=== PATIENT | female | born 1970 | race Caucasian/White ===

== ENCOUNTER 2016-12-02 12:41 | Observation (INO) | payer OTHER ==
--- NOTE | 2016-12-02 14:26 | PDOC ---
*Physical Exam - Physical Exam Comments: 12/02/16 14:26 MIDLEVEL NOTE Pt seen by Midlevel Provider under my direct supervision. Pt interviewed and examined. Ancillary studies reviewed. I agree with plan as outlined by Midlevel Provider. 12/02/16 16:43 46-year-old female with anasarca/edema of the lower extremities which are now weeping Chest [id number] with no definite evidence of acute pathology labwork reviewed Laboratory Results - last 24 hr 12/02/16 12/02/16 12/02/16 14:53 14:53 14:53 WBC 9.4 RBC 4.94 Hgb 12.9 Hct 40.4 MCV 81.7 MCHC 31.8 L RDW 20.2 H Plt Count 283 MPV 9.4 Neutrophils % 74.6 Lymphocytes % 14.5 D Monocytes % 8.2 Eosinophils % 1.6 Basophils % 1.1 Sodium 136 Potassium 4.1 Chloride 99 Carbon Dioxide 25 D Anion Gap 12 BUN 9 D Creatinine 0.6 D Creat Clearance w eGFR > 60 Random Glucose 100 D Lactic Acid 1.629 Calcium 8.8 Total Bilirubin 1.3 H D AST 18 D ALT 19 D Alkaline Phosphatase 99 Total Protein 7.0 Albumin 2.8 L ED Treatment Course - LABORATORY CBC & Chemistry Diagram: 12/02/16 14:53 12/02/16 14:53 *DC/Admit/Observation/Transfer Diagnosis at time of Disposition: Anasarca, Lymph edema - Discharge Dispostion Condition at time of disposition: Stable - Prescriptions
--- NOTE | 2016-12-02 14:46 | PDOC ---
History of Present Illness - General Chief Complaint: Pain Stated Complaint: ABD PAIN Time Seen by Provider: 12/02/16 14:09 History Source: Patient Exam Limitations: No Limitations - History of Present Illness Initial Comments: CHIEF COMPLAINT: 46 y/o morbidly obese afebrile female with PMH CHF, VA (2010 s /p 2 stent placements), COPD, asthma, lymphadema, depression, anxiety c/o pain and swelling of b/l feet up to her stomach. HISTORY OF PRESENT ILLNESS: The patient states she has had worsening lower extremity swelling and pain over the past 6 months. She now has weeping of fluid from her feet. She was admitted to this hospital for the same issue in October and admits once the antibiotics were finished her symptoms returned. She has SOB as well but admits that is chronic. During her previous hospital admission she had an echo which showed an EF of 13.8% and she refused surgical intervention for her CHF. She denies fever, chills, PECK, n/v/d, CP, back pain. REVIEW OF SYSTEMS: GENERAL/CONSTITUTIONAL: Subjective fever/chills. No weakness. No weight change. HEAD, EYES, EARS, NOSE AND THROAT: No change in vision. No ear pain or discharge. No sore throat. CARDIOVASCULAR: +SOB with minimal exertion. No chest pain. RESPIRATORY: No cough, wheezing, or hemoptysis. GASTROINTESTINAL: +abd pain. No nausea, vomiting, diarrhea. GENITOURINARY: No dysuria, frequency, or change in urination. MUSCULOSKELETAL: +severe pain, swelling and weeping from LEs. No neck or back pain. SKIN: No rash or easy bruising. NEUROLOGIC: No headache, vertigo, loss of consciousness, or loss of sensation. PHYSICAL EXAM: GENERAL: The patient is awake, alert, and fully oriented, in no acute distress. She is morbidly obese. HEAD: Normal with no signs of trauma. ENT: Pupils equal, round and reactive to light, extraocular movements intact, sclera anicteric, conjunctiva clear. Neck supple. Lips dry. LUNGS: Distant lung sounds bilaterally secondary to body habitus. Normal excursion. No respiratory distress or use of accessory muscles. CV: RRR, S1/S2, no MRG. Cap refill < 2 sec. ABDOMEN: Obese with hard, tender lymphadema reaching umbilicus. EXTREMITIES: Significant erythematous, edematous, warm, weeping, very TTP lymphadema/anasarca in b/l LEs that extend all the way up to b/l thighs. Unable to palpate dorsalis pedis pulses b/l. B/l feet are wrapped in dressing. NEUROLOGICAL: Normal speech, normal gait. CN II-XII grossly intact. PSYCH: Normal mood, normal affect. SKIN: Diffuse scaring noted on abdomen, chest and arms with different stages of healing, some with open scabs. Past History - Past Medical History Allergies/Adverse Reactions: Allergies Allergy/AdvReac Type Severity Reaction Status Date / Time budesonide Allergy Severe Difficulty Verified 11/02/16 02:51 Breathing erythromycin base Allergy Severe Vomiting Verified 11/02/16 02:51 formoterol Allergy Severe Difficulty Verified 11/02/16 02:51 Breathing gabapentin Allergy Severe Verified 11/02/16 02:51 carvedilol Allergy Intermediate Nausea Verified 11/02/16 02:51 lisinopril Allergy Intermediate Nausea Verified 11/02/16 02:51 omeprazole Allergy Intermediate Verified 11/02/16 02:51 bupropion Allergy Unknown Verified 11/02/16 02:51 Home Medications: Ambulatory Orders Aclidinium [place] [Tudorza Pressair] 400 mcg IH DAILY 11/02/16 Albuterol Sulfate [Proventil HFA Inhaler -] 1 - 2 inh PO QID PRN 11/02/16 Aspirin [Lo-Dose Aspirin EC] 81 mg PO DAILY 11/02/16 Cholecalciferol (Vitamin D3) [Vitamin D3] 2,000 unit PO DAILY 11/02/16 Cyanocobalamin [Vitamin B12 -] 500 mcg PO DAILY 11/02/16 Famotidine [Pepcid -] 40 mg PO BID 11/02/16 Fluticasone/Salmeterol [Advair 250-50 Diskus] 1 each IH DAILY 11/02/16 Magnesium Oxide [Magnesium] 500 mg PO DAILY 11/02/16 Metoprolol Succinate [Toprol XL -] 50 mg PO DAILY 11/02/16 Nortriptyline HCl [Pamelor -] 10 mg PO HS 11/02/16 Valsartan 320 mg PO DAILY 11/02/16 Vitamin B Complex [B Complex # 1] 1 each PO DAILY 11/02/16 Vitamin E 400 unit PO DAILY 11/02/16 Doxycycline Hyclate 100 mg PO BID #28 capsule 11/09/16 Furosemide [Lasix -] 40 mg PO DAILY #7 tablet 11/09/16 Nystatin Cream [Mycostatin Cream -] 1 applic TP BID #1 tube 11/09/16 Salmeterol/Fluticasone [Advair 100Mcg/50Mcg -] 1 puff IH BID inhaler 11/09/16 Sitagliptin Phosphate [Januvia -] 100 mg PO DAILY@0700 #14 ud 11/09/16 Zinc Oxide 1 applic TP BID #1 tube 11/09/16 Asthma: Yes Cardiac Disorders: Yes (CHF, VA) COPD: Yes HTN: Yes Psychiatric Problems: Yes (Depression, anxiety) - Psycho/Social/Smoking Cessation Hx Suicidal Ideation: No Smoking History: Former smoker Have you smoked in the past 12 months: Yes Number of Cigarettes Smoked Daily: 2 If you are a former smoker, when did you quit?: April 2016 Hx Alcohol Use: No Drug/Substance Use Hx: No Substance Use Type: None ED Treatment Course - LABORATORY CBC & Chemistry Diagram: 12/02/16 14:53 12/02/16 14:53 Medical Decision Making - Medical Decision Making A/P: 46 y/o afebrile female with significant lymphadema/anasarca extending from b/l LEs up to abdomen. Plan is as follows: 1. Labs CXR IMPRESSION: Cardiomegaly. Labs unremarkable. Will admit to obs for anasarca. Spoke with Dr. Meza and he accepts admission to observation. *DC/Admit/Observation/Transfer Diagnosis at time of Disposition: Anasarca, Lymph edema - Discharge Dispostion Admit: Yes - Referrals Referrals: Jess Long MD [Primary Care Provider] -
[2016-12-02 16:10] LABS: BASOPHIL 1.1 % (0-2.0); EOSINOPHIL 1.6 % (0-4.5); MCHC 31.8 g/dl (32.0-36.0); MEAN CELL VOLUME 81.7 fl (80-96); MEAN PLT VOLUME 9.4 fl (7.5-11.1); NEUTROPHILS 74.6 % (42.8-82.8); PLATELET COUNT 283 K/MM3 (134-434); RDW 20.2 % (11.6-15.6); WHITE BLOOD COUNT 9.4 K/mm3 (4.0-10.0)
[2016-12-02 16:33] LABS: ALBUMIN 2.8 g/dl (3.4-5.0); ALK PHOS 99 U/L (45-117); ANION GAP 12 (8-16); BILIRUBIN,TOTAL 1.3 mg/dL (0.2-1.0); CALCIUM 8.8 mg/dL (8.5-10.1); CO2 25 mmol/L (21-32); CREATININE 0.6 mg/dL (0.55-1.02); GLUCOSE,RANDOM 100 mg/dL (74-106); SGOT/AST 18 U/L (15-37); SGPT/ALT 19 U/L (12-78)
[2016-12-02] MEDS ORDERED: HYDROmorphone HCL CARPU-JECT 1 MG/1 ML DISP.SYRIN ONE (16:36)
[2016-12-02] MEDS ORDERED: HYDROmorphone HCL CARPU-JECT 1 MG/1 ML DISP.SYRIN IVPUSH ONE (16:36)
--- NOTE | 2016-12-02 20:18 | HP ---
CHIEF COMPLAINT: chronic swelling in b/l legs HISTORY OF PRESENT ILLNESS: Patient is a 46 year old female with a significant PMHx of CHF, CAD s/p MT with two stent placements ( 2010), COPD, asthma, Lymphedema, depression, anxiety, DM and morbid obesity who presents to the ED with a complain of chronic lymphadema in b/l lower limb and anterior abdominal wall. Patient states that she noticed a increse in swelling in her leg and anterior abdominal wall around 10 days ago. Patient reports drainage from the left leg with surrounding erythema also states it was also present during her last admission and for which she had completed a course of antibiotics and was advised to follow up with wound clinic. Patient denies shortness of breath, chest pain lightheadedness, dizziness. Patient denies fever, chills, burning micturation. Patient denies recent travel, history of blood clots, chest pain, palpitations, fever, chills, nausea, vomiting, dizziness, headaches, loss of consciousness. She denies taking control. ER course was notable for: (1) cbc, bmp (2) blood culture (3)cxr Recent Travel: no PAST MEDICAL HISTORY: CHF, CAD s/p MT with two stent placements, COPD, asthma, Lymphedema, depression, anxiety, morbid obesity PAST SURGICAL HISTORY: stent placement in 2010, tonsillectomy Social History: Smoking: Quit march 2016( use to smoke 2 packs a day ) but now smoke few 2-3 cig Alcohol: Denies Drugs: marijuana occasional Family History: Allergies budesonide Allergy (Severe, Verified 11/02/16 02:51) Difficulty Breathing erythromycin base Allergy (Severe, Verified 11/02/16 02:51) Vomiting formoterol Allergy (Severe, Verified 11/02/16 02:51) Difficulty Breathing gabapentin Allergy (Severe, Verified 11/02/16 02:51) carvedilol Allergy (Intermediate, Verified 11/02/16 02:51) Nausea lisinopril Allergy (Intermediate, Verified 11/02/16 02:51) Nausea omeprazole Allergy (Intermediate, Verified 11/02/16 02:51) bupropion Allergy (Unknown, Verified 11/02/16 02:51) HOME MEDICATIONS: Home Medications Medication Instructions Recorded Aclidinium [place] [Tudorza 400 mcg IH DAILY 11/02/16 Pressair] Albuterol Sulfate [Proventil HFA 1 - 2 inh PO QID PRN 11/02/16 Inhaler -] Aspirin [Lo-Dose Aspirin EC] 81 mg PO DAILY 11/02/16 Cholecalciferol (Vitamin D3) 2,000 unit PO DAILY 11/02/16 [Vitamin D3] Cyanocobalamin [Vitamin B12 -] 500 mcg PO DAILY 11/02/16 Famotidine [Pepcid -] 40 mg PO BID 11/02/16 Fluticasone/Salmeterol [Advair 1 each IH DAILY 11/02/16 250-50 Diskus] Magnesium Oxide [Magnesium] 500 mg PO DAILY 11/02/16 Metoprolol Succinate [Toprol XL -] 50 mg PO DAILY 11/02/16 Nortriptyline HCl [Pamelor -] 10 mg PO HS 11/02/16 Valsartan 320 mg PO DAILY 11/02/16 Vitamin B Complex [B Complex # 1] 1 each PO DAILY 11/02/16 Vitamin E 400 unit PO DAILY 11/02/16 Doxycycline Hyclate 100 mg PO BID #28 capsule 11/09/16 Furosemide [Lasix -] 40 mg PO DAILY #7 tablet 11/09/16 Nystatin Cream [Mycostatin Cream -] 1 applic TP BID #1 tube 11/09/16 Salmeterol/Fluticasone [Advair 1 puff IH BID inhaler 11/09/16 100Mcg/50Mcg -] Sitagliptin Phosphate [Januvia -] 100 mg PO DAILY@0700 #14 ud 11/09/16 Zinc Oxide 1 applic TP BID #1 tube 11/09/16 REVIEW OF SYSTEMS CONSTITUTIONAL: Absent: fever, chills, diaphoresis, generalized weakness, malaise, loss of appetite, weight change HEENT: Absent: rhinorrhea, nasal congestion, throat pain, throat swelling, difficulty swallowing, mouth swelling, ear pain, eye pain, visual changes CARDIOVASCULAR: Absent: chest pain, syncope, palpitations, irregular heart rate, lightheadedness , peripheral edema RESPIRATORY: Absent: cough, shortness of breath, dyspnea with exertion, orthopnea, wheezing, stridor, hemoptysis GASTROINTESTINAL: Absent: abdominal pain, abdominal distension, nausea, vomiting, diarrhea, constipation, melena, hematochezia GENITOURINARY: Absent: dysuria, frequency, urgency, hesitancy, hematuria, flank pain, genital pain MUSCULOSKELETAL: Absent: myalgia, arthralgia, joint swelling, back pain, neck pain SKIN: Absent: rash, itching, pallor HEMATOLOGIC/IMMUNOLOGIC: Absent: easy bleeding, easy bruising, lymphadenopathy, frequent infections ENDOCRINE: Absent: unexplained weight gain, unexplained weight loss, heat intolerance, cold intolerance NEUROLOGIC: Absent: headache, focal weakness or paresthesias, dizziness, unsteady gait, seizure, mental status changes, bladder or bowel incontinence PSYCHIATRIC: Absent: anxiety, depression, suicidal or homicidal ideation, hallucinations. PHYSICAL EXAMINATION GENERAL: Awake, alert, and fully oriented, in no acute distress. HEAD: Normal with no signs of trauma. EYES: Pupils equal, round and reactive to light, extraocular movements intact, EARS, NOSE, THROAT: Ears normal, nares patent, oropharynx clear without exudates. NECK: Normal range of motion, LUNGS: Breath sounds equal, clear to auscultation bilaterally. No wheezes, and no crackles. No accessory muscle use. HEART: s1s2 normal ABDOMEN: Obese with hard, tender lymphadema reaching umbilicus. MUSCULOSKELETAL: Normal range of motion at all joints. No bony deformities or tenderness. No CVA tenderness. UPPER EXTREMITIES: 2+ pulses, warm, well-perfused. No cyanosis. No clubbing. Cap refill <2 seconds. No peripheral edema. LOWER EXTREMITIES: Obese with hard, tender lymphadema reaching umbilicus. EXTREMITIES:+LLE ulcer. +Chronic erythema of bilateral lower extremities, no warmth, normothermic. No clubbing or cyanosis. . NEUROLOGICAL: Cranial nerves II-XII intact. Normal speech. PSYCHIATRIC: non Cooperative. Good eye contact. SKIN: Warm, dry, ASSESSMENT/PLAN: Patient is a 46 year old female with a significant PMHx of CHF , CAD s/p MT with two stent placements, HTN, COPD, asthma, Lymphedema, depression, anxiety, and morbid obesity who presents to the ED for chronic lymphedema in b/l lower limb and in anterior abdominal wall. chronic Cellulitis with b/l LE lymphedema - patient recently discharged from hospital and has completed a course of antibiotic - advised to follow up with wound clinic - advised to follow up with vascular surgeon for lymphedema - keep limbs elevated - low salt diet ( patient refused to take low salt diet) - lasix 40 mg bid ( patient refuses to take more than 40mg, during last discharge patient was started on 80 mg daily but patient is just taking 40mg daily ) -Patient uncooperative with any recommended medical care. Chronic lymphedema noncompliant with any medical recommendations. Patient does not require hospital admission as her issues are chronic and discharged to continue care with PMD. Patient advised to follow up with wound care and referred to vascular for further evaluation. - clindamycin 600mg tid for 7 days CAD s/p MT with 2 stents -Continue home medications with Toprol xl -Conitinue Aspirin 81mg daily -Continue Valsartan DM not compliant with medication, in last visit patient advised to follow up with endocrnologist, patient refused medication and insulin patient refuse blood glucose monitoring diabetic diet ( patient refused diabetic diet and asked her mom to bring food from outside, butter and sugar ) CHF -ECHO done in last visit ef 16 -on lasix 40mg -Strict I's & O's -Daily weight -Sodium restricted diet HTN -Continue home medications Toprolol xl daily and Valsartan 320mg daily -Monitor BP Anxiety/Depression - psychiatry consult F/E/N -no fluids -Electrolytes wnl -Sodium controlled diet Prophylaxis -Heparin SQ BID for DVT ( patient refusing heparin ) -No GI needed asthma continue with home meds Disposition -Full code Visit type - Emergency Visit Emergency Visit: Yes ED Registration Date: 12/02/16 Care time: The patient presented to the Emergency Department on the above date and was hospitalized for further evaluation of their emergent condition. - New Patient This patient is new to me today: Yes Date on this admission: 12/03/16 - Critical Care Critical Care patient: No
[2016-12-02 20:38] VITALS: BP 117/61; PULSE 102; TEMP 97.4
--- NOTE | 2016-12-02 21:02 | DS ---
Physical Exam: SUBJECTIVE: Patient seen and examined OBJECTIVE: PHYSICAL EXAM Patient is a 46 year old female with a significant PMHx of CHF, CAD s/p [place] with two stent placements ( 2010), COPD, asthma, Lymphedema, depression, anxiety, DM and morbid obesity who presents to the ED with a complain of chronic lymphadema in b/l lower limb and anterior abdominal wall. Patient states that she noticed a increse in swelling in her leg and anterior abdominal wall around 10 days ago. Patient reports drainage from the left leg with surrounding erythema also states it was also present during her last admission and for which she had completed a course of antibiotics and was advised to follow up with wound clinic. Patient denies shortness of breath, chest pain lightheadedness, dizziness. Patient denies fever, chills, burning micturation. Patient denies recent travel, history of blood clots, chest pain, palpitations, fever, chills, nausea, vomiting, dizziness, headaches, loss of consciousness. She denies taking control. GENERAL: Awake, alert, and fully oriented, in no acute distress. HEAD: Normal with no signs of trauma. EYES: Pupils equal, round and reactive to light, extraocular movements intact, EARS, NOSE, THROAT: Ears normal, nares patent, oropharynx clear without exudates. NECK: Normal range of motion, LUNGS: Breath sounds equal, clear to auscultation bilaterally. No wheezes, and no crackles. No accessory muscle use. HEART: s1s2 normal ABDOMEN: Obese with hard, tender lymphadema reaching umbilicus. MUSCULOSKELETAL: Normal range of motion at all joints. No bony deformities or tenderness. No CVA tenderness. UPPER EXTREMITIES: 2+ pulses, warm, well-perfused. No cyanosis. No clubbing. Cap refill <2 seconds. No peripheral edema. lower EXTREMITIES: +LLE ulcer. +Chronic erythema of bilateral lower extremities , no warmth, normothermic. No clubbing or cyanosis. NEUROLOGICAL: Cranial nerves II-XII intact. Normal speech. PSYCHIATRIC: non Cooperative. Good eye contact. SKIN: Warm, dry, LABS CBCD WBC 9.4 K/mm3 (4.0-10.0) 12/02/16 14:53 RBC 4.94 M/mm3 (3.60-5.2) 12/02/16 14:53 Hgb 12.9 GM/dL (10.7-15.3) 12/02/16 14:53 Hct 40.4 % (32.4-45.2) 12/02/16 14:53 MCV 81.7 fl (80-96) 12/02/16 14:53 MCHC 31.8 g/dl (32.0-36.0) L 12/02/16 14:53 RDW 20.2 % (11.6-15.6) H 12/02/16 14:53 Plt Count 283 K/MM3 (134-434) 12/02/16 14:53 MPV 9.4 fl (7.5-11.1) 12/02/16 14:53 CMP Sodium 136 mmol/L (136-145) 12/02/16 14:53 Potassium 4.1 mmol/L (3.5-5.1) 12/02/16 14:53 Chloride 99 mmol/L (98-107) 12/02/16 14:53 Carbon Dioxide 25 mmol/L (21-32) D 12/02/16 14:53 Anion Gap 12 (8-16) 12/02/16 14:53 BUN 9 mg/dL (7-18) D 12/02/16 14:53 Creatinine 0.6 mg/dL (0.55-1.02) D 12/02/16 14:53 Creat Clearance w eGFR > 60 (>60) 12/02/16 14:53 Random Glucose 100 mg/dL (74-106) D 12/02/16 14:53 Calcium 8.8 mg/dL (8.5-10.1) 12/02/16 14:53 Total Bilirubin 1.3 mg/dL (0.2-1.0) H D 12/02/16 14:53 AST 18 U/L (15-37) D 12/02/16 14:53 ALT 19 U/L (12-78) D 12/02/16 14:53 Alkaline Phosphatase 99 U/L (45-117) 12/02/16 14:53 Total Protein 7.0 g/dl (6.4-8.2) 12/02/16 14:53 Albumin 2.8 g/dl (3.4-5.0) L 12/02/16 14:53 HOSPITAL COURSE: Patient is a 46 year old female with a significant PMHx of CHF , CAD s/p [place] with two stent placements ( 2010), COPD, asthma, Lymphedema, depression, anxiety, DM and morbid obesity who presents to the ED with a complain of chronic lymphadema in b/l lower limb and anterior abdominal wall. Patient states that she noticed a increase in swelling in her leg and anterior abdominal wall around 10 days ago. Patient reports drainage from the left leg with surrounding erythema also states it was also present during her last admission and for which she had completed a course of antibiotics and was also advised to follow up with wound clinic. Patient states she never followed in wound clinic. Patient denies shortness of breath, chest pain lightheadedness, dizziness. Patient denies fever, chills, burning micturation. Patient denies recent travel, history of blood clots, chest pain, palpitations, fever, chills, nausea, vomiting, dizziness, headaches, loss of consciousness. She denies taking control. Patient has chronic cellulites for which she is started on clindamycin 600mg tid. Patient uncooperative with any recommended medical care. Chronic lymphedema noncompliant with any medical recommendations. Patient does not require hospital admission as her issues are chronic and discharged to continue care with PMD. Patient advised to follow up with wound care and referred to vascular for further evaluation. For chronic lymphedema patient is advised to follow up with vascular surgeon and keep limbs elevated also advised to follow up in wound clinic. Patient is also advised to take medications as advised. For DM patient is advised to take her meds and follow up with server service assistant. Patient denies taking medication for DM and refuses to eat diabetic diet. Patient has been expalined in detail that if she is not going to maintain her blood sugar she can develop complication of DM like retinopathy, DE, renal ds, DE, stroke, peripharal neuropathy, infection can increase in her legs. Patient understand every thing and still asked her mom to bring food from outside. For copd and asthma continue with your home meds. Advice Follow-up with Dr. Long, your pcp Follow-up with Dr. Jordan for diabetes Avoid salty foods, carbohydrates and sugar. Follow-up with the wound care clinic, with Dr. Evangelist Caraballo regarding a lymphedema pump and wound care. follow up in wound clinic keep your legs elevated while sitting Eat low salt diet Eat Diabetic diet quit smoking Follow up with your psychiatrist take medications as prescribed Date of Admission:12/02/16 Minutes to complete discharge: 30 Discharge Summary Reason For Visit: ANASARCA; LYMPH EDEMA Current Active Problems Lymph edema (Chronic) Condition: Stable - Instructions Diet, Activity, Other Instructions: Follow-up with Dr. Long, your pcp Follow-up with Dr. Jordan for diabetes Avoid salty foods, carbohydrates and sugar. Follow-up with the wound care clinic, with Dr. Evangelist Caraballo regarding a lymphedema pump and wound care. follow up in wound clinic keep your legs elevated while sitting Eat low salt diet Eat Diabetic diet quit smoking Follow up with your psychiatrist take medications as prescribed Referrals: Jess Long MD [Primary Care Provider] - Disposition: HOME - Home Medications Comprehensive Discharge Medication List: Ambulatory Orders Aclidinium [place] [Tudorza Pressair] 400 mcg IH DAILY 11/02/16 Albuterol Sulfate [Proventil HFA Inhaler -] 1 - 2 inh PO QID PRN 11/02/16 Aspirin [Lo-Dose Aspirin EC] 81 mg PO DAILY 11/02/16 Cholecalciferol (Vitamin D3) [Vitamin D3] 2,000 unit PO DAILY 11/02/16 Cyanocobalamin [Vitamin B12 -] 500 mcg PO DAILY 11/02/16 Famotidine [Pepcid -] 40 mg PO BID 11/02/16 Fluticasone/Salmeterol [Advair 250-50 Diskus] 1 each IH DAILY 11/02/16 Magnesium Oxide [Magnesium] 500 mg PO DAILY 11/02/16 Metoprolol Succinate [Toprol XL -] 50 mg PO DAILY 11/02/16 Nortriptyline HCl [Pamelor -] 10 mg PO HS 11/02/16 Valsartan 320 mg PO DAILY 11/02/16 Vitamin B Complex [B Complex # 1] 1 each PO DAILY 11/02/16 Vitamin E 400 unit PO DAILY 11/02/16 Furosemide [Lasix -] 40 mg PO DAILY #7 tablet 11/09/16 Salmeterol/Fluticasone [Advair 100Mcg/50Mcg -] 1 puff IH BID inhaler 11/09/16 Zinc Oxide 1 applic TP BID #1 tube 11/09/16 Clindamycin [Cleocin -] 600 mg PO Q8H #21 capsule 12/02/16 This patient is new to me today: Yes Date on this admission: 12/03/16 Emergency Visit: Yes ED Registration Date: 12/02/16 Care time: The patient presented to the Emergency Department on the above date and was hospitalized for further evaluation of their emergent condition. Critical Care patient: No - Discharge Referral Referred to [facility] Med [facility] Yes Physician Referral: Evangelist Caraballo DO ([facility])
--- NOTE | 2016-12-02 21:05 | PN ---
<Swetha Walker - Last Filed: 12/02/16 21:05> Teaching Attending Note Name of Resident: Neptali Barajas <Beatrice Ty - Last Filed: 12/02/16 21:21> Teaching Attending Note ATTENDING PHYSICIAN STATEMENT I saw and evaluated the patient. I reviewed the resident's note and discussed the case with the resident. I agree with the resident's findings and plan as documented. SUBJECTIVE: The patient is a 46 yo F with a PMHx of CHF, [place] (2011 s/p 2 stent placements), COPD, asthma, lymphadema, depression, anxiety who presents with worsening bilateral LE pain and swelling. The patient states her feet are now weeping and is uncontrolled. The patient denies chest pain, headache or dizziness. She denies fever, chills, nausea, vomit, diarrhea or constipation. She denies dysuria, frequency, urgency or hematuria. OBJECTIVE: Physical Last Vital Signs Temp Pulse Resp BP Pulse Ox 97.4 F L 102 H 21 117/61 94 L 12/02/16 12:45 12/02/16 12:45 12/02/16 12:45 12/02/16 12:45 12/02/16 12:45 GENERAL: +Morbidly obese Awake, alert, and fully oriented, in no acute distress HEENT: Atraumatic. PERRLA, EOMI. Moist mucosa. No JVD LUNGS: No distress, speaks full sentences, clear to auscultation bilaterally HEART: Regular rate and rhythm, normal S1 and S2, no murmurs, rubs or gallops, peripheral pulses normal and equal bilaterally. ABDOMEN: Soft, nontender, normoactive bowel sounds. No guarding, no rebound. No masses EXTREMITIES: +LLE ulcer. +Chronic erythema of bilateral lower extremities, no warmth, normothermic. No clubbing or cyanosis. NEUROLOGICAL: Cranial nerves II through XII grossly intact. Normal speech, normal gait, no focal sensorimotor deficits SKIN: Warm, Dry, normal turgor, no rashes or lesions noted. CBCD WBC 9.4 K/mm3 (4.0-10.0) 12/02/16 14:53 RBC 4.94 M/mm3 (3.60-5.2) 12/02/16 14:53 Hgb 12.9 GM/dL (10.7-15.3) 12/02/16 14:53 Hct 40.4 % (32.4-45.2) 12/02/16 14:53 MCV 81.7 fl (80-96) 12/02/16 14:53 MCHC 31.8 g/dl (32.0-36.0) L 12/02/16 14:53 RDW 20.2 % (11.6-15.6) H 12/02/16 14:53 Plt Count 283 K/MM3 (134-434) 12/02/16 14:53 MPV 9.4 fl (7.5-11.1) 12/02/16 14:53 CMP Sodium 136 mmol/L (136-145) 12/02/16 14:53 Potassium 4.1 mmol/L (3.5-5.1) 12/02/16 14:53 Chloride 99 mmol/L (98-107) 12/02/16 14:53 Carbon Dioxide 25 mmol/L (21-32) D 12/02/16 14:53 Anion Gap 12 (8-16) 12/02/16 14:53 BUN 9 mg/dL (7-18) D 12/02/16 14:53 Creatinine 0.6 mg/dL (0.55-1.02) D 12/02/16 14:53 Creat Clearance w eGFR > 60 (>60) 12/02/16 14:53 Calcium 8.8 mg/dL (8.5-10.1) 12/02/16 14:53 Total Bilirubin 1.3 mg/dL (0.2-1.0) H D 12/02/16 14:53 AST 18 U/L (15-37) D 12/02/16 14:53 ALT 19 U/L (12-78) D 12/02/16 14:53 Alkaline Phosphatase 99 U/L (45-117) 12/02/16 14:53 Total Protein 7.0 g/dl (6.4-8.2) 12/02/16 14:53 Albumin 2.8 g/dl (3.4-5.0) L 12/02/16 14:53 ASSESSMENT AND PLAN: The patient is a 46 yo F with a PMHx of CHF, [place] (2010 s/p 2 stent placements), COPD, asthma, lymphadema, depression, anxiety who presents with worsening LE pain and swelling. 1.) Chronic lymphedema - Patient uncooperative with any recommended medical care. - Chronic lymphedema noncompliant with any medical recommendations. - Patient does not require hospital admission as her issues are chronic and discharged to continue care with PMD. - Patient advised to follow up with wound care and referred to vascular for further evaluation. 2.) Chronic Cellulitis - Patients cellulitis is chronic. - Advised for wound care-- BID. - Clindamycin - Patient will benefit from hyperbaric oxygen therapy 3.) Diabetes - Patient counseled extensively on diabetes and complications due to uncontrolled blood glucose including peripheral neuropathy, diabetic ulcers, amputation, vision loss and nephropathy with dialysis. 4.) Depression - Patient also advised to get psychiatric counseling to assist with her depression as poorly controlled depression has been shown to decrease a patient' s ability to properly manage their chronic diseases. - Patient again non complaint and unwilling to talk to a stranger. 5.)Diet - Patient counseled about adhering to diabetic diet. Documentation prepared by Beatrice Ty, acting as phlebotomist medical lab assistant for Denise Posada MD
[2016-12-02 23:02] VITALS: BMI 72.0
--- NOTE | 2016-12-06 16:24 | EKG ---
Test Reason : Blood Pressure : / mmHG Vent. Rate : 104 BPM Atrial Rate : 104 BPM P-R Int : 172 ms QRS Dur : 104 ms QT Int : 372 ms P-R-T Axes : 051 -24 050 degrees QTc Int : 489 ms SINUS TACHYCARDIA POSSIBLE LEFT ATRIAL ENLARGEMENT INFERIOR INFARCT (CITED ON OR BEFORE 02-NOV-2016) ANTERIOR INFARCT (CITED ON OR BEFORE 23-DEC-2010) ABNORMAL ECG WHEN COMPARED WITH ECG OF 02-NOV-2016 13:23, PREMATURE VENTRICULAR COMPLEXES ARE NO LONGER PRESENT Confirmed by PACO ESTEVEZ MD ([id number]) on 12/06/2016 4:24:14 PM Referred By: Confirmed By:PACO ESTEVEZ MD
== END 2016-12-02 23:00 | disposition home or self-care (01) ==
LOC: JER 12:41 → JERBED 18:12
PROVIDERS: ADMIT Internal Medicine; ATTEND Internal Medicine
DX: R60.1 Generalized edema (principal); I25.10 Atherosclerotic heart disease of native coronary artery without angina pectoris; I25.2 Old myocardial infarction; J44.9 Chronic obstructive pulmonary disease, unspecified; J45.909 Unspecified asthma, uncomplicated; F41.8 Other specified anxiety disorders; E66.01 Morbid (severe) obesity due to excess calories; Z68.45 Body mass index [BMI] 70 or greater, adult; Z71.3 Dietary counseling and surveillance; I50.9 Heart failure, unspecified; E11.9 Type 2 diabetes mellitus without complications; L03.116 Cellulitis of left lower limb; L03.115 Cellulitis of right lower limb; Z95.5 Presence of coronary angioplasty implant and graft; Z87.891 Personal history of nicotine dependence; Z91.19 Patient's noncompliance with other medical treatment and regimen
CPT/HCPCS: 36415; 71010-TC; 80053; 83605; 83880; 85025; 87040; 93005; 93010; 99284-25; G0378

== ENCOUNTER 2017-06-03 00:22 | Inpatient (IN) | payer OTHER ==
--- NOTE | 2017-06-03 01:46 | PDOC ---
History of Present Illness - General Chief Complaint: Shortness of Breath Stated Complaint: SOB Time Seen by Provider: 06/03/17 00:47 - History of Present Illness Initial Comments: 06/03/17 01:46 CHIEF COMPLAINT: SOB HISTORY OF PRESENT ILLNESS: 46 yo F with significant PMH of CHF, [place] (2010, s/p two stent placements), COPD, asthma, chronic lymphadema, morbid obesity, depression, anxiety, presents to ED with chronic shortness of breath and swelling. Patient also complains of severe R sided back pain. She denies any fever, chills, nausea, vomiting, or chest pain. Patient is known to be non compliant with medical recommendations and refuses to make dietary changes despite repeated instructions from cardiology and hospitalists upon prior discharges from the hospital. PAST MEDICAL HISTORY: as per HPI FAMILY HISTORY: Denies SOCIAL HISTORY: Marijuana use "sometimes", "a few" cigarettes "sometimes" SURGICAL HISTORY: stent placement 2010 ALLERGIES: budesonide, erythromycin, formoterol, gabapentin, lisinopril, REVIEW OF SYSTEMS General/Constitutional: Denies fever or chills. Denies weakness, weight change. HEENT: Denies change in vision. Denies ear pain or discharge. Denies sore throat. Cardiovascular: Shortness of breath. Respiratory: Cough, wheezing. Gastrointestinal: Denies nausea, vomiting, diarrhea or constipation. Denies rectal bleeding. Genitourinary: Denies dysuria, frequency, or change in urination. Musculoskeletal: R sided back pain. Denies joint or muscle swelling or pain. Skin and breasts: Denies rash or easy bruising. Neurologic: Denies headache, vertigo, loss of consciousness, or loss of sensation. PHYSICAL EXAM General Appearance: Well-appearing, appropriately dressed. No apparent distress. HEENT: EOMI, PERRLA, normal ENT inspection, normal voice, TMs normal, pharynx normal. No conjunctival pallor. No photophobia, scleral icterus. Respiratory/Chest: Shortness of breath. Bibasilar crackles. No accessory muscle use. No rales, rhonchi, dullness. Cardiovascular: RRR. S1, S2. No JVD, murmur, bradycardia, tachycardia. Vascular Pulses: DP's nonpalpable b/l due to severe lymphadema Gastrointestinal/Abdominal: Normal bowel sounds. Abdomen soft, non-distended. No tenderness or rebound tenderness. No organomegaly, pulsatile mass, guarding , hernia, hepatomegaly, splenomegaly. Musculoskeletal/Extremities: R CVA tenderness. Normal inspection. FROM of all extremities, normal capillary refill. Pelvis Stable. No CVA tenderness. No tenderness to extremities, pedal edema, swelling, erythema or deformity. Integumentary: Appropriate color, dry, warm. No cyanosis, erythema, jaundice or rash Neurologic: radiologic technology teacher II-XII intact. Fully oriented, alert. Appropriate mood/affect. Motor strength 5/5. No appreciable EOM palsy, facial droop or sensory deficit. Past History - Past Medical History Allergies/Adverse Reactions: Allergies Allergy/AdvReac Type Severity Reaction Status Date / Time budesonide Allergy Severe Difficulty Verified 06/03/17 01:52 Breathing erythromycin base Allergy Severe Vomiting Verified 06/03/17 01:52 formoterol Allergy Severe Difficulty Verified 06/03/17 01:52 Breathing gabapentin Allergy Severe Verified 06/03/17 01:52 carvedilol Allergy Intermediate Nausea Verified 06/03/17 01:52 lisinopril Allergy Intermediate Nausea Verified 06/03/17 01:52 omeprazole Allergy Intermediate Verified 06/03/17 01:52 bupropion Allergy Unknown Verified 06/03/17 01:52 Home Medications: Ambulatory Orders Aclidinium [place] [Tudorza Pressair] 400 mcg IH DAILY 11/02/16 Albuterol Sulfate [Proventil HFA Inhaler -] 1 - 2 inh PO QID PRN 11/02/16 Aspirin [Lo-Dose Aspirin EC] 81 mg PO DAILY 11/02/16 Cholecalciferol (Vitamin D3) [Vitamin D3] 2,000 unit PO DAILY 11/02/16 Cyanocobalamin [Vitamin B12 -] 500 mcg PO DAILY 11/02/16 Famotidine [Pepcid -] 40 mg PO BID 11/02/16 Fluticasone/Salmeterol [Advair 250-50 Diskus] 1 each IH DAILY 11/02/16 Magnesium Oxide [Magnesium] 500 mg PO DAILY 11/02/16 Metoprolol Succinate [Toprol XL -] 50 mg PO DAILY 11/02/16 Nortriptyline HCl [Pamelor -] 10 mg PO HS 11/02/16 Valsartan 320 mg PO DAILY 11/02/16 Vitamin B Complex [B Complex # 1] 1 each PO DAILY 11/02/16 Vitamin E 400 unit PO DAILY 11/02/16 Furosemide [Lasix -] 40 mg PO DAILY #7 tablet 11/09/16 Salmeterol/Fluticasone [Advair 100Mcg/50Mcg -] 1 puff IH BID inhaler 11/09/16 Zinc Oxide 1 applic TP BID #1 tube 11/09/16 Clindamycin [Cleocin -] 600 mg PO Q8H #21 capsule 12/02/16 Asthma: Yes Cardiac Disorders: Yes (CHF, [place]) COPD: Yes HTN: Yes Psychiatric Problems: Yes (Depression, anxiety) - Psycho/Social/Smoking Cessation Hx Anxiety: No Suicidal Ideation: No Smoking History: Former smoker Have you smoked in the past 12 months: Yes Number of Cigarettes Smoked Daily: 2 If you are a former smoker, when did you quit?: April 2016 Hx Alcohol Use: No Drug/Substance Use Hx: No Substance Use Type: None ED Treatment Course - LABORATORY CBC & Chemistry Diagram: 06/11/17 06:00 06/11/17 06:00 - RADIOLOGY Radiology Studies Ordered: Category Date Time Status CHEST X-RAY PORTABLE* [RAD] Stat Radiology 06/03/17 00:59 Ordered Medical Decision Making - Medical Decision Making 06/03/17 03:42 46 yo F with significant PMH of CHF, [place] (2010, s/p two stent placements), COPD , asthma, chronic lymphadema, morbid obesity, depression, anxiety, presents to ED with chronic shortness of breath and swelling and R sided back pain. -CBC, CMP, Mg, PT/INR, card profile, BNP -EKG, CXR -UA, Ucx -30 mg Toradol IV EKG unchanged from prior. CXR with haziness to b/l bases, no significant change from prior. 06/03/17 04:43 Laboratory Tests 06/03/17 06/03/17 01:50 01:50 WBC 11.8 H Magnesium 1.7 L Total Bilirubin 1.2 H B-Natriuretic Peptide 6151.49 H Will admit for CHF exacerbation. *DC/Admit/Observation/Transfer Diagnosis at time of Disposition: Acute on chronic systolic (congestive) heart failure - Discharge Dispostion Admit: Yes - Referrals
[2017-06-03 01:52] VITALS: BMI 53.3
[2017-06-03 02:01] LABS: EOSINOPHIL 0.8 % (0-4.5); MCH 28.6 pg (25.7-33.7); MCHC 32.1 g/dl (32.0-36.0); MEAN CELL VOLUME 89.2 fl (80-96); NEUTROPHILS 79.1 % (42.8-82.8); PLATELET COUNT 157 K/MM3 (134-434); RDW 16.7 % (11.6-15.6); WHITE BLOOD COUNT 11.8 K/mm3 (4.0-10.0)
[2017-06-03 02:13] LABS: INR 1.53 (0.82-1.09)
[2017-06-03 02:25] LABS: ALBUMIN 2.9 g/dl (3.4-5.0); ANION GAP 10 (8-16); BILIRUBIN,TOTAL 1.2 mg/dL (0.2-1.0); CALCIUM 8.9 mg/dL (8.5-10.1); CO2 27 mmol/L (21-32); CREATININE 0.7 mg/dL (0.55-1.02); GLUCOSE,RANDOM 122 mg/dL (74-106); MAGNESIUM 1.7 mg/dL (1.8-2.4); SGOT/AST 12 U/L (15-37); SGPT/ALT 12 U/L (12-78); TOT PROT 7.8 g/dl (6.4-8.2)
[2017-06-03 02:28] LABS: ALK PHOS 90 U/L (45-117); CPK 21 IU/L (26-192); TROPONIN I 0.03 ng/ml (0.00-0.05)
[2017-06-03] MEDS ORDERED: KETOROLAC TROMETHAMINE 30 MG/1 ML VIAL IVPUSH ONE (02:30)
[2017-06-03] MEDS ORDERED: KETOROLAC TROMETHAMINE 30 MG/1 ML VIAL ONE (02:33)
--- NOTE | 2017-06-03 02:34 | PDOC ---
*Physical Exam - Vital Signs Last Vital Signs Temp Pulse Resp BP Pulse Ox 98.1 F 110 H 36 H 96/58 99 06/03/17 01:45 06/03/17 01:45 06/03/17 01:45 06/03/17 01:45 06/03/17 01:45 ED Treatment Course - LABORATORY CBC & Chemistry Diagram: 06/06/17 06:00 06/06/17 06:00 - ADDITIONAL ORDERS Additional order review: Laboratory Results 06/03/17 06/03/17 01:50 01:50 INR 1.53 H Serum , Qual Negative 06/03/17 01:50 RBC 4.25 MCV 89.2 MCHC 32.1 RDW 16.7 H D MPV 9.0 Neutrophils % 79.1 Lymphocytes % 8.7 D Monocytes % 10.4 H Eosinophils % 0.8 Basophils % 1.0 Medical Decision Making - Medical Decision Making 06/03/17 02:33 agree with care from SANDY Ballard *DC/Admit/Observation/Transfer Diagnosis at time of Disposition: Acute on chronic systolic (congestive) heart failure
[2017-06-03] MEDS ORDERED: FUROSEMIDE 40 MG/4 ML INJECTABLE VIAL IVPUSH ONE ×2 (03:32→10:00)
[2017-06-03] MEDS ORDERED: FUROSEMIDE 40 MG/4 ML INJECTABLE VIAL ONE (04:06)
[2017-06-03 04:37] LABS: URINE APPEARANCE SLCLOUDY; URINE BILIRUBIN NEGATIVE (NEGATIVE); URINE BLOOD NEGATIVE (NEGATIVE); URINE COLOR AMBER; URINE GLUCOSE (UA) NEGATIVE (NEGATIVE); URINE KETONE NEGATIVE (NEGATIVE); URINE LEUK ESTERASE NEGATIVE (NEGATIVE); URINE NITRITE NEGATIVE (NEGATIVE); URINE UROBILINOGEN NEGATIVE mg/dL (0.2-1.0)
[2017-06-03 04:46] LABS: URINE PROTEIN 1+ (NEGATIVE)
[2017-06-03 04:48] LABS: URINE BACTERIA RARE /hpf (NONE SEEN); URINE HYALINE CAST 1 /lpf; URINE MUCUS RARE; URINE RBC 1 /hpf (0-3); URINE WBC 2 /hpf (3-5)
--- NOTE | 2017-06-03 05:33 | HP ---
CHIEF COMPLAINT: Sob/cough PCP: Ethan HISTORY OF PRESENT ILLNESS: This is a 46 year old morbidly obese woman with a past medical history significant for CHF, [place], cOPD, asthma, chronic lymphedema, depression, anxiety, pulmonary HTN who presented to the ED with report of increased SOB and cough x 3 -4 days. SHe reports cough is more productive and frequent than usual with clear /white phlegm at times streaked with blood. She also presents with right flank pain. Denies N/V/D abdominal pain. ER course was notable for: (1) WBC 11.8 (2) BNP 6151 Recent Travel: pt denies PAST MEDICAL HISTORY: CHF [place] 2010 s/p stent x 2 COPD/asthma chronic lymphedema, morbid obesity depression anxiety pulmonary hypertension PAST SURGICAL HISTORY: stent x 2 Social History: Smoking: few cig/day Alcohol: pt denies Drugs: marijuana occasionally Family History: mother alive with HTN father age 63, [place], first [place] in his 50s brother alive and well no children Allergies budesonide Allergy (Severe, Verified 06/03/17 01:52) Difficulty Breathing erythromycin base Allergy (Severe, Verified 06/03/17 01:52) Vomiting formoterol Allergy (Severe, Verified 06/03/17 01:52) Difficulty Breathing gabapentin Allergy (Severe, Verified 06/03/17 01:52) carvedilol Allergy (Intermediate, Verified 06/03/17 01:52) Nausea lisinopril Allergy (Intermediate, Verified 06/03/17 01:52) Nausea omeprazole Allergy (Intermediate, Verified 06/03/17 01:52) bupropion Allergy (Unknown, Verified 06/03/17 01:52) HOME MEDICATIONS: 3 Medication Instructions Recorded Aclidinium [place] [Tudorza 400 mcg IH DAILY 11/02/16 Pressair] Albuterol Sulfate [Proventil HFA 1 - 2 inh PO QID PRN 11/02/16 Inhaler -] Aspirin [Lo-Dose Aspirin EC] 81 mg PO DAILY 11/02/16 Cholecalciferol (Vitamin D3) 2,000 unit PO DAILY 11/02/16 [Vitamin D3] Cyanocobalamin [Vitamin B12 -] 500 mcg PO DAILY 11/02/16 Famotidine [Pepcid -] 40 mg PO BID 11/02/16 Fluticasone/Salmeterol [Advair 1 each IH DAILY 11/02/16 250-50 Diskus] Magnesium Oxide [Magnesium] 500 mg PO DAILY 11/02/16 Metoprolol Succinate [Toprol XL -] 50 mg PO DAILY 11/02/16 Nortriptyline HCl [Pamelor -] 10 mg PO HS 11/02/16 Valsartan 320 mg PO DAILY 11/02/16 Vitamin B Complex [B Complex # 1] 1 each PO DAILY 11/02/16 Vitamin E 400 unit PO DAILY 11/02/16 Furosemide [Lasix -] 40 mg PO DAILY #7 tablet 11/09/16 Salmeterol/Fluticasone [Advair 1 puff IH BID inhaler 11/09/16 100Mcg/50Mcg -] Zinc Oxide 1 applic TP BID #1 tube 11/09/16 Clindamycin [Cleocin -] 600 mg PO Q8H #21 capsule 12/02/16 REVIEW OF SYSTEMS CONSTITUTIONAL: Absent: fever, chills, diaphoresis, generalized weakness, malaise, loss of appetite, weight change HEENT: Absent: rhinorrhea, nasal congestion, throat pain, throat swelling, difficulty swallowing, mouth swelling, ear pain, eye pain, visual changes CARDIOVASCULAR: Present: peripheral edema Absent: chest pain, syncope, palpitations, irregular heart rate, lightheadedness RESPIRATORY: Present: cough, shortness of breath Absent: dyspnea with exertion, orthopnea, wheezing, stridor, hemoptysis GASTROINTESTINAL: Absent: abdominal pain, abdominal distension, nausea, vomiting, diarrhea, constipation, melena, hematochezia GENITOURINARY: Absent: dysuria, frequency, urgency, hesitancy, hematuria, flank pain, genital pain MUSCULOSKELETAL: Absent: myalgia, arthralgia, joint swelling, back pain, neck pain SKIN: Absent: rash, itching, pallor HEMATOLOGIC/IMMUNOLOGIC: Absent: easy bleeding, easy bruising, lymphadenopathy, frequent infections ENDOCRINE: Absent: unexplained weight gain, unexplained weight loss, heat intolerance, cold intolerance NEUROLOGIC: Absent: headache, focal weakness or paresthesias, dizziness, unsteady gait, seizure, mental status changes, bladder or bowel incontinence PSYCHIATRIC: Absent: anxiety, depression, suicidal or homicidal ideation, hallucinations. PHYSICAL EXAMINATION Vital Signs - 24 hr 3 06/03/17 06/03/17 06/03/17 01:45 05:12 05:16 05:19 Temperature 98.1 F Pulse Rate 110 H Pulse Rate [ 110 H 115 H Radial] Respiratory 36 H 30 H 32 H 29 H Rate Blood Pressure 96/58 Blood Pressure 101/98 104/72 105/70 [Right Thigh] O2 Sat by Pulse 99 99 99 92 L Oximetry (%) GENERAL: Awake, alert, and fully oriented, in no acute distress. HEAD: Normal with no signs of trauma. EYES: Pupils equal, round and reactive to light, extraocular movements intact, sclera anicteric, conjunctiva clear. No lid lag. EARS, NOSE, THROAT: Ears normal, nares patent, oropharynx clear without exudates. Moist mucous membranes. NECK: Normal range of motion, supple without lymphadenopathy, JVD, or masses. LUNGS: Breath sounds crackles bilat bases, scatter faint expiratory wheezing. No accessory muscle use HEART: Regular rate and rhythm, normal S1 and S2 without murmur, rub or gallop. ABDOMEN: Soft, nontender, not distended, normoactive bowel sounds, no guarding, no rebound, no masses. No hepatomegaly or splenomegaly. MUSCULOSKELETAL: Normal range of motion at all joints. No bony deformities or tenderness. No CVA tenderness. UPPER EXTREMITIES: 2+ pulses, warm, well-perfused. No cyanosis. No clubbing. No peripheral edema. LOWER EXTREMITIES: 2+ pulses, warm, well-perfused. No calf tenderness. B/L tight edema, 2+ left leg, 3+ right. + hypertrophic skin. Open wound LLL anterior carrillo 4cm x 10cm x 0.2cm with smaller distal wound that has joined together with upper 2.1cm x 0.8cm x 0.1cm 10% slough to central areas of both wounds, remainder of wound bed pink, granulating well. left posterior ankle with small dry wound 1.8cm x 1.4cm x 0.1cm. R foot, ball of foot 0.9 x 1.0 x 0.3cm, 100% slough NEUROLOGICAL: Cranial nerves II-XII intact. Normal speech. Normal gait. PSYCHIATRIC: Cooperative. Good eye contact. Appropriate mood and affect. SKIN: Warm, dry, normal turgor, no rashes or lesions noted, normal capillary refill. Laboratory Results - last 24 hr 3 06/03/17 06/03/17 06/03/17 01:50 01:50 01:50 WBC 11.8 H RBC 4.25 Hgb 12.1 Hct 37.9 MCV 89.2 MCH 28.6 MCHC 32.1 RDW 16.7 H D Plt Count 157 D MPV 9.0 Neutrophils % 79.1 Lymphocytes % 8.7 D Monocytes % 10.4 H Eosinophils % 0.8 Basophils % 1.0 INR 1.53 H Sodium 137 Potassium 3.9 Chloride 100 Carbon Dioxide 27 Anion Gap 10 BUN 14 D Creatinine 0.7 Creat Clearance w eGFR > 60 Random Glucose 122 H D Calcium 8.9 Magnesium 1.7 L Total Bilirubin 1.2 H AST 12 L D ALT 12 D Alkaline Phosphatase 90 Creatine Kinase 21 L Troponin I 0.03 B-Natriuretic Peptide 6151.49 H Total Protein 7.8 Albumin 2.9 L Serum , Qual Negative Urine Color Urine Appearance Urine pH Urine Protein Urine Glucose (UA) Urine Ketones Urine Blood Urine Nitrite Urine Bilirubin Urine Urobilinogen Ur Leukocyte Esterase Urine RBC Urine WBC Ur Epithelial Cells Urine Bacteria Hyaline Casts Urine Mucus 3 Urine Color Myrtle 06/03/17 04:28 Urine Appearance Slcloudy 06/03/17 04:28 Urine pH 5.0 (5.0-8.0) 06/03/17 04:28 Urine Protein 1+ (NEGATIVE) H 06/03/17 04:28 Urine Glucose (UA) Negative (NEGATIVE) 06/03/17 04:28 Urine Ketones Negative (NEGATIVE) 06/03/17 04:28 Urine Blood Negative (NEGATIVE) 06/03/17 04:28 Urine Nitrite Negative (NEGATIVE) 06/03/17 04:28 Urine Bilirubin Negative (NEGATIVE) 06/03/17 04:28 Ur Leukocyte Esterase Negative (NEGATIVE) 06/03/17 04:28 Urine RBC 1 /hpf (0-3) 06/03/17 04:28 Urine WBC 2 /hpf (3-5) 06/03/17 04:28 Ur Epithelial Cells Rare /hpf (FEW) 06/03/17 04:28 Urine Bacteria Rare /hpf (NONE SEEN) 06/03/17 04:28 Urine Mucus Rare 06/03/17 04:28 ECG CXR: cardiomegaly, blunted costophrenic angles, no obvious infiltrate, final read pending. ASSESSMENT/PLAN: 46yF with PMH systolic CHF, [place], stent, COPD, asthma, chronic lymphedema, morbid obesity, depression, anxiety, pulm HTN presented to the ED with SOB and cough x 3-4 days. Pt is being admitted for further evaluation. 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 r/t lung Vascular ulcers/lymphedema - cont lasix IV - would recommend santyl for right foot but pt adamantly refuses same, will do bacitracin and DPD - moist-dry dressing to left lower leg - vascular consult - KIERA wraps to B/L LE DVT PPX - heparin 5000u TID FEN - hold IVF, tolerating po - BMP tomorrow, replete mag - low sodium diet Dispo: Pt currently requires inpatient management of her emergent condition. Visit type - Emergency Visit Emergency Visit: Yes ED Registration Date: 06/03/17 Care time: The patient presented to the Emergency Department on the above date and was hospitalized for further evaluation of their emergent condition. - New Patient This patient is new to me today: Yes Date on this admission: 06/03/17 - Critical Care Critical Care patient: No
[2017-06-03] MEDS ORDERED: ACETAMINOPHEN 325 MG TABLET (FP) PO PRN (05:52)
[2017-06-03] MEDS ORDERED: MAGNESIUM SULF 50% (8.12 MEQ/2 ML-1 GM VIAL) IVPB ONE (05:58)
[2017-06-03] MEDS ORDERED: DOXYCYCLINE INJECTION 100 MG in DEXTROSE 5%-WATER - 100 ML IVPB ONE (06:00)
[2017-06-03] MEDS ORDERED: VANCOMYCIN 1 GRAM (PRE-DOCKED) 250 ML IVPB ONE (06:08)
[2017-06-03] MEDS ORDERED: HEPARIN NA (PORCINE) 5,000 UNITS/ML 1ML VIAL SQ SCH (06:15)
[2017-06-03] MEDS ORDERED: MAGNESIUM SULF 50% (8.12 MEQ/2 ML-1 GM VIAL) ONE (06:23)
[2017-06-03] MEDS ORDERED: HEPARIN NA (PORCINE) 5,000 UNITS/ML 1ML VIAL ONE (06:24)
--- NOTE | 2017-06-03 08:20 | PN ---
Teaching Attending Note Name of Resident: Austin Velásquez ATTENDING PHYSICIAN STATEMENT I saw and evaluated the patient. I reviewed the resident's note and discussed the case with the resident. I agree with the resident's findings and plan as documented. SUBJECTIVE: No specific complaints OBJECTIVE: Vitals noted ASSESSMENT AND PLAN: Appreciate business transformation consultant input and pt counseling She continues to refuse ABG, nebs CT chest with IV contrast to rule out PE and better define any pulmonary pathology She may refuse this Continue Lasix Continue antibiotics Follow closely See resident note for full details
--- NOTE | 2017-06-03 08:25 | CON.CARD ---
Consult Consult Specialty:: Cardiology Referred by:: Hospitalist Medicine Reason for Consultation:: Anasarca - History of Present Illness Chief Complaint: Anasarca History of Present Illness: 46 morbidly obese female with pmhx of CAD post SD (2011 s/p stents X2), systolic dysfunction with h/o failure, pulm HTN, COPD, asthma, chronic lymphedema, anxiety, current smoker, depression and anxiety, who presented with increased SOB, orthopnea and cough x 3-4 days in context of diuretic noncompliance reporting that she can't reach bathroom fast enough. She also presents with right flank pain. Denies N/V/D abdominal pain, chest pain, near or true syncope, palpitations or PND. Lethargic. ER course was notable for: (1) WBC 11.8 (2) BNP 6151 Recent Travel: pt denies PAST MEDICAL HISTORY: CHF SD 2011 s/p stent x 2 COPD/asthma chronic lymphedema, morbid obesity depression anxiety pulmonary hypertension PAST SURGICAL HISTORY: stent x 2 Social History: Smoking: few cig/day Alcohol: pt denies Drugs: marijuana occasionally Family History: mother alive with HTN father age 63, SD, first SD in his 50s brother alive and well no children - History Source History Provided By: Patient Limitations to Obtaining History: No Limitations - Past Medical History Cardio/Vascular: Yes: CAD, [place] Dermatology: Yes: Other (Leg Cellulitis) - Alcohol/Substance Use Hx Alcohol Use: No - Smoking History Smoking history: Former smoker Have you smoked in the past 12 months: Yes Aproximately how many cigarettes per day: 2 If you are a former smoker, when did you quit?: April 2016 Home Medications - Allergies Allergies/Adverse Reactions: Allergies Allergy/AdvReac Type Severity Reaction Status Date / Time budesonide Allergy Severe Difficulty Verified 06/03/17 01:52 Breathing erythromycin base Allergy Severe Vomiting Verified 06/03/17 01:52 formoterol Allergy Severe Difficulty Verified 06/03/17 01:52 Breathing gabapentin Allergy Severe Verified 06/03/17 01:52 carvedilol Allergy Intermediate Nausea Verified 06/03/17 01:52 lisinopril Allergy Intermediate Nausea Verified 06/03/17 01:52 omeprazole Allergy Intermediate Verified 06/03/17 01:52 bupropion Allergy Unknown Verified 06/03/17 01:52 - Home Medications Home Medications: Ambulatory Orders Aclidinium [place] [Tudorza Pressair] 400 mcg IH DAILY 11/02/16 Albuterol Sulfate [Proventil HFA Inhaler -] 1 - 2 inh PO QID PRN 11/02/16 Aspirin [Lo-Dose Aspirin EC] 81 mg PO DAILY 11/02/16 Cholecalciferol (Vitamin D3) [Vitamin D3] 2,000 unit PO DAILY 11/02/16 Cyanocobalamin [Vitamin B12 -] 500 mcg PO DAILY 11/02/16 Famotidine [Pepcid -] 40 mg PO BID 11/02/16 Fluticasone/Salmeterol [Advair 250-50 Diskus] 1 each IH DAILY 11/02/16 Magnesium Oxide [Magnesium] 500 mg PO DAILY 11/02/16 Metoprolol Succinate [Toprol XL -] 50 mg PO DAILY 11/02/16 Nortriptyline HCl [Pamelor -] 10 mg PO HS 11/02/16 Valsartan 320 mg PO DAILY 11/02/16 Vitamin B Complex [B Complex # 1] 1 each PO DAILY 11/02/16 Vitamin E 400 unit PO DAILY 11/02/16 Furosemide [Lasix -] 40 mg PO DAILY #7 tablet 11/09/16 Salmeterol/Fluticasone [Advair 100Mcg/50Mcg -] 1 puff IH BID inhaler 11/09/16 Zinc Oxide 1 applic TP BID #1 tube 11/09/16 Clindamycin [Cleocin -] 600 mg PO Q8H #21 capsule 12/02/16 Review of Systems - Review of Systems Cardiovascular: reports: Shortness of Breath Respiratory: reports: Orthopnea, SOB Vital Signs: Vital Signs Temperature 98.1 F 06/03/17 01:45 Pulse Rate 109 H 06/03/17 06:15 Respiratory Rate 26 H 06/03/17 06:15 Blood Pressure 118/64 06/03/17 06:15 O2 Sat by Pulse Oximetry (%) 99 06/03/17 06:15 Constitutional: Yes: No Distress, Calm Neck: Yes: Supple Respiratory: Yes: Regular, Diminished, On Nasal O2 Gastrointestinal: Yes: Normal Bowel Sounds, Soft, Abdomen, Obese Cardiovascular: Yes: Tachycardia JVD: No Carotid Bruit: No Heart Sounds: Yes: S1, S2 Edema: Yes Edema: LLE: 2+, RLE: 2+ - Other Data Labs, Other Data: INR, PTT INR 1.53 (0.82-1.09) H 06/03/17 01:50 ST @ 109 Echo: Report Reviewed Prior Cardiac Procedures: PTCA with Stent Ejection Fraction %: LVEF < 40 % Imaging - Results Chest X-ray: Report Reviewed (Congestion, left plate-like ATX) Problem List - Problems (1) Acute on chronic systolic (congestive) heart failure Code(s): I50.23 - ACUTE ON CHRONIC SYSTOLIC (CONGESTIVE) HEART FAILURE (2) Anasarca Code(s): R60.1 - GENERALIZED EDEMA (3) COPD (chronic obstructive pulmonary disease) Code(s): J44.9 - CHRONIC OBSTRUCTIVE PULMONARY DISEASE, UNSPECIFIED Qualifiers : COPD type: unspecified COPD Qualified Code(s): J44.9 - Chronic obstructive pulmonary disease, unspecified (4) Cellulitis and abscess of leg Code(s): L02.419 - CUTANEOUS ABSCESS OF LIMB, UNSPECIFIED L03.119 - CELLULITIS OF UNSPECIFIED PART OF LIMB (5) Coronary artery disease Code(s): I25.10 - ATHSCL HEART DISEASE OF [place] CORONARY ARTERY W/O ANG PCTRS Qualifiers: Coronary Disease-Associated Artery/Lesion type: [place] artery [place] vs. transplanted heart: [place] heart Associated angina: without angina Qualified Code(s): I25.10 - Atherosclerotic heart disease of [place] coronary artery without angina pectoris (6) Hypertensive cardiomegaly with heart failure Code(s): I11.0 - HYPERTENSIVE HEART DISEASE WITH HEART FAILURE (7) Lymph edema Code(s): I89.0 - LYMPHEDEMA, NOT ELSEWHERE CLASSIFIED (8) Morbid (severe) obesity with alveolar hypoventilation Code(s): E66.2 - MORBID (SEVERE) OBESITY WITH ALVEOLAR HYPOVENTILATION (9) Status post coronary artery stent placement Code(s): Z95.5 - PRESENCE OF CORONARY ANGIOPLASTY IMPLANT AND GRAFT Assessment/Plan 11/02/2016 Echocardiography revealed severe reduction in LV EF, bi-atrial dilatation, mild MR and TR with mild to moderate degree of pulmonary HTN, RVSP of 40-50 mmHg 1. Acute on chronic LV systolic failure class III NYHA classification LV failure in context of diuretic noncompliance 2. CAD post SD PCI (stent), angina pectoris 3. HTN 4. DM 5. COPD 6. Morbid obesity with OSAS/OHS 7. Cellulitis 8. Poor compliance with medical F/U 9. Lethargy r/o CO2 narcosis PLAN: 1. IV diuresis with monitor diuretic response, renal function and electrolytes 2/ Continue ASA 81 qd 2. Continue Toprol XL 50 qd 3. Continue Diovan 320 qd, ideally should be on aldosterone antagonist Aldactone , but poor f/u of electrolytes and renal function preclude use 4. Continue antibiotics as per the primary team, BD, O2 to maintain saO2, recommend ABG, but patient refuses 5. Additional cardiovascular evaluation is recommended but limiting factor is her morbid obesity (performing an MPI study) and in addition patient still declines prophylactic ICD implantation considering the above noted systolic LV dysfunction, understanding risk, benefits and alternatives 6. Long conversation with the patient in reference to importance of compliance to therapy administration and regular F/U, she has not seen event set up specialist, previously (Sydney Jordan) in 2 years, declines sleep study and cpap therapy 7. Thank you for consultative opportunity
[2017-06-03] MEDS: VITAMIN B COMPLEX W/C COMBO TABLET (FP) PO SCH (10:00)
[2017-06-03] MEDS ORDERED: RANITIDINE HCL 150 MG TABLET (FP) PO SCH (10:00)
[2017-06-03] MEDS: VALSARTAN 160 MG TABLET (UD) PO SCH (10:00)
[2017-06-03] MEDS: CYANOCOBALAMIN 1,000 MCG TABLET (FP) PO SCH (10:00)
[2017-06-03] MEDS: MAGNESIUM OXIDE 400 MG TABLET (FP) PO SCH (10:00)
[2017-06-03] MEDS: VITAMIN E 400 INTERNATIONAL-UNITS CAPSULE (FP) PO SCH (10:00)
[2017-06-03] MEDS ORDERED: FUROSEMIDE 40 MG/4 ML INJECTABLE VIAL IVPB SCH ×2 (10:00→14:00)
[2017-06-03] MEDS: METOPROLOL SUCCINATE 50 MG TAB.SR.24H (FP) PO SCH (10:00)
[2017-06-03] MEDS: CHOLECALCIFEROL (VITAMIN D3) 1,000 UNIT TABLET (FP) PO SCH (10:00)
[2017-06-03] MEDS ORDERED: FUROSEMIDE 40 MG TABLET (FP) PO SCH (10:00)
[2017-06-03] MEDS: ASPIRIN COATED 81 MG TABLET.EC PO SCH (10:00)
--- NOTE | 2017-06-03 10:19 | EKG ---
Test Reason : Blood Pressure : / mmHG Vent. Rate : 109 BPM Atrial Rate : 109 BPM P-R Int : 162 ms QRS Dur : 096 ms QT Int : 344 ms P-R-T Axes : 057 -36 052 degrees QTc Int : 463 ms POOR DATA QUALITY, INTERPRETATION MAY BE ADVERSELY AFFECTED SINUS TACHYCARDIA WITH PREMATURE ATRIAL COMPLEXES POSSIBLE LEFT ATRIAL ENLARGEMENT LEFT AXIS DEVIATION LOW VOLTAGE QRS INFERIOR INFARCT (CITED ON OR BEFORE 02-NOV-2016) ANTEROLATERAL INFARCT (CITED ON OR BEFORE 23-DEC-2010) ABNORMAL ECG Confirmed by AUREA CHAPIN MD ([id number]) on 06/03/2017 10:19:43 AM Referred By: Confirmed By:AUREA CHAPIN MD
[2017-06-03] MEDS: FLUTICASONE/SALMETEROL 100 MCG/50 MCG DISKUS IH SCH ×2 (11:00→22:28)
[2017-06-03] MEDS ORDERED: ENOXAPARIN NA (PORCINE) 40 MG/0.4 ML DISP.SYRIN SQ SCH (11:30)
[2017-06-03] MEDS: ACLIDINIUM BROMIDE 400 MCG/INH AERO.POWD IH SCH ×2 (11:36→22:29)
[2017-06-03] MEDS: FAMOTIDINE 20 MG/50 ML IVPB 50 ML IVPB SCH ×2 (11:37→22:29)
[2017-06-03 11:42] LABS: TROPONIN I 0.02 ng/ml (0.00-0.05)
--- NOTE | 2017-06-03 14:17 | PN ---
Physical Exam: SUBJECTIVE: Patient seen and examined No acute events overnight. Patient still having shortness of breath and cough this morning productive of white sputum. patient continues to have right rib pain. OBJECTIVE: Vital Signs Period Temp Pulse Resp BP Sys/[place] Pulse Ox Last 24 Hr 98 F 93-115 16-32 101-118/64-98 92-99 GENERAL: Awake, alert, and fully oriented, in no acute distress. HEAD: Normal with no signs of trauma. EYES: Pupils equal, round and reactive to light, extraocular movements intact, sclera anicteric, conjunctiva clear. No lid lag. EARS, NOSE, THROAT: Ears normal, nares patent, oropharynx clear without exudates. Moist mucous membranes. NECK: Normal range of motion, supple without lymphadenopathy, JVD, or masses. LUNGS: Breath sounds crackles bilat bases, No accessory muscle use HEART: Regular rate and rhythm, normal S1 and S2 without murmur, rub or gallop. ABDOMEN: Soft, nontender, not distended, normoactive bowel sounds, no guarding, no rebound, no masses. No hepatomegaly or splenomegaly. MUSCULOSKELETAL: Normal range of motion at all joints. No bony deformities or tenderness. No CVA tenderness. RIGHT COSTAL MARGIN TENDERNESS UPPER EXTREMITIES: 2+ pulses, warm, well-perfused. No cyanosis. No clubbing. No peripheral edema. LOWER EXTREMITIES: 2+ pulses, warm, well-perfused. No calf tenderness. B/L tight edema, 2+ left leg, 3+ right. + hypertrophic skin. Open wound LLL anterior carrillo 4cm x 10cm x 0.2cm with smaller distal wound that has joined together with upper 2.1cm x 0.8cm x 0.1cm 10% slough to central areas of both wounds, remainder of wound bed pink, granulating well. left posterior ankle with small dry wound 1.8cm x 1.4cm x 0.1cm. R foot, ball of foot 0.9 x 1.0 x 0.3cm, 100% slough NEUROLOGICAL: Cranial nerves II-XII intact. Normal speech. Normal gait. PSYCHIATRIC: Cooperative. Good eye contact. Appropriate mood and affect. SKIN: Warm, dry, normal turgor, no rashes or lesions noted, normal capillary refill. Laboratory Results - last 24 hr 06/03/17 06/03/17 04:28 10:04 Creatine Kinase 22 L Troponin I 0.02 Urine Color [place] Urine Appearance Slcloudy Urine pH 5.0 Urine Protein 1+ H Urine Glucose (UA) Negative Urine Ketones Negative Urine Blood Negative Urine Nitrite Negative Urine Bilirubin Negative Urine Urobilinogen Negative Ur Leukocyte Esterase Negative Urine RBC 1 Urine WBC 2 Ur Epithelial Cells Rare Urine Bacteria Rare Hyaline Casts 1 Urine Mucus Rare Active Medications Generic Name Dose Route Start Last Admin Trade Name Freq PRN Reason Stop Dose Admin Acetaminophen 650 mg 06/03/17 05:52 Tylenol - PO Q4H PRN FEVER OR PAIN Aclidinium [place] 1 puff 06/03/17 10:00 06/03/17 11:36 Tudorza - IH Not Given BID MARCO Aspirin 81 mg 06/03/17 10:00 06/03/17 10:00 Ecotrin - PO 81 mg DAILY MARCO Administration Cholecalciferol 2,000 unit 06/03/17 10:00 06/03/17 10:00 Vitamin D3 - PO 2,000 unit DAILY MARCO Administration Cyanocobalamin 500 mcg 06/03/17 10:00 06/03/17 10:00 Vitamin B12 - PO 500 mcg DAILY MARCO Administration Enoxaparin Sodium 40 mg 06/03/17 11:30 06/03/17 11:37 Lovenox - SQ 40 mg DAILY MARCO Administration Furosemide 40 mg 06/03/17 14:00 Lasix Injection - IVPB BID@0600,1400 MARCO Doxycycline Hyclate 100 mg/ 100 mls @ 100 mls/hr 06/03/17 18:00 Dextrose IVPB BID MARCO Famotidine/Sodium Chloride 50 mls @ 100 mls/hr 06/03/17 11:30 06/03/17 11:37 Pepcid 20 Mg Premixed Ivpb - IVPB 100 mls/hr BID MARCO Administration Magnesium Oxide 400 mg 06/03/17 10:00 06/03/17 10:00 Mag-Ox - PO 400 mg DAILY MARCO Administration Metoprolol Succinate 50 mg 06/03/17 10:00 06/03/17 10:00 Toprol Xl - PO 50 mg DAILY MARCO Administration Multivitamins 1 each 06/03/17 10:00 06/03/17 10:00 Total B With C - PO 1 each DAILY MARCO Administration Nortriptyline HCl 10 mg 06/03/17 22:00 Pamelor - PO HS MARCO Fluticasone/Salmeterol 1 puff 06/03/17 10:00 06/03/17 11:00 Advair 100mcg/50mcg - IH 1 puff BID MARCO Administration Valsartan 320 mg 06/03/17 10:00 06/03/17 10:00 Diovan - PO 320 mg DAILY MARCO Administration Vitamin E 400 unit 06/03/17 10:00 06/03/17 10:00 Vitamin E - PO 400 unit DAILY MARCO Administration ASSESSMENT/PLAN: 46yF with PMH systolic CHF, [place], stent, COPD, asthma, chronic lymphedema, morbid obesity, depression, anxiety, pulm HTN presented to the ED with SOB and cough x 3-4 days. Pt is being admitted for further evaluation. #Bilateral PE's -Patient started on heparin drip -daily stool occult blood test -daily PTT -Monitor for any bleeding CHF exacerbation - BNP elevated from baseline - lasix 40mg IVP given in ED -Continue lasix 40 mg iv daily - echo with severely reduced EF on 11/02/16 - cardiology consult, pt states she does not have a manager strategic, seen by [facility] group last admission bronchitis/COPD exacerbation - albuterol nebs PRN - cont home LABA and tudorza - Continue doxycycline given - chest cta- right upper and bilateral lower lobe consolidation with small right pleural effusion Vascular ulcers/lymphedema - cont lasix IV 40 mg - Patient refusing santyl - moist-dry dressing to left lower leg - vascular consult, Dr. Lloyd - KIERA wraps to B/L LE #HTN -Continue home medications valsartan 320 mg po daily -Continue lasix 40 mg iv daily DVT PPX -Heparin drip started FEN - hold IVF, tolerating po - BMP tomorrow, replete mag - low sodium diet Visit type - Emergency Visit Emergency Visit: Yes ED Registration Date: 06/03/17 Care time: The patient presented to the Emergency Department on the above date and was hospitalized for further evaluation of their emergent condition. - New Patient This patient is new to me today: Yes Date on this admission: 06/03/17 - Critical Care Critical Care patient: No
[2017-06-03] MEDS ORDERED: HEPARIN INFUSION - 500 ML IVPB ONE (15:07)
[2017-06-03] MEDS: HEPARIN - 25,000 UNIT in SODIUM CHLORIDE 495 ML IV SCH ×2 (15:21→18:22)
[2017-06-03 16:33] LABS: CPK 20 IU/L (26-192); TROPONIN I < 0.02 ng/ml (0.00-0.05)
[2017-06-03] MEDS: cefTRIAXone 1 GM/50 ML BAG (PRE-DOCKED) IVPB SCH (18:22)
--- NOTE | 2017-06-03 18:38 | HOSP ---
Subjective - Review of Symptoms Subjective: 06/03/2017 6:33pm This is a late entry in [employer] due to computer downtime. Please see my notes on downtime progress sheet paper for further detail. In brief: CT report from earlier today was noted and the pt was transferred to telemetry and started on heparin drip. She had improved clinically from my earlier assessment and had remained hemodynamically stable. She did not meet criteria for thrombolysis. TTE was read by cardiology this afternoon by Dr. Clarke and we discussed the findings at approximately 5pm. There is severe right and left sided systolic dysfunction and possible evidence of RV intramural thrombus. I reassesed the patient on telemetry behzad pproximately 5:20pm She was well appearing She was normotensive and normocardic She was not tachypneic She had minimal oxygen requirement I discussed the CT with Dr. Guajardo at approximately 5:45pm CT chest showed right and left sided lobar pulmonary emboli, without main pulmonary artery involvement. CT chest did not show evidence of RA/RV/LA/LV clot I discussed the case with IR, who agreed with our plan of care and did not feel that the patient would benefit from thrombolysis. They are available if her clinical status changed and are happy to discuss the case further as needed. I discussed the case with the ICU team and they have accepted the patient for transfer to the ICU. Will continue heparin drip. We will need to be very careful to avoid over-diuresis as she is pre-load dependent Case discussed with cardiology and we will reduce Lasix dose to 40mg IV daily Will doppler both legs (at bedside) I will sign the patient out to the night team who will reassess her. Physical Examination Vital Signs: Vital Signs Temperature 98 F 06/03/17 12:45 Pulse Rate 93 H 06/03/17 12:45 Respiratory Rate 16 06/03/17 12:45 Blood Pressure 102/66 06/03/17 12:45 O2 Sat by Pulse Oximetry (%) 97 06/03/17 12:45 Critical Care Total Critical Care Time (in minutes): 35 Critical Care Statement: The care of this patient involved high complexity decision making to prevent further life threatening deterioration of the patient 's condition and/or to evaluate & treat vital organ system(s) failure or risk of failure.
--- NOTE | 2017-06-03 20:36 | CONSULT ---
Consult Consult Specialty:: PULMONARY/CRITICAL CARE Referred by:: Dr Jeffries Reason for Consultation:: sub-massive PE - History of Present Illness Chief Complaint: cough, shortness of breath History of Present Illness: Briefly, a 46 y/o morbidly obese woman with JOSE/OHS, [place] in 2010 with stents, has severe pHTN (likely WHO group III), LV dysfunction and CHF, EF in October was 13%, she refused AICD placement at that time. She also has a history of COPD , Asthma, depression and chronic lymphedema. She presents to the ED with cough and worsening SOB over the last 3-4 days. She has been non-compliant with her diuretics. In the ED she was given abx and lasix. A CTA was done that showed b/l PEs. A subsequent TTE was done showing severe RV dysfunction, pulm HTN and the possibility of a RV thombus. She was started on Heparin drip and admitted to the ICU. The primary team offered her transfer to a tertiary center for further management, but she refused. She also is refusing invasive procedures and aggressive care which seems to be consistent with her prior wishes. She wishes to make herself DNR/DNI as well. - History Source History Provided By: Patient, Medical Record Limitations to Obtaining History: No Limitations - Past Medical History Cardio/Vascular: Yes: CAD, CHF, [place], Pulmonary Hypertension Pulmonary: Yes: Asthma, COPD Dermatology: Yes: Other (Leg Cellulitis) - Alcohol/Substance Use Hx Alcohol Use: No - Smoking History Smoking history: Former smoker Have you smoked in the past 12 months: Yes Aproximately how many cigarettes per day: 2 If you are a former smoker, when did you quit?: April 2016 Home Medications - Allergies Allergies/Adverse Reactions: Allergies Allergy/AdvReac Type Severity Reaction Status Date / Time budesonide Allergy Severe Difficulty Verified 06/03/17 01:52 Breathing erythromycin base Allergy Severe Vomiting Verified 06/03/17 01:52 formoterol Allergy Severe Difficulty Verified 06/03/17 01:52 Breathing gabapentin Allergy Severe Verified 06/03/17 01:52 carvedilol Allergy Intermediate Nausea Verified 06/03/17 01:52 lisinopril Allergy Intermediate Nausea Verified 06/03/17 01:52 omeprazole Allergy Intermediate Verified 06/03/17 01:52 bupropion Allergy Unknown Verified 06/03/17 01:52 - Home Medications Home Medications: Ambulatory Orders Aclidinium [place] [Tudorza Pressair] 400 mcg IH DAILY 11/02/16 Albuterol Sulfate [Proventil HFA Inhaler -] 1 - 2 inh PO QID PRN 11/02/16 Aspirin [Lo-Dose Aspirin EC] 81 mg PO DAILY 11/02/16 Cholecalciferol (Vitamin D3) [Vitamin D3] 2,000 unit PO DAILY 11/02/16 Cyanocobalamin [Vitamin B12 -] 500 mcg PO DAILY 11/02/16 Famotidine [Pepcid -] 40 mg PO BID 11/02/16 Fluticasone/Salmeterol [Advair 250-50 Diskus] 1 each IH DAILY 11/02/16 Magnesium Oxide [Magnesium] 500 mg PO DAILY 11/02/16 Metoprolol Succinate [Toprol XL -] 50 mg PO DAILY 11/02/16 Nortriptyline HCl [Pamelor -] 10 mg PO HS 11/02/16 Valsartan 320 mg PO DAILY 11/02/16 Vitamin B Complex [B Complex # 1] 1 each PO DAILY 11/02/16 Vitamin E 400 unit PO DAILY 11/02/16 Furosemide [Lasix -] 40 mg PO DAILY #7 tablet 11/09/16 Salmeterol/Fluticasone [Advair 100Mcg/50Mcg -] 1 puff IH BID inhaler 11/09/16 Zinc Oxide 1 applic TP BID #1 tube 11/09/16 Clindamycin [Cleocin -] 600 mg PO Q8H #21 capsule 12/02/16 Review of Systems - Review of Systems Constitutional: reports: No Symptoms Eyes: reports: No Symptoms HENT: reports: No Symptoms Neck: reports: No Symptoms Cardiovascular: reports: Shortness of Breath Respiratory: reports: Cough, Exercise Intolerance, Hemoptysis, SOB, SOB on Exertion Genitourinary: reports: No Symptoms Breasts: reports: No Symptoms Reported Integumentary: reports: No Symptoms Neurological: reports: No Symptoms Endocrine: reports: No Symptoms Hematology/Lymphatic: reports: No Symptoms Physical Exam Vital Signs: Vital Signs Temperature 97.6 F 06/03/17 18:00 Pulse Rate 78 06/03/17 18:00 Respiratory Rate 19 06/03/17 18:00 Blood Pressure 117/70 06/03/17 18:00 O2 Sat by Pulse Oximetry (%) 97 06/03/17 12:45 Constitutional: Yes: Calm, Mild Distress Eyes: Yes: WNL HENT: Yes: WNL Neck: Yes: WNL Cardiovascular: Yes: Tachycardia, JVD Respiratory: Yes: Cough, Diminished, On Nasal O2, Rales Gastrointestinal: Yes: Soft, Abdomen, Obese Extremities: Yes: Cool Edema: Yes Edema: LLE: 4+, RLE: 4+ Peripheral Pulses WNL: Yes Integumentary: Yes: WNL Neurological: Yes: Alert, Oriented Psychiatric: Yes: WNL Labs: CBC, BMP 06/03/17 01:50 06/03/17 01:50 Imaging - Results Chest X-ray: Report Reviewed, Image Reviewed Cat Scan: Report Reviewed Other: Report Reviewed Problem List - Problems (1) COPD (chronic obstructive pulmonary disease) Code(s): J44.9 - CHRONIC OBSTRUCTIVE PULMONARY DISEASE, UNSPECIFIED Qualifiers : COPD type: unspecified COPD Qualified Code(s): J44.9 - Chronic obstructive pulmonary disease, unspecified (2) Coronary artery disease Code(s): I25.10 - ATHSCL HEART DISEASE OF [place] CORONARY ARTERY W/O ANG PCTRS Qualifiers: Coronary Disease-Associated Artery/Lesion type: [place] artery [place] vs. transplanted heart: [place] heart Associated angina: without angina Qualified Code(s): I25.10 - Atherosclerotic heart disease of [place] coronary artery without angina pectoris (3) Morbid (severe) obesity with alveolar hypoventilation Code(s): E66.2 - MORBID (SEVERE) OBESITY WITH ALVEOLAR HYPOVENTILATION (4) Pulmonary embolism Code(s): I26.99 - OTHER PULMONARY EMBOLISM WITHOUT ACUTE COR PULMONALE (5) Biventricular failure Code(s): I50.9 - HEART FAILURE, UNSPECIFIED (6) Pulmonary hypertension Code(s): I27.2 - OTHER SECONDARY PULMONARY HYPERTENSION Assessment/Plan Sub-massive PE with RV dysfunction, PHTN and ?RV thrombus - unclear what degree of RV dysfunction and pHTN is chronic vs acute and related to PE, however, the possibility of RV thrombus is ominous Biventricular failure - has refused AICD in past CHF CAD COPD -This patient would benefit from immediate transfer to a tertiary facility - she is considering this, but does not want aggressive measures in the event of an emergency. She clearly has capacity to make this decision and understands the consequences include . She wishes to be DNR/DNI. -Heparin drip for full therapeutic AC -Check LE dopplers - place IVC filter if positive and she is amenable -Lasix -BP control -Would benefit form nocturnal CPAP/BiPAP -Cardiology follow up -Continue nebs -Monitor in ICU DNR/DNI Critically Ill - CCT 45min Thank you for this interesting consult Jerzy Silva Pulm/CC [employer]
[2017-06-03] MEDS ORDERED: hydrALAZINE HCL 20 MG/ML VIAL ONE (20:39)
[2017-06-03] MEDS: DOXYCYCLINE INJECTION 100 MG in DEXTROSE 5%-WATER - 100 ML IVPB SCH ×2 (22:28→22:40)
[2017-06-04] MEDS ORDERED: traMADol HCL 50 MG TABLET PO ONE (03:41)
[2017-06-04] MEDS: NORTRIPTYLINE HCL 10 MG CAPSULE PO SCH ×2 (03:58→22:40)
[2017-06-04] MEDS: HEPARIN NA (PORCINE) 5,000 UNITS/ML 1ML VIAL IVPUSH PRN ×2 (04:00→17:47)
[2017-06-04 06:45] LABS: BASOPHIL 1.4 % (0-2.0); EOSINOPHIL 1.7 % (0-4.5); MCH 28.9 pg (25.7-33.7); MCHC 32.5 g/dl (32.0-36.0); MEAN CELL VOLUME 88.9 fl (80-96); MEAN PLT VOLUME 10.3 fl (7.5-11.1); NEUTROPHILS 74.8 % (42.8-82.8); PLATELET COUNT 174 K/MM3 (134-434); RDW 16.6 % (11.6-15.6); WHITE BLOOD COUNT 9.7 K/mm3 (4.0-10.0)
[2017-06-04 07:10] LABS: ANION GAP 4 (8-16); CALCIUM 8.4 mg/dL (8.5-10.1); CO2 33 mmol/L (21-32); CREATININE 0.7 mg/dL (0.55-1.02); GLUCOSE,RANDOM 110 mg/dL (74-106); MAGNESIUM 1.7 mg/dL (1.8-2.4); PHOSPHOROUS 4.6 mg/dL (2.5-4.9)
[2017-06-04] MEDS ORDERED: MAGNESIUM SULFATE 2 GM in SODIUM CHLORIDE 100 ML IVPB ONE (07:29)
--- NOTE | 2017-06-04 07:34 | PN ---
Physical Exam: SUBJECTIVE: Patient seen and examined She states that she feels better She reports mild hemoptysis OBJECTIVE: Vital Signs Period Temp Pulse Resp BP Sys/Magana Pulse Ox Last 24 Hr 97.6 F-98 F 74-97 16-32 102-186/66-122 93-98 GEN: Awake, alert, NAD PULM: scattered rhonchi and crackles CVS: RRR ABD: Soft, obsese, NT/ND, NABS EXTREM: Warm, well perfused Laboratory Results - last 24 hr 06/03/17 06/03/17 06/03/17 04:28 10:04 14:30 WBC RBC Hgb Hct MCV MCH MCHC RDW Plt Count MPV Neutrophils % Lymphocytes % Monocytes % Eosinophils % Basophils % PTT (Actin FS) Sodium Potassium Chloride Carbon Dioxide Anion Gap BUN Creatinine Random Glucose Calcium Phosphorus Magnesium Creatine Kinase 22 L 20 L Troponin I 0.02 < 0.02 TSH Urine Color [place] Urine Appearance Slcloudy Urine pH 5.0 Ur Specific [place] 1.025 Urine Protein 1+ H Urine Glucose (UA) Negative Urine Ketones Negative Urine Blood Negative Urine Nitrite Negative Urine Bilirubin Negative Urine Urobilinogen Negative Ur Leukocyte Esterase Negative Urine RBC 1 Urine WBC 2 Ur Epithelial Cells Rare Urine Bacteria Rare Hyaline Casts 1 Urine Mucus Rare 06/03/17 06/04/17 06/04/17 21:20 05:15 05:15 WBC 9.7 RBC 4.00 Hgb 11.6 Hct 35.6 MCV 88.9 MCH 28.9 MCHC 32.5 RDW 16.6 H Plt Count 174 MPV 10.3 D Neutrophils % 74.8 Lymphocytes % 12.4 D Monocytes % 9.7 Eosinophils % 1.7 D Basophils % 1.4 PTT (Actin FS) 32.3 Sodium 136 Potassium 3.9 Chloride 99 Carbon Dioxide 33 H D Anion Gap 4 L BUN 15 Creatinine 0.7 Random Glucose 110 H Calcium 8.4 L Phosphorus 4.6 Magnesium 1.7 L Creatine Kinase Troponin I TSH 1.20 Urine Color Urine Appearance Urine pH Ur Specific [place] Urine Protein Urine Glucose (UA) Urine Ketones Urine Blood Urine Nitrite Urine Bilirubin Urine Urobilinogen Ur Leukocyte Esterase Urine RBC Urine WBC Ur Epithelial Cells Urine Bacteria Hyaline Casts Urine Mucus Active Medications Generic Name Dose Route Start Last Admin Trade Name Freq PRN Reason Stop Dose Admin Acetaminophen 650 mg 06/03/17 05:52 Tylenol - PO Q4H PRN FEVER OR PAIN Aclidinium [place] 1 puff 06/03/17 10:00 06/03/17 22:29 Tudorza - IH 1 puff BID [facility] Administration Aspirin 81 mg 06/03/17 10:00 06/03/17 10:00 Ecotrin - PO 81 mg DAILY [facility] Administration Ceftriaxone Sodium 1 gm 06/03/17 16:30 06/03/17 18:22 Rocephin 1gm Ivpb (Pre-Docked) IVPB 1 gm DAILY [facility] Administration Protocol Cholecalciferol 2,000 unit 06/03/17 10:00 06/03/17 10:00 Vitamin D3 - PO 2,000 unit DAILY [facility] Administration Cyanocobalamin 500 mcg 06/03/17 10:00 06/03/17 10:00 Vitamin B12 - PO 500 mcg DAILY [facility] Administration Furosemide 40 mg 06/04/17 10:00 Lasix Injection - IVPB DAILY [facility] Heparin Sodium (Porcine) 1,000 unit 06/03/17 14:51 Heparin - IVPUSH PRN PRN Heparin Heparin Sodium (Porcine) 5,000 unit 06/03/17 14:51 06/04/17 04:00 Heparin - IVPUSH 5,000 unit PRN PRN Administration Heparin Doxycycline Hyclate 100 mg/ 100 mls @ 100 mls/hr 06/03/17 18:00 06/03/17 22:40 Dextrose IVPB Not Given BID [facility] Famotidine/Sodium Chloride 50 mls @ 100 mls/hr 06/03/17 11:30 06/03/17 22:29 Pepcid 20 Mg Premixed Ivpb - IVPB Not Given BID [facility] Heparin Sodium (Porcine) 25, 500 mls @ 20 mls/hr 06/03/17 15:30 06/04/17 04:00 000 unit/ Sodium Chloride IV 1,150 unit/hr TITR [facility] Titration Protocol 1,000 UNIT/HR Magnesium Sulfate 2 gm/ Sodium 104 mls @ 100 mls/hr 06/04/17 07:29 Chloride IVPB 06/04/17 08:31 ONCE ONE Magnesium Oxide 400 mg 06/03/17 10:00 06/03/17 10:00 Mag-Ox - PO 400 mg DAILY [facility] Administration Metoprolol Succinate 50 mg 06/03/17 10:00 06/03/17 10:00 Toprol Xl - PO 50 mg DAILY [facility] Administration Multivitamins 1 each 06/03/17 10:00 06/03/17 10:00 Total B With C - PO 1 each DAILY [facility] Administration Nortriptyline HCl 10 mg 06/03/17 22:00 06/04/17 03:58 Pamelor - PO Not Given HS [facility] Fluticasone/Salmeterol 1 puff 06/03/17 10:00 06/03/17 22:28 Advair 100mcg/50mcg - IH 1 puff BID [facility] Administration Valsartan 320 mg 06/03/17 10:00 06/03/17 10:00 Diovan - PO 320 mg DAILY [facility] Administration Vitamin E 400 unit 06/03/17 10:00 06/03/17 10:00 Vitamin E - PO 400 unit DAILY [facility] Administration ASSESSMENT/PLAN: The patient is a 46 year old female with a significant past medical history of morbid obesity, likely JOSE, likely OHS, CHF, CAD, COPD and pulmonary hypertension who was admitted yesterday with bilateral lobar PE. TTE showed severe right and left sided systolic dysfunction. 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 of the above Likely JOSE and OHS CAD COPD She is clinically improved She does not want aggressive intervention (including systemic thrombolysis) and has signed a DNR/DNI Appreciate group segment consultant input Continue Heparin LE dopplers negative Continue Lasix 40mg IV daily Continue Losartan for BP control She is preload dependent Continue home Advair and Tudorza Continue nebs prn Continue CTZ/Doxy (she reports Macrolide allergy) She refuses NIPPV for JOSE She does not want a sleep study #PVD Cont diuresis Patient refusing santyl KIERA wraps to B/L LE Moist-dry dressing to left lower leg Vascular consult, Dr. Lloyd #PSYCH Chronic anxiety and depression Continue Pamelor Psych consult given acute illness #FEN Low Na diet Monitor volume status closely as she is preload dependent given severe systolid dysfunction and bilateral PEs Replete lytes prn #PROPHLYLAXIS She is anticoagulated She is eating PT consult Visit type - Emergency Visit Emergency Visit: Yes ED Registration Date: 06/03/17 Care time: The patient presented to the Emergency Department on the above date and was hospitalized for further evaluation of their emergent condition. - New Patient This patient is new to me today: No - Critical Care Critical Care patient: No
[2017-06-04] MEDS ORDERED: MAGNESIUM SULF 50% (8.12 MEQ/2 ML-1 GM VIAL) ONE (07:56)
[2017-06-04] MEDS ORDERED: PT OWN MED DRAWER 7, Y5N ONE ×2 (09:33→21:28)
[2017-06-04] MEDS: VALSARTAN 160 MG TABLET (UD) PO SCH (09:43)
[2017-06-04] MEDS: FUROSEMIDE 40 MG/4 ML INJECTABLE VIAL IVPB SCH (09:43)
[2017-06-04] MEDS: MAGNESIUM OXIDE 400 MG TABLET (FP) PO SCH (09:43)
[2017-06-04] MEDS: ASPIRIN COATED 81 MG TABLET.EC PO SCH (09:44)
[2017-06-04] MEDS: FAMOTIDINE 20 MG/50 ML IVPB 50 ML IVPB SCH ×2 (09:44→21:36)
[2017-06-04] MEDS: METOPROLOL SUCCINATE 50 MG TAB.SR.24H (FP) PO SCH (09:44)
[2017-06-04] MEDS: VITAMIN B COMPLEX W/C COMBO TABLET (FP) PO SCH (09:44)
[2017-06-04] MEDS: CHOLECALCIFEROL (VITAMIN D3) 1,000 UNIT TABLET (FP) PO SCH (09:45)
[2017-06-04] MEDS: VITAMIN E 400 INTERNATIONAL-UNITS CAPSULE (FP) PO SCH (09:45)
--- NOTE | 2017-06-04 09:45 | PN ---
Progress Note (short form) - Note Progress Note: PULMONARY/CCM Pt seen and examined in the ICU. Denies chest pain but still with some right flank pain. No shortness of breath. Has started to have hemoptysis overnight on heparin gtt. Last Vital Signs Temp Pulse Resp BP Pulse Ox 97.8 F 88 28 H 112/67 98 06/04/17 02:00 06/04/17 08:00 06/04/17 08:00 06/04/17 08:00 06/04/17 04:12 Intake & Output 06/01/17 06/02/17 06/03/17 06/04/17 23:59 23:59 23:59 23:59 Intake Total 180 252 Output Total 2900 800 Balance -2720 -548 Weight 340 lb 9.6 oz Gen: NAD at rest Heart: RRR Lung: distant breath sounds Abd: soft, nontender Ext: + edema CBC, BMP 06/04/17 05:15 06/04/17 05:15 Active Medications Acetaminophen (Tylenol -) 650 mg PO Q4H PRN PRN Reason: FEVER OR PAIN Aclidinium [place] (Tudorza -) 1 puff IH BID [facility] Last Admin: 06/03/17 22:29 Dose: 1 puff Aspirin (Ecotrin -) 81 mg PO DAILY [facility] Last Admin: 06/03/17 10:00 Dose: 81 mg Ceftriaxone Sodium (Rocephin 1gm Ivpb (Pre-Docked)) 1 gm IVPB DAILY [facility] PRN Reason: Protocol Last Admin: 06/03/17 18:22 Dose: 1 gm Cholecalciferol (Vitamin D3 -) 2,000 unit PO DAILY [facility] Last Admin: 06/03/17 10:00 Dose: 2,000 unit Cyanocobalamin (Vitamin B12 -) 500 mcg PO DAILY [facility] Last Admin: 06/03/17 10:00 Dose: 500 mcg Furosemide (Lasix Injection -) 40 mg IVPB DAILY [facility] Heparin Sodium (Porcine) (Heparin -) 1,000 unit IVPUSH PRN PRN PRN Reason: Heparin Heparin Sodium (Porcine) (Heparin -) 5,000 unit IVPUSH PRN PRN PRN Reason: Heparin Last Admin: 06/04/17 04:00 Dose: 5,000 unit Doxycycline Hyclate 100 mg/ (Dextrose) 100 mls @ 100 mls/hr IVPB BID [facility] Last Admin: 06/03/17 22:40 Dose: Not Given Famotidine/Sodium Chloride (Pepcid 20 Mg Premixed Ivpb -) 50 mls @ 100 mls/hr IVPB BID [facility] Last Admin: 06/03/17 22:29 Dose: Not Given Heparin Sodium (Porcine) 25, (000 unit/ Sodium Chloride) 500 mls @ 20 mls/hr IV TITR [facility]; 1,000 UNIT/HR PRN Reason: Protocol Last Titration: 06/04/17 04:00 Dose: 1,150 unit/hr Magnesium Oxide (Mag-Ox -) 400 mg PO DAILY [facility] Last Admin: 06/03/17 10:00 Dose: 400 mg Metoprolol Succinate (Toprol Xl -) 50 mg PO DAILY [facility] Last Admin: 06/03/17 10:00 Dose: 50 mg Multivitamins (Total B With C -) 1 each PO DAILY [facility] Last Admin: 06/03/17 10:00 Dose: 1 each Nortriptyline HCl (Pamelor -) 10 mg PO HS [facility] Last Admin: 06/04/17 03:58 Dose: Not Given Fluticasone/Salmeterol (Advair 100mcg/50mcg -) 1 puff IH BID [facility] Last Admin: 06/03/17 22:28 Dose: 1 puff Valsartan (Diovan -) 320 mg PO DAILY [facility] Last Admin: 06/03/17 10:00 Dose: 320 mg Vitamin E (Vitamin E -) 400 unit PO DAILY [facility] Last Admin: 06/03/17 10:00 Dose: 400 unit A/P Submassive Pulmonary Emboli Likely Pulmonary Infarct Severe LV Systolic Dysfunction Pulmonary HTN CAD COPD Morbid Obesity Likely JOSE/OHS - continue anticoagulation - O2 to keep SpO2 >90% - pt declining intervention on PE - monitor/quantify hemoptysis - if hemoptysis worsens, may need to stop anticoagulation and place IVC filter - pt declining CPAP at night - inhaled bronchodilators - lasix as needed - can monitor on floor - pt DNR/DNI
[2017-06-04] MEDS: CYANOCOBALAMIN 1,000 MCG TABLET (FP) PO SCH (09:46)
[2017-06-04] MEDS: cefTRIAXone 1 GM/50 ML BAG (PRE-DOCKED) IVPB SCH (09:47)
[2017-06-04] MEDS: DOXYCYCLINE INJECTION 100 MG in DEXTROSE 5%-WATER - 100 ML IVPB SCH ×2 (10:02→21:36)
[2017-06-04] MEDS: FLUTICASONE/SALMETEROL 100 MCG/50 MCG DISKUS IH SCH ×2 (10:02→21:41)
[2017-06-04] MEDS: ACLIDINIUM BROMIDE 400 MCG/INH AERO.POWD IH SCH ×2 (10:02→21:43)
[2017-06-04] MEDS ORDERED: HEPARIN INFUSION - 500 ML IVPB ONE (10:06)
--- NOTE | 2017-06-04 15:34 | CON.PSY ---
Psychiatry Consult Chief Complaint: I am depressed because of my medical conditions. I am disabled. I dont want to take any psych meds. I am ok. Symptoms: reports: Depressed Mood, Decreased Energy - Previous Psychiatric Treatment Outpatient: None Inpatient: None - Previous Substance Abuse Treatment Outpatient: None Inpatient: None - Current Medications Current Medications: Active Medications Acetaminophen (Tylenol -) 650 mg PO Q4H PRN PRN Reason: FEVER OR PAIN Aclidinium [place] (Tudorza -) 1 puff IH BID [facility] Last Admin: 06/04/17 10:02 Dose: Not Given Aspirin (Ecotrin -) 81 mg PO DAILY [facility] Last Admin: 06/04/17 09:44 Dose: 81 mg Ceftriaxone Sodium (Rocephin 1gm Ivpb (Pre-Docked)) 1 gm IVPB DAILY [facility] PRN Reason: Protocol Last Admin: 06/04/17 09:47 Dose: 1 gm Cholecalciferol (Vitamin D3 -) 2,000 unit PO DAILY [facility] Last Admin: 06/04/17 09:45 Dose: 2,000 unit Cyanocobalamin (Vitamin B12 -) 500 mcg PO DAILY [facility] Last Admin: 06/04/17 09:46 Dose: 500 mcg Furosemide (Lasix Injection -) 40 mg IVPB DAILY [facility] Last Admin: 06/04/17 09:43 Dose: 40 mg Heparin Sodium (Porcine) (Heparin -) 1,000 unit IVPUSH PRN PRN PRN Reason: Heparin Heparin Sodium (Porcine) (Heparin -) 5,000 unit IVPUSH PRN PRN PRN Reason: Heparin Last Admin: 06/04/17 04:00 Dose: 5,000 unit Doxycycline Hyclate 100 mg/ (Dextrose) 100 mls @ 100 mls/hr IVPB BID [facility] Last Admin: 06/04/17 10:02 Dose: 100 mls/hr Famotidine/Sodium Chloride (Pepcid 20 Mg Premixed Ivpb -) 50 mls @ 100 mls/hr IVPB BID [facility] Last Admin: 06/04/17 09:44 Dose: 100 mls/hr Heparin Sodium (Porcine) 25, (000 unit/ Sodium Chloride) 500 mls @ 20 mls/hr IV TITR [facility]; 1,000 UNIT/HR PRN Reason: Protocol Last Titration: 06/04/17 04:00 Dose: 1,150 unit/hr Magnesium Oxide (Mag-Ox -) 400 mg PO DAILY [facility] Last Admin: 06/04/17 09:43 Dose: 400 mg Metoprolol Succinate (Toprol Xl -) 50 mg PO DAILY [facility] Last Admin: 06/04/17 09:44 Dose: 50 mg Multivitamins (Total B With C -) 1 each PO DAILY [facility] Last Admin: 06/04/17 09:44 Dose: 1 each Nortriptyline HCl (Pamelor -) 10 mg PO HS [facility] Last Admin: 06/04/17 03:58 Dose: Not Given Fluticasone/Salmeterol (Advair 100mcg/50mcg -) 1 puff IH BID [facility] Last Admin: 06/04/17 10:02 Dose: 1 puff Valsartan (Diovan -) 320 mg PO DAILY [facility] Last Admin: 06/04/17 09:43 Dose: 320 mg Vitamin E (Vitamin E -) 400 unit PO DAILY [facility] Last Admin: 06/04/17 09:45 Dose: 400 unit - Allergies Allergies: Allergies Allergy/AdvReac Type Severity Reaction Status Date / Time budesonide Allergy Severe Difficulty Verified 06/03/17 01:52 Breathing erythromycin base Allergy Severe Vomiting Verified 06/03/17 01:52 formoterol Allergy Severe Difficulty Verified 06/03/17 01:52 Breathing gabapentin Allergy Severe Verified 06/03/17 01:52 carvedilol Allergy Intermediate Nausea Verified 06/03/17 01:52 lisinopril Allergy Intermediate Nausea Verified 06/03/17 01:52 omeprazole Allergy Intermediate Verified 06/03/17 01:52 bupropion Allergy Unknown Verified 06/03/17 01:52 - Current Living Status Usual Living Arrangement: Alone - Current Mental Status Evaluation Appearance: Disheveled Attitude: Cooperative - Affect Affect: Constrictive - Mood Mood: Depressed - Speech/Language Expressive: Coherent - Psychomotor Activity Psychomotor Activity: Slowed - Thought Process Thought Process: Intact - Thought Content Hallucinations: Absent Delusions: Absent - Self Perception Self Perception: No Impairment - Cognition Attention: Alert Orientation: Time Memory, Immediate Recall: Intact Memory, Short Term: 3/3 Memory, Remote with Promptin/3 - Concentration Serial Sevens Intact: No Simple Calculations Intact: No - Abstraction Proverb Interpretation: Intact Judgement: Intact - Insight Insight: Intact - Impulse Control Impulse Control: Good Control - Suicidal Ideation Suicidal Ideation: No - Homicidal Ideation Homicidal Ideation: No Problem List - Problems (1) Adjustment disorder with depressed mood Code(s): F43.21 - ADJUSTMENT DISORDER WITH DEPRESSED MOOD Assessment/Plan 1) Patent does not want to take any psych meds at this time. 2) Refusing supportive psychotherapay as well.
--- NOTE | 2017-06-04 15:42 | PN ---
Progress Note (short form) - Note Progress Note: Patient has the mental capacity to make decisions about her medical care. Problem List - Problems (1) Adjustment disorder with depressed mood Code(s): F43.21 - ADJUSTMENT DISORDER WITH DEPRESSED MOOD
[2017-06-04] MEDS: HEPARIN - 25,000 UNIT in SODIUM CHLORIDE 495 ML IV SCH (17:46)
[2017-06-05] MEDS: HEPARIN NA (PORCINE) 5,000 UNITS/ML 1ML VIAL IVPUSH PRN ×4 (01:47→23:45)
[2017-06-05 06:38] LABS: BASOPHIL 0.9 % (0-2.0); MCH 28.9 pg (25.7-33.7); MEAN CELL VOLUME 90.3 fl (80-96); MEAN PLT VOLUME 10.5 fl (7.5-11.1); NEUTROPHILS 72.5 % (42.8-82.8); PLATELET COUNT 177 K/MM3 (134-434); RDW 16.4 % (11.6-15.6); WHITE BLOOD COUNT 9.6 K/mm3 (4.0-10.0)
[2017-06-05 07:01] LABS: ALBUMIN 2.4 g/dl (3.4-5.0); ALK PHOS 79 U/L (45-117); ANION GAP 7 (8-16); BILIRUBIN,TOTAL 1.4 mg/dL (0.2-1.0); CALCIUM 8.2 mg/dL (8.5-10.1); CO2 34 mmol/L (21-32); CREATININE 0.7 mg/dL (0.55-1.02); GLUCOSE,RANDOM 94 mg/dL (74-106); MAGNESIUM 1.8 mg/dL (1.8-2.4); PHOSPHOROUS 3.8 mg/dL (2.5-4.9); SGOT/AST 10 U/L (15-37); SGPT/ALT 10 U/L (12-78); TOT PROT 7.2 g/dl (6.4-8.2)
--- NOTE | 2017-06-05 08:59 | PN ---
Physical Exam: SUBJECTIVE: Patient seen and examined Hemoptysis continues, unchanged. Pain is better. She says that she would be amenable to discussion about mechanical thrombolysis. OBJECTIVE: Vital Signs Period Temp Pulse Resp BP Sys/Magana Pulse Ox Last 24 Hr 97.7 F-98.2 F 71-93 23-34 80-124/47-112 98-98 GEN: Awake, alert CVS: RRR PULM: scattered rhonchi ABD: soft, obese, NT/ND, NABS EXTREM: warm ,well perfused Laboratory Results - last 24 hr 06/04/17 06/05/17 06/05/17 14:30 00:00 05:15 WBC RBC Hgb Hct MCV MCH MCHC RDW Plt Count MPV Neutrophils % Lymphocytes % Monocytes % Eosinophils % Basophils % PTT (Actin FS) 30.4 28.0 39.2 H D Sodium Potassium Chloride Carbon Dioxide Anion Gap BUN Creatinine Creat Clearance w eGFR Random Glucose Calcium Phosphorus Magnesium Total Bilirubin AST ALT Alkaline Phosphatase Total Protein Albumin 06/05/17 06/05/17 05:15 05:15 WBC 9.6 RBC 4.12 Hgb 11.9 Hct 37.2 MCV 90.3 MCH 28.9 MCHC 32.0 RDW 16.4 H Plt Count 177 MPV 10.5 Neutrophils % 72.5 Lymphocytes % 12.5 Monocytes % 11.1 H Eosinophils % 3.0 Basophils % 0.9 PTT (Actin FS) Sodium 138 Potassium 3.9 Chloride 97 L Carbon Dioxide 34 H Anion Gap 7 L BUN 16 Creatinine 0.7 Creat Clearance w eGFR > 60 Random Glucose 94 Calcium 8.2 L Phosphorus 3.8 Magnesium 1.8 Total Bilirubin 1.4 H AST 10 L ALT 10 L Alkaline Phosphatase 79 Total Protein 7.2 Albumin 2.4 L Active Medications Generic Name Dose Route Start Last Admin Trade Name Freq PRN Reason Stop Dose Admin Acetaminophen 650 mg 06/03/17 05:52 06/04/17 21:35 Tylenol - PO 650 mg Q4H PRN Administration FEVER OR PAIN Aclidinium [place] 1 puff 06/03/17 10:00 06/04/17 21:43 Tudorza - IH Not Given BID [facility] Aspirin 81 mg 06/03/17 10:00 06/04/17 09:44 Ecotrin - PO 81 mg DAILY [facility] Administration Ceftriaxone Sodium 1 gm 06/03/17 16:30 06/04/17 09:47 Rocephin 1gm Ivpb (Pre-Docked) IVPB 1 gm DAILY [facility] Administration Protocol Cholecalciferol 2,000 unit 06/03/17 10:00 06/04/17 09:45 Vitamin D3 - PO 2,000 unit DAILY [facility] Administration Cyanocobalamin 500 mcg 06/03/17 10:00 06/04/17 09:46 Vitamin B12 - PO 500 mcg DAILY [facility] Administration Furosemide 40 mg 06/04/17 10:00 06/04/17 09:43 Lasix Injection - IVPB 40 mg DAILY [facility] Administration Heparin Sodium (Porcine) 1,000 unit 06/03/17 14:51 Heparin - IVPUSH PRN PRN Heparin Heparin Sodium (Porcine) 5,000 unit 06/03/17 14:51 06/05/17 07:58 Heparin - IVPUSH 5,000 unit PRN PRN Administration Heparin Doxycycline Hyclate 100 mg/ 100 mls @ 100 mls/hr 06/03/17 18:00 06/04/17 21:36 Dextrose IVPB 100 mls/hr BID [facility] Administration Famotidine/Sodium Chloride 50 mls @ 100 mls/hr 06/03/17 11:30 06/04/17 21:36 Pepcid 20 Mg Premixed Ivpb - IVPB 100 mls/hr BID [facility] Administration Heparin Sodium (Porcine) 25, 500 mls @ 20 mls/hr 06/03/17 15:30 06/05/17 07:58 000 unit/ Sodium Chloride IV 1,600 unit/hr TITR [facility] Titration Protocol 1,000 UNIT/HR Magnesium Oxide 400 mg 06/03/17 10:00 06/04/17 09:43 Mag-Ox - PO 400 mg DAILY [facility] Administration Metoprolol Succinate 50 mg 06/03/17 10:00 06/04/17 09:44 Toprol Xl - PO 50 mg DAILY [facility] Administration Multivitamins 1 each 06/03/17 10:00 06/04/17 09:44 Total B With C - PO 1 each DAILY [facility] Administration Nortriptyline HCl 10 mg 06/03/17 22:00 06/04/17 22:40 Pamelor - PO Not Given HS [facility] Fluticasone/Salmeterol 1 puff 06/03/17 10:00 06/04/17 21:41 Advair 100mcg/50mcg - IH 1 puff BID [facility] Administration Valsartan 320 mg 06/03/17 10:00 06/04/17 09:43 Diovan - PO 320 mg DAILY [facility] Administration Vitamin E 400 unit 06/03/17 10:00 06/04/17 09:45 Vitamin E - PO 400 unit DAILY [facility] Administration ASSESSMENT/PLAN: The patient is a 46 year old female with a significant past medical history of morbid obesity, likely JOSE, likely OHS, CHF, CAD, COPD and pulmonary hypertension who is HD#2 with bilateral lobar submassive PE. #CVS / PULM Bilateral PE, submassive Severe chronic systolic left and right sided CHF Preload dependence due to both of the above Likely JOSE and OHS CAD COPD, with acute exacerbation She continues to improve She said she would now be amenable to discussion regarding mechanical thrombolysis Will consult IR to facilitate discussion Continue Heparin, following hemoptysis closely Continue Lasix 40mg IV daily Continue Losartan for BP control Continue home Advair and Tudorza Continue nebs prn Continue CTZ/Doxy (she reports Macrolide allergy), for anticipated 7 day course She continues to refuse NIPPV for JOSE and does not want a sleep study #PVD Cont diuresis Patient refusing santyl KIERA wraps to B/L LE Moist-dry dressing to left lower leg Vascular consult, Dr. Lloyd Wound care consult #PSYCH Chronic anxiety and depression Continue Pamelor Psych consult noted and appreciated #FEN Low Na diet Monitor volume status closely as she is preload dependent given severe systolid dysfunction and bilateral PEs Replete lytes prn #PROPHLYLAXIS She is anticoagulated She is eating PT consult Visit type - Emergency Visit Emergency Visit: Yes ED Registration Date: 06/03/17 Care time: The patient presented to the Emergency Department on the above date and was hospitalized for further evaluation of their emergent condition. - New Patient This patient is new to me today: No - Critical Care Critical Care patient: No
--- NOTE | 2017-06-05 08:59 | PN ---
Progress Note (short form) - Note Progress Note: PULMONARY/CCM Pt seen and examined in the ICU. Still with some hemoptysis on heparin gtt. Denies chest pain but still with some right flank pain. Intermittent shortness of breath. Last Vital Signs Temp Pulse Resp BP Pulse Ox 97.7 F 93 H 28 H 124/112 98 06/05/17 06:00 06/05/17 08:00 06/05/17 08:00 06/05/17 08:00 06/04/17 22:00 Intake & Output 06/02/17 06/03/17 06/04/17 06/05/17 23:59 23:59 23:59 23:59 Intake Total 180 1814 720 Output Total 2900 1800 250 Balance -2720 14 470 Weight 340 lb 9.6 oz Gen: NAD at rest Heart: RRR Lung: distant breath sounds Abd: soft, nontender Ext: + edema CBC, BMP 06/05/17 05:15 06/05/17 05:15 Active Medications Acetaminophen (Tylenol -) 650 mg PO Q4H PRN PRN Reason: FEVER OR PAIN Last Admin: 06/04/17 21:35 Dose: 650 mg Aclidinium [place] (Tudorza -) 1 puff IH BID [facility] Last Admin: 06/04/17 21:43 Dose: Not Given Aspirin (Ecotrin -) 81 mg PO DAILY [facility] Last Admin: 06/04/17 09:44 Dose: 81 mg Ceftriaxone Sodium (Rocephin 1gm Ivpb (Pre-Docked)) 1 gm IVPB DAILY [facility] PRN Reason: Protocol Last Admin: 06/04/17 09:47 Dose: 1 gm Cholecalciferol (Vitamin D3 -) 2,000 unit PO DAILY [facility] Last Admin: 06/04/17 09:45 Dose: 2,000 unit Cyanocobalamin (Vitamin B12 -) 500 mcg PO DAILY [facility] Last Admin: 06/04/17 09:46 Dose: 500 mcg Furosemide (Lasix Injection -) 40 mg IVPB DAILY [facility] Last Admin: 06/04/17 09:43 Dose: 40 mg Heparin Sodium (Porcine) (Heparin -) 1,000 unit IVPUSH PRN PRN PRN Reason: Heparin Heparin Sodium (Porcine) (Heparin -) 5,000 unit IVPUSH PRN PRN PRN Reason: Heparin Last Admin: 08/20/17 07:58 Dose: 5,000 unit Doxycycline Hyclate 100 mg/ (Dextrose) 100 mls @ 100 mls/hr IVPB BID [facility] Last Admin: 06/04/17 21:36 Dose: 100 mls/hr Famotidine/Sodium Chloride (Pepcid 20 Mg Premixed Ivpb -) 50 mls @ 100 mls/hr IVPB BID [facility] Last Admin: 06/04/17 21:36 Dose: 100 mls/hr Heparin Sodium (Porcine) 25, (000 unit/ Sodium Chloride) 500 mls @ 20 mls/hr IV TITR [facility]; 1,000 UNIT/HR PRN Reason: Protocol Last Titration: 06/05/17 07:58 Dose: 1,600 unit/hr Magnesium Oxide (Mag-Ox -) 400 mg PO DAILY [facility] Last Admin: 06/04/17 09:43 Dose: 400 mg Metoprolol Succinate (Toprol Xl -) 50 mg PO DAILY [facility] Last Admin: 06/04/17 09:44 Dose: 50 mg Multivitamins (Total B With C -) 1 each PO DAILY [facility] Last Admin: 06/04/17 09:44 Dose: 1 each Nortriptyline HCl (Pamelor -) 10 mg PO HS [facility] Last Admin: 06/04/17 22:40 Dose: Not Given Fluticasone/Salmeterol (Advair 100mcg/50mcg -) 1 puff IH BID [facility] Last Admin: 06/04/17 21:41 Dose: 1 puff Valsartan (Diovan -) 320 mg PO DAILY [facility] Last Admin: 06/04/17 09:43 Dose: 320 mg Vitamin E (Vitamin E -) 400 unit PO DAILY [facility] Last Admin: 06/04/17 09:45 Dose: 400 unit A/P Submassive Pulmonary Emboli Likely Pulmonary Infarct Severe LV Systolic Dysfunction Pulmonary HTN CAD COPD Morbid Obesity Likely JOSE/OHS - continue anticoagulation for now - O2 to keep SpO2 >90% - pt still declining intervention on PE - monitor/quantify hemoptysis - if hemoptysis worsens, may need to stop anticoagulation and place IVC filter - pt declining CPAP at night - inhaled bronchodilators - lasix as needed - can monitor on floor - pt DNR/DNI
[2017-06-05] MEDS ORDERED: PT OWN MED DRAWER 7, Y5N ONE (09:14)
[2017-06-05] MEDS: FLUTICASONE/SALMETEROL 100 MCG/50 MCG DISKUS IH SCH ×2 (09:27→21:43)
[2017-06-05] MEDS: VITAMIN B COMPLEX W/C COMBO TABLET (FP) PO SCH (09:28)
[2017-06-05] MEDS: FUROSEMIDE 40 MG/4 ML INJECTABLE VIAL IVPB SCH (09:28)
[2017-06-05] MEDS: ASPIRIN COATED 81 MG TABLET.EC PO SCH (09:28)
[2017-06-05] MEDS: MAGNESIUM OXIDE 400 MG TABLET (FP) PO SCH (09:28)
[2017-06-05] MEDS: VALSARTAN 160 MG TABLET (UD) PO SCH (09:28)
[2017-06-05] MEDS: VITAMIN E 400 INTERNATIONAL-UNITS CAPSULE (FP) PO SCH (09:29)
[2017-06-05] MEDS: FAMOTIDINE 20 MG/50 ML IVPB 50 ML IVPB SCH ×2 (09:29→21:42)
[2017-06-05] MEDS: METOPROLOL SUCCINATE 50 MG TAB.SR.24H (FP) PO SCH (09:29)
[2017-06-05] MEDS: ACLIDINIUM BROMIDE 400 MCG/INH AERO.POWD IH SCH ×2 (09:29→21:42)
[2017-06-05] MEDS: CHOLECALCIFEROL (VITAMIN D3) 1,000 UNIT TABLET (FP) PO SCH (09:30)
[2017-06-05] MEDS: CYANOCOBALAMIN 1,000 MCG TABLET (FP) PO SCH (09:30)
[2017-06-05] MEDS: HEPARIN - 25,000 UNIT in SODIUM CHLORIDE 495 ML IV SCH ×2 (09:31→16:57)
[2017-06-05] MEDS: cefTRIAXone 1 GM/50 ML BAG (PRE-DOCKED) IVPB SCH (10:18)
[2017-06-05] MEDS: DOXYCYCLINE INJECTION 100 MG in DEXTROSE 5%-WATER - 100 ML IVPB SCH ×2 (11:06→22:43)
--- NOTE | 2017-06-05 12:38 | PN ---
Progress Note, Physician History of Present Illness: Dyspnea and hemoptysis slowly improving, no chest pain. - Current Medication List Current Medications: Active Medications Acetaminophen (Tylenol -) 650 mg PO Q4H PRN PRN Reason: FEVER OR PAIN Last Admin: 06/04/17 21:35 Dose: 650 mg Aclidinium [place] (Tudorza -) 1 puff IH BID [facility] Last Admin: 06/05/17 09:29 Dose: Not Given Aspirin (Ecotrin -) 81 mg PO DAILY [facility] Last Admin: 06/05/17 09:28 Dose: 81 mg Ceftriaxone Sodium (Rocephin 1gm Ivpb (Pre-Docked)) 1 gm IVPB DAILY [facility] PRN Reason: Protocol Last Admin: 06/05/17 10:18 Dose: 1 gm Cholecalciferol (Vitamin D3 -) 2,000 unit PO DAILY [facility] Last Admin: 06/05/17 09:30 Dose: 2,000 unit Cyanocobalamin (Vitamin B12 -) 500 mcg PO DAILY [facility] Last Admin: 06/05/17 09:30 Dose: 500 mcg Furosemide (Lasix Injection -) 40 mg IVPB DAILY [facility] Last Admin: 06/05/17 09:28 Dose: 40 mg Heparin Sodium (Porcine) (Heparin -) 1,000 unit IVPUSH PRN PRN PRN Reason: Heparin Heparin Sodium (Porcine) (Heparin -) 5,000 unit IVPUSH PRN PRN PRN Reason: Heparin Last Admin: 06/05/17 07:58 Dose: 5,000 unit Doxycycline Hyclate 100 mg/ (Dextrose) 100 mls @ 100 mls/hr IVPB BID [facility] Last Admin: 06/05/17 11:06 Dose: 100 mls/hr Famotidine/Sodium Chloride (Pepcid 20 Mg Premixed Ivpb -) 50 mls @ 100 mls/hr IVPB BID [facility] Last Admin: 06/05/17 09:29 Dose: 100 mls/hr Heparin Sodium (Porcine) 25, (000 unit/ Sodium Chloride) 500 mls @ 20 mls/hr IV TITR [facility]; 1,000 UNIT/HR PRN Reason: Protocol Last Admin: 06/05/17 09:31 Dose: 32 mls/hr Magnesium Oxide (Mag-Ox -) 400 mg PO DAILY [facility] Last Admin: 06/05/17 09:28 Dose: 400 mg Metoprolol Succinate (Toprol Xl -) 50 mg PO DAILY [facility] Last Admin: 06/05/17 09:29 Dose: 50 mg Multivitamins (Total B With C -) 1 each PO DAILY [facility] Last Admin: 06/05/17 09:28 Dose: 1 each Nortriptyline HCl (Pamelor -) 10 mg PO HS [facility] Last Admin: 06/04/17 22:40 Dose: Not Given Fluticasone/Salmeterol (Advair 100mcg/50mcg -) 1 puff IH BID [facility] Last Admin: 06/05/17 09:27 Dose: 1 puff Valsartan (Diovan -) 320 mg PO DAILY [facility] Last Admin: 06/05/17 09:28 Dose: 320 mg Vitamin E (Vitamin E -) 400 unit PO DAILY [facility] Last Admin: 06/05/17 09:29 Dose: 400 unit - Objective Vital Signs: Vital Signs Temperature 98.3 F 06/05/17 11:06 Pulse Rate 90 06/05/17 10:00 Respiratory Rate 28 H 06/05/17 10:00 Blood Pressure 102/74 06/05/17 10:00 O2 Sat by Pulse Oximetry (%) 98 06/05/17 09:00 Constitutional: Yes: No Distress, Calm Neck: Yes: Supple, Tenderness Respiratory: Yes: Regular, Diminished Gastrointestinal: Yes: Normal Bowel Sounds, Soft, Abdomen, Obese Edema: Yes Edema: LLE: 2+, RLE: 2+ Labs: CBC, BMP 06/05/17 05:15 06/05/17 05:15 INR, PTT INR 1.53 (0.82-1.09) H 06/03/17 01:50 - ....Imaging Ultrasound: Report Reviewed (Vascular u/s negative for DVT) Problem List - Problems (1) Acute on chronic systolic (congestive) heart failure Code(s): I50.23 - ACUTE ON CHRONIC SYSTOLIC (CONGESTIVE) HEART FAILURE (2) Anasarca Code(s): R60.1 - GENERALIZED EDEMA (3) COPD (chronic obstructive pulmonary disease) Code(s): J44.9 - CHRONIC OBSTRUCTIVE PULMONARY DISEASE, UNSPECIFIED Qualifiers : COPD type: unspecified COPD Qualified Code(s): J44.9 - Chronic obstructive pulmonary disease, unspecified (4) Cellulitis and abscess of leg Code(s): L02.419 - CUTANEOUS ABSCESS OF LIMB, UNSPECIFIED L03.119 - CELLULITIS OF UNSPECIFIED PART OF LIMB (5) Coronary artery disease Code(s): I25.10 - ATHSCL HEART DISEASE OF [place] CORONARY ARTERY W/O ANG PCTRS Qualifiers: Coronary Disease-Associated Artery/Lesion type: [place] artery [place] vs. transplanted heart: [place] heart Associated angina: without angina Qualified Code(s): I25.10 - Atherosclerotic heart disease of [place] coronary artery without angina pectoris (6) Hypertensive cardiomegaly with heart failure Code(s): I11.0 - HYPERTENSIVE HEART DISEASE WITH HEART FAILURE (7) Lymph edema Code(s): I89.0 - LYMPHEDEMA, NOT ELSEWHERE CLASSIFIED (8) Morbid (severe) obesity with alveolar hypoventilation Code(s): E66.2 - MORBID (SEVERE) OBESITY WITH ALVEOLAR HYPOVENTILATION (9) Status post coronary artery stent placement Code(s): Z95.5 - PRESENCE OF CORONARY ANGIOPLASTY IMPLANT AND GRAFT (10) Biventricular failure Code(s): I50.9 - HEART FAILURE, UNSPECIFIED (11) Pulmonary embolism Code(s): I26.99 - OTHER PULMONARY EMBOLISM WITHOUT ACUTE COR PULMONALE Qualifiers: Pulmonary embolism type: other Chronicity: acute Acute cor pulmonale presence: without acute cor pulmonale Qualified Code(s): I26.99 - Other pulmonary embolism without acute cor pulmonale (12) Pulmonary hypertension Code(s): I27.2 - OTHER SECONDARY PULMONARY HYPERTENSION Assessment/Plan 11/02/2016 Echocardiography revealed severe reduction in LV EF, bi-atrial dilatation, mild MR and TR with mild to moderate degree of pulmonary HTN, RVSP of 40-50 mmHg 06/03/2017 Echo: Mod decreased RV, suspect RV thrombus, severe decrease LV fxn, mild MR, TR or MO 1. Acute on chronic LV systolic failure class III NYHA classification LV failure in context of diuretic noncompliance 2. Bilateral submassive pulmonary embolism with likely Pulmonary Infarct 3. CAD post [place] PCI (stent), angina pectoris 4. HTN 5. DM 6. COPD 7. Morbid obesity with OSAS/OHS 8. Cellulitis 9. Poor compliance with medical F/U PLAN: 1. IV diuresis with monitor diuretic response, renal function and electrolytes 2. D/c ASA 81 qd, heparin->coumadin or NOAC, consideration for mechanical thrmobectomy 3. Continue Toprol XL 50 qd 4. Continue Diovan 320 qd, ideally should be on aldosterone antagonist Aldactone , but poor f/u of electrolytes and renal function preclude use 5. Continue antibiotics as per the primary team, BD, O2 to maintain saO2 6. Additional cardiovascular evaluation is recommended but limiting factor is her morbid obesity (performing an MPI study) and in addition patient still declines prophylactic ICD implantation considering the above noted systolic LV dysfunction, understanding risk, benefits and alternatives 7. Long conversation with the patient in reference to importance of compliance to therapy administration and regular F/U, she has not seen cat sitter, previously (Sydney Jordan) in 2 years, declines sleep study and cpap therapy
[2017-06-05] MEDS ORDERED: LOPERAMIDE HCL 2 MG CAPSULE PO ONE (16:21)
[2017-06-05] MEDS: LOPERAMIDE HCL 2 MG CAPSULE PO PRN (21:41)
[2017-06-05] MEDS: NORTRIPTYLINE HCL 10 MG CAPSULE PO SCH (21:42)
[2017-06-05] MEDS ORDERED: HEPARIN INFUSION - 500 ML IVPB ONE (23:42)
[2017-06-06] MEDS: LOPERAMIDE HCL 2 MG CAPSULE PO PRN ×2 (04:05→17:15)
[2017-06-06 07:26] LABS: MCH 28.6 pg (25.7-33.7); MEAN CELL VOLUME 89.4 fl (80-96); MEAN PLT VOLUME 10.3 fl (7.5-11.1); PLATELET COUNT 230 K/MM3 (134-434); WHITE BLOOD COUNT 9.2 K/mm3 (4.0-10.0)
[2017-06-06 08:25] LABS: ALBUMIN 2.3 g/dl (3.4-5.0); ALK PHOS 75 U/L (45-117); ANION GAP 9 (8-16); BILIRUBIN,TOTAL 1.4 mg/dL (0.2-1.0); CALCIUM 8.3 mg/dL (8.5-10.1); CO2 33 mmol/L (21-32); CREATININE 0.7 mg/dL (0.55-1.02); GLUCOSE,RANDOM 129 mg/dL (74-106); MAGNESIUM 1.9 mg/dL (1.8-2.4); PHOSPHOROUS 3.5 mg/dL (2.5-4.9); SGOT/AST 10 U/L (15-37); SGPT/ALT 7 U/L (12-78)
[2017-06-06] MEDS: HEPARIN NA (PORCINE) 5,000 UNITS/ML 1ML VIAL IVPUSH PRN (08:44)
[2017-06-06] MEDS: HEPARIN - 25,000 UNIT in SODIUM CHLORIDE 495 ML IV SCH (09:00)
[2017-06-06] MEDS: MAGNESIUM OXIDE 400 MG TABLET (FP) PO SCH (10:00)
[2017-06-06] MEDS: FLUTICASONE/SALMETEROL 100 MCG/50 MCG DISKUS IH SCH ×2 (10:00→21:09)
[2017-06-06] MEDS: FAMOTIDINE 20 MG/50 ML IVPB 50 ML IVPB SCH ×2 (10:00→21:07)
[2017-06-06] MEDS: CHOLECALCIFEROL (VITAMIN D3) 1,000 UNIT TABLET (FP) PO SCH (10:00)
[2017-06-06] MEDS: VITAMIN B COMPLEX W/C COMBO TABLET (FP) PO SCH (10:00)
[2017-06-06] MEDS: ASPIRIN COATED 81 MG TABLET.EC PO SCH (10:00)
[2017-06-06] MEDS: CYANOCOBALAMIN 1,000 MCG TABLET (FP) PO SCH (10:00)
[2017-06-06] MEDS ORDERED: PT OWN MED DRAWER 7, Y5N ONE ×2 (10:50→11:19)
[2017-06-06] MEDS: FUROSEMIDE 40 MG/4 ML INJECTABLE VIAL IVPB SCH (10:54)
[2017-06-06] MEDS: VITAMIN E 400 INTERNATIONAL-UNITS CAPSULE (FP) PO SCH (10:58)
[2017-06-06] MEDS: cefTRIAXone 1 GM/50 ML BAG (PRE-DOCKED) IVPB SCH (11:00)
--- NOTE | 2017-06-06 11:36 | PN ---
Progress Note, Physician History of Present Illness: Dyspnea and hemoptysis slowly improving, no chest pain. - Current Medication List Current Medications: Active Medications Acetaminophen (Tylenol -) 650 mg PO Q4H PRN PRN Reason: FEVER OR PAIN Last Admin: 06/04/17 21:35 Dose: 650 mg Aclidinium [place] (Tudorza -) 1 puff IH BID [facility] Last Admin: 06/05/17 21:42 Dose: Not Given Aspirin (Ecotrin -) 81 mg PO DAILY [facility] Last Admin: 06/05/17 09:28 Dose: 81 mg Cholecalciferol (Vitamin D3 -) 2,000 unit PO DAILY [facility] Last Admin: 06/05/17 09:30 Dose: 2,000 unit Cyanocobalamin (Vitamin B12 -) 500 mcg PO DAILY [facility] Last Admin: 06/05/17 09:30 Dose: 500 mcg Furosemide (Lasix Injection -) 40 mg IVPB DAILY [facility] Last Admin: 06/06/17 10:54 Dose: 40 mg Heparin Sodium (Porcine) (Heparin -) 1,000 unit IVPUSH PRN PRN PRN Reason: Heparin Heparin Sodium (Porcine) (Heparin -) 5,000 unit IVPUSH PRN PRN PRN Reason: Heparin Last Admin: 06/06/17 08:44 Dose: 5,000 unit Doxycycline Hyclate 100 mg/ (Dextrose) 100 mls @ 100 mls/hr IVPB BID [facility] Last Admin: 06/05/17 22:43 Dose: 100 mls/hr Famotidine/Sodium Chloride (Pepcid 20 Mg Premixed Ivpb -) 50 mls @ 100 mls/hr IVPB BID [facility] Last Admin: 06/05/17 21:42 Dose: 100 mls/hr Heparin Sodium (Porcine) 25, (000 unit/ Sodium Chloride) 500 mls @ 20 mls/hr IV TITR [facility]; 1,000 UNIT/HR PRN Reason: Protocol Last Titration: 06/05/17 23:46 Dose: 1,900 unit/hr Ceftriaxone Sodium 1 gm/ (Dextrose) 50 mls @ 100 mls/hr IVPB DAILY [facility] Stop: 06/09/17 11:14 Loperamide HCl (Imodium -) 4 mg PO Q6H PRN PRN Reason: DIARRHEA Last Admin: 06/06/17 04:05 Dose: 4 mg Magnesium Oxide (Mag-Ox -) 400 mg PO DAILY [facility] Last Admin: 06/05/17 09:28 Dose: 400 mg Metoprolol Succinate (Toprol Xl -) 50 mg PO DAILY [facility] Last Admin: 06/05/17 09:29 Dose: 50 mg Multivitamins (Total B With C -) 1 each PO DAILY [facility] Last Admin: 06/05/17 09:28 Dose: 1 each Nortriptyline HCl (Pamelor -) 10 mg PO HS [facility] Last Admin: 06/05/17 21:42 Dose: Not Given Fluticasone/Salmeterol (Advair 100mcg/50mcg -) 1 puff IH BID [facility] Last Admin: 06/05/17 21:43 Dose: 1 puff Valsartan (Diovan -) 320 mg PO DAILY [facility] Last Admin: 06/05/17 09:28 Dose: 320 mg Vitamin E (Vitamin E -) 400 unit PO DAILY [facility] Last Admin: 06/06/17 10:58 Dose: 400 unit - Objective Vital Signs: Vital Signs Temperature 97.6 F 06/06/17 08:00 Pulse Rate 88 06/06/17 08:00 Respiratory Rate 20 06/06/17 08:00 Blood Pressure 135/72 06/06/17 08:00 O2 Sat by Pulse Oximetry (%) 94 L 06/06/17 08:57 Constitutional: Yes: No Distress, Calm Neck: Yes: Supple Cardiovascular: Yes: Regular Rate and Rhythm Respiratory: Yes: Regular, Diminished, On Nasal O2 Gastrointestinal: Yes: Normal Bowel Sounds, Soft, Abdomen, Obese Edema: Yes Labs: CBC, BMP 06/06/17 06:00 06/06/17 06:00 INR, PTT INR 1.53 (0.82-1.09) H 06/03/17 01:50 Problem List - Problems (1) Acute on chronic systolic (congestive) heart failure Code(s): I50.23 - ACUTE ON CHRONIC SYSTOLIC (CONGESTIVE) HEART FAILURE (2) Anasarca Code(s): R60.1 - GENERALIZED EDEMA (3) COPD (chronic obstructive pulmonary disease) Code(s): J44.9 - CHRONIC OBSTRUCTIVE PULMONARY DISEASE, UNSPECIFIED Qualifiers : COPD type: unspecified COPD Qualified Code(s): J44.9 - Chronic obstructive pulmonary disease, unspecified (4) Cellulitis and abscess of leg Code(s): L02.419 - CUTANEOUS ABSCESS OF LIMB, UNSPECIFIED L03.119 - CELLULITIS OF UNSPECIFIED PART OF LIMB (5) Coronary artery disease Code(s): I25.10 - ATHSCL HEART DISEASE OF [place] CORONARY ARTERY W/O ANG PCTRS Qualifiers: Coronary Disease-Associated Artery/Lesion type: [place] artery [place] vs. transplanted heart: [place] heart Associated angina: without angina Qualified Code(s): I25.10 - Atherosclerotic heart disease of [place] coronary artery without angina pectoris (6) Hypertensive cardiomegaly with heart failure Code(s): I11.0 - HYPERTENSIVE HEART DISEASE WITH HEART FAILURE (7) Lymph edema Code(s): I89.0 - LYMPHEDEMA, NOT ELSEWHERE CLASSIFIED (8) Morbid (severe) obesity with alveolar hypoventilation Code(s): E66.2 - MORBID (SEVERE) OBESITY WITH ALVEOLAR HYPOVENTILATION (9) Status post coronary artery stent placement Code(s): Z95.5 - PRESENCE OF CORONARY ANGIOPLASTY IMPLANT AND GRAFT (10) Biventricular failure Code(s): I50.9 - HEART FAILURE, UNSPECIFIED (11) Pulmonary embolism Code(s): I26.99 - OTHER PULMONARY EMBOLISM WITHOUT ACUTE COR PULMONALE Qualifiers: Pulmonary embolism type: other Chronicity: acute Acute cor pulmonale presence: without acute cor pulmonale Qualified Code(s): I26.99 - Other pulmonary embolism without acute cor pulmonale (12) Pulmonary hypertension Code(s): I27.2 - OTHER SECONDARY PULMONARY HYPERTENSION Assessment/Plan 11/02/2016 Echocardiography revealed severe reduction in LV EF, bi-atrial dilatation, mild MR and TR with mild to moderate degree of pulmonary HTN, RVSP of 40-50 mmHg 06/03/2017 Echo: Mod decreased RV, suspect RV thrombus, severe decrease LV fxn, mild MR, TR or [place] 1. Acute on chronic LV systolic failure class III NYHA classification LV failure in context of diuretic noncompliance 2. Bilateral submassive pulmonary embolism with likely Pulmonary Infarct 3. CAD post [place] PCI (stent), angina pectoris 4. HTN 5. DM 6. COPD 7. Morbid obesity with OSAS/OHS 8. Cellulitis 9. Poor compliance with medical F/U PLAN: 1. Lasix 40 IV qd with monitor diuretic response, renal function and electrolytes 2. D/c ASA 81 qd, heparin->coumadin or NOAC, consideration for mechanical thrombectomy 3. Continue Toprol XL 50 qd 4. Continue Diovan 320 qd, ideally should be on aldosterone antagonist Aldactone , but poor f/u of electrolytes and renal function preclude use 5. Continue antibiotics as per the primary team, BD, O2 to maintain saO2 6. Additional cardiovascular evaluation is recommended but limiting factor is her morbid obesity (performing an MPI study) and in addition patient still declines prophylactic ICD implantation considering the above noted systolic LV dysfunction, understanding risk, benefits and alternatives 7. Long conversation with the patient in reference to importance of compliance to therapy administration and regular F/U, she has not seen junior web developer, previously (Sydney Jordan) in 2 years, declines sleep study and cpap therapy
--- NOTE | 2017-06-06 12:57 | PN ---
Teaching Attending Note Name of Resident: Austin Velásquez ATTENDING PHYSICIAN STATEMENT I saw and evaluated the patient. I reviewed the resident's note and discussed the case with the resident. I agree with the resident's findings and plan as documented. SUBJECTIVE: Patient feels more SOB this morning. OBJECTIVE: Vital Signs Period Temp Pulse Resp BP Sys/Magana Pulse Ox Last 24 Hr 97.6 F-98.8 F 88-103 20-20 110-158/67-96 94-96 HEART: S1S2, RRR LUNGS: Bilateral rhonchi ABDOMEN: Obese, soft, non-tender, non-distended, normal BS EXTREMITIES: 2+ edema Current Medications Generic Name Dose Route Start Last Admin Trade Name Freq PRN Reason Stop Dose Admin Acetaminophen 650 mg 06/03/17 05:52 06/04/17 21:35 Tylenol - PO 650 mg Q4H PRN Administration FEVER OR PAIN Aclidinium [place] 1 puff 06/03/17 10:00 06/06/17 13:46 Tudorza - IH Not Given BID [facility] Cholecalciferol 2,000 unit 06/03/17 10:00 06/05/17 09:30 Vitamin D3 - PO 2,000 unit DAILY [facility] Administration Cyanocobalamin 500 mcg 06/03/17 10:00 06/05/17 09:30 Vitamin B12 - PO 500 mcg DAILY [facility] Administration Furosemide 40 mg 06/04/17 10:00 06/06/17 10:54 Lasix Injection - IVPB 40 mg DAILY [facility] Administration Heparin Sodium (Porcine) 1,000 unit 06/03/17 14:51 Heparin - IVPUSH PRN PRN Heparin Heparin Sodium (Porcine) 5,000 unit 06/03/17 14:51 06/06/17 08:44 Heparin - IVPUSH 5,000 unit PRN PRN Administration Heparin Doxycycline Hyclate 100 mg/ 100 mls @ 100 mls/hr 06/03/17 18:00 06/06/17 13:41 Dextrose IVPB 100 mls/hr BID [facility] Administration Famotidine/Sodium Chloride 50 mls @ 100 mls/hr 06/03/17 11:30 06/05/17 21:42 Pepcid 20 Mg Premixed Ivpb - IVPB 100 mls/hr BID [facility] Administration Heparin Sodium (Porcine) 25, 500 mls @ 20 mls/hr 06/03/17 15:30 06/05/17 23:46 000 unit/ Sodium Chloride IV 1,900 unit/hr TITR [facility] Titration Protocol 1,000 UNIT/HR Ceftriaxone Sodium 1 gm/ 50 mls @ 100 mls/hr 06/06/17 11:15 Dextrose IVPB 06/09/17 11:14 DAILY [facility] Loperamide HCl 4 mg 06/05/17 20:26 06/06/17 04:05 Imodium - PO 4 mg Q6H PRN Administration DIARRHEA Magnesium Oxide 400 mg 06/03/17 10:00 06/05/17 09:28 Mag-Ox - PO 400 mg DAILY [facility] Administration Metoprolol Succinate 50 mg 06/03/17 10:00 06/05/17 09:29 Toprol Xl - PO 50 mg DAILY [facility] Administration Multivitamins 1 each 06/03/17 10:00 06/05/17 09:28 Total B With C - PO 1 each DAILY [facility] Administration Nortriptyline HCl 10 mg 06/03/17 22:00 06/05/17 21:42 Pamelor - PO Not Given HS [facility] Fluticasone/Salmeterol 1 puff 06/03/17 10:00 06/05/17 21:43 Advair 100mcg/50mcg - IH 1 puff BID [facility] Administration Valsartan 320 mg 06/03/17 10:00 06/05/17 09:28 Diovan - PO 320 mg DAILY [facility] Administration Vitamin E 400 unit 06/03/17 10:00 06/06/17 10:58 Vitamin E - PO 400 unit DAILY [facility] Administration ASSESSMENT AND PLAN: This is a 46 year old woman with a history of morbid obesity, probable JOSE, probable OHS, CHF, CAD, COPD, pulmonary HTN, depression, anxiety who presented to the ER with SOB. 1. Bilateral submassive pulmonary emboli with probable pulmonary infarct - Continue heparin IV drip - IR evaluation 2. Acute on chronic systolic heart failure - Continue Lasix IV, Diovan, Toprol XL 3. Acute and possible chronic hypoxic respiratory failure, multifactorial - Continue oxygen to maintain saturation > 90% 4. Possible acute bronchitis, possible pneumonia - Continue Rocephin, Doxycycline 5. CAD, history of stent - Continue Toprol XL 6. HTN - Contnue Diovan, Toprol XL 7. COPD - Continue Advair, Tudorza 8. Pulmonary HTN 9. Probable JOSE and OHS - Continue oxygen - Refusing CPAP 10. Type 2 diabetes mellitus 11. Morbid obesity with BMI 52.8 12. Anxiety/depression - Continue Pamelor 13. Chronic lymphedema with venous ulcers - Continue wound care
--- NOTE | 2017-06-06 13:10 | PN ---
Physical Exam: SUBJECTIVE: Patient seen and examined No acute events overnight. Patient complaining of shortness of breath today that is worsening. OBJECTIVE: Vital Signs Period Temp Pulse Resp BP Sys/Magana Pulse Ox Last 24 Hr 97.6 F-98.8 F 88-103 20-20 110-158/67-96 94-96 GENERAL: Awake, alert, and fully oriented, in no acute distress. HEAD: Normal with no signs of trauma. EYES: Pupils equal, round and reactive to light, extraocular movements intact, sclera anicteric, conjunctiva clear. No lid lag. EARS, NOSE, THROAT: Ears normal, nares patent, oropharynx clear without exudates. Moist mucous membranes. NECK: Normal range of motion, supple without lymphadenopathy, JVD, or masses. LUNGS: Breath sounds-rhonchi bilaterally, No accessory muscle use HEART: Regular rate and rhythm, normal S1 and S2 without murmur, rub or gallop. ABDOMEN: Soft, nontender, not distended, normoactive bowel sounds, no guarding, no rebound, no masses. No hepatomegaly or splenomegaly. MUSCULOSKELETAL: Normal range of motion at all joints. No bony deformities or tenderness. No CVA tenderness. RIGHT COSTAL MARGIN TENDERNESS UPPER EXTREMITIES: 2+ pulses, warm, well-perfused. No cyanosis. No clubbing. No peripheral edema. LOWER EXTREMITIES: 2+ pulses, warm, well-perfused. No calf tenderness. B/L tight edema, 2+ left leg, 3+ right. + hypertrophic skin. Open wound LLL anterior carrillo 4cm x 10cm x 0.2cm with smaller distal wound that has joined together with upper 2.1cm x 0.8cm x 0.1cm 10% slough to central areas of both wounds, remainder of wound bed pink, granulating well. left posterior ankle with small dry wound 1.8cm x 1.4cm x 0.1cm. R foot, ball of foot 0.9 x 1.0 x 0.3cm, 100% slough NEUROLOGICAL: Cranial nerves II-XII intact. Normal speech. Normal gait. PSYCHIATRIC: Cooperative. Good eye contact. Appropriate mood and affect. SKIN: Warm, dry, normal turgor, no rashes or lesions noted, normal capillary refill. Laboratory Results - last 24 hr 08/20/17 08/20/17 08/21/17 15:39 22:40 06:00 WBC 9.2 RBC 4.15 Hgb 11.9 Hct 37.1 MCV 89.4 MCH 28.6 MCHC 32.0 RDW 17.0 H Plt Count 230 D MPV 10.3 PTT (Actin FS) 30.6 30.1 Sodium Potassium Chloride Carbon Dioxide Anion Gap BUN Creatinine Creat Clearance w eGFR Random Glucose Calcium Phosphorus Magnesium Total Bilirubin AST ALT Alkaline Phosphatase Total Protein Albumin 06/06/17 06/06/17 06:00 06:00 WBC RBC Hgb Hct MCV MCH MCHC RDW Plt Count MPV PTT (Actin FS) 37.1 H Sodium 139 Potassium 3.7 Chloride 97 L Carbon Dioxide 33 H Anion Gap 9 BUN 15 Creatinine 0.7 Creat Clearance w eGFR > 60 Random Glucose 129 H D Calcium 8.3 L Phosphorus 3.5 Magnesium 1.9 Total Bilirubin 1.4 H AST 10 L ALT 7 L D Alkaline Phosphatase 75 Total Protein 7.0 Albumin 2.3 L Active Medications Generic Name Dose Route Start Last Admin Trade Name Freq PRN Reason Stop Dose Admin Acetaminophen 650 mg 06/03/17 05:52 06/04/17 21:35 Tylenol - PO 650 mg Q4H PRN Administration FEVER OR PAIN Aclidinium [place] 1 puff 06/03/17 10:00 06/05/17 21:42 Tudorza - IH Not Given BID [facility] Cholecalciferol 2,000 unit 06/03/17 10:00 06/05/17 09:30 Vitamin D3 - PO 2,000 unit DAILY [facility] Administration Cyanocobalamin 500 mcg 06/03/17 10:00 06/05/17 09:30 Vitamin B12 - PO 500 mcg DAILY [facility] Administration Furosemide 40 mg 06/04/17 10:00 06/06/17 10:54 Lasix Injection - IVPB 40 mg DAILY [facility] Administration Heparin Sodium (Porcine) 1,000 unit 06/03/17 14:51 Heparin - IVPUSH PRN PRN Heparin Heparin Sodium (Porcine) 5,000 unit 06/03/17 14:51 06/06/17 08:44 Heparin - IVPUSH 5,000 unit PRN PRN Administration Heparin Doxycycline Hyclate 100 mg/ 100 mls @ 100 mls/hr 06/03/17 18:00 06/05/17 22:43 Dextrose IVPB 100 mls/hr BID [facility] Administration Famotidine/Sodium Chloride 50 mls @ 100 mls/hr 06/03/17 11:30 06/05/17 21:42 Pepcid 20 Mg Premixed Ivpb - IVPB 100 mls/hr BID [facility] Administration Heparin Sodium (Porcine) 25, 500 mls @ 20 mls/hr 06/03/17 15:30 06/05/17 23:46 000 unit/ Sodium Chloride IV 1,900 unit/hr TITR [facility] Titration Protocol 1,000 UNIT/HR Ceftriaxone Sodium 1 gm/ 50 mls @ 100 mls/hr 06/06/17 11:15 Dextrose IVPB 06/09/17 11:14 DAILY [facility] Loperamide HCl 4 mg 06/05/17 20:26 06/06/17 04:05 Imodium - PO 4 mg Q6H PRN Administration DIARRHEA Magnesium Oxide 400 mg 06/03/17 10:00 06/05/17 09:28 Mag-Ox - PO 400 mg DAILY [facility] Administration Metoprolol Succinate 50 mg 06/03/17 10:00 06/05/17 09:29 Toprol Xl - PO 50 mg DAILY [facility] Administration Multivitamins 1 each 06/03/17 10:00 06/05/17 09:28 Total B With C - PO 1 each DAILY [facility] Administration Nortriptyline HCl 10 mg 06/03/17 22:00 06/05/17 21:42 Pamelor - PO Not Given HS [facility] Fluticasone/Salmeterol 1 puff 06/03/17 10:00 06/05/17 21:43 Advair 100mcg/50mcg - IH 1 puff BID [facility] Administration Valsartan 320 mg 06/03/17 10:00 06/05/17 09:28 Diovan - PO 320 mg DAILY [facility] Administration Vitamin E 400 unit 06/03/17 10:00 06/06/17 10:58 Vitamin E - PO 400 unit DAILY [facility] Administration ASSESSMENT/PLAN: 46yF with PMH systolic CHF, [place], stent, COPD, asthma, chronic lymphedema, morbid obesity, depression, anxiety, pulm HTN presented to the ED with SOB and cough x 3-4 days. Pt is being admitted for further evaluation. #Bilateral PE's -Continue heparin drip -daily stool occult blood test -daily PTT -Monitor for any bleeding #Acute on chronic CHF exacerbation - BNP elevated from baseline -Lasix 40mg IVP given in ED -Continue lasix 40 mg iv daily -Continue Diovan 320 mg po daily -Continue toporol xl 50 mg po daily - echo with severely reduced EF on 11/02/16 - cardiology consult, pt states she does not have a deck builder, seen by Madhav jain last admission # Acute bronchitis/COPD exacerbation - albuterol nebs PRN - cont home LABA and tudorza - Continue doxycycline - chest cta- right upper and bilateral lower lobe consolidation with small right pleural effusion #Vascular ulcers/lymphedema - cont lasix IV 40 mg - Patient refusing santyl - Dry dressing changes to left lower leg - vascular consult, Dr. Lloyd -- Called office today, will call again tomorrow regarding consult - KIERA wraps to B/L LE #HTN -Continue home medications valsartan 320 mg po daily -Continue lasix 40 mg iv daily #Diarrhea -Continue imodium #Chronic JOSE -Patient refuses CPAP -Continue O2 NC DVT PPX -Continue heparin drip FEN - hold IVF, tolerating po - BMP tomorrow, replete mag - low sodium diet Visit type - Emergency Visit Emergency Visit: Yes ED Registration Date: 06/03/17 Care time: The patient presented to the Emergency Department on the above date and was hospitalized for further evaluation of their emergent condition. - New Patient This patient is new to me today: No - Critical Care Critical Care patient: No
--- NOTE | 2017-06-06 13:18 | PN ---
Progress Note (short form) - Note Progress Note: PULMONARY Still with hemoptysis but less frequent. Still with intermittent shortness of breath. Now willing to hear options for intervention on PE. Last Vital Signs Temp Pulse Resp BP Pulse Ox 97.6 F 88 20 135/72 94 L 06/06/17 08:00 06/06/17 08:00 06/06/17 08:00 06/06/17 08:00 06/06/17 08:57 Gen: NAD at rest Heart: RRR Lung: distant breath sounds Abd: soft, nontender Ext: + edema CBC, BMP 06/06/17 06:00 06/06/17 06:00 Active Medications Acetaminophen (Tylenol -) 650 mg PO Q4H PRN PRN Reason: FEVER OR PAIN Last Admin: 06/04/17 21:35 Dose: 650 mg Aclidinium [place] (Tudorza -) 1 puff IH BID [facility] Last Admin: 06/05/17 21:42 Dose: Not Given Cholecalciferol (Vitamin D3 -) 2,000 unit PO DAILY [facility] Last Admin: 06/05/17 09:30 Dose: 2,000 unit Cyanocobalamin (Vitamin B12 -) 500 mcg PO DAILY [facility] Last Admin: 06/05/17 09:30 Dose: 500 mcg Furosemide (Lasix Injection -) 40 mg IVPB DAILY [facility] Last Admin: 06/06/17 10:54 Dose: 40 mg Heparin Sodium (Porcine) (Heparin -) 1,000 unit IVPUSH PRN PRN PRN Reason: Heparin Heparin Sodium (Porcine) (Heparin -) 5,000 unit IVPUSH PRN PRN PRN Reason: Heparin Last Admin: 06/06/17 08:44 Dose: 5,000 unit Doxycycline Hyclate 100 mg/ (Dextrose) 100 mls @ 100 mls/hr IVPB BID [facility] Last Admin: 06/05/17 22:43 Dose: 100 mls/hr Famotidine/Sodium Chloride (Pepcid 20 Mg Premixed Ivpb -) 50 mls @ 100 mls/hr IVPB BID [facility] Last Admin: 06/05/17 21:42 Dose: 100 mls/hr Heparin Sodium (Porcine) 25, (000 unit/ Sodium Chloride) 500 mls @ 20 mls/hr IV TITR [facility]; 1,000 UNIT/HR PRN Reason: Protocol Last Titration: 06/05/17 23:46 Dose: 1,900 unit/hr Ceftriaxone Sodium 1 gm/ (Dextrose) 50 mls @ 100 mls/hr IVPB DAILY [facility] Stop: 06/09/17 11:14 Loperamide HCl (Imodium -) 4 mg PO Q6H PRN PRN Reason: DIARRHEA Last Admin: 06/06/17 04:05 Dose: 4 mg Magnesium Oxide (Mag-Ox -) 400 mg PO DAILY [facility] Last Admin: 06/05/17 09:28 Dose: 400 mg Metoprolol Succinate (Toprol Xl -) 50 mg PO DAILY [facility] Last Admin: 06/05/17 09:29 Dose: 50 mg Multivitamins (Total B With C -) 1 each PO DAILY [facility] Last Admin: 06/05/17 09:28 Dose: 1 each Nortriptyline HCl (Pamelor -) 10 mg PO HS [facility] Last Admin: 06/05/17 21:42 Dose: Not Given Fluticasone/Salmeterol (Advair 100mcg/50mcg -) 1 puff IH BID [facility] Last Admin: 06/05/17 21:43 Dose: 1 puff Valsartan (Diovan -) 320 mg PO DAILY [facility] Last Admin: 06/05/17 09:28 Dose: 320 mg Vitamin E (Vitamin E -) 400 unit PO DAILY [facility] Last Admin: 06/06/17 10:58 Dose: 400 unit A/P Submassive Pulmonary Emboli Likely Pulmonary Infarct Severe LV Systolic Dysfunction Pulmonary HTN CAD COPD Morbid Obesity Likely JOSE/OHS - IR evaluation - continue anticoagulation for now - O2 to keep SpO2 >90% - pt still declining intervention on PE - monitor/quantify hemoptysis - if hemoptysis worsens, may need to stop anticoagulation and place IVC filter - pt declining CPAP at night - inhaled bronchodilators - lasix as needed - can monitor on floor - pt DNR/DNI
[2017-06-06] MEDS ORDERED: cefTRIAXone SODIUM 1 GM VIAL ONE ×2 (13:39→14:30)
[2017-06-06] MEDS ORDERED: DEXTROSE 5%-WATER - 50 ML IVPB ONE (13:39)
[2017-06-06] MEDS: DOXYCYCLINE INJECTION 100 MG in DEXTROSE 5%-WATER - 100 ML IVPB SCH ×2 (13:41→21:54)
[2017-06-06] MEDS: ACLIDINIUM BROMIDE 400 MCG/INH AERO.POWD IH SCH ×2 (13:46→21:12)
[2017-06-06] MEDS: VALSARTAN 160 MG TABLET (UD) PO SCH (17:25)
[2017-06-06] MEDS: METOPROLOL SUCCINATE 50 MG TAB.SR.24H (FP) PO SCH (17:28)
[2017-06-06] MEDS: CEFTRIAXONE 1 GM in DEXTROSE 5%-WATER - 50 ML IVPB SCH (19:37)
[2017-06-06] MEDS: NORTRIPTYLINE HCL 10 MG CAPSULE PO SCH (21:12)
[2017-06-07] MEDS ORDERED: HEPARIN INFUSION - 500 ML IVPB ONE ×2 (01:48→12:16)
[2017-06-07] MEDS: HEPARIN - 25,000 UNIT in SODIUM CHLORIDE 495 ML IV SCH ×2 (01:55→18:20)
[2017-06-07] MEDS: HEPARIN NA (PORCINE) 5,000 UNITS/ML 1ML VIAL IVPUSH PRN ×3 (02:47→18:11)
[2017-06-07 07:31] LABS: BASOPHIL 2.9 % (0-2.0); MCH 28.2 pg (25.7-33.7); MCHC 31.6 g/dl (32.0-36.0); MEAN CELL VOLUME 89.3 fl (80-96); MEAN PLT VOLUME 9.8 fl (7.5-11.1); NEUTROPHILS 64.8 % (42.8-82.8); PLATELET COUNT 225 K/MM3 (134-434); RDW 16.9 % (11.6-15.6); WHITE BLOOD COUNT 8.7 K/mm3 (4.0-10.0)
[2017-06-07 08:01] LABS: ALBUMIN 2.3 g/dl (3.4-5.0); ANION GAP 6 (8-16); CO2 34 mmol/L (21-32); GLUCOSE,RANDOM 111 mg/dL (74-106)
[2017-06-07 08:05] LABS: ALK PHOS 70 U/L (45-117); BILIRUBIN,TOTAL 1.2 mg/dL (0.2-1.0); CALCIUM 8.1 mg/dL (8.5-10.1); CREATININE 0.6 mg/dL (0.55-1.02); MAGNESIUM 1.8 mg/dL (1.8-2.4); PHOSPHOROUS 3.5 mg/dL (2.5-4.9); SGOT/AST 11 U/L (15-37); SGPT/ALT 8 U/L (12-78); TOT PROT 7.1 g/dl (6.4-8.2)
[2017-06-07] MEDS ORDERED: PT OWN MED DRAWER 7, Y5N ONE ×3 (09:03→20:45)
[2017-06-07] MEDS ORDERED: cefTRIAXone SODIUM 1 GM VIAL ONE (09:04)
[2017-06-07] MEDS ORDERED: DEXTROSE 5%-WATER - 50 ML IVPB ONE (09:04)
[2017-06-07] MEDS: FLUTICASONE/SALMETEROL 100 MCG/50 MCG DISKUS IH SCH ×2 (09:23→22:37)
[2017-06-07] MEDS: ACLIDINIUM BROMIDE 400 MCG/INH AERO.POWD IH SCH ×2 (09:24→22:38)
[2017-06-07] MEDS: VALSARTAN 160 MG TABLET (UD) PO SCH (09:25)
[2017-06-07] MEDS: VITAMIN B COMPLEX W/C COMBO TABLET (FP) PO SCH (09:25)
[2017-06-07] MEDS: METOPROLOL SUCCINATE 50 MG TAB.SR.24H (FP) PO SCH (09:26)
[2017-06-07] MEDS: CYANOCOBALAMIN 1,000 MCG TABLET (FP) PO SCH (09:26)
[2017-06-07] MEDS: FUROSEMIDE 40 MG/4 ML INJECTABLE VIAL IVPB SCH (09:27)
[2017-06-07] MEDS: CHOLECALCIFEROL (VITAMIN D3) 1,000 UNIT TABLET (FP) PO SCH (09:27)
[2017-06-07] MEDS: MAGNESIUM OXIDE 400 MG TABLET (FP) PO SCH (09:28)
[2017-06-07] MEDS: VITAMIN E 400 INTERNATIONAL-UNITS CAPSULE (FP) PO SCH (09:32)
[2017-06-07] MEDS: FAMOTIDINE 20 MG/50 ML IVPB 50 ML IVPB SCH ×2 (11:11→22:37)
[2017-06-07] MEDS: CEFTRIAXONE 1 GM in DEXTROSE 5%-WATER - 50 ML IVPB SCH (11:12)
[2017-06-07] MEDS: DOXYCYCLINE INJECTION 100 MG in DEXTROSE 5%-WATER - 100 ML IVPB SCH ×2 (11:12→23:22)
--- NOTE | 2017-06-07 13:06 | PN ---
Physical Exam: SUBJECTIVE: Patient seen and examined Patient still has hemoptysis and shortness of breath on exertion. Patient states she had episodes of blood streaked sputum in September of last year, but seems different than her current hemoptysis. OBJECTIVE: Vital Signs Period Temp Pulse Resp BP Sys/Magana Pulse Ox Last 24 Hr 97.3 F-98.4 F 75-91 19-20 95-130/60-75 93 GENERAL: Awake, alert, and fully oriented, in no acute distress. HEAD: Normal with no signs of trauma. EYES: Pupils equal, round and reactive to light, extraocular movements intact, sclera anicteric, conjunctiva clear. No lid lag. EARS, NOSE, THROAT: Ears normal, nares patent, oropharynx clear without exudates. Moist mucous membranes. NECK: Normal range of motion, supple without lymphadenopathy, JVD, or masses. LUNGS: Breath sounds-rhonchi bilaterally, No accessory muscle use HEART: Regular rate and rhythm, normal S1 and S2 without murmur, rub or gallop. ABDOMEN: Soft, nontender, not distended, normoactive bowel sounds, no guarding, no rebound, no masses. No hepatomegaly or splenomegaly. MUSCULOSKELETAL: Normal range of motion at all joints. No bony deformities or tenderness. No CVA tenderness. RIGHT COSTAL MARGIN TENDERNESS UPPER EXTREMITIES: 2+ pulses, warm, well-perfused. No cyanosis. No clubbing. No peripheral edema. LOWER EXTREMITIES: 2+ pulses, warm, well-perfused. No calf tenderness. B/L tight edema, 2+ left leg, 3+ right. + hypertrophic skin. Open wound LLL anterior carrillo 4cm x 10cm x 0.2cm with smaller distal wound that has joined together with upper 2.1cm x 0.8cm x 0.1cm 10% slough to central areas of both wounds, remainder of wound bed pink, granulating well. left posterior ankle with small dry wound 1.8cm x 1.4cm x 0.1cm. R foot, ball of foot 0.9 x 1.0 x 0.3cm, 100% slough NEUROLOGICAL: Cranial nerves II-XII intact. Normal speech. Normal gait. PSYCHIATRIC: Cooperative. Good eye contact. Appropriate mood and affect. SKIN: Warm, dry, normal turgor, no rashes or lesions noted, normal capillary refill. Phillips in place with hematuria Laboratory Results - last 24 hr 06/06/17 06/07/17 06/07/17 16:30 01:40 06:00 WBC RBC Hgb Hct MCV MCH MCHC RDW Plt Count MPV Neutrophils % Lymphocytes % Monocytes % Eosinophils % Basophils % PTT (Actin FS) 33.2 32.7 43.1 H D Sodium Potassium Chloride Carbon Dioxide Anion Gap BUN Creatinine Creat Clearance w eGFR Random Glucose Calcium Phosphorus Magnesium Total Bilirubin AST ALT Alkaline Phosphatase Total Protein Albumin 06/07/17 06/07/17 06:00 06:00 WBC 8.7 RBC 4.20 Hgb 11.8 Hct 37.5 MCV 89.3 MCH 28.2 MCHC 31.6 L RDW 16.9 H Plt Count 225 MPV 9.8 Neutrophils % 64.8 Lymphocytes % 16.8 D Monocytes % 11.5 H Eosinophils % 4.0 Basophils % 2.9 H D PTT (Actin FS) Sodium 136 Potassium 3.5 Chloride 96 L Carbon Dioxide 34 H Anion Gap 6 L BUN 14 Creatinine 0.6 Creat Clearance w eGFR > 60 Random Glucose 111 H Calcium 8.1 L Phosphorus 3.5 Magnesium 1.8 Total Bilirubin 1.2 H AST 11 L ALT 8 L Alkaline Phosphatase 70 Total Protein 7.1 Albumin 2.3 L Active Medications Generic Name Dose Route Start Last Admin Trade Name Freq PRN Reason Stop Dose Admin Acetaminophen 650 mg 06/03/17 05:52 06/04/17 21:35 Tylenol - PO 650 mg Q4H PRN Administration FEVER OR PAIN Aclidinium [place] 1 puff 06/03/17 10:00 06/07/17 09:24 Tudorza - IH Not Given BID [facility] Cholecalciferol 2,000 unit 06/03/17 10:00 06/07/17 09:27 Vitamin D3 - PO 2,000 unit DAILY [facility] Administration Cyanocobalamin 500 mcg 06/03/17 10:00 06/07/17 09:26 Vitamin B12 - PO 500 mcg DAILY [facility] Administration Furosemide 40 mg 06/04/17 10:00 06/07/17 09:27 Lasix Injection - IVPB 40 mg DAILY [facility] Administration Heparin Sodium (Porcine) 1,000 unit 06/03/17 14:51 06/07/17 09:21 Heparin - IVPUSH 1,000 unit PRN PRN Administration Heparin Heparin Sodium (Porcine) 5,000 unit 06/03/17 14:51 06/07/17 02:47 Heparin - IVPUSH 5,000 unit PRN PRN Administration Heparin Doxycycline Hyclate 100 mg/ 100 mls @ 100 mls/hr 06/03/17 18:00 06/07/17 11:12 Dextrose IVPB 100 mls/hr BID [facility] Administration Famotidine/Sodium Chloride 50 mls @ 100 mls/hr 06/03/17 11:30 06/07/17 11:11 Pepcid 20 Mg Premixed Ivpb - IVPB 100 mls/hr BID [facility] Administration Heparin Sodium (Porcine) 25, 500 mls @ 20 mls/hr 06/03/17 15:30 06/07/17 02:45 000 unit/ Sodium Chloride IV 2,350 unit/hr TITR [facility] Titration Protocol 1,000 UNIT/HR Ceftriaxone Sodium 1 gm/ 50 mls @ 100 mls/hr 06/06/17 11:15 06/07/17 11:12 Dextrose IVPB 06/09/17 11:14 100 mls/hr DAILY [facility] Administration Loperamide HCl 4 mg 06/05/17 20:26 06/06/17 17:15 Imodium - PO 4 mg Q6H PRN Administration DIARRHEA Magnesium Oxide 400 mg 06/03/17 10:00 06/07/17 09:28 Mag-Ox - PO 400 mg DAILY [facility] Administration Metoprolol Succinate 50 mg 06/03/17 10:00 06/07/17 09:26 Toprol Xl - PO 50 mg DAILY [facility] Administration Multivitamins 1 each 06/03/17 10:00 06/07/17 09:25 Total B With C - PO 1 each DAILY [facility] Administration Nortriptyline HCl 10 mg 06/03/17 22:00 06/06/17 21:12 Pamelor - PO Not Given HS [facility] Fluticasone/Salmeterol 1 puff 06/03/17 10:00 06/07/17 09:23 Advair 100mcg/50mcg - IH 1 puff BID [facility] Administration Valsartan 320 mg 06/03/17 10:00 06/07/17 09:25 Diovan - PO 320 mg DAILY [facility] Administration Vitamin E 400 unit 06/03/17 10:00 06/07/17 09:32 Vitamin E - PO 400 unit DAILY [facility] Administration ASSESSMENT/PLAN: 46yF with PMH systolic CHF, MT, stent, COPD, asthma, chronic lymphedema, morbid obesity, depression, anxiety, pulm HTN presented to the ED with SOB and cough x 3-4 days. Pt is being admitted for further evaluation. #Bilateral submassive pulmonary emboli -recurring hemoptysis, hgb is stable -Continue heparin drip -Hold coumadin -Evaluated by surgery for possible ivc filter. 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 Lloyd - KIERA wraps to B/L LE #HTN -Continue home medications valsartan 320 mg po daily -Continue lasix 40 mg iv daily #Diarrhea -Continue imodium #Chronic JOSE -Patient refuses CPAP -Continue O2 NC #anxiety and depression -continue nortriptyline 10 mg po hs DVT PPX -Continue heparin drip FEN - hold IVF, tolerating po - BMP tomorrow, replete mag - low sodium diet Patient is dnr/dni dispo: awaiting surgical decision regarding ivc filter Visit type - Emergency Visit Emergency Visit: Yes ED Registration Date: 06/03/17 Care time: The patient presented to the Emergency Department on the above date and was hospitalized for further evaluation of their emergent condition. - New Patient This patient is new to me today: No - Critical Care Critical Care patient: No
--- NOTE | 2017-06-07 14:37 | PN ---
Progress Note (short form) - Note Progress Note: PULMONARY Still with hemoptysis but less frequent than yesterday. Still with intermittent shortness of breath and chest pain. Last Vital Signs Temp Pulse Resp BP Pulse Ox 97.4 F L 75 19 105/74 93 L 06/07/17 08:00 06/07/17 08:00 06/07/17 08:00 06/07/17 08:00 06/06/17 21:00 Gen: NAD at rest Heart: RRR Lung: distant breath sounds Abd: soft, nontender Ext: + edema CBC, BMP 06/07/17 06:00 06/07/17 06:00 Active Medications Acetaminophen (Tylenol -) 650 mg PO Q4H PRN PRN Reason: FEVER OR PAIN Last Admin: 06/04/17 21:35 Dose: 650 mg Aclidinium [place] (Tudorza -) 1 puff IH BID [facility] Last Admin: 06/07/17 09:24 Dose: Not Given Cholecalciferol (Vitamin D3 -) 2,000 unit PO DAILY [facility] Last Admin: 06/07/17 09:27 Dose: 2,000 unit Cyanocobalamin (Vitamin B12 -) 500 mcg PO DAILY [facility] Last Admin: 06/07/17 09:26 Dose: 500 mcg Furosemide (Lasix Injection -) 40 mg IVPB DAILY [facility] Last Admin: 06/07/17 09:27 Dose: 40 mg Heparin Sodium (Porcine) (Heparin -) 1,000 unit IVPUSH PRN PRN PRN Reason: Heparin Last Admin: 06/07/17 09:21 Dose: 1,000 unit Heparin Sodium (Porcine) (Heparin -) 5,000 unit IVPUSH PRN PRN PRN Reason: Heparin Last Admin: 06/07/17 02:47 Dose: 5,000 unit Doxycycline Hyclate 100 mg/ (Dextrose) 100 mls @ 100 mls/hr IVPB BID [facility] Last Admin: 06/07/17 11:12 Dose: 100 mls/hr Famotidine/Sodium Chloride (Pepcid 20 Mg Premixed Ivpb -) 50 mls @ 100 mls/hr IVPB BID [facility] Last Admin: 06/07/17 11:11 Dose: 100 mls/hr Heparin Sodium (Porcine) 25, (000 unit/ Sodium Chloride) 500 mls @ 20 mls/hr IV TITR [facility]; 1,000 UNIT/HR PRN Reason: Protocol Last Titration: 06/07/17 02:45 Dose: 2,350 unit/hr Ceftriaxone Sodium 1 gm/ (Dextrose) 50 mls @ 100 mls/hr IVPB DAILY [facility] Stop: 06/09/17 11:14 Last Admin: 06/07/17 11:12 Dose: 100 mls/hr Loperamide HCl (Imodium -) 4 mg PO Q6H PRN PRN Reason: DIARRHEA Last Admin: 06/06/17 17:15 Dose: 4 mg Magnesium Oxide (Mag-Ox -) 400 mg PO DAILY [facility] Last Admin: 06/07/17 09:28 Dose: 400 mg Metoprolol Succinate (Toprol Xl -) 50 mg PO DAILY [facility] Last Admin: 06/07/17 09:26 Dose: 50 mg Multivitamins (Total B With C -) 1 each PO DAILY [facility] Last Admin: 06/07/17 09:25 Dose: 1 each Nortriptyline HCl (Pamelor -) 10 mg PO HS [facility] Last Admin: 06/06/17 21:12 Dose: Not Given Fluticasone/Salmeterol (Advair 100mcg/50mcg -) 1 puff IH BID [facility] Last Admin: 06/07/17 09:23 Dose: 1 puff Valsartan (Diovan -) 320 mg PO DAILY [facility] Last Admin: 06/07/17 09:25 Dose: 320 mg Vitamin E (Vitamin E -) 400 unit PO DAILY [facility] Last Admin: 06/07/17 09:32 Dose: 400 unit A/P Submassive Pulmonary Emboli Likely Pulmonary Infarct Severe LV Systolic Dysfunction Pulmonary HTN CAD COPD Morbid Obesity Likely JOSE/OHS - IR evaluation - continue anticoagulation for now - O2 to keep SpO2 >90% - pt still declining intervention on PE - monitor/quantify hemoptysis - if hemoptysis worsens, may need to stop anticoagulation and place IVC filter - pt declining CPAP at night - inhaled bronchodilators - lasix as needed - pt DNR/DNI
--- NOTE | 2017-06-07 14:51 | PN ---
Progress Note, Physician Chief Complaint: Events noted Intermittent dyspnea - improved History of Present Illness: Patient was seen and examined. Awake and alert. Chart was reviewed Denies chest pain Less SOB - Current Medication List Current Medications: Active Medications Acetaminophen (Tylenol -) 650 mg PO Q4H PRN PRN Reason: FEVER OR PAIN Last Admin: 06/04/17 21:35 Dose: 650 mg Aclidinium [place] (Tudorza -) 1 puff IH BID [facility] Last Admin: 06/07/17 09:24 Dose: Not Given Cholecalciferol (Vitamin D3 -) 2,000 unit PO DAILY [facility] Last Admin: 06/07/17 09:27 Dose: 2,000 unit Cyanocobalamin (Vitamin B12 -) 500 mcg PO DAILY [facility] Last Admin: 06/07/17 09:26 Dose: 500 mcg Furosemide (Lasix Injection -) 40 mg IVPB DAILY [facility] Last Admin: 06/07/17 09:27 Dose: 40 mg Heparin Sodium (Porcine) (Heparin -) 1,000 unit IVPUSH PRN PRN PRN Reason: Heparin Last Admin: 06/07/17 09:21 Dose: 1,000 unit Heparin Sodium (Porcine) (Heparin -) 5,000 unit IVPUSH PRN PRN PRN Reason: Heparin Last Admin: 06/07/17 02:47 Dose: 5,000 unit Doxycycline Hyclate 100 mg/ (Dextrose) 100 mls @ 100 mls/hr IVPB BID [facility] Last Admin: 06/07/17 11:12 Dose: 100 mls/hr Famotidine/Sodium Chloride (Pepcid 20 Mg Premixed Ivpb -) 50 mls @ 100 mls/hr IVPB BID [facility] Last Admin: 06/07/17 11:11 Dose: 100 mls/hr Heparin Sodium (Porcine) 25, (000 unit/ Sodium Chloride) 500 mls @ 20 mls/hr IV TITR [facility]; 1,000 UNIT/HR PRN Reason: Protocol Last Titration: 06/07/17 02:45 Dose: 2,350 unit/hr Ceftriaxone Sodium 1 gm/ (Dextrose) 50 mls @ 100 mls/hr IVPB DAILY [facility] Stop: 06/09/17 11:14 Last Admin: 06/07/17 11:12 Dose: 100 mls/hr Loperamide HCl (Imodium -) 4 mg PO Q6H PRN PRN Reason: DIARRHEA Last Admin: 06/06/17 17:15 Dose: 4 mg Magnesium Oxide (Mag-Ox -) 400 mg PO DAILY [facility] Last Admin: 06/07/17 09:28 Dose: 400 mg Metoprolol Succinate (Toprol Xl -) 50 mg PO DAILY [facility] Last Admin: 06/07/17 09:26 Dose: 50 mg Multivitamins (Total B With C -) 1 each PO DAILY [facility] Last Admin: 06/07/17 09:25 Dose: 1 each Nortriptyline HCl (Pamelor -) 10 mg PO HS [facility] Last Admin: 06/06/17 21:12 Dose: Not Given Fluticasone/Salmeterol (Advair 100mcg/50mcg -) 1 puff IH BID [facility] Last Admin: 06/07/17 09:23 Dose: 1 puff Valsartan (Diovan -) 320 mg PO DAILY [facility] Last Admin: 06/07/17 09:25 Dose: 320 mg Vitamin E (Vitamin E -) 400 unit PO DAILY [facility] Last Admin: 06/07/17 09:32 Dose: 400 unit - Objective Vital Signs: Vital Signs Temperature 97.4 F L 06/07/17 08:00 Pulse Rate 75 06/07/17 08:00 Respiratory Rate 19 06/07/17 08:00 Blood Pressure 105/74 06/07/17 08:00 O2 Sat by Pulse Oximetry (%) 93 L 06/06/17 21:00 Cardiovascular: Yes: Regular Rate and Rhythm, S1, S2 Respiratory: Yes: Diminished Gastrointestinal: Yes: Normal Bowel Sounds, Soft, Abdomen, Obese. No: Tenderness Edema: Yes Labs: CBC, BMP 06/07/17 06:00 06/07/17 06:00 Problem List - Problems (1) Pulmonary embolism Code(s): I26.99 - OTHER PULMONARY EMBOLISM WITHOUT ACUTE COR PULMONALE Qualifiers: Pulmonary embolism type: other Chronicity: acute Acute cor pulmonale presence: without acute cor pulmonale Qualified Code(s): I26.99 - Other pulmonary embolism without acute cor pulmonale (2) Pulmonary hypertension Code(s): I27.2 - OTHER SECONDARY PULMONARY HYPERTENSION (3) Acute on chronic systolic (congestive) heart failure Code(s): I50.23 - ACUTE ON CHRONIC SYSTOLIC (CONGESTIVE) HEART FAILURE (4) CHF (congestive heart failure) Code(s): I50.9 - HEART FAILURE, UNSPECIFIED Qualifiers: Congestive heart failure type: unspecified congestive heart failure type Congestive heart failure chronicity: chronic Qualified Code(s): I50.9 - Heart failure, unspecified (5) COPD (chronic obstructive pulmonary disease) Code(s): J44.9 - CHRONIC OBSTRUCTIVE PULMONARY DISEASE, UNSPECIFIED Qualifiers : COPD type: unspecified COPD Qualified Code(s): J44.9 - Chronic obstructive pulmonary disease, unspecified (6) Cellulitis and abscess of leg Code(s): L02.419 - CUTANEOUS ABSCESS OF LIMB, UNSPECIFIED L03.119 - CELLULITIS OF UNSPECIFIED PART OF LIMB (7) Coronary artery disease Code(s): I25.10 - ATHSCL HEART DISEASE OF [place] CORONARY ARTERY W/O ANG PCTRS Qualifiers: Coronary Disease-Associated Artery/Lesion type: [place] artery [place] vs. transplanted heart: [place] heart Associated angina: without angina Qualified Code(s): I25.10 - Atherosclerotic heart disease of [place] coronary artery without angina pectoris (8) Status post coronary artery stent placement Code(s): Z95.5 - PRESENCE OF CORONARY ANGIOPLASTY IMPLANT AND GRAFT Assessment/Plan 1. Acute on chronic LV systolic failure class III NYHA classification LV failure 2. Bilateral submassive pulmonary embolism 3. CAD post MS PCI (stent), angina pectoris 4. HTN 5. DM 6. COPD 7. Morbid obesity with OSAS 8. Cellulitis 9. Poor compliance PLAN: 1. Lasix IV daily with monitoring renal function and electrolytes 2. Continue Heparin - eventually Coumadin or NOAC and consideration for mechanical thrombectomy 3. Continue Toprol XL and Diovan. Ideally should be on aldosterone antagonist such as Aldactone 4. Continue antibiotics coverage and bronchodilator and O2 5. Additional cardiovascular evaluation has been recommended, but due to her morbid obesity and her refusal, both further evaluation and even ICD implant has been difficult. 6. Refuses sleep study or CPAP trial Roland Foote MD
--- NOTE | 2017-06-07 15:08 | CONSULT ---
- Consultation REQUESTING PROVIDER: Dr. Caraballo CONSULT REQUEST: We have been asked to surgically evaluate this patient for possible placment of IVC filter. PCP:Manjula Jacobo HISTORY OF PRESENT ILLNESS: The patient is a 46 yo female with a pmhx significant for COPD, asthma and history of smoking. She presented to the ER with the complaints of increased SOB as compared to occasional SOB with ambulating. No recent fevers. She has experienced intermittent hemoptyosis on several occasional since February of this year. Currently, it has increased since beginning IV heparin treatment for the bilateral PE's on CT scan. She has a h/o choronic lymphedema and is treated by a vascular surgeon with unna boots and zinc oxide therapy to a LLE wound. The patient is ambulatory with the assistance of a walker. PMHx: chronic lymphedema, COPD, asthma, morbid obesity, depression, anxiety , -2010 stents x2, neuropathy PSHX: stents x2 Home Medications Medication Instructions Recorded Aclidinium [place] [Tudorza 400 mcg IH DAILY 11/02/16 Pressair] Albuterol Sulfate [Proventil HFA 1 - 2 inh PO QID PRN 11/02/16 Inhaler -] Aspirin [Lo-Dose Aspirin EC] 81 mg PO DAILY 11/02/16 Cholecalciferol (Vitamin D3) 2,000 unit PO DAILY 11/02/16 [Vitamin D3] Cyanocobalamin [Vitamin B12 -] 500 mcg PO DAILY 11/02/16 Famotidine [Pepcid -] 40 mg PO BID 11/02/16 Fluticasone/Salmeterol [Advair 1 each IH DAILY 11/02/16 250-50 Diskus] Magnesium Oxide [Magnesium] 500 mg PO DAILY 11/02/16 Metoprolol Succinate [Toprol XL -] 50 mg PO DAILY 11/02/16 Nortriptyline HCl [Pamelor -] 10 mg PO HS 11/02/16 Valsartan 320 mg PO DAILY 11/02/16 Vitamin B Complex [B Complex # 1] 1 each PO DAILY 11/02/16 Vitamin E 400 unit PO DAILY 11/02/16 Furosemide [Lasix -] 40 mg PO DAILY #7 tablet 11/09/16 Salmeterol/Fluticasone [Advair 1 puff IH BID inhaler 11/09/16 100Mcg/50Mcg -] Zinc Oxide 1 applic TP BID #1 tube 11/09/16 Clindamycin [Cleocin -] 600 mg PO Q8H #21 capsule 12/02/16 Allergies Allergy/AdvReac Type Severity Reaction Status Date / Time budesonide Allergy Severe Difficulty Verified 06/03/17 01:52 Breathing erythromycin base Allergy Severe Vomiting Verified 06/03/17 01:52 formoterol Allergy Severe Difficulty Verified 06/03/17 01:52 Breathing gabapentin Allergy Severe Verified 06/03/17 01:52 carvedilol Allergy Intermediate Nausea Verified 06/03/17 01:52 lisinopril Allergy Intermediate Nausea Verified 06/03/17 01:52 omeprazole Allergy Intermediate Verified 06/03/17 01:52 bupropion Allergy Unknown Verified 06/03/17 01:52 REVIEW OF SYSTEMS: CONSTITUTIONAL: Absent: fever, chills Present: loss of appetite, weight change(lost 14 lbs, poor appetite) CARDIOVASCULAR: Present: peripheral edema Absent: CP RESPIRATORY: Present: cough, shortness of breath hemoptysis GASTROINTESTINAL: Absent: melena, hematochezia PHYSICAL EXAM: GENERAL: Awake, alert, and fully oriented, in no acute distress. ABDOMEN: Soft, obese LOWER EXTREMITIES: 2+ pulses, warm, well-perfused. No calf tenderness. chronic lymphedema, non-pitting edema, chronic skin changes to LE without erythema. LLE anterior calf with 8x4cm irregular shaped wound with clean granulation base. NEUROLOGICAL: Normal speech, gait not observed. Vital Signs Temperature 97.4 F L 06/07/17 08:00 Pulse Rate 75 06/07/17 08:00 Respiratory Rate 19 06/07/17 08:00 Blood Pressure 105/74 06/07/17 08:00 O2 Sat by Pulse Oximetry (%) 93 L 06/06/17 21:00 Lab Results WBC 8.7 K/mm3 (4.0-10.0) 06/07/17 06:00 RBC 4.20 M/mm3 (3.60-5.2) 06/07/17 06:00 Hgb 11.8 GM/dL (10.7-15.3) 06/07/17 06:00 Hct 37.5 % (32.4-45.2) 06/07/17 06:00 MCV 89.3 fl (80-96) 06/07/17 06:00 MCHC 31.6 g/dl (32.0-36.0) L 06/07/17 06:00 RDW 16.9 % (11.6-15.6) H 06/07/17 06:00 Plt Count 225 K/MM3 (134-434) 06/07/17 06:00 Sodium 136 mmol/L (136-145) 06/07/17 06:00 Potassium 3.5 mmol/L (3.5-5.1) 06/07/17 06:00 Chloride 96 mmol/L (98-107) L 06/07/17 06:00 Carbon Dioxide 34 mmol/L (21-32) H 06/07/17 06:00 Anion Gap 6 (8-16) L 06/07/17 06:00 BUN 14 mg/dL (7-18) 06/07/17 06:00 Creatinine 0.6 mg/dL (0.55-1.02) 06/07/17 06:00 Random Glucose 111 mg/dL (74-106) H 06/07/17 06:00 Calcium 8.1 mg/dL (8.5-10.1) L 06/07/17 06:00 INR 1.53 (0.82-1.09) H 06/03/17 01:50 Vascular US: no obvious DVT seen on LE study but limited exam because of swelling to LE CT scan: b/l pulmonary emboli, left worse than right. A/P: 46 yo female with morbid obesity and chronic underlying pulmonary disease. Now with b/l PE on CT scan and receiving IV heparin. The patient is experiencing an increase in hemoptysis while on IV heparin, recommend the placement of IVC filter if there is any concern for transitioning her to oral medications. Her H&H remains stable. At this time would recommend oral anticoagulation for her PE's, if unable to transition to oral meds and patient is agreeable then Dr. Caraballo will place and IVC filter. LLE xeroform and kerlix dressing Visit type - Case Type Case Type: ED Admission - Emergency Emergency Visit: Yes ED Registration Date: 06/03/17 Care time: The patient presented to the Emergency Department on the above date and was hospitalized for further evaluation of their emergent condition. - New patient This patient is new to me today: Yes Date on this admission: 06/07/17 - Critical Care Critical Care patient: No
--- NOTE | 2017-06-07 17:00 | PN ---
Teaching Attending Note Name of Resident: Austin Velásquez ATTENDING PHYSICIAN STATEMENT I saw and evaluated the patient. I reviewed the resident's note and discussed the case with the resident. I agree with the resident's findings and plan as documented. SUBJECTIVE:c/o hemoptysis, no improvement since yesterday. assoc with dyspnea on exertion (even minimal exertion in bed) admits to having similar episode several months ago when moving into her new apartment but contributed it to exertion. at that time it was more streaked sputum which self resolved after a week. denies CP, fever, chills, N/V/C/D or calf pain OBJECTIVE: Last Vital Signs Temp Pulse Resp BP Pulse Ox 97.4 F L 75 19 105/74 93 L 06/07/17 08:00 06/07/17 08:00 06/07/17 08:00 06/07/17 08:00 06/06/17 21:00 General NAD CV S1 S2 RRR no murmur/rub/gallop Lungs coarse breath sounds diffusely. poor inspiratory effort abdomen soft NT/ND obese Extremities non pitting edema, chronic venous changes ASSESSMENT AND PLAN: 46 year old woman with a history of morbid obesity, probable JOSE, probable OHS, CHF, CAD, COPD, pulmonary HTN, depression, anxiety who presented to the ER with SOB. 1. Bilateral submassive pulmonary emboli with probable pulmonary infarct- continues to have hemoptysis (visualized by me) on heparin ggt. Hgb has remained stable during this time. repeat Hgb level. refusing aggressive intervention with thrombectomy or catheter direceted TPA. unable to start oral anticoagulant at this time due to persistent hemoptysis. will likely require IVC filter. vascular team to d/w pt for placement. cont to monitor respiratory status carefully and for worsening hemoptysis. 2. Acute on chronic systolic heart failure-continues to have some volume overload. decrease in 3 pounds. cont lasix IV. can likely transition to po tomorrow. strict I&O, daily weights. on arb and betblocker. 3. Acute and possible chronic hypoxic respiratory failure, multifactorial-PE vs B/L PNA. on supplemental oxygen saturating 94% on 2L NC. on Ceftriaxone/doxy day 4. Continue oxygen to maintain saturation > 90% 4. CAD, history of stent- Continue Toprol XL 5. HTN- Contnue Diovan, Toprol XL 6. COPD- Continue Yani Bui 7. Pulmonary HTN 8. Probable JOSE and OHS- refusing polysomography on discharge and CPAP 9. Type 2 diabetes mellitus 10. Morbid obesity with BMI 52.8 11. Anxiety/depression- Continue Pamelor 12. Chronic lymphedema with venous ulcers- Continue wound care 13. DNR/DNI
[2017-06-07] MEDS ORDERED: WARFARIN NA 5 MG TABLET (UD) PO SCH (18:00)
[2017-06-07] MEDS ORDERED: guaiFENesin 200 MG/10 ML 10 ML UNIT-DOSE CUPS PO PRN (21:56)
[2017-06-07] MEDS: NORTRIPTYLINE HCL 10 MG CAPSULE PO SCH (22:38)
[2017-06-08] MEDS ORDERED: PT OWN MED DRAWER 7, Y5N ONE ×5 (00:36→22:19)
[2017-06-08 00:37] LABS: INR 1.39 (0.82-1.09); PROTHROMBIN TIME (PATIENT) 15.4 SEC (9.98-11.88)
[2017-06-08 00:39] LABS: ACTIVATED PTT 34.8 SECONDS (26.9-34.4)
[2017-06-08] MEDS: HEPARIN NA (PORCINE) 5,000 UNITS/ML 1ML VIAL IVPUSH PRN (00:57)
[2017-06-08 07:28] LABS: MCH 27.9 pg (25.7-33.7); MCHC 31.6 g/dl (32.0-36.0); MEAN CELL VOLUME 88.3 fl (80-96); MEAN PLT VOLUME 9.6 fl (7.5-11.1); PLATELET COUNT 287 K/MM3 (134-434); RDW 16.8 % (11.6-15.6); WHITE BLOOD COUNT 8.8 K/mm3 (4.0-10.0)
[2017-06-08 08:10] LABS: INR 1.42 (0.82-1.09); PROTHROMBIN TIME (PATIENT) 15.7 SEC (9.98-11.88)
[2017-06-08] MEDS ORDERED: DEXTROSE 5%-WATER - 50 ML IVPB ONE (09:03)
[2017-06-08] MEDS ORDERED: cefTRIAXone SODIUM 1 GM VIAL ONE (09:03)
--- NOTE | 2017-06-08 10:00 | PN ---
Progress Note (short form) - Note Progress Note: Vascular Surgery Pt seen and examined. Bl PE on IV heparin. explained to pt that if her hemoptysis gets worse, she will need a ivc filter to protect her from future PE that might be fatal. She understands that. Will be on standby for filter placement if we cannot convert her to coumadin. She will likely need coumadin for life. Evangelist ferro DO
[2017-06-08] MEDS: CEFTRIAXONE 1 GM in DEXTROSE 5%-WATER - 50 ML IVPB SCH (10:05)
[2017-06-08] MEDS: FLUTICASONE/SALMETEROL 100 MCG/50 MCG DISKUS IH SCH ×2 (10:06→22:13)
[2017-06-08] MEDS: VALSARTAN 160 MG TABLET (UD) PO SCH (10:13)
[2017-06-08] MEDS: METOPROLOL SUCCINATE 50 MG TAB.SR.24H (FP) PO SCH (10:14)
[2017-06-08] MEDS: CYANOCOBALAMIN 1,000 MCG TABLET (FP) PO SCH (10:14)
[2017-06-08] MEDS: VITAMIN B COMPLEX W/C COMBO TABLET (FP) PO SCH ×2 (10:14→10:23)
[2017-06-08] MEDS: CHOLECALCIFEROL (VITAMIN D3) 1,000 UNIT TABLET (FP) PO SCH (10:15)
[2017-06-08] MEDS: FUROSEMIDE 40 MG/4 ML INJECTABLE VIAL IVPB SCH (10:16)
[2017-06-08] MEDS: MAGNESIUM OXIDE 400 MG TABLET (FP) PO SCH (10:16)
[2017-06-08] MEDS: VITAMIN E 400 INTERNATIONAL-UNITS CAPSULE (FP) PO SCH (10:17)
[2017-06-08] MEDS: ACLIDINIUM BROMIDE 400 MCG/INH AERO.POWD IH SCH ×2 (10:18→22:13)
[2017-06-08] MEDS: FAMOTIDINE 20 MG/50 ML IVPB 50 ML IVPB SCH ×2 (11:27→22:12)
--- NOTE | 2017-06-08 12:18 | PN ---
Progress Note (short form) - Note Progress Note: PULMONARY Still with hemoptysis but decreasing. Shortness of breath and chest pain improving. Last Vital Signs Temp Pulse Resp BP Pulse Ox 97.5 F L 70 20 118/67 94 L 06/08/17 10:00 06/08/17 10:00 06/08/17 10:00 06/08/17 10:00 06/07/17 09:00 Gen: NAD at rest Heart: RRR Lung: distant breath sounds Abd: soft, nontender Ext: + edema CBC, BMP 06/08/17 06:00 06/07/17 06:00 Active Medications Acetaminophen (Tylenol -) 650 mg PO Q4H PRN PRN Reason: FEVER OR PAIN Last Admin: 06/04/17 21:35 Dose: 650 mg Aclidinium [place] (Tudorza -) 1 puff IH BID [facility] Last Admin: 06/08/17 10:18 Dose: Not Given Cholecalciferol (Vitamin D3 -) 2,000 unit PO DAILY [facility] Last Admin: 06/08/17 10:15 Dose: 2,000 unit Cyanocobalamin (Vitamin B12 -) 500 mcg PO DAILY [facility] Last Admin: 06/08/17 10:14 Dose: 500 mcg Furosemide (Lasix Injection -) 40 mg IVPB DAILY [facility] Last Admin: 06/08/17 10:16 Dose: 40 mg Guaifenesin (Robitussin -) 10 ml PO Q4H PRN PRN Reason: COUGH Heparin Sodium (Porcine) (Heparin -) 1,000 unit IVPUSH PRN PRN PRN Reason: Heparin Last Admin: 06/07/17 18:11 Dose: 1,000 unit Heparin Sodium (Porcine) (Heparin -) 5,000 unit IVPUSH PRN PRN PRN Reason: Heparin Last Admin: 06/08/17 00:57 Dose: 5,000 unit Doxycycline Hyclate 100 mg/ (Dextrose) 100 mls @ 100 mls/hr IVPB BID [facility] Last Admin: 06/07/17 23:22 Dose: 100 mls/hr Famotidine/Sodium Chloride (Pepcid 20 Mg Premixed Ivpb -) 50 mls @ 100 mls/hr IVPB BID [facility] Last Admin: 06/08/17 11:27 Dose: 100 mls/hr Heparin Sodium (Porcine) 25, (000 unit/ Sodium Chloride) 500 mls @ 20 mls/hr IV TITR [facility]; 1,000 UNIT/HR PRN Reason: Protocol Last Titration: 06/08/17 00:57 Dose: 2,700 unit/hr Ceftriaxone Sodium 1 gm/ (Dextrose) 50 mls @ 100 mls/hr IVPB DAILY [facility] Stop: 06/09/17 11:14 Last Admin: 06/08/17 10:05 Dose: 100 mls/hr Loperamide HCl (Imodium -) 4 mg PO Q6H PRN PRN Reason: DIARRHEA Last Admin: 06/06/17 17:15 Dose: 4 mg Magnesium Oxide (Mag-Ox -) 400 mg PO DAILY [facility] Last Admin: 06/08/17 10:16 Dose: 400 mg Metoprolol Succinate (Toprol Xl -) 50 mg PO DAILY [facility] Last Admin: 06/08/17 10:14 Dose: 50 mg Multivitamins (Total B With C -) 1 each PO DAILY [facility] Last Admin: 06/08/17 10:23 Dose: Not Given Nortriptyline HCl (Pamelor -) 10 mg PO HS [facility] Last Admin: 06/07/17 22:38 Dose: Not Given Fluticasone/Salmeterol (Advair 100mcg/50mcg -) 1 puff IH BID [facility] Last Admin: 06/08/17 10:06 Dose: 1 puff Valsartan (Diovan -) 320 mg PO DAILY [facility] Last Admin: 06/08/17 10:13 Dose: 320 mg Vitamin E (Vitamin E -) 400 unit PO DAILY [facility] Last Admin: 06/08/17 10:17 Dose: 400 unit Warfarin Sodium (Coumadin -) 5 mg PO DAILY@1800 [facility] A/P Submassive Pulmonary Emboli Likely Pulmonary Infarct Severe LV Systolic Dysfunction Pulmonary HTN CAD COPD Morbid Obesity Likely JOSE/OHS - continue anticoagulation, start oral agent - O2 to keep SpO2 >90% - monitor/quantify hemoptysis - if hemoptysis worsens, may need to stop anticoagulation and place IVC filter - pt declining CPAP at night - inhaled bronchodilators - lasix as needed - pt DNR/DNI
[2017-06-08] MEDS: DOXYCYCLINE INJECTION 100 MG in DEXTROSE 5%-WATER - 100 ML IVPB SCH ×2 (13:04→22:48)
--- NOTE | 2017-06-08 13:57 | PN ---
Progress Note, Physician History of Present Illness: Dyspnea and hemoptysis improving, no chest pain. - Current Medication List Current Medications: Active Medications Acetaminophen (Tylenol -) 650 mg PO Q4H PRN PRN Reason: FEVER OR PAIN Last Admin: 06/04/17 21:35 Dose: 650 mg Aclidinium [place] (Tudorza -) 1 puff IH BID [facility] Last Admin: 06/08/17 10:18 Dose: Not Given Cholecalciferol (Vitamin D3 -) 2,000 unit PO DAILY [facility] Last Admin: 06/08/17 10:15 Dose: 2,000 unit Cyanocobalamin (Vitamin B12 -) 500 mcg PO DAILY [facility] Last Admin: 06/08/17 10:14 Dose: 500 mcg Furosemide (Lasix Injection -) 40 mg IVPB DAILY [facility] Last Admin: 06/08/17 10:16 Dose: 40 mg Guaifenesin (Robitussin -) 10 ml PO Q4H PRN PRN Reason: COUGH Heparin Sodium (Porcine) (Heparin -) 1,000 unit IVPUSH PRN PRN PRN Reason: Heparin Last Admin: 06/07/17 18:11 Dose: 1,000 unit Heparin Sodium (Porcine) (Heparin -) 5,000 unit IVPUSH PRN PRN PRN Reason: Heparin Last Admin: 06/08/17 00:57 Dose: 5,000 unit Doxycycline Hyclate 100 mg/ (Dextrose) 100 mls @ 100 mls/hr IVPB BID [facility] Last Admin: 06/08/17 13:04 Dose: 100 mls/hr Famotidine/Sodium Chloride (Pepcid 20 Mg Premixed Ivpb -) 50 mls @ 100 mls/hr IVPB BID [facility] Last Admin: 06/08/17 11:27 Dose: 100 mls/hr Heparin Sodium (Porcine) 25, (000 unit/ Sodium Chloride) 500 mls @ 20 mls/hr IV TITR [place]; 1,000 UNIT/HR PRN Reason: Protocol Last Titration: 06/08/17 00:57 Dose: 2,700 unit/hr Ceftriaxone Sodium 1 gm/ (Dextrose) 50 mls @ 100 mls/hr IVPB DAILY [facility] Stop: 06/09/17 11:14 Last Admin: 06/08/17 10:05 Dose: 100 mls/hr Loperamide HCl (Imodium -) 4 mg PO Q6H PRN PRN Reason: DIARRHEA Last Admin: 06/06/17 17:15 Dose: 4 mg Magnesium Oxide (Mag-Ox -) 400 mg PO DAILY [facility] Last Admin: 06/08/17 10:16 Dose: 400 mg Metoprolol Succinate (Toprol Xl -) 50 mg PO DAILY [facility] Last Admin: 06/08/17 10:14 Dose: 50 mg Multivitamins (Total B With C -) 1 each PO DAILY [facility] Last Admin: 06/08/17 10:23 Dose: Not Given Nortriptyline HCl (Pamelor -) 10 mg PO HS [facility] Last Admin: 06/07/17 22:38 Dose: Not Given Fluticasone/Salmeterol (Advair 100mcg/50mcg -) 1 puff IH BID [facility] Last Admin: 06/08/17 10:06 Dose: 1 puff Valsartan (Diovan -) 320 mg PO DAILY [facility] Last Admin: 06/08/17 10:13 Dose: 320 mg Vitamin E (Vitamin E -) 400 unit PO DAILY [facility] Last Admin: 06/08/17 10:17 Dose: 400 unit Warfarin Sodium (Coumadin -) 5 mg PO DAILY@1800 [facility] - Objective Vital Signs: Vital Signs Temperature 94.2 F L 06/08/17 13:36 Pulse Rate 69 06/08/17 13:36 Respiratory Rate 18 06/08/17 13:36 Blood Pressure 90/54 06/08/17 13:36 O2 Sat by Pulse Oximetry (%) 94 L 06/07/17 09:00 Constitutional: Yes: No Distress, Calm Neck: Yes: Supple Cardiovascular: Yes: Regular Rate and Rhythm Respiratory: Yes: Regular, Diminished, On Nasal O2 Gastrointestinal: Yes: Normal Bowel Sounds, Soft, Abdomen, Obese Edema: Yes Edema: LLE: 2+, RLE: 2+ Labs: CBC, BMP 06/08/17 06:00 06/07/17 06:00 INR, PTT INR 1.42 (0.82-1.09) H 06/08/17 07:00 Problem List - Problems (1) Acute on chronic systolic (congestive) heart failure Code(s): I50.23 - ACUTE ON CHRONIC SYSTOLIC (CONGESTIVE) HEART FAILURE (2) Anasarca Code(s): R60.1 - GENERALIZED EDEMA (3) COPD (chronic obstructive pulmonary disease) Code(s): J44.9 - CHRONIC OBSTRUCTIVE PULMONARY DISEASE, UNSPECIFIED Qualifiers : COPD type: unspecified COPD Qualified Code(s): J44.9 - Chronic obstructive pulmonary disease, unspecified (4) Cellulitis and abscess of leg Code(s): L02.419 - CUTANEOUS ABSCESS OF LIMB, UNSPECIFIED L03.119 - CELLULITIS OF UNSPECIFIED PART OF LIMB (5) Coronary artery disease Code(s): I25.10 - ATHSCL HEART DISEASE OF [place] CORONARY ARTERY W/O ANG PCTRS Qualifiers: Coronary Disease-Associated Artery/Lesion type: [place] artery [place] vs. transplanted heart: [place] heart Associated angina: without angina Qualified Code(s): I25.10 - Atherosclerotic heart disease of [place] coronary artery without angina pectoris (6) Hypertensive cardiomegaly with heart failure Code(s): I11.0 - HYPERTENSIVE HEART DISEASE WITH HEART FAILURE (7) Lymph edema Code(s): I89.0 - LYMPHEDEMA, NOT ELSEWHERE CLASSIFIED (8) Morbid (severe) obesity with alveolar hypoventilation Code(s): E66.2 - MORBID (SEVERE) OBESITY WITH ALVEOLAR HYPOVENTILATION (9) Status post coronary artery stent placement Code(s): Z95.5 - PRESENCE OF CORONARY ANGIOPLASTY IMPLANT AND GRAFT (10) Biventricular failure Code(s): I50.9 - HEART FAILURE, UNSPECIFIED (11) Pulmonary embolism Code(s): I26.99 - OTHER PULMONARY EMBOLISM WITHOUT ACUTE COR PULMONALE Qualifiers: Pulmonary embolism type: other Chronicity: acute Acute cor pulmonale presence: without acute cor pulmonale Qualified Code(s): I26.99 - Other pulmonary embolism without acute cor pulmonale (12) Pulmonary hypertension Code(s): I27.2 - OTHER SECONDARY PULMONARY HYPERTENSION Assessment/Plan 11/02/2016 Echocardiography revealed severe reduction in LV EF, bi-atrial dilatation, mild MR and TR with mild to moderate degree of pulmonary HTN, RVSP of 40-50 mmHg 06/03/2017 Echo: Mod decreased RV, suspect RV thrombus, severe decrease LV fxn, mild MR, TR or AK 1. Acute on chronic LV severe systolic failure class III NYHA classification resolving 2. Bilateral submassive pulmonary embolism 3. CAD post MD PCI (stent), angina pectoris 4. HTN 5. DM 6. COPD 7. Morbid obesity with OSAS/OHS 8. Cellulitis 9. Poor compliance PLAN: 1. Change Lasix 40 IV daily to Aldactone 25 qd with monitoring renal function and electrolytes 2. Continue Heparin -> Coumadin per INR 2-3 3. Continue Toprol XL 50 qd and Diovan 320 qd. 4. Complete empiric antibiotics coverage and bronchodilator and O2 to keep saO2> 90% 5. Additional cardiovascular evaluation has been recommended, but due to her morbid obesity and her refusal, both further evaluation and even ICD implant has been difficult. 6. Refuses sleep study or CPAP trial
--- NOTE | 2017-06-08 14:46 | PN ---
Teaching Attending Note Name of Resident: Austin Velásquez ATTENDING PHYSICIAN STATEMENT I saw and evaluated the patient. I reviewed the resident's note and discussed the case with the resident. I agree with the resident's findings and plan as documented. SUBJECTIVE:states hemoptysis quantity has improved. breathing has improved at rest, no difficulty sitting up. denies CP, fever, chills, hematuria, N/V/C/D OBJECTIVE: Last Vital Signs Temp Pulse Resp BP Pulse Ox 94.2 F L 69 18 90/54 94 L 06/08/17 13:36 06/08/17 13:36 06/08/17 13:36 06/08/17 13:36 06/07/17 09:00 Intake & Output 06/05/17 06/06/17 06/07/17 06/08/17 23:59 23:59 23:59 23:59 Intake Total 9300 029 3359 150 Output Total 2150 900 1400 Balance -544 -15 269 150 Weight 337 lb General NAD CV S1 S2 RRR no murmur/rub/gallop no chest wall tenderness Lungs mild crackles at base abdomen soft NT/ND obese Extremities non pitting edema, chronic venous changes ASSESSMENT AND PLAN: 46 year old woman with a history of morbid obesity, probable JOSE, probable OHS, CHF, CAD, COPD, pulmonary HTN, depression, anxiety who presented to the ER with SOB. 1. Bilateral submassive pulmonary emboli with probable pulmonary infarct- continues to have hemoptysis but improving. hgb remains stable. d/w vascular PA and agreed will attempt to anticoagulate with coumadin (vs NOAC due to reversibility) and if does not tolerate will need to place IVC filter. explained risks of being placed on coumadin, will have health care technician discuss with her regarding dietary adjustments. monitor INR and Hgb daily. explained to pt to notify RN for worsening hemoptysis or other signs of bleeding. start coumadin 5mg today 2. Acute on chronic systolic heart failure- improved. titrate down supplemental oxygen. lasix switched to aldactone. monitor fluid status. strict I&O, daily weights. on arb and betblocker. 3. Acute and possible chronic hypoxic respiratory failure, multifactorial-PE vs B/L PNA. on supplemental oxygen saturating 94% on 2L NC. on Ceftriaxone/doxy day 3 and 6 respectively. Continue oxygen to maintain saturation > 90% 4. CAD, history of stent- Continue Toprol XL 5. HTN- Contnue Benjy, Toprol XL 6. COPD- Continue Yani Bui 7. Pulmonary HTN 8. Probable JOSE and OHS- refusing polysomography on discharge and CPAP HS 9. Type 2 diabetes mellitus 10. Morbid obesity with BMI 52.8 11. Anxiety/depression- Continue Pamelor 12. Chronic lymphedema with venous ulcers- Continue wound care 13. DNR/DNI
[2017-06-08] MEDS: SPIRONOLACTONE 25 MG TABLET (FP) PO SCH (15:14)
--- NOTE | 2017-06-08 16:01 | PN ---
Physical Exam: SUBJECTIVE: Patient seen and examined No acute events overnight. Patient's hemoptysis has improved, but still occuring. Patient denies any more SOB. Currently on 4L o2 NC. She is sitting up in bed comfortably. Phillips has been removed and patient is using bedside commode. OBJECTIVE: Vital Signs Period Temp Pulse Resp BP Sys/Magana Pulse Ox Last 24 Hr 94.2 F-97.5 F 69-71 18-20 90-118/54-67 GENERAL: The patient is awake, alert, and fully oriented, in no acute distress. HEAD: Normal with no signs of trauma. EYES: Pupils equal, round and reactive to light, extraocular movements intact, sclera anicteric, conjunctiva clear. No lid lag. EARS, NOSE, THROAT: Ears normal, nares patent, oropharynx clear without exudates. Moist mucous membranes. NECK: Normal range of motion, supple without lymphadenopathy, JVD, or masses. LUNGS: Breath sounds-mild crackles at right lung base, No accessory muscle use HEART: Regular rate and rhythm, normal S1 and S2 without murmur, rub or gallop. ABDOMEN: Soft, nontender, not distended, normoactive bowel sounds, no guarding, no rebound, no masses. No hepatomegaly or splenomegaly. MUSCULOSKELETAL: Normal range of motion at all joints. No bony deformities or tenderness. No CVA tenderness. RIGHT COSTAL MARGIN TENDERNESS UPPER EXTREMITIES: 2+ pulses, warm, well-perfused. No cyanosis. No clubbing. No peripheral edema. LOWER EXTREMITIES: 2+ pulses, warm, well-perfused. No calf tenderness. B/L tight edema, legs wrapped, chronic venous stasis changes b/l NEUROLOGICAL: Cranial nerves II-XII intact. Normal speech. Normal gait. PSYCHIATRIC: Cooperative. Good eye contact. Appropriate mood and affect. SKIN: Warm, dry, normal turgor, no rashes or lesions noted, normal capillary refill. Laboratory Results - last 24 hr 06/07/17 06/07/17 06/08/17 17:15 19:00 00:09 WBC RBC Hgb Hct MCV MCH MCHC RDW Plt Count MPV INR 1.39 H PTT (Actin FS) 44.7 H 34.8 H Stool Occult Blood Negative 06/08/17 06/08/17 06/08/17 06:00 06:00 07:00 WBC 8.8 RBC 4.48 Hgb 12.5 Hct 39.5 MCV 88.3 MCH 27.9 MCHC 31.6 L RDW 16.8 H Plt Count 287 D MPV 9.6 INR 1.42 H PTT (Actin FS) 58.0 H D Stool Occult Blood 06/08/17 11:20 WBC RBC Hgb Hct MCV MCH MCHC RDW Plt Count MPV INR PTT (Actin FS) Stool Occult Blood Negative Active Medications Generic Name Dose Route Start Last Admin Trade Name Lópezq PRN Reason Stop Dose Admin Acetaminophen 650 mg 06/03/17 05:52 06/04/17 21:35 Tylenol - PO 650 mg Q4H PRN Administration FEVER OR PAIN Aclidinium [place] 1 puff 06/03/17 10:00 06/08/17 10:18 Tudorza - IH Not Given BID [facility] Cholecalciferol 2,000 unit 06/03/17 10:00 06/08/17 10:15 Vitamin D3 - PO 2,000 unit DAILY [facility] Administration Cyanocobalamin 500 mcg 06/03/17 10:00 06/08/17 10:14 Vitamin B12 - PO 500 mcg DAILY [facility] Administration Guaifenesin 10 ml 06/08/17 03:15 Robitussin - PO Q4H PRN COUGH Heparin Sodium (Porcine) 1,000 unit 06/03/17 14:51 06/07/17 18:11 Heparin - IVPUSH 1,000 unit PRN PRN Administration Heparin Heparin Sodium (Porcine) 5,000 unit 06/03/17 14:51 06/08/17 00:57 Heparin - IVPUSH 5,000 unit PRN PRN Administration Heparin Doxycycline Hyclate 100 mg/ 100 mls @ 100 mls/hr 06/03/17 18:00 06/08/17 13:04 Dextrose IVPB 100 mls/hr BID [facility] Administration Famotidine/Sodium Chloride 50 mls @ 100 mls/hr 06/03/17 11:30 06/08/17 11:27 Pepcid 20 Mg Premixed Ivpb - IVPB 100 mls/hr BID [facility] Administration Heparin Sodium (Porcine) 25, 500 mls @ 20 mls/hr 06/03/17 15:30 06/08/17 00:57 000 unit/ Sodium Chloride IV 2,700 unit/hr TITR [facility] Titration Protocol 1,000 UNIT/HR Ceftriaxone Sodium 1 gm/ 50 mls @ 100 mls/hr 06/06/17 11:15 06/08/17 10:05 Dextrose IVPB 06/09/17 11:14 100 mls/hr DAILY [facility] Administration Loperamide HCl 4 mg 06/05/17 20:26 06/06/17 17:15 Imodium - PO 4 mg Q6H PRN Administration DIARRHEA Magnesium Oxide 400 mg 06/03/17 10:00 06/08/17 10:16 Mag-Ox - PO 400 mg DAILY [facility] Administration Metoprolol Succinate 50 mg 06/03/17 10:00 06/08/17 10:14 Toprol Xl - PO 50 mg DAILY [facility] Administration Multivitamins 1 each 06/03/17 10:00 06/08/17 10:23 Total B With C - PO Not Given DAILY [facility] Nortriptyline HCl 10 mg 06/03/17 22:00 06/07/17 22:38 Pamelor - PO Not Given HS [facility] Fluticasone/Salmeterol 1 puff 06/03/17 10:00 06/08/17 10:06 Advair 100mcg/50mcg - IH 1 puff BID [facility] Administration Spironolactone 25 mg 06/08/17 14:15 06/08/17 15:14 Aldactone - PO Not Given DAILY [facility] Valsartan 320 mg 06/03/17 10:00 06/08/17 10:13 Diovan - PO 320 mg DAILY [facility] Administration Vitamin E 400 unit 06/03/17 10:00 06/08/17 10:17 Vitamin E - PO 400 unit DAILY [facility] Administration Warfarin Sodium 5 mg 06/08/17 18:00 Coumadin - PO DAILY@1800 [facility] ASSESSMENT/PLAN: 46yF with PMH systolic CHF, DE, stent, COPD, asthma, chronic lymphedema, morbid obesity, depression, anxiety, pulm HTN presented to the ED with SOB and cough x 3-4 days. Pt is being admitted for further evaluation. #Bilateral submassive pulmonary emboli -recurring hemoptysis, hgb is stable -Continue heparin drip -Coumadin 5 mg po started tonight -If pt does not tolerate the AC, IVC filter will be placed -Monitor INR -daily stool occult blood test -daily PTT -Monitor for any bleeding, if bleeding repeat stat cbc -Dietary consult to discuss patient's food options on coumadin #Acute on chronic CHF exacerbation, decrease in 3 lbs -BNP elevated from baseline -Continue lasix 40 mg iv daily -Start aldactone 25 mg po -Continue Diovan 320 mg po daily -Continue toporol xl 50 mg po daily -echo with severely reduced EF on 11/02/16 -cardiology consult, 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 - chest cta- right upper and bilateral lower lobe consolidation with small right pleural effusion #Vascular ulcers/lymphedema - cont lasix IV 40 mg - Patient refusing santyl - Dry dressing changes to left lower leg - vascular consult, Dr. Lloyd - KIERA wraps to B/L LE #HTN -Continue home medications valsartan 320 mg po daily -Continue lasix 40 mg iv daily #Diarrhea -Continue imodium #Chronic JOSE -Patient refuses CPAP -Continue O2 NC #anxiety and depression -continue nortriptyline 10 mg po hs DVT PPX -Continue heparin drip FEN - hold IVF, tolerating po - BMP tomorrow, replete mag - low sodium diet Patient is dnr/dni dispo: Awaiting therapeutic INR. Visit type - Emergency Visit Emergency Visit: Yes ED Registration Date: 06/03/17 Care time: The patient presented to the Emergency Department on the above date and was hospitalized for further evaluation of their emergent condition. - New Patient This patient is new to me today: No - Critical Care Critical Care patient: No
[2017-06-08] MEDS: guaiFENesin 200 MG/10 ML 10 ML UNIT-DOSE CUPS PO PRN ×2 (16:07→22:23)
[2017-06-08] MEDS: WARFARIN NA 5 MG TABLET (UD) PO SCH (18:32)
[2017-06-08] MEDS: NORTRIPTYLINE HCL 10 MG CAPSULE PO SCH (22:13)
[2017-06-08] MEDS: HEPARIN - 25,000 UNIT in SODIUM CHLORIDE 495 ML IV SCH (23:01)
[2017-06-09] MEDS: guaiFENesin 200 MG/10 ML 10 ML UNIT-DOSE CUPS PO PRN ×2 (02:38→20:53)
[2017-06-09 07:37] LABS: BASOPHIL 1.1 % (0-2.0); EOSINOPHIL 5.1 % (0-4.5); MCH 27.8 pg (25.7-33.7); MCHC 31.2 g/dl (32.0-36.0); MEAN CELL VOLUME 89.1 fl (80-96); MEAN PLT VOLUME 9.7 fl (7.5-11.1); NEUTROPHILS 64.1 % (42.8-82.8); PLATELET COUNT 270 K/MM3 (134-434); RDW 16.8 % (11.6-15.6); WHITE BLOOD COUNT 8.7 K/mm3 (4.0-10.0)
[2017-06-09 08:03] LABS: ALBUMIN 2.4 g/dl (3.4-5.0); ANION GAP 6 (8-16); CALCIUM 8.1 mg/dL (8.5-10.1); CO2 33 mmol/L (21-32); CREATININE 0.5 mg/dL (0.55-1.02); GLUCOSE,RANDOM 105 mg/dL (74-106); PHOSPHOROUS 3.5 mg/dL (2.5-4.9); SGOT/AST 14 U/L (15-37); SGPT/ALT 9 U/L (12-78)
[2017-06-09 08:07] LABS: ALK PHOS 80 U/L (45-117); BILIRUBIN,TOTAL 0.9 mg/dL (0.2-1.0); TOT PROT 7.2 g/dl (6.4-8.2)
[2017-06-09 08:10] LABS: INR 1.39 (0.82-1.09); PROTHROMBIN TIME (PATIENT) 15.4 SEC (9.98-11.88)
[2017-06-09] MEDS ORDERED: HEPARIN INFUSION - 500 ML IVPB ONE (09:02)
[2017-06-09] MEDS ORDERED: cefTRIAXone SODIUM 1 GM VIAL ONE (09:29)
[2017-06-09] MEDS ORDERED: DEXTROSE 5%-WATER - 50 ML IVPB ONE (09:30)
[2017-06-09] MEDS: CEFTRIAXONE 1 GM in DEXTROSE 5%-WATER - 50 ML IVPB SCH (09:41)
[2017-06-09] MEDS: FLUTICASONE/SALMETEROL 100 MCG/50 MCG DISKUS IH SCH ×2 (09:41→21:01)
[2017-06-09] MEDS: FAMOTIDINE 20 MG/50 ML IVPB 50 ML IVPB SCH ×2 (09:44→21:01)
[2017-06-09] MEDS: VITAMIN B COMPLEX W/C COMBO TABLET (FP) PO SCH (09:45)
[2017-06-09] MEDS: CYANOCOBALAMIN 1,000 MCG TABLET (FP) PO SCH (09:45)
[2017-06-09] MEDS: METOPROLOL SUCCINATE 50 MG TAB.SR.24H (FP) PO SCH (09:45)
[2017-06-09] MEDS: VALSARTAN 160 MG TABLET (UD) PO SCH (09:46)
[2017-06-09] MEDS: MAGNESIUM OXIDE 400 MG TABLET (FP) PO SCH (09:46)
[2017-06-09] MEDS: SPIRONOLACTONE 25 MG TABLET (FP) PO SCH (09:46)
[2017-06-09] MEDS: CHOLECALCIFEROL (VITAMIN D3) 1,000 UNIT TABLET (FP) PO SCH (09:46)
[2017-06-09] MEDS: DOXYCYCLINE INJECTION 100 MG in DEXTROSE 5%-WATER - 100 ML IVPB SCH ×2 (09:47→21:38)
[2017-06-09] MEDS: ACLIDINIUM BROMIDE 400 MCG/INH AERO.POWD IH SCH ×3 (09:47→21:01)
[2017-06-09] MEDS: VITAMIN E 400 INTERNATIONAL-UNITS CAPSULE (FP) PO SCH (09:52)
[2017-06-09] MEDS: HEPARIN - 25,000 UNIT in SODIUM CHLORIDE 495 ML IV SCH ×2 (11:18→16:52)
--- NOTE | 2017-06-09 11:54 | PN ---
Progress Note, Physician History of Present Illness: Dyspnea and hemoptysis improving, no chest pain. - Current Medication List Current Medications: Active Medications Acetaminophen (Tylenol -) 650 mg PO Q4H PRN PRN Reason: FEVER OR PAIN Last Admin: 06/04/17 21:35 Dose: 650 mg Aclidinium [place] (Tudorza -) 1 puff IH BID [facility] Last Admin: 06/09/17 10:02 Dose: Not Given Cholecalciferol (Vitamin D3 -) 2,000 unit PO DAILY [facility] Last Admin: 06/09/17 09:46 Dose: 2,000 unit Cyanocobalamin (Vitamin B12 -) 500 mcg PO DAILY [facility] Last Admin: 06/09/17 09:45 Dose: 500 mcg Guaifenesin (Robitussin -) 10 ml PO Q4H PRN PRN Reason: COUGH Last Admin: 06/09/17 02:38 Dose: 10 ml Heparin Sodium (Porcine) (Heparin -) 1,000 unit IVPUSH PRN PRN PRN Reason: Heparin Last Admin: 06/07/17 18:11 Dose: 1,000 unit Heparin Sodium (Porcine) (Heparin -) 5,000 unit IVPUSH PRN PRN PRN Reason: Heparin Last Admin: 06/08/17 00:57 Dose: 5,000 unit Doxycycline Hyclate 100 mg/ (Dextrose) 100 mls @ 100 mls/hr IVPB BID [facility] Last Admin: 06/09/17 09:47 Dose: 100 mls/hr Famotidine/Sodium Chloride (Pepcid 20 Mg Premixed Ivpb -) 50 mls @ 100 mls/hr IVPB BID [facility] Last Admin: 06/09/17 09:44 Dose: 100 mls/hr Heparin Sodium (Porcine) 25, (000 unit/ Sodium Chloride) 500 mls @ 20 mls/hr IV TITR [facility]; 1,000 UNIT/HR PRN Reason: Protocol Last Admin: 06/09/17 11:18 Dose: 54 mls/hr Loperamide HCl (Imodium -) 4 mg PO Q6H PRN PRN Reason: DIARRHEA Last Admin: 06/06/17 17:15 Dose: 4 mg Magnesium Oxide (Mag-Ox -) 400 mg PO DAILY [facility] Last Admin: 06/09/17 09:46 Dose: 400 mg Metoprolol Succinate (Toprol Xl -) 50 mg PO DAILY [facility] Last Admin: 06/09/17 09:45 Dose: Not Given Multivitamins (Total B With C -) 1 each PO DAILY [facility] Last Admin: 06/09/17 09:45 Dose: 1 each Nortriptyline HCl (Pamelor -) 10 mg PO HS [facility] Last Admin: 06/08/17 22:13 Dose: Not Given Fluticasone/Salmeterol (Advair 100mcg/50mcg -) 1 puff IH BID [facility] Last Admin: 06/09/17 09:41 Dose: 1 puff Spironolactone (Aldactone -) 25 mg PO DAILY [facility] Last Admin: 06/09/17 09:46 Dose: 25 mg Valsartan (Diovan -) 320 mg PO DAILY [facility] Last Admin: 06/09/17 09:46 Dose: Not Given Vitamin E (Vitamin E -) 400 unit PO DAILY [facility] Last Admin: 06/09/17 09:52 Dose: 400 unit Warfarin Sodium (Coumadin -) 5 mg PO DAILY@1800 [facility] Last Admin: 06/08/17 18:32 Dose: 5 mg - Objective Vital Signs: Vital Signs Temperature 97.0 F L 06/09/17 08:55 Pulse Rate 61 06/09/17 08:55 Respiratory Rate 18 06/09/17 08:55 Blood Pressure 96/64 06/09/17 08:55 O2 Sat by Pulse Oximetry (%) 94 L 06/08/17 21:00 Constitutional: Yes: No Distress, Calm Neck: Yes: Supple Cardiovascular: Yes: Regular Rate and Rhythm Respiratory: Yes: Regular, Diminished Gastrointestinal: Yes: Normal Bowel Sounds, Soft, Abdomen, Obese Edema: Yes Labs: CBC, BMP 06/09/17 06:50 06/09/17 06:50 INR, PTT INR 1.39 (0.82-1.09) H 06/09/17 06:50 Problem List - Problems (1) Acute on chronic systolic (congestive) heart failure Code(s): I50.23 - ACUTE ON CHRONIC SYSTOLIC (CONGESTIVE) HEART FAILURE (2) COPD (chronic obstructive pulmonary disease) Code(s): J44.9 - CHRONIC OBSTRUCTIVE PULMONARY DISEASE, UNSPECIFIED Qualifiers : COPD type: unspecified COPD Qualified Code(s): J44.9 - Chronic obstructive pulmonary disease, unspecified (3) Cellulitis and abscess of leg Code(s): L02.419 - CUTANEOUS ABSCESS OF LIMB, UNSPECIFIED L03.119 - CELLULITIS OF UNSPECIFIED PART OF LIMB (4) Coronary artery disease Code(s): I25.10 - ATHSCL HEART DISEASE OF [place] CORONARY ARTERY W/O ANG PCTRS Qualifiers: Coronary Disease-Associated Artery/Lesion type: [place] artery [place] vs. transplanted heart: [place] heart Associated angina: without angina Qualified Code(s): I25.10 - Atherosclerotic heart disease of [place] coronary artery without angina pectoris (5) Hypertensive cardiomegaly with heart failure Code(s): I11.0 - HYPERTENSIVE HEART DISEASE WITH HEART FAILURE (6) Lymph edema Code(s): I89.0 - LYMPHEDEMA, NOT ELSEWHERE CLASSIFIED (7) Morbid (severe) obesity with alveolar hypoventilation Code(s): E66.2 - MORBID (SEVERE) OBESITY WITH ALVEOLAR HYPOVENTILATION (8) Status post coronary artery stent placement Code(s): Z95.5 - PRESENCE OF CORONARY ANGIOPLASTY IMPLANT AND GRAFT (9) Biventricular failure Code(s): I50.9 - HEART FAILURE, UNSPECIFIED (10) Pulmonary embolism Code(s): I26.99 - OTHER PULMONARY EMBOLISM WITHOUT ACUTE COR PULMONALE Qualifiers: Pulmonary embolism type: other Chronicity: acute Acute cor pulmonale presence: without acute cor pulmonale Qualified Code(s): I26.99 - Other pulmonary embolism without acute cor pulmonale (11) Pulmonary hypertension Code(s): I27.2 - OTHER SECONDARY PULMONARY HYPERTENSION Assessment/Plan 11/02/2016 Echocardiography revealed severe reduction in LV EF, bi-atrial dilatation, mild MR and TR with mild to moderate degree of pulmonary HTN, RVSP of 40-50 mmHg 06/03/2017 Echo: Mod decreased RV, suspect RV thrombus, severe decrease LV fxn, mild MR, TR or UT 1. Acute on chronic LV severe systolic failure class III NYHA classification with pulm HTN resolving 2. Bilateral submassive pulmonary embolism 3. CAD post RI PCI (stent), angina pectoris 4. HTN 5. DM 6. COPD 7. Morbid obesity with OSAS/OHS 8. Chronic lymphedema with venous ulcers and cellulitis 9. Poor compliance PLAN: 1. Continue Aldactone 25 qd with monitoring renal function and electrolytes and replete K 2. Continue Heparin -> Coumadin per INR 2-3 3. Continue Toprol XL 50 qd and Diovan 320 qd. 4. Complete empiric antibiotics coverage, woundcare, bronchodilator and O2 to keep saO2>90% 5. Additional cardiovascular evaluation has been recommended, but due to her morbid obesity and her refusal, both further evaluation and even ICD implant has been difficult. 6. Refuses sleep study or CPAP trial
[2017-06-09] MEDS ORDERED: POTASSIUM CHLORIDE TABS 20 MEQ TABLET.ER (FP) PO ONE (12:00)
--- NOTE | 2017-06-09 15:12 | PN ---
Progress Note, Physician History of Present Illness: pulmonary alert,feeling better,less hemoptysis - Current Medication List Current Medications: Active Medications Acetaminophen (Tylenol -) 650 mg PO Q4H PRN PRN Reason: FEVER OR PAIN Last Admin: 06/04/17 21:35 Dose: 650 mg Aclidinium [place] (Tudorza -) 1 puff IH BID [facility] Last Admin: 06/09/17 10:02 Dose: Not Given Cholecalciferol (Vitamin D3 -) 2,000 unit PO DAILY [facility] Last Admin: 06/09/17 09:46 Dose: 2,000 unit Cyanocobalamin (Vitamin B12 -) 500 mcg PO DAILY [facility] Last Admin: 06/09/17 09:45 Dose: 500 mcg Guaifenesin (Robitussin -) 10 ml PO Q4H PRN PRN Reason: COUGH Last Admin: 06/09/17 02:38 Dose: 10 ml Heparin Sodium (Porcine) (Heparin -) 1,000 unit IVPUSH PRN PRN PRN Reason: Heparin Last Admin: 06/07/17 18:11 Dose: 1,000 unit Heparin Sodium (Porcine) (Heparin -) 5,000 unit IVPUSH PRN PRN PRN Reason: Heparin Last Admin: 06/08/17 00:57 Dose: 5,000 unit Doxycycline Hyclate 100 mg/ (Dextrose) 100 mls @ 100 mls/hr IVPB BID [facility] Stop: 06/09/17 23:59 Last Admin: 06/09/17 09:47 Dose: 100 mls/hr Famotidine/Sodium Chloride (Pepcid 20 Mg Premixed Ivpb -) 50 mls @ 100 mls/hr IVPB BID [facility] Last Admin: 06/09/17 09:44 Dose: 100 mls/hr Heparin Sodium (Porcine) 25, (000 unit/ Sodium Chloride) 500 mls @ 20 mls/hr IV TITR [facility]; 1,000 UNIT/HR PRN Reason: Protocol Last Admin: 06/09/17 11:18 Dose: 54 mls/hr Loperamide HCl (Imodium -) 4 mg PO Q6H PRN PRN Reason: DIARRHEA Last Admin: 06/06/17 17:15 Dose: 4 mg Magnesium Oxide (Mag-Ox -) 400 mg PO DAILY [facility] Last Admin: 06/09/17 09:46 Dose: 400 mg Metoprolol Succinate (Toprol Xl -) 50 mg PO DAILY [facility] Last Admin: 06/09/17 09:45 Dose: Not Given Multivitamins (Total B With C -) 1 each PO DAILY [facility] Last Admin: 06/09/17 09:45 Dose: 1 each Nortriptyline HCl (Pamelor -) 10 mg PO HS [facility] Last Admin: 06/08/17 22:13 Dose: Not Given Fluticasone/Salmeterol (Advair 100mcg/50mcg -) 1 puff IH BID [facility] Last Admin: 06/09/17 09:41 Dose: 1 puff Spironolactone (Aldactone -) 25 mg PO DAILY [facility] Last Admin: 06/09/17 09:46 Dose: 25 mg Valsartan (Diovan -) 320 mg PO DAILY [facility] Last Admin: 06/09/17 09:46 Dose: Not Given Vitamin E (Vitamin E -) 400 unit PO DAILY [facility] Last Admin: 06/09/17 09:52 Dose: 400 unit Warfarin Sodium (Coumadin -) 5 mg PO DAILY@1800 [facility] Last Admin: 06/08/17 18:32 Dose: 5 mg - Objective Vital Signs: Vital Signs Temperature 98.0 F 06/09/17 14:35 Pulse Rate 67 06/09/17 14:35 Respiratory Rate 18 06/09/17 14:35 Blood Pressure 112/81 06/09/17 14:35 O2 Sat by Pulse Oximetry (%) 94 L 06/08/17 21:00 Constitutional: Yes: Well Nourished, Calm Eyes: Yes: WNL HENT: Yes: WNL Neck: Yes: WNL Cardiovascular: Yes: Regular Rate and Rhythm, S1, S2 Respiratory: Yes: Diminished Gastrointestinal: Yes: Normal Bowel Sounds, Soft Extremities: Yes: WNL Edema: Yes Labs: CBC, BMP 06/09/17 06:50 06/09/17 06:50 INR, PTT INR 1.39 (0.82-1.09) H 06/09/17 06:50 Assessment/Plan A/P Submassive Pulmonary Emboli Likely Pulmonary Infarct Severe LV Systolic Dysfunction Pulmonary HTN CAD COPD Morbid Obesity Likely JOSE/OHS - continue anticoagulation - O2 to keep SpO2 >90% - monitor/quantify hemoptysis - if hemoptysis worsens, may need to stop anticoagulation and place IVC filter - inhaled bronchodilators - lasix as needed - pt DNR/DNI DR MARK
--- NOTE | 2017-06-09 16:07 | PN ---
Teaching Attending Note Name of Resident: Austin Velásquez ATTENDING PHYSICIAN STATEMENT I saw and evaluated the patient. I reviewed the resident's note and discussed the case with the resident. I agree with the resident's findings and plan as documented. SUBJECTIVE:hempotysis improved, more blood streaked at this time. dyspnea improved. denies CP, fever, chills, N/V/C/D OBJECTIVE: Last Vital Signs Temp Pulse Resp BP Pulse Ox 98.0 F 67 18 112/81 96 06/09/17 14:35 06/09/17 14:35 06/09/17 14:35 06/09/17 14:35 06/09/17 09:00 General NAD CV S1 S2 RRR no murmur/rub/gallop no chest wall tenderness Lungs mild crackles at base abdomen soft NT/ND obese Extremities non pitting edema, chronic venous changes ASSESSMENT AND PLAN: 46 year old woman with a history of morbid obesity, probable JOSE, probable OHS, CHF, CAD, COPD, pulmonary HTN, depression, anxiety who presented to the ER with SOB. 1. Bilateral submassive pulmonary emboli with probable pulmonary infarct- hemoptysis improved. Hgb stable. on hep-coumadin bridge. if fails anticoagulation will need IVC filter. evaluated and educated by dietary yesterday.cont coumadin day2. 2. Acute on chronic systolic heart failure- improved. on aldactone. monitor fluid status. strict I&O, daily weights. on arb and betblocker. 3. Acute and possible chronic hypoxic respiratory failure, multifactorial-PE vs B/L PNA. on supplemental oxygen saturating 94% on 2L NC. on Ceftriaxone/doxy day 7. will d/c abx after today. Continue oxygen to maintain saturation > 90% 4. CAD, history of stent- Continue Toprol XL 5. HTN- Contnue Diovan, Toprol XL 6. COPD- Continue Advair, Tudorza 7. Pulmonary HTN 8. Probable JOSE and OHS- refusing polysomography on discharge and CPAP HS 9. Type 2 diabetes mellitus 10. Morbid obesity with BMI 52.8 11. Anxiety/depression- Continue Pamelor 12. Chronic lymphedema with venous ulcers- Continue wound care 13. DNR/DNI
--- NOTE | 2017-06-09 16:11 | PN ---
Physical Exam: SUBJECTIVE: Patient seen and examined Patient states her hemoptysis has improved and she is only having blood streaked sputum. Her SOB also has improved. She was sitting up in bed comfortably today. OBJECTIVE: Vital Signs Period Temp Pulse Resp BP Sys/Magana Pulse Ox Last 24 Hr 96.9 F-98.2 F 61-71 18-22 90-123/47-81 94-96 GENERAL: The patient is awake, alert, and fully oriented, in no acute distress. HEAD: Normal with no signs of trauma. EYES: Pupils equal, round and reactive to light, extraocular movements intact, sclera anicteric, conjunctiva clear. No lid lag. EARS, NOSE, THROAT: Ears normal, nares patent, oropharynx clear without exudates. Moist mucous membranes. NECK: Normal range of motion, supple without lymphadenopathy, JVD, or masses. LUNGS: Breath sounds-mild crackles at right lung base, No accessory muscle use HEART: Regular rate and rhythm, normal S1 and S2 without murmur, rub or gallop. ABDOMEN: Soft, nontender, not distended, normoactive bowel sounds, no guarding, no rebound, no masses. No hepatomegaly or splenomegaly. MUSCULOSKELETAL: Normal range of motion at all joints. No bony deformities or tenderness. No CVA tenderness. RIGHT COSTAL MARGIN TENDERNESS UPPER EXTREMITIES: 2+ pulses, warm, well-perfused. No cyanosis. No clubbing. No peripheral edema. LOWER EXTREMITIES: 2+ pulses, warm, well-perfused. No calf tenderness. B/L tight edema, legs wrapped, chronic venous stasis changes b/l NEUROLOGICAL: Cranial nerves II-XII intact. Normal speech. Normal gait. PSYCHIATRIC: Cooperative. Good eye contact. Appropriate mood and affect. SKIN: Warm, dry, normal turgor, no rashes or lesions noted, normal capillary refill. Laboratory Results - last 24 hr 06/09/17 06/09/17 06/09/17 06:50 06:50 06:50 WBC 8.7 RBC 4.40 Hgb 12.2 Hct 39.2 MCV 89.1 MCH 27.8 MCHC 31.2 L RDW 16.8 H Plt Count 270 MPV 9.7 Neutrophils % 64.1 Lymphocytes % 19.6 Monocytes % 10.1 Eosinophils % 5.1 H Basophils % 1.1 INR 1.39 H PTT (Actin FS) 56.4 H Sodium Potassium Chloride Carbon Dioxide Anion Gap BUN Creatinine Creat Clearance w eGFR Random Glucose Calcium Phosphorus Magnesium Total Bilirubin AST ALT Alkaline Phosphatase Total Protein Albumin 06/09/17 06:50 WBC RBC Hgb Hct MCV MCH MCHC RDW Plt Count MPV Neutrophils % Lymphocytes % Monocytes % Eosinophils % Basophils % INR PTT (Actin FS) Sodium 137 Potassium 3.5 Chloride 98 Carbon Dioxide 33 H Anion Gap 6 L BUN 19 H D Creatinine 0.5 L Creat Clearance w eGFR > 60 Random Glucose 105 Calcium 8.1 L Phosphorus 3.5 Magnesium 2.0 Total Bilirubin 0.9 D AST 14 L D ALT 9 L Alkaline Phosphatase 80 Total Protein 7.2 Albumin 2.4 L Active Medications Generic Name Dose Route Start Last Admin Trade Name Freq PRN Reason Stop Dose Admin Acetaminophen 650 mg 06/03/17 05:52 06/04/17 21:35 Tylenol - PO 650 mg Q4H PRN Administration FEVER OR PAIN Aclidinium [place] 1 puff 06/03/17 10:00 06/09/17 10:02 Tudorza - IH Not Given BID MARCO Cholecalciferol 2,000 unit 06/03/17 10:00 06/09/17 09:46 Vitamin D3 - PO 2,000 unit DAILY [facility] Administration Cyanocobalamin 500 mcg 06/03/17 10:00 06/09/17 09:45 Vitamin B12 - PO 500 mcg DAILY [facility] Administration Guaifenesin 10 ml 06/08/17 03:15 06/09/17 02:38 Robitussin - PO 10 ml Q4H PRN Administration COUGH Heparin Sodium (Porcine) 1,000 unit 06/03/17 14:51 06/07/17 18:11 Heparin - IVPUSH 1,000 unit PRN PRN Administration Heparin Heparin Sodium (Porcine) 5,000 unit 06/03/17 14:51 06/08/17 00:57 Heparin - IVPUSH 5,000 unit PRN PRN Administration Heparin Doxycycline Hyclate 100 mg/ 100 mls @ 100 mls/hr 06/03/17 18:00 06/09/17 09:47 Dextrose IVPB 06/09/17 23:59 100 mls/hr BID [facility] Administration Famotidine/Sodium Chloride 50 mls @ 100 mls/hr 06/03/17 11:30 06/09/17 09:44 Pepcid 20 Mg Premixed Ivpb - IVPB 100 mls/hr BID [facility] Administration Heparin Sodium (Porcine) 25, 500 mls @ 20 mls/hr 06/03/17 15:30 06/09/17 11:18 000 unit/ Sodium Chloride IV 54 mls/hr TITR [facility]CO Administration Protocol 1,000 UNIT/HR Loperamide HCl 4 mg 06/05/17 20:26 06/06/17 17:15 Imodium - PO 4 mg Q6H PRN Administration DIARRHEA Magnesium Oxide 400 mg 06/03/17 10:00 06/09/17 09:46 Mag-Ox - PO 400 mg DAILY [facility] Administration Metoprolol Succinate 50 mg 06/03/17 10:00 06/09/17 09:45 Toprol Xl - PO Not Given DAILY [facility] Multivitamins 1 each 06/03/17 10:00 06/09/17 09:45 Total B With C - PO 1 each DAILY [facility] Administration Nortriptyline HCl 10 mg 06/03/17 22:00 06/08/17 22:13 Pamelor - PO Not Given [facility] Fluticasone/Salmeterol 1 puff 06/03/17 10:00 06/09/17 09:41 Advair 100mcg/50mcg - IH 1 puff BID [facility] Administration Spironolactone 25 mg 06/08/17 14:15 06/09/17 09:46 Aldactone - PO 25 mg DAILY [facility] Administration Valsartan 320 mg 06/03/17 10:00 06/09/17 09:46 Diovan - PO Not Given DAILY [facility] Vitamin E 400 unit 06/03/17 10:00 06/09/17 09:52 Vitamin E - PO 400 unit DAILY [facility] Administration Warfarin Sodium 5 mg 06/08/17 18:00 06/08/17 18:32 Coumadin - PO 5 mg DAILY@1800 [facility] Administration ASSESSMENT/PLAN: 46yF with PMH systolic CHF, [place], stent, COPD, asthma, chronic lymphedema, morbid obesity, depression, anxiety, pulm HTN presented to the ED with SOB and cough x 3-4 days. Pt is being admitted for further evaluation. 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 Lloyd - KIERA wraps to B/L LE #HTN -Continue home medications valsartan 320 mg po daily -Continue lasix 40 mg iv daily #Diarrhea -Continue imodium #Chronic JOSE -Patient refuses CPAP -Continue O2 NC #anxiety and depression -continue nortriptyline 10 mg po hs DVT PPX -Continue heparin drip FEN - hold IVF, tolerating po - BMP tomorrow, replete mag - low sodium diet Patient is dnr/dni dispo: Awaiting therapeutic INR. Visit type - Emergency Visit Emergency Visit: Yes ED Registration Date: 06/03/17 Care time: The patient presented to the Emergency Department on the above date and was hospitalized for further evaluation of their emergent condition. - New Patient This patient is new to me today: No - Critical Care Critical Care patient: No
[2017-06-09] MEDS: WARFARIN NA 5 MG TABLET (UD) PO SCH (17:39)
[2017-06-09] MEDS ORDERED: PT OWN MED DRAWER 7, Y5N ONE ×2 (19:56→21:17)
[2017-06-09] MEDS: NORTRIPTYLINE HCL 10 MG CAPSULE PO SCH (21:04)
[2017-06-10 07:29] LABS: MCHC 31.6 g/dl (32.0-36.0); MEAN CELL VOLUME 88.6 fl (80-96); MEAN PLT VOLUME 9.8 fl (7.5-11.1); PLATELET COUNT 270 K/MM3 (134-434); RDW 17.3 % (11.6-15.6); WHITE BLOOD COUNT 8.9 K/mm3 (4.0-10.0)
[2017-06-10 07:37] LABS: INR 1.36 (0.82-1.09)
[2017-06-10 07:53] LABS: ALBUMIN 2.6 g/dl (3.4-5.0); ANION GAP 8 (8-16); CALCIUM 8.3 mg/dL (8.5-10.1); CO2 32 mmol/L (21-32); GLUCOSE,RANDOM 101 mg/dL (74-106); PHOSPHOROUS 3.1 mg/dL (2.5-4.9); SGOT/AST 15 U/L (15-37)
[2017-06-10 07:55] LABS: ALK PHOS 92 U/L (45-117); BILIRUBIN,TOTAL 0.9 mg/dL (0.2-1.0); CREATININE 0.6 mg/dL (0.55-1.02); SGPT/ALT 12 U/L (12-78); TOT PROT 7.7 g/dl (6.4-8.2)
[2017-06-10 08:13] LABS: BASOPHIL (MANUAL) 0 % (0-2.0); REACTIVE LYMPHOCYTES 2 % (0-80)
[2017-06-10 08:14] LABS: PLATELET ESTIMATE ADEQUATE (NORMAL)
[2017-06-10] MEDS: HEPARIN - 25,000 UNIT in SODIUM CHLORIDE 495 ML IV SCH ×3 (09:11→19:32)
[2017-06-10] MEDS: CYANOCOBALAMIN 1,000 MCG TABLET (FP) PO SCH (10:43)
[2017-06-10] MEDS: VALSARTAN 160 MG TABLET (UD) PO SCH (10:43)
[2017-06-10] MEDS: VITAMIN E 400 INTERNATIONAL-UNITS CAPSULE (FP) PO SCH (10:43)
[2017-06-10] MEDS: VITAMIN B COMPLEX W/C COMBO TABLET (FP) PO SCH (10:43)
[2017-06-10] MEDS: MAGNESIUM OXIDE 400 MG TABLET (FP) PO SCH (10:43)
[2017-06-10] MEDS: ACLIDINIUM BROMIDE 400 MCG/INH AERO.POWD IH SCH ×2 (10:44→21:34)
[2017-06-10] MEDS: METOPROLOL SUCCINATE 50 MG TAB.SR.24H (FP) PO SCH (10:44)
[2017-06-10] MEDS: FAMOTIDINE 20 MG/50 ML IVPB 50 ML IVPB SCH ×2 (10:44→21:33)
[2017-06-10] MEDS: FLUTICASONE/SALMETEROL 100 MCG/50 MCG DISKUS IH SCH ×2 (10:44→21:33)
[2017-06-10] MEDS: CHOLECALCIFEROL (VITAMIN D3) 1,000 UNIT TABLET (FP) PO SCH (10:44)
[2017-06-10] MEDS: SPIRONOLACTONE 25 MG TABLET (FP) PO SCH (10:44)
--- NOTE | 2017-06-10 10:57 | PN ---
Physical Exam: SUBJECTIVE: Patient seen and examined Patient's hemoptysis has improved significantly. She is having only blood streaked sputum and it is decreasing in quantity. Patient still having SOB and had trouble with PT yesterday. OBJECTIVE: Vital Signs Period Temp Pulse Resp BP Sys/Magana Pulse Ox Last 24 Hr 98 F-98.2 F 67-90 18-20 112-126/62-81 95 GENERAL: The patient is awake, alert, and fully oriented, in no acute distress. HEAD: Normal with no signs of trauma. EYES: Pupils equal, round and reactive to light, extraocular movements intact, sclera anicteric, conjunctiva clear. No lid lag. EARS, NOSE, THROAT: Ears normal, nares patent, oropharynx clear without exudates. Moist mucous membranes. NECK: Normal range of motion, supple without lymphadenopathy, JVD, or masses. LUNGS: Breath sounds-mild crackles at right lung base, No accessory muscle use HEART: Regular rate and rhythm, normal S1 and S2 without murmur, rub or gallop. ABDOMEN: Soft, nontender, not distended, normoactive bowel sounds, no guarding, no rebound, no masses. No hepatomegaly or splenomegaly. MUSCULOSKELETAL: Normal range of motion at all joints. No bony deformities or tenderness. No CVA tenderness. UPPER EXTREMITIES: 2+ pulses, warm, well-perfused. No cyanosis. No clubbing. No peripheral edema. LOWER EXTREMITIES: 2+ pulses, warm, well-perfused. No calf tenderness. B/L tight edema, legs wrapped, chronic venous stasis changes b/l NEUROLOGICAL: Cranial nerves II-XII intact. Normal speech. Normal gait. PSYCHIATRIC: Cooperative. Good eye contact. Appropriate mood and affect. SKIN: Warm, dry, normal turgor, no rashes or lesions noted, normal capillary refill. Laboratory Results - last 24 hr 06/10/17 06/10/17 06/10/17 06:00 06:00 06:00 WBC 8.9 RBC 4.43 Hgb 12.4 Hct 39.2 MCV 88.6 MCH 28.0 MCHC 31.6 L RDW 17.3 H Plt Count 270 MPV 9.8 Neutrophils % Y Neutrophils % (Manual) 64 Lymphocytes % Y Lymphocytes % (Manual) 22 Monocytes % (Manual) 4 Eosinophils % (Manual) 8 H Basophils % (Manual) 0 Platelet Estimate Adequate INR 1.36 H PTT (Actin FS) Sodium 140 Potassium 3.6 Chloride 100 Carbon Dioxide 32 Anion Gap 8 BUN 14 D Creatinine 0.6 Creat Clearance w eGFR > 60 Random Glucose 101 Calcium 8.3 L Phosphorus 3.1 Magnesium 2.0 Total Bilirubin 0.9 AST 15 ALT 12 D Alkaline Phosphatase 92 Total Protein 7.7 Albumin 2.6 L 06/10/17 06:00 WBC RBC Hgb Hct MCV MCH MCHC RDW Plt Count MPV Neutrophils % Neutrophils % (Manual) Lymphocytes % Lymphocytes % (Manual) Monocytes % (Manual) Eosinophils % (Manual) Basophils % (Manual) Platelet Estimate INR PTT (Actin FS) 68.3 H Sodium Potassium Chloride Carbon Dioxide Anion Gap BUN Creatinine Creat Clearance w eGFR Random Glucose Calcium Phosphorus Magnesium Total Bilirubin AST ALT Alkaline Phosphatase Total Protein Albumin Active Medications Generic Name Dose Route Start Last Admin Trade Name Freq PRN Reason Stop Dose Admin Acetaminophen 650 mg 06/03/17 05:52 06/04/17 21:35 Tylenol - PO 650 mg Q4H PRN Administration FEVER OR PAIN Aclidinium [place] 1 puff 06/03/17 10:00 06/10/17 10:44 Tudorza - IH Not Given BID [facility]CO Cholecalciferol 2,000 unit 06/03/17 10:00 06/10/17 10:44 Vitamin D3 - PO 2,000 unit DAILY [facility] Administration Cyanocobalamin 500 mcg 06/03/17 10:00 06/10/17 10:43 Vitamin B12 - PO 500 mcg DAILY [facility] Administration Guaifenesin 10 ml 06/08/17 03:15 06/09/17 20:53 Robitussin - PO 10 ml Q4H PRN Administration COUGH Heparin Sodium (Porcine) 1,000 unit 06/03/17 14:51 06/07/17 18:11 Heparin - IVPUSH 1,000 unit PRN PRN Administration Heparin Heparin Sodium (Porcine) 5,000 unit 06/03/17 14:51 06/08/17 00:57 Heparin - IVPUSH 5,000 unit PRN PRN Administration Heparin Famotidine/Sodium Chloride 50 mls @ 100 mls/hr 06/03/17 11:30 06/10/17 10:44 Pepcid 20 Mg Premixed Ivpb - IVPB 100 mls/hr BID [facility] Administration Heparin Sodium (Porcine) 25, 500 mls @ 20 mls/hr 06/03/17 15:30 06/10/17 09:11 000 unit/ Sodium Chloride IV 54 mls/hr TITR [facility] Administration Protocol 1,000 UNIT/HR Loperamide HCl 4 mg 06/05/17 20:26 06/06/17 17:15 Imodium - PO 4 mg Q6H PRN Administration DIARRHEA Magnesium Oxide 400 mg 06/03/17 10:00 06/10/17 10:43 Mag-Ox - PO 400 mg DAILY [facility] Administration Metoprolol Succinate 50 mg 06/03/17 10:00 06/10/17 10:44 Toprol Xl - PO 50 mg DAILY [facility] Administration Multivitamins 1 each 06/03/17 10:00 06/10/17 10:43 Total B With C - PO 1 each DAILY [facility] Administration Nortriptyline HCl 10 mg 06/03/17 22:00 06/09/17 21:04 Pamelor - PO Not Given HS [facility] Fluticasone/Salmeterol 1 puff 06/03/17 10:00 06/10/17 10:44 Advair 100mcg/50mcg - IH 1 puff BID [facility] Administration Spironolactone 25 mg 06/08/17 14:15 06/10/17 10:44 Aldactone - PO 25 mg DAILY [facility] Administration Valsartan 320 mg 06/03/17 10:00 06/10/17 10:43 Diovan - PO 320 mg DAILY [facility] Administration Vitamin E 400 unit 06/03/17 10:00 06/10/17 10:43 Vitamin E - PO 400 unit DAILY [facility] Administration Warfarin Sodium 5 mg 06/08/17 18:00 06/09/17 17:39 Coumadin - PO 5 mg DAILY@1800 [facility] Administration ASSESSMENT/PLAN: 46yF with PMH systolic CHF, [place], stent, COPD, asthma, chronic lymphedema, morbid obesity, depression, anxiety, pulm HTN presented to the ED with SOB and cough x 3-4 days. Pt is being admitted for B/L submassive PE's #Bilateral submassive pulmonary emboli -Stable hgb -Continue heparin drip -Increase coumadin to 7.5 mg -If pt does not tolerate the AC, IVC filter will be placed -Monitor INR -daily stool occult blood test -daily PTT -Monitor for any bleeding, if bleeding repeat stat cbc -Dietary discussed patient's food options on coumadin #Acute on chronic CHF exacerbation, decrease in 3 lbs -BNP elevated from baseline -Continue aldactone 25 mg po -Continue Diovan 320 mg po daily -Continue toporol xl 50 mg po daily -echo with severely reduced EF on 11/02/16 -cardiology consult, 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 Lloyd - Spoke with vascular surgery, recommends barbie bandages from foot all the way up to knee. #HTN -Continue home medications valsartan 320 mg po daily -Continue lasix 40 mg iv daily #Diarrhea -Continue imodium #Chronic JOSE -Patient refuses CPAP -Continue O2 NC #anxiety and depression -continue nortriptyline 10 mg po hs DVT PPX -Continue heparin drip FEN - holding IVF, tolerating po - wnl - low sodium diet Patient is dnr/dni dispo: Awaiting therapeutic INR. Visit type - Emergency Visit Emergency Visit: Yes ED Registration Date: 06/03/17 Care time: The patient presented to the Emergency Department on the above date and was hospitalized for further evaluation of their emergent condition. - New Patient This patient is new to me today: No - Critical Care Critical Care patient: No
--- NOTE | 2017-06-10 12:34 | PN ---
Progress Note, Physician Chief Complaint: Events noted Intermittent dyspnea - improved Remains on Heparin and Coumadin started History of Present Illness: Patient was seen and examined. Awake and alert. Chart was reviewed Denies chest pain Less SOB - Current Medication List Current Medications: Active Medications Acetaminophen (Tylenol -) 650 mg PO Q4H PRN PRN Reason: FEVER OR PAIN Last Admin: 06/04/17 21:35 Dose: 650 mg Aclidinium [place] (Tudorza -) 1 puff IH BID [facility] Last Admin: 06/10/17 10:44 Dose: Not Given Cholecalciferol (Vitamin D3 -) 2,000 unit PO DAILY [facility] Last Admin: 06/10/17 10:44 Dose: 2,000 unit Cyanocobalamin (Vitamin B12 -) 500 mcg PO DAILY [facility] Last Admin: 06/10/17 10:43 Dose: 500 mcg Guaifenesin (Robitussin -) 10 ml PO Q4H PRN PRN Reason: COUGH Last Admin: 06/09/17 20:53 Dose: 10 ml Heparin Sodium (Porcine) (Heparin -) 1,000 unit IVPUSH PRN PRN PRN Reason: Heparin Last Admin: 06/07/17 18:11 Dose: 1,000 unit Heparin Sodium (Porcine) (Heparin -) 5,000 unit IVPUSH PRN PRN PRN Reason: Heparin Last Admin: 06/08/17 00:57 Dose: 5,000 unit Famotidine/Sodium Chloride (Pepcid 20 Mg Premixed Ivpb -) 50 mls @ 100 mls/hr IVPB BID [facility]CO Last Admin: 06/10/17 10:44 Dose: 100 mls/hr Heparin Sodium (Porcine) 25, (000 unit/ Sodium Chloride) 500 mls @ 20 mls/hr IV TITR [facility]CO; 1,000 UNIT/HR PRN Reason: Protocol Last Admin: 06/10/17 09:11 Dose: 54 mls/hr Loperamide HCl (Imodium -) 4 mg PO Q6H PRN PRN Reason: DIARRHEA Last Admin: 06/06/17 17:15 Dose: 4 mg Magnesium Oxide (Mag-Ox -) 400 mg PO DAILY [facility] Last Admin: 06/10/17 10:43 Dose: 400 mg Metoprolol Succinate (Toprol Xl -) 50 mg PO DAILY [facility] Last Admin: 06/10/17 10:44 Dose: 50 mg Multivitamins (Total B With C -) 1 each PO DAILY [facility] Last Admin: 06/10/17 10:43 Dose: 1 each Nortriptyline HCl (Pamelor -) 10 mg PO HS [facility] Last Admin: 06/09/17 21:04 Dose: Not Given Fluticasone/Salmeterol (Advair 100mcg/50mcg -) 1 puff IH BID [facility] Last Admin: 06/10/17 10:44 Dose: 1 puff Spironolactone (Aldactone -) 25 mg PO DAILY [facility] Last Admin: 06/10/17 10:44 Dose: 25 mg Valsartan (Diovan -) 320 mg PO DAILY [facility] Last Admin: 06/10/17 10:43 Dose: 320 mg Vitamin E (Vitamin E -) 400 unit PO DAILY [facility] Last Admin: 06/10/17 10:43 Dose: 400 unit Warfarin Sodium (Coumadin -) 7.5 mg PO DAILY@1800 [facility] - Objective Vital Signs: Vital Signs Temperature 98 F 06/09/17 22:00 Pulse Rate 70 06/09/17 22:00 Respiratory Rate 20 06/09/17 22:00 Blood Pressure 126/62 06/09/17 22:00 O2 Sat by Pulse Oximetry (%) 95 06/09/17 19:31 Neck: Yes: Supple Cardiovascular: Yes: Regular Rate and Rhythm, S1, S2 Respiratory: Yes: Diminished Gastrointestinal: Yes: Normal Bowel Sounds, Soft, Abdomen, Obese. No: Tenderness Edema: Yes Labs: CBC, BMP 06/10/17 06:00 06/10/17 06:00 INR, PTT INR 1.36 (0.82-1.09) H 06/10/17 06:00 Problem List - Problems (1) Pulmonary embolism Code(s): I26.99 - OTHER PULMONARY EMBOLISM WITHOUT ACUTE COR PULMONALE Qualifiers: Qualified Code(s): I26.99 - Other pulmonary embolism without acute cor pulmonale (2) Pulmonary hypertension Code(s): I27.2 - OTHER SECONDARY PULMONARY HYPERTENSION (3) Acute on chronic systolic (congestive) heart failure Code(s): I50.23 - ACUTE ON CHRONIC SYSTOLIC (CONGESTIVE) HEART FAILURE (4) CHF (congestive heart failure) Code(s): I50.9 - HEART FAILURE, UNSPECIFIED Qualifiers: Qualified Code(s): I50.9 - Heart failure, unspecified (5) COPD (chronic obstructive pulmonary disease) Code(s): J44.9 - CHRONIC OBSTRUCTIVE PULMONARY DISEASE, UNSPECIFIED Qualifiers : Qualified Code(s): J44.9 - Chronic obstructive pulmonary disease, unspecified (6) Cellulitis and abscess of leg Code(s): L02.419 - CUTANEOUS ABSCESS OF LIMB, UNSPECIFIED L03.119 - CELLULITIS OF UNSPECIFIED PART OF LIMB (7) Coronary artery disease Code(s): I25.10 - ATHSCL HEART DISEASE OF [place] CORONARY ARTERY W/O ANG PCTRS Qualifiers: Qualified Code(s): I25.10 - Atherosclerotic heart disease of [place] coronary artery without angina pectoris (8) Status post coronary artery stent placement Code(s): Z95.5 - PRESENCE OF CORONARY ANGIOPLASTY IMPLANT AND GRAFT Assessment/Plan 1. Acute on chronic LV systolic failure class III NYHA classification LV failure 2. Bilateral submassive pulmonary embolism 3. CAD post CA PCI (stent), angina pectoris 4. HTN 5. DM 6. COPD 7. Morbid obesity with OSAS 8. Cellulitis 9. Poor compliance PLAN: 1. Monitor renal function and electrolytes 2. Continue Heparin - Continue Coumadin as per INR 3. Continue Toprol XL and Diovan. Continue Aldactone as tolerated 4. Continue antibiotics coverage and bronchodilator and O2 5. Additional cardiovascular evaluation has been recommended, but due to her morbid obesity and her refusal, both further evaluation and even ICD implant has been difficult. 6. Refuses sleep study or CPAP trial Roland Foote MD
--- NOTE | 2017-06-10 12:43 | PN ---
Progress Note (short form) - Note Progress Note: PULMONARY PATIENT SEEN AND EXAMINED NO SIGNIFICANT CLINICAL CHANGE IN EXAM LESS HEMOPTYSIS LABS/MEDS/NOTES/IMAGING REVIEWED INR 1.36 Submassive Pulmonary Emboli Likely Pulmonary Infarct Severe LV Systolic Dysfunction Pulmonary HTN CAD COPD Morbid Obesity Likely JOSE/OHS - continue anticoagulation - O2 to keep SpO2 >90% - monitor/quantify hemoptysis - if hemoptysis worsens, may need to stop anticoagulation and place IVC filter - inhaled bronchodilators - lasix as needed - pt DNR/DNI R JONAS VICENTE
--- NOTE | 2017-06-10 13:16 | PN ---
Teaching Attending Note Name of Resident: Austin Velásquez ATTENDING PHYSICIAN STATEMENT I saw and evaluated the patient. I reviewed the resident's note and discussed the case with the resident. I agree with the resident's findings and plan as documented. SUBJECTIVE:hemoptysis mostly resolved at this time. some blood streaked sputum. continues to have dyspnea on exertion. denies CP, fever, chills, N/V/C/D OBJECTIVE: Last Vital Signs Temp Pulse Resp BP Pulse Ox 97.4 F L 75 20 125/88 95 06/10/17 10:00 06/10/17 10:00 06/10/17 10:06/10/17 10:00 06/09/17 19:31 General NAD CV S1 S2 RRR no murmur/rub/gallop no chest wall tenderness Lungs mild crackles at base abdomen soft NT/ND obese Extremities non pitting edema, chronic venous changes ASSESSMENT AND PLAN: 46 year old woman with a history of morbid obesity, probable JOSE, probable OHS, CHF, CAD, COPD, pulmonary HTN, depression, anxiety who presented to the ER with SOB. 1. Bilateral submassive pulmonary emboli with probable pulmonary infarct- hemoptysis improved. Hgb stable. on hep-coumadin bridge. if fails anticoagulation will need IVC filter. evaluated and educated by dietary yesterday. increase coumadin to 7.5mg. monitor INR 2. Acute on chronic systolic heart failure- improved. on aldactone. monitor fluid status. strict I&O, daily weights. on arb and betblocker. 3. Acute and possible chronic hypoxic respiratory failure, multifactorial-PE vs B/L PNA. on supplemental oxygen saturating 94% on 2L NC. completed 7 day course of abx. Continue oxygen to maintain saturation > 90% 4. CAD, history of stent- Continue Toprol XL 5. HTN- Contnue Diovan, Toprol XL 6. COPD- Continue Yani Bui 7. Pulmonary HTN 8. Probable JOSE and OHS- refusing polysomography on discharge and CPAP HS 9. Type 2 diabetes mellitus 10. Morbid obesity with BMI 52.8 11. Anxiety/depression- Continue Pamelor 12. Chronic lymphedema with venous ulcers- Continue wound care. request vascular surgery to evaluate legs as not appear to be wrapping legs appropriately. 13. DNR/DNI
[2017-06-10] MEDS: WARFARIN NA 7.5 MG TABLET (FP) PO SCH (18:25)
[2017-06-10] MEDS: guaiFENesin 200 MG/10 ML 10 ML UNIT-DOSE CUPS PO PRN (18:25)
[2017-06-10] MEDS ORDERED: PT OWN MED DRAWER 7, Y5N ONE (21:04)
[2017-06-10] MEDS: NORTRIPTYLINE HCL 10 MG CAPSULE PO SCH (21:33)
[2017-06-10] MEDS ORDERED: PROCHLORPERAZINE MALEATE 5 MG TABLET PO ONE (21:45)
[2017-06-11] MEDS: HEPARIN - 25,000 UNIT in SODIUM CHLORIDE 495 ML IV SCH ×2 (06:32→17:15)
[2017-06-11 07:49] LABS: INR 1.51 (0.82-1.09); PROTHROMBIN TIME (PATIENT) 16.7 SEC (9.98-11.88)
[2017-06-11 07:50] LABS: BASOPHIL 0.9 % (0-2.0); EOSINOPHIL 3.1 % (0-4.5); MCH 28.1 pg (25.7-33.7); MCHC 31.6 g/dl (32.0-36.0); MEAN CELL VOLUME 88.7 fl (80-96); PLATELET COUNT 272 K/MM3 (134-434); RDW 16.9 % (11.6-15.6); WHITE BLOOD COUNT 8.8 K/mm3 (4.0-10.0)
[2017-06-11 07:59] LABS: ANION GAP 5 (8-16); CALCIUM 8.7 mg/dL (8.5-10.1); CO2 32 mmol/L (21-32); CREATININE 0.6 mg/dL (0.55-1.02); GLUCOSE,RANDOM 106 mg/dL (74-106); MAGNESIUM 2.2 mg/dL (1.8-2.4); PHOSPHOROUS 3.5 mg/dL (2.5-4.9)
[2017-06-11] MEDS ORDERED: PT OWN MED DRAWER 7, Y5N ONE ×3 (08:55→21:22)
[2017-06-11] MEDS: FLUTICASONE/SALMETEROL 100 MCG/50 MCG DISKUS IH SCH ×2 (08:57→21:42)
[2017-06-11] MEDS: SPIRONOLACTONE 25 MG TABLET (FP) PO SCH (08:58)
[2017-06-11] MEDS: VALSARTAN 160 MG TABLET (UD) PO SCH (08:59)
[2017-06-11] MEDS: VITAMIN B COMPLEX W/C COMBO TABLET (FP) PO SCH ×2 (09:00→09:01)
[2017-06-11] MEDS: FAMOTIDINE 20 MG/50 ML IVPB 50 ML IVPB SCH ×2 (09:00→21:41)
[2017-06-11] MEDS: MAGNESIUM OXIDE 400 MG TABLET (FP) PO SCH (09:00)
[2017-06-11] MEDS: METOPROLOL SUCCINATE 50 MG TAB.SR.24H (FP) PO SCH (09:00)
[2017-06-11] MEDS: ACLIDINIUM BROMIDE 400 MCG/INH AERO.POWD IH SCH ×2 (09:01→21:43)
[2017-06-11] MEDS: CYANOCOBALAMIN 1,000 MCG TABLET (FP) PO SCH (09:02)
[2017-06-11] MEDS: VITAMIN E 400 INTERNATIONAL-UNITS CAPSULE (FP) PO SCH (09:10)
--- NOTE | 2017-06-11 09:27 | PN ---
Progress Note (short form) - Note Progress Note: c/o mild dyspnea. no more having streaked hemoptysis. denies CP, fever, chills, cough, N/V/C/D Current Medications Generic Name Dose Route Start Last Admin Trade Name Freq PRN Reason Stop Dose Admin Acetaminophen 650 mg 06/03/17 05:52 06/04/17 21:35 Tylenol - PO 650 mg Q4H PRN Administration FEVER OR PAIN Aclidinium [place] 1 puff 06/03/17 10:00 06/11/17 09:01 Tudorza - IH Not Given BID [facility] Cholecalciferol 2,000 unit 06/03/17 10:00 06/10/17 10:44 Vitamin D3 - PO 2,000 unit DAILY [facility] Administration Cyanocobalamin 500 mcg 06/03/17 10:00 06/11/17 09:02 Vitamin B12 - PO 500 mcg DAILY [facility] Administration Guaifenesin 10 ml 06/08/17 03:15 06/10/17 18:25 Robitussin - PO 10 ml Q4H PRN Administration COUGH Heparin Sodium (Porcine) 1,000 unit 06/03/17 14:51 06/07/17 18:11 Heparin - IVPUSH 1,000 unit PRN PRN Administration Heparin Heparin Sodium (Porcine) 5,000 unit 06/03/17 14:51 06/08/17 00:57 Heparin - IVPUSH 5,000 unit PRN PRN Administration Heparin Famotidine/Sodium Chloride 50 mls @ 100 mls/hr 06/03/17 11:30 06/11/17 09:00 Pepcid 20 Mg Premixed Ivpb - IVPB 100 mls/hr BID [facility] Administration Heparin Sodium (Porcine) 25, 500 mls @ 20 mls/hr 06/03/17 15:30 06/11/17 06:32 000 unit/ Sodium Chloride IV 54 mls/hr TITR [facility] Administration Protocol 1,000 UNIT/HR Loperamide HCl 4 mg 06/05/17 20:26 06/06/17 17:15 Imodium - PO 4 mg Q6H PRN Administration DIARRHEA Magnesium Oxide 400 mg 06/03/17 10:00 06/11/17 09:00 Mag-Ox - PO 400 mg DAILY [facility] Administration Metoprolol Succinate 50 mg 06/03/17 10:00 06/11/17 09:00 Toprol Xl - PO 50 mg DAILY [facility] Administration Multivitamins 1 each 06/03/17 10:00 06/11/17 09:00 Total B With C - PO Not Given DAILY [facility] Nortriptyline HCl 10 mg 06/03/17 22:00 06/10/17 21:33 Pamelor - PO Not Given HS [facility] Fluticasone/Salmeterol 1 puff 06/03/17 10:00 06/11/17 08:57 Advair 100mcg/50mcg - IH 1 puff BID [facility] Administration Spironolactone 25 mg 06/08/17 14:15 06/11/17 08:58 Aldactone - PO 25 mg DAILY [facility] Administration Valsartan 320 mg 06/03/17 10:00 06/11/17 08:59 Diovan - PO 320 mg DAILY [facility] Administration Vitamin E 400 unit 06/03/17 10:00 06/11/17 09:10 Vitamin E - PO Not Given DAILY [facility] Warfarin Sodium 7.5 mg 06/10/17 18:00 06/10/17 18:25 Coumadin - PO 7.5 mg DAILY@1800 [facility] Administration Last Vital Signs Temp Pulse Resp BP Pulse Ox 98.4 F 78 20 121/70 93 L 06/11/17 05:57 06/11/17 05:57 06/11/17 05:57 06/11/17 05:57 06/10/17 20:44 General NAD CV S1 S2 RRR no murmur/rub/gallop no chest wall tenderness Lungs R base crackle abdomen soft NT/ND obese Extremities non pitting edema, chronic venous changes CBCD WBC 8.8 K/mm3 (4.0-10.0) 06/11/17 06:00 RBC 4.51 M/mm3 (3.60-5.2) 06/11/17 06:00 Hgb 12.7 GM/dL (10.7-15.3) 06/11/17 06:00 Hct 40.0 % (32.4-45.2) 06/11/17 06:00 MCV 88.7 fl (80-96) 06/11/17 06:00 MCHC 31.6 g/dl (32.0-36.0) L 06/11/17 06:00 RDW 16.9 % (11.6-15.6) H 06/11/17 06:00 Plt Count 272 K/MM3 (134-434) 06/11/17 06:00 MPV 10.0 fl (7.5-11.1) 06/11/17 06:00 CMP Sodium 137 mmol/L (136-145) 06/11/17 06:00 Potassium 4.2 mmol/L (3.5-5.1) 06/11/17 06:00 Chloride 100 mmol/L (98-107) 06/11/17 06:00 Carbon Dioxide 32 mmol/L (21-32) 06/11/17 06:00 Anion Gap 5 (8-16) L 06/11/17 06:00 BUN 14 mg/dL (7-18) 06/11/17 06:00 Creatinine 0.6 mg/dL (0.55-1.02) 06/11/17 06:00 Creat Clearance w eGFR > 60 (>60) 06/10/17 06:00 Calcium 8.7 mg/dL (8.5-10.1) 06/11/17 06:00 Total Bilirubin 0.9 mg/dL (0.2-1.0) 06/10/17 06:00 AST 15 U/L (15-37) 06/10/17 06:00 ALT 12 U/L (12-78) D 06/10/17 06:00 Alkaline Phosphatase 92 U/L (45-117) 06/10/17 06:00 Total Protein 7.7 g/dl (6.4-8.2) 06/10/17 06:00 Albumin 2.6 g/dl (3.4-5.0) L 06/10/17 06:00 ASSESSMENT AND PLAN: 46 year old woman with a history of morbid obesity, probable JOSE, probable OHS, CHF, CAD, COPD, pulmonary HTN, depression, anxiety who presented to the ER with SOB. 1. Bilateral submassive pulmonary emboli with probable pulmonary infarct- hemoptysis resolved. Hgb stable. on hep-coumadin bridge. if fails anticoagulation will need IVC filter. evaluated and educated by dietary yesterday. will be very cautious during anticoagulation. cont coumadin 7.5mg. monitor INR 2. Acute on chronic systolic heart failure- improved. on aldactone. monitor fluid status. strict I&O, daily weights. on arb and betblocker. 3. Acute and possible chronic hypoxic respiratory failure, multifactorial-PE vs B/L PNA. will give lasix 40mg IV x1. on supplemental oxygen saturating 94% on 2L NC. completed 7 day course of abx. Continue oxygen to maintain saturation > 90% 4. CAD, history of stent- Continue Toprol XL 5. HTN- Contnue Dioruthy, Toprol XL 6. COPD- Continue Yani Bui 7. Pulmonary HTN 8. Probable JOSE and OHS- refusing polysomography on discharge and CPAP HS 9. Type 2 diabetes mellitus 10. Morbid obesity with BMI 52.8 11. Anxiety/depression- Continue Pamelor 12. Chronic lymphedema with venous ulcers- Continue wound care. request vascular surgery to evaluate legs as not appear to be wrapping legs appropriately. 13. DNR/DNI Visit type - Emergency Visit Emergency Visit: Yes ED Registration Date: 06/03/17 Care time: The patient presented to the Emergency Department on the above date and was hospitalized for further evaluation of their emergent condition. - New Patient This patient is new to me today: No - Critical Care Critical Care patient: No - Discharge Referral Referred to [facility] Med P.C.: No
--- NOTE | 2017-06-11 09:59 | PN ---
Progress Note (short form) - Note Progress Note: PULMONARY PATIENT SEEN AND EXAMINED NO SIGNIFICANT CLINICAL CHANGE IN EXAM SLIGHT IMPROVEMENT LABS/MEDS/NOTES/IMAGING REVIEWED INR 1.51 Submassive Pulmonary Emboli Likely Pulmonary Infarct Severe LV Systolic Dysfunction Pulmonary HTN CAD COPD Morbid Obesity Likely JOSE/OHS - continue anticoagulation - O2 to keep SpO2 >90% - monitor/quantify hemoptysis - inhaled bronchodilators - lasix as needed - pt DNR/DNI R JONAS VICENTE
[2017-06-11] MEDS ORDERED: FUROSEMIDE 40 MG/4 ML INJECTABLE VIAL IVPB ONE (10:17)
--- NOTE | 2017-06-11 10:36 | PN ---
Progress Note (short form) - Note Progress Note: Chief Complaint: Events noted, notes reviewed, denies any chest pain but dyspnea persists although improving History of Present Illness: Seen and examined. Events noted, notes reviewed, denies any chest pain but dyspnea persists although improving Echocardiography dated 11/02/2016 revealed severe reduction in LV EF, bi-atrial dilatation, mild MR and TR with mild to moderate degree of pulmonary HTN, RVSP of 40-50 mmHg Echocardiography dated 06/03/2017 moderate decrease in RV function, suspect RV thrombus, severe decrease in LV systolic function, mild MR and TR - Current Medication List Current Medications Acetaminophen (Tylenol -) 650 mg PO Q4H PRN PRN Reason: FEVER OR PAIN Last Admin: 06/04/17 21:35 Dose: 650 mg Aclidinium [place] (Tudorza -) 1 puff IH BID [facility] Last Admin: 06/11/17 09:01 Dose: Not Given Cholecalciferol (Vitamin D3 -) 2,000 unit PO DAILY [facility] Last Admin: 06/11/17 10:39 Dose: 2,000 unit Cyanocobalamin (Vitamin B12 -) 500 mcg PO DAILY [facility] Last Admin: 06/11/17 09:02 Dose: 500 mcg Guaifenesin (Robitussin -) 10 ml PO Q4H PRN PRN Reason: COUGH Last Admin: 06/10/17 18:25 Dose: 10 ml Heparin Sodium (Porcine) (Heparin -) 1,000 unit IVPUSH PRN PRN PRN Reason: Heparin Last Admin: 06/07/17 18:11 Dose: 1,000 unit Heparin Sodium (Porcine) (Heparin -) 5,000 unit IVPUSH PRN PRN PRN Reason: Heparin Last Admin: 06/08/17 00:57 Dose: 5,000 unit Famotidine/Sodium Chloride (Pepcid 20 Mg Premixed Ivpb -) 50 mls @ 100 mls/hr IVPB BID [facility] Last Admin: 06/11/17 09:00 Dose: 100 mls/hr Heparin Sodium (Porcine) 25, (000 unit/ Sodium Chloride) 500 mls @ 20 mls/hr IV TITR [facility]; 1,000 UNIT/HR PRN Reason: Protocol Last Admin: 06/11/17 06:32 Dose: 54 mls/hr Loperamide HCl (Imodium -) 4 mg PO Q6H PRN PRN Reason: DIARRHEA Last Admin: 06/06/17 17:15 Dose: 4 mg Magnesium Oxide (Mag-Ox -) 400 mg PO DAILY [facility] Last Admin: 06/11/17 09:00 Dose: 400 mg Metoprolol Succinate (Toprol Xl -) 50 mg PO DAILY [facility] Last Admin: 06/11/17 09:00 Dose: 50 mg Multivitamins (Total B With C -) 1 each PO DAILY [facility] Last Admin: 06/11/17 09:00 Dose: Not Given Nortriptyline HCl (Pamelor -) 10 mg PO HS [facility] Last Admin: 06/10/17 21:33 Dose: Not Given Fluticasone/Salmeterol (Advair 100mcg/50mcg -) 1 puff IH BID [facility] Last Admin: 06/11/17 08:57 Dose: 1 puff Spironolactone (Aldactone -) 25 mg PO DAILY [facility] Last Admin: 06/11/17 08:58 Dose: 25 mg Valsartan (Diovan -) 320 mg PO DAILY [facility] Last Admin: 06/11/17 08:59 Dose: 320 mg Vitamin E (Vitamin E -) 400 unit PO DAILY [facility] Last Admin: 06/11/17 09:10 Dose: Not Given Warfarin Sodium (Coumadin -) 7.5 mg PO DAILY@1800 [facility] Last Admin: 06/10/17 18:25 Dose: 7.5 mg - Objective Vital Signs: Last Vital Signs Temp Pulse Resp BP Pulse Ox 98 F 85 20 138/73 93 L 06/11/17 10:10 06/11/17 10:10 06/11/17 10:10 06/11/17 10:10 06/10/17 20:44 Intake & Output 06/08/17 06/09/17 06/10/17 06/11/17 23:59 23:59 23:59 23:59 Intake Total 1148 2192 2688 890 Output Total 400 Balance 1148 2192 2288 890 Weight 335 lb 9.6 oz 337 lb 1.6 oz Neck: Supple Negative JVD No Bruit Cardiovascular: S1 S2 Regular Rate and Rhythm Respiratory: Diminished Breath Sounds at the Bases Bilaterally Gastrointestinal: Soft Benign Normal Bowel Sounds Ext: Bilateral Edema Labs: CBC, BMP 06/11/17 06:00 06/11/17 06:00 INR, PTT INR 1.51 (0.82-1.09) H 06/11/17 06:00 Hepatic Panel Total Bilirubin 0.9 mg/dL (0.2-1.0) 06/10/17 06:00 AST 15 U/L (15-37) 06/10/17 06:00 ALT 12 U/L (12-78) D 06/10/17 06:00 Alkaline Phosphatase 92 U/L (45-117) 06/10/17 06:00 Albumin 2.6 g/dl (3.4-5.0) L 06/10/17 06:00 Assessment/Plan ASSESSMENT: 1. Acute on chronic LV systolic failure class III NYHA classification LV failure , resolving 2. Bilateral sub-massive pulmonary embolism, on A/C 3. CAD post [place] PCI (stent), angina pectoris 4. HTN 5. DM 6. COPD 7. OSAS 8. Chronic lymphedema with venous ulcers and cellulitis 9. Poor compliance with F/U PLAN: 1. Continue Aldactone with close monitoring of renal function 2. Continue Heparin and Coumadin as per INR and maintain 2-3 3. Continue Toprol XL 4. Continue Diovan 5. Additional cardiovascular evaluation has been recommended, but due to her morbid obesity and her refusal, both further evaluation and even ICD implant have been difficult Falguni Melendez MD
[2017-06-11] MEDS: CHOLECALCIFEROL (VITAMIN D3) 1,000 UNIT TABLET (FP) PO SCH (10:39)
[2017-06-11] MEDS: WARFARIN NA 7.5 MG TABLET (FP) PO SCH (18:50)
[2017-06-11] MEDS: NORTRIPTYLINE HCL 10 MG CAPSULE PO SCH (21:42)
[2017-06-11] MEDS ORDERED: ACETAMINOPHEN 325 MG TABLET (FP) PO PRN (22:29)
[2017-06-11] MEDS ORDERED: HEPARIN NA (PORCINE) 5,000 UNITS/ML 1ML VIAL IVPUSH PRN ×4 (22:29)
[2017-06-12] MEDS: HEPARIN - 25,000 UNIT in SODIUM CHLORIDE 495 ML IV SCH ×3 (07:00→22:30)
[2017-06-12 08:23] LABS: ANION GAP 7 (8-16); CALCIUM 8.4 mg/dL (8.5-10.1); CO2 32 mmol/L (21-32); CREATININE 0.6 mg/dL (0.55-1.02); GLUCOSE,RANDOM 109 mg/dL (74-106)
[2017-06-12] MEDS ORDERED: VITAMIN B COMPLEX W/C COMBO TABLET (FP) PO SCH (10:00)
[2017-06-12] MEDS ORDERED: FAMOTIDINE 20 MG/50 ML IVPB 50 ML IVPB SCH (10:00)
[2017-06-12] MEDS ORDERED: VITAMIN E 400 INTERNATIONAL-UNITS CAPSULE (FP) PO SCH (10:00)
[2017-06-12] MEDS ORDERED: ACLIDINIUM BROMIDE 400 MCG/INH AERO.POWD IH SCH (10:00)
[2017-06-12] MEDS ORDERED: PT OWN MED DRAWER 7, Y5N ONE (10:08)
--- NOTE | 2017-06-12 10:12 | PN ---
Progress Note (short form) - Note Progress Note: Chief Complaint: Events noted, notes reviewed, denies any chest pain but dyspnea persists although improving, A/C in progress with Heparin and Coumadin History of Present Illness: Seen and examined. Events noted, notes reviewed, denies any chest pain but dyspnea persists although improving, A/C in progress with Heparin and Coumadin Patient was advised to F/U as outpatient for further evaluation and management of her co-morbidities Echocardiography dated 11/02/2016 revealed severe reduction in LV EF, bi-atrial dilatation, mild MR and TR with mild to moderate degree of pulmonary HTN, RVSP of 40-50 mmHg Echocardiography dated 06/03/2017 moderate decrease in RV function, suspect RV thrombus, severe decrease in LV systolic function, mild MR and TR - Current Medication List Current Medications Acetaminophen (Tylenol -) 650 mg PO Q4H PRN PRN Reason: FEVER OR PAIN Aclidinium [place] (Tudorza -) 1 puff IH BID [facility] Cholecalciferol (Vitamin D3 -) 2,000 unit PO DAILY [facility] Cyanocobalamin (Vitamin B12 -) 500 mcg PO DAILY [facility] Guaifenesin (Robitussin -) 10 ml PO Q4H PRN PRN Reason: COUGH Last Admin: 06/10/17 18:25 Dose: 10 ml Heparin Sodium (Porcine) (Heparin -) 1,000 unit IVPUSH PRN PRN PRN Reason: Heparin Heparin Sodium (Porcine) (Heparin -) 5,000 unit IVPUSH PRN PRN PRN Reason: Heparin Heparin Sodium (Porcine) 25, (000 unit/ Sodium Chloride) 500 mls @ 20 mls/hr IV TITR [facility]; 1,000 UNIT/HR PRN Reason: Protocol Famotidine/Sodium Chloride (Pepcid 20 Mg Premixed Ivpb -) 50 mls @ 100 mls/hr IVPB BID [facility] Loperamide HCl (Imodium -) 4 mg PO Q6H PRN PRN Reason: DIARRHEA Last Admin: 06/06/17 17:15 Dose: 4 mg Magnesium Oxide (Mag-Ox -) 400 mg PO DAILY [facility] Metoprolol Succinate (Toprol Xl -) 50 mg PO DAILY [facility] Multivitamins (Total B With C -) 1 each PO DAILY [facility] Nortriptyline HCl (Pamelor -) 10 mg PO HS [facility] Fluticasone/Salmeterol (Advair 100mcg/50mcg -) 1 puff IH BID [facility] Spironolactone (Aldactone -) 25 mg PO DAILY [facility] Last Admin: 06/11/17 08:58 Dose: 25 mg Valsartan (Diovan -) 320 mg PO DAILY [facility] Vitamin E (Vitamin E -) 400 unit PO DAILY [facility] Warfarin Sodium (Coumadin -) 7.5 mg PO DAILY@1800 [facility] Last Admin: 06/11/17 18:50 Dose: 7.5 mg - Objective Vital Signs: Last Vital Signs Temp Pulse Resp BP Pulse Ox 98.8 F 89 18 127/76 94 L 06/11/17 22:00 06/12/17 00:36 06/11/17 22:00 06/11/17 22:00 06/12/17 00:36 Intake & Output 06/09/17 06/10/17 06/11/17 06/12/17 23:59 23:59 23:59 23:59 Intake Total 2192 2688 1580 740 Output Total 400 Balance 2192 2288 1580 740 Weight 335 lb 9.6 oz 337 lb 1.6 oz Neck: Supple Negative JVD No Bruit Cardiovascular: S1 S2 Regular Rate and Rhythm Respiratory: Diminished Breath Sounds at the Bases Bilaterally Gastrointestinal: Soft Benign Normal Bowel Sounds Ext: Bilateral Edema Labs: CBC, BMP 06/12/17 06:00 Hepatic Panel Total Bilirubin 0.9 mg/dL (0.2-1.0) 06/10/17 06:00 AST 15 U/L (15-37) 06/10/17 06:00 ALT 12 U/L (12-78) D 06/10/17 06:00 Alkaline Phosphatase 92 U/L (45-117) 06/10/17 06:00 Albumin 2.6 g/dl (3.4-5.0) L 06/10/17 06:00 INR, PTT INR 1.51 (0.82-1.09) H 06/11/17 06:00 Assessment/Plan ASSESSMENT: 1. Acute on chronic LV systolic failure class II-III NYHA classification LV congestive heart failure, resolving 2. Bilateral sub-massive pulmonary embolism, on A/C with Heparin/Coumadin 3. CAD post [place] PCI (stent), angina pectoris 4. HTN 5. DM 6. COPD 7. OSAS 8. Chronic lymphedema with venous ulcers and cellulitis 9. Poor compliance with medical F/U PLAN: 1. Continue Aldactone with close monitoring of renal function and initiate daily Lasix 2. Continue Heparin and Coumadin as per INR and maintain 2-3 with close monitoring of CBC 3. Continue Toprol XL 4. Continue Diovan 5. As outlined additional cardiovascular evaluation has been recommended, but due to her morbid obesity and her refusal, both further evaluation and even ICD implant have been difficult Falguni Melendez MD
[2017-06-12] MEDS: CHOLECALCIFEROL (VITAMIN D3) 1,000 UNIT TABLET (FP) PO SCH (10:22)
[2017-06-12] MEDS: VALSARTAN 160 MG TABLET (UD) PO SCH (10:23)
[2017-06-12] MEDS: FLUTICASONE/SALMETEROL 100 MCG/50 MCG DISKUS IH SCH ×2 (10:23→21:45)
[2017-06-12] MEDS: MAGNESIUM OXIDE 400 MG TABLET (FP) PO SCH (10:24)
[2017-06-12] MEDS: METOPROLOL SUCCINATE 50 MG TAB.SR.24H (FP) PO SCH (10:25)
[2017-06-12] MEDS: CYANOCOBALAMIN 1,000 MCG TABLET (FP) PO SCH (10:27)
[2017-06-12] MEDS: SPIRONOLACTONE 25 MG TABLET (FP) PO SCH (10:28)
--- NOTE | 2017-06-12 10:36 | PN ---
Progress Note (short form) - Note Progress Note: PULMONARY PATIENT SEEN AND EXAMINED NO SIGNIFICANT CLINICAL CHANGE IN EXAM SLIGHT IMPROVEMENT LABS/MEDS/NOTES/IMAGING REVIEWED INR pending Submassive Pulmonary Emboli Likely Pulmonary Infarct Severe LV Systolic Dysfunction Pulmonary HTN CAD COPD Morbid Obesity Likely JOSE/OHS - continue anticoagulation - O2 to keep SpO2 >90% - monitor/quantify hemoptysis - inhaled bronchodilators - lasix as needed - pt DNR/DNI R JONAS VICENTE
--- NOTE | 2017-06-12 10:45 | PN ---
Progress Note (short form) - Note Progress Note: c/o mild dyspnea. hemoptysis resolved. states she urinated too much on lasix IV and wants it po only and does not want to be aldactone. denies CP, fever, chills , cough, N/V/C/D Current Medications Generic Name Dose Route Start Last Admin Trade Name Freq PRN Reason Stop Dose Admin Acetaminophen 650 mg 06/11/17 22:29 Tylenol - PO Q4H PRN FEVER OR PAIN Aclidinium [place] 1 puff 06/12/17 10:00 06/12/17 10:27 Tudorza - IH Not Given BID [facility] Cholecalciferol 2,000 unit 06/12/17 10:00 06/12/17 10:22 Vitamin D3 - PO 1,000 unit DAILY [facility] Administration Cyanocobalamin 500 mcg 06/12/17 10:00 06/12/17 10:27 Vitamin B12 - PO 500 mcg DAILY [facility] Administration Guaifenesin 10 ml 06/08/17 03:15 06/10/17 18:25 Robitussin - PO 10 ml Q4H PRN Administration COUGH Heparin Sodium (Porcine) 1,000 unit 06/11/17 22:29 Heparin - IVPUSH PRN PRN Heparin Heparin Sodium (Porcine) 5,000 unit 06/11/17 22:29 Heparin - IVPUSH PRN PRN Heparin Heparin Sodium (Porcine) 25, 500 mls @ 20 mls/hr 06/11/17 22:29 000 unit/ Sodium Chloride IV TITR [facility] Protocol 1,000 UNIT/HR Famotidine/Sodium Chloride 50 mls @ 100 mls/hr 06/12/17 10:00 06/12/17 10:20 Pepcid 20 Mg Premixed Ivpb - IVPB Not Given BID [facility] Loperamide HCl 4 mg 06/05/17 20:26 06/06/17 17:15 Imodium - PO 4 mg Q6H PRN Administration DIARRHEA Magnesium Oxide 400 mg 06/12/17 10:00 06/12/17 10:24 Mag-Ox - PO 400 mg DAILY [facility] Administration Metoprolol Succinate 50 mg 06/12/17 10:00 06/12/17 10:25 Toprol Xl - PO 50 mg DAILY [facility] Administration Multivitamins 1 each 06/12/17 10:00 06/12/17 10:27 Total B With C - PO Not Given DAILY [facility] Nortriptyline HCl 10 mg 06/12/17 22:00 Pamelor - PO HS [facility] Fluticasone/Salmeterol 1 puff 06/12/17 10:00 06/12/17 10:23 Advair 100mcg/50mcg - IH 100 units BID [facility] Administration Spironolactone 25 mg 06/08/17 14:15 06/11/17 08:58 Aldactone - PO 25 mg DAILY [facility] Administration Valsartan 320 mg 06/12/17 10:00 06/12/17 10:23 Diovan - PO 320 mg DAILY [facility] Administration Vitamin E 400 unit 06/12/17 10:00 06/12/17 10:35 Vitamin E - PO Not Given DAILY [facility] Warfarin Sodium 7.5 mg 06/10/17 18:00 06/11/17 18:50 Coumadin - PO 7.5 mg DAILY@1800 [facility] Administration Last Vital Signs Temp Pulse Resp BP Pulse Ox 98.8 F 89 18 127/76 94 L 06/11/17 22:00 06/12/17 00:36 06/11/17 22:00 06/11/17 22:00 06/12/17 00:36 General NAD CV S1 S2 RRR no murmur/rub/gallop no chest wall tenderness Lungs R base crackle abdomen soft NT/ND obese Extremities non pitting edema, chronic venous changes ASSESSMENT AND PLAN: 46 year old woman with a history of morbid obesity, probable JOSE, probable OHS, CHF, CAD, COPD, pulmonary HTN, depression, anxiety who presented to the ER with SOB. 1. Bilateral submassive pulmonary emboli with probable pulmonary infarct- hemoptysis resolved. Hgb stable. on hep-coumadin bridge. if fails anticoagulation will need IVC filter. evaluated and educated by dietary yesterday. will be very cautious during anticoagulation. waiting for labs. adjust coumadin per INR. monitor INR 2. Acute on chronic systolic heart failure- improved. diuresed well with lasix IV wants to be placed back on home po dose. refusing to take aldactone. Strict I&O, daily weights. on arb and betblocker. 3. Acute and possible chronic hypoxic respiratory failure, multifactorial-PE vs B/L PNA. start lasix 40mg po. does not want lasix IV or aldactone. completed 7 day course of abx. Continue oxygen to maintain saturation > 90% 4. CAD, history of stent- Continue Toprol XL 5. HTN- Contnue Benjy, Toprol XL 6. COPD- Continue Yani Bui 7. Pulmonary HTN 8. Probable JOSE and OHS- refusing polysomography on discharge and CPAP HS 9. Type 2 diabetes mellitus 10. Morbid obesity with BMI 52.8 11. Anxiety/depression- Continue Pamelor 12. Chronic lymphedema with venous ulcers- Continue wound care. request vascular surgery to evaluate legs as not appear to be wrapping legs appropriately. 13. DNR/DNI Visit type - Emergency Visit Emergency Visit: Yes ED Registration Date: 06/03/17 Care time: The patient presented to the Emergency Department on the above date and was hospitalized for further evaluation of their emergent condition. - New Patient This patient is new to me today: No - Critical Care Critical Care patient: No - Discharge Referral Referred to [facility] Med P.C.: No
[2017-06-12] MEDS: FUROSEMIDE 40 MG TABLET (FP) PO SCH (11:26)
[2017-06-12 11:46] LABS: MCH 29.2 pg (25.7-33.7); MEAN CELL VOLUME 91.4 fl (80-96); MEAN PLT VOLUME 9.9 fl (7.5-11.1); PLATELET COUNT 236 K/MM3 (134-434); RDW 17.2 % (11.6-15.6); WHITE BLOOD COUNT 7.5 K/mm3 (4.0-10.0)
[2017-06-12 11:54] LABS: INR 2.02 (0.82-1.09); PROTHROMBIN TIME (PATIENT) 22.5 SEC (9.98-11.88)
[2017-06-12] MEDS: WARFARIN NA 7.5 MG TABLET (FP) PO SCH (17:36)
[2017-06-12] MEDS: NORTRIPTYLINE HCL 10 MG CAPSULE PO SCH (21:45)
[2017-06-12] MEDS: guaiFENesin 200 MG/10 ML 10 ML UNIT-DOSE CUPS PO PRN (21:46)
[2017-06-13] MEDS: ZINC OXIDE 20% TOPICAL OINTMENT 30 GM TUBE TP SCH ×2 (01:05→09:50)
[2017-06-13] MEDS ORDERED: HEPARIN - 25,000 UNIT in SODIUM CHLORIDE 495 ML IV SCH (03:30)
[2017-06-13] MEDS: SPIRONOLACTONE 25 MG TABLET (FP) PO SCH ×2 (07:15→07:16)
[2017-06-13] MEDS: FLUTICASONE/SALMETEROL 100 MCG/50 MCG DISKUS IH SCH ×3 (07:19→22:39)
[2017-06-13 07:59] LABS: ANION GAP 9 (8-16); CALCIUM 8.3 mg/dL (8.5-10.1); CO2 30 mmol/L (21-32); CREATININE 0.6 mg/dL (0.55-1.02); GLUCOSE,RANDOM 108 mg/dL (74-106)
[2017-06-13 08:36] LABS: INR 2.45 (0.82-1.09); PROTHROMBIN TIME (PATIENT) 27.5 SEC (9.98-11.88)
[2017-06-13] MEDS ORDERED: PT OWN MED DRAWER 7, Y5N ONE (09:27)
[2017-06-13] MEDS: METOPROLOL SUCCINATE 50 MG TAB.SR.24H (FP) PO SCH (09:49)
[2017-06-13] MEDS: MAGNESIUM OXIDE 400 MG TABLET (FP) PO SCH (09:49)
[2017-06-13] MEDS: CHOLECALCIFEROL (VITAMIN D3) 1,000 UNIT TABLET (FP) PO SCH (09:49)
[2017-06-13] MEDS: VALSARTAN 160 MG TABLET (UD) PO SCH (09:49)
[2017-06-13] MEDS: CYANOCOBALAMIN 1,000 MCG TABLET (FP) PO SCH (09:49)
[2017-06-13] MEDS: FUROSEMIDE 40 MG TABLET (FP) PO SCH (11:48)
--- NOTE | 2017-06-13 12:47 | PN ---
Teaching Attending Note Name of Resident: Adarsh Sung ATTENDING PHYSICIAN STATEMENT I saw and evaluated the patient. I reviewed the resident's note and discussed the case with the resident. I agree with the resident's findings and plan as documented. SUBJECTIVE:states has intermittent blood streaked cough. dyspnea at rest has improved but has not ambulated out of bed often. denies CP, fever, chills, N/V/C /D OBJECTIVE: Last Vital Signs Temp Pulse Resp BP Pulse Ox 97.6 F 86 20 121/72 98 06/13/17 10:00 06/13/17 10:15 06/13/17 10:00 06/13/17 10:00 06/13/17 10:15 General NAD CV S1 S2 RRR no murmur/rub/gallop no chest wall tenderness Lungs CTA B/L no wheezing/rales/rhonchi abdomen soft NT/ND obese Extremities non pitting edema, chronic venous changes ASSESSMENT AND PLAN: 46 year old woman with a history of morbid obesity, probable JOSE, probable OHS, CHF, CAD, COPD, pulmonary HTN, depression, anxiety who presented to the ER with SOB. 1. Bilateral submassive pulmonary emboli with probable pulmonary infarct- hemoptysis only blood streaked intermittently at this time. Hgb has been stable. no bleeding now that INR is therapeutic. d/c hep ggt. will reduce coumadin to 6mg. will need frequent INR monitor 2. Acute on chronic systolic heart failure- improved. on home dose of lasix. refusing aldactone. cont arb, betablocker. 3. Acute and possible chronic hypoxic respiratory failure, multifactorial-PE vs B/L PNA. saturating 97% on 3L. check pre & post may require home O2. Completed 7 day course of abx. Continue oxygen to maintain saturation > 90% 4. CAD, history of stent- Continue Toprol XL 5. HTN- Contnue Diovan, Toprol XL 6. COPD- Continue Yani Bui 7. Pulmonary HTN 8. Probable JOSE and OHS- refusing polysomography on discharge and CPAP HS 9. Type 2 diabetes mellitus 10. Morbid obesity with BMI 52.8 11. Anxiety/depression- Continue Pamelor 12. Chronic lymphedema with venous ulcers- Continue wound care. request vascular surgery to evaluate legs as not appear to be wrapping legs appropriately. 13. DNR/DNI 14. PT assessment will irene require [facility] to be sent out today for placement. medically optimized at this time for discharge
--- NOTE | 2017-06-13 15:19 | PN ---
Progress Note, Physician History of Present Illness: pulmonary alert,sitting up in bed,-resp distress,min blood streaked sputum - Current Medication List Current Medications: Active Medications Acetaminophen (Tylenol -) 650 mg PO Q4H PRN PRN Reason: FEVER OR PAIN Cholecalciferol (Vitamin D3 -) 2,000 unit PO DAILY [facility] Last Admin: 06/13/17 09:49 Dose: 2,000 unit Cyanocobalamin (Vitamin B12 -) 500 mcg PO DAILY [facility] Last Admin: 06/13/17 09:49 Dose: 500 mcg Furosemide (Lasix -) 40 mg PO DAILY [facility] Last Admin: 06/13/17 11:48 Dose: Not Given Guaifenesin (Robitussin -) 10 ml PO Q4H PRN PRN Reason: COUGH Last Admin: 06/12/17 21:46 Dose: 10 ml Heparin Sodium (Porcine) (Heparin -) 1,000 unit IVPUSH PRN PRN PRN Reason: Heparin Heparin Sodium (Porcine) (Heparin -) 5,000 unit IVPUSH PRN PRN PRN Reason: Heparin Last Admin: 06/12/17 12:34 Dose: 5,000 unit Loperamide HCl (Imodium -) 4 mg PO Q6H PRN PRN Reason: DIARRHEA Last Admin: 06/06/17 17:15 Dose: 4 mg Magnesium Oxide (Mag-Ox -) 400 mg PO DAILY [facility] Last Admin: 06/13/17 09:49 Dose: 400 mg Metoprolol Succinate (Toprol Xl -) 50 mg PO DAILY [facility] Last Admin: 06/13/17 09:49 Dose: 50 mg Multi-Ingredient Ointment (Zinc Oxide) 1 applic TP DAILY [facility] Last Admin: 06/13/17 09:50 Dose: 1 applic Nortriptyline HCl (Pamelor -) 10 mg PO HS [facility] Last Admin: 06/12/17 21:45 Dose: Not Given Fluticasone/Salmeterol (Advair 100mcg/50mcg -) 1 puff IH BID [facility] Last Admin: 06/13/17 09:50 Dose: 1 puff Valsartan (Diovan -) 320 mg PO DAILY [facility] Last Admin: 06/13/17 09:49 Dose: 320 mg Warfarin Sodium (Coumadin -) 7.5 mg PO DAILY@1800 [facility] Last Admin: 08/27/17 17:36 Dose: 7.5 mg - Objective Vital Signs: Vital Signs Temperature 97.7 F 06/13/17 15:02 Pulse Rate 69 06/13/17 15:02 Respiratory Rate 20 06/13/17 15:02 Blood Pressure 126/79 06/13/17 15:02 O2 Sat by Pulse Oximetry (%) 87 L 06/13/17 14:53 Constitutional: Yes: Calm, Obese Eyes: Yes: WNL HENT: Yes: WNL Neck: Yes: WNL Cardiovascular: Yes: Regular Rate and Rhythm, S1, S2 Respiratory: Yes: Diminished Gastrointestinal: Yes: Normal Bowel Sounds, Soft Extremities: Yes: WNL Edema: Yes Labs: 06/13/17 06:30 INR, PTT INR 2.45 (0.82-1.09) H 06/13/17 06:30 Assessment/Plan A/P Submassive Pulmonary Emboli Likely Pulmonary Infarct Severe LV Systolic Dysfunction Pulmonary HTN CAD COPD Morbid Obesity Likely JOSE/OHS - continue anticoagulation - O2 to keep SpO2 >90% - monitor/quantify hemoptysis - inhaled bronchodilators - lasix as needed - pt DNR/DNI DR MARK
--- NOTE | 2017-06-13 16:37 | PN ---
Progress Note, Physician Chief Complaint: Events noted Not in distress Coumadin per INR therapeutic History of Present Illness: Patient was seen and examined. Awake and alert. Chart was reviewed Denies chest pain, SOB or palpitations - Current Medication List Current Medications: Active Medications Acetaminophen (Tylenol -) 650 mg PO Q4H PRN PRN Reason: FEVER OR PAIN Cholecalciferol (Vitamin D3 -) 2,000 unit PO DAILY [facility] Last Admin: 06/13/17 09:49 Dose: 2,000 unit Cyanocobalamin (Vitamin B12 -) 500 mcg PO DAILY [facility] Last Admin: 06/13/17 09:49 Dose: 500 mcg Furosemide (Lasix -) 40 mg PO DAILY [facility] Last Admin: 06/13/17 11:48 Dose: Not Given Guaifenesin (Robitussin -) 10 ml PO Q4H PRN PRN Reason: COUGH Last Admin: 06/12/17 21:46 Dose: 10 ml Heparin Sodium (Porcine) (Heparin -) 1,000 unit IVPUSH PRN PRN PRN Reason: Heparin Heparin Sodium (Porcine) (Heparin -) 5,000 unit IVPUSH PRN PRN PRN Reason: Heparin Last Admin: 06/12/17 12:34 Dose: 5,000 unit Loperamide HCl (Imodium -) 4 mg PO Q6H PRN PRN Reason: DIARRHEA Last Admin: 06/06/17 17:15 Dose: 4 mg Magnesium Oxide (Mag-Ox -) 400 mg PO DAILY [facility] Last Admin: 06/13/17 09:49 Dose: 400 mg Metoprolol Succinate (Toprol Xl -) 50 mg PO DAILY [facility] Last Admin: 06/13/17 09:49 Dose: 50 mg Multi-Ingredient Ointment (Zinc Oxide) 1 applic TP DAILY [facility] Last Admin: 06/13/17 09:50 Dose: 1 applic Nortriptyline HCl (Pamelor -) 10 mg PO HS [facility] [place] Last Admin: 06/12/17 21:45 Dose: Not Given Fluticasone/Salmeterol (Advair 100mcg/50mcg -) 1 puff IH BID [facility] [place] Last Admin: 06/13/17 09:50 Dose: 1 puff Valsartan (Diovan -) 320 mg PO DAILY [facility] Last Admin: 06/13/17 09:49 Dose: 320 mg Warfarin Sodium (Coumadin -) 7.5 mg PO DAILY@1800 [facility] Last Admin: 06/12/17 17:36 Dose: 7.5 mg - Objective Vital Signs: Vital Signs Temperature 97.7 F 06/13/17 15:02 Pulse Rate 69 06/13/17 15:02 Respiratory Rate 20 06/13/17 15:02 Blood Pressure 126/79 06/13/17 15:02 O2 Sat by Pulse Oximetry (%) 87 L 06/13/17 14:53 Neck: Yes: Supple Cardiovascular: Yes: Regular Rate and Rhythm, S1, S2 Respiratory: Yes: Diminished Gastrointestinal: Yes: Normal Bowel Sounds, Soft, Abdomen, Obese. No: Tenderness Edema: Yes Labs: CBC, BMP 06/12/17 06:00 06/13/17 06:30 INR, PTT INR 2.45 (0.82-1.09) H 06/13/17 06:30 Problem List - Problems (1) Pulmonary embolism Code(s): I26.99 - OTHER PULMONARY EMBOLISM WITHOUT ACUTE COR PULMONALE Qualifiers: Qualified Code(s): I26.99 - Other pulmonary embolism without acute cor pulmonale (2) Pulmonary hypertension Code(s): I27.2 - OTHER SECONDARY PULMONARY HYPERTENSION (3) Acute on chronic systolic (congestive) heart failure Code(s): I50.23 - ACUTE ON CHRONIC SYSTOLIC (CONGESTIVE) HEART FAILURE (4) CHF (congestive heart failure) Code(s): I50.9 - HEART FAILURE, UNSPECIFIED Qualifiers: Qualified Code(s): I50.9 - Heart failure, unspecified (5) COPD (chronic obstructive pulmonary disease) Code(s): J44.9 - CHRONIC OBSTRUCTIVE PULMONARY DISEASE, UNSPECIFIED Qualifiers : Qualified Code(s): J44.9 - Chronic obstructive pulmonary disease, unspecified (6) Cellulitis and abscess of leg Code(s): L02.419 - CUTANEOUS ABSCESS OF LIMB, UNSPECIFIED L03.119 - CELLULITIS OF UNSPECIFIED PART OF LIMB (7) Coronary artery disease Code(s): I25.10 - ATHSCL HEART DISEASE OF [place] CORONARY ARTERY W/O ANG PCTRS Qualifiers: Qualified Code(s): I25.10 - Atherosclerotic heart disease of [place] coronary artery without angina pectoris (8) Status post coronary artery stent placement Code(s): Z95.5 - PRESENCE OF CORONARY ANGIOPLASTY IMPLANT AND GRAFT Assessment/Plan 1. Acute on chronic LV systolic failure class III NYHA classification LV failure 2. Bilateral submassive pulmonary embolism 3. CAD post [place] PCI (stent), angina pectoris 4. HTN 5. DM 6. COPD 7. Morbid obesity with OSAS 8. Cellulitis 9. Poor compliance PLAN: 1. Monitor renal function and electrolytes 2. D/C Heparin - Continue Coumadin as per INR (keep 2-3) 3. Continue Toprol XL and Diovan. Continue Aldactone as tolerated 4. Continue antibiotics coverage and bronchodilator and O2 Roland Foote MD
--- NOTE | 2017-06-13 17:26 | PN ---
Physical Exam: SUBJECTIVE: Patient seen and examined at bedside. She states that she is feeling better today and that her leg swelling has improved. Patient states that sputum is now only streaked with minimal blood. Patient denies SOB, chest pain, nausea, vomiting or abdominal pain. OBJECTIVE: Vital Signs Period Temp Pulse Resp BP Sys/Magana Pulse Ox Last 24 Hr 97.6 F-98.4 F 58-93 20-20 100-126/62-79 87-98 GENERAL: The patient is awake, alert, and fully oriented, in no acute distress. HEAD: Normal with no signs of trauma. NECK: Trachea midline, full range of motion, supple. LUNGS: Breath sounds equal, clear to auscultation bilaterally, no wheezes, no crackles, no accessory muscle use. HEART: Regular rate and rhythm, S1, S2 without murmur, rub or gallop. ABDOMEN: Soft, nontender, nondistended, normoactive bowel sounds, no guarding, no rebound. EXTREMITIES: 2+ pulses, warm, well-perfused, 2+ edema at the level of the ankles. NEUROLOGICAL: Cranial nerves II through X grossly intact. Normal speech, gait not observed. PSYCH: Normal mood, normal affect. Laboratory Results - last 24 hr 06/12/17 06/13/17 06/13/17 19:00 06:30 06:30 INR 2.45 H PTT (Actin FS) 71.7 H D Sodium 139 Potassium 4.2 Chloride 100 Carbon Dioxide 30 Anion Gap 9 BUN 15 Creatinine 0.6 Random Glucose 108 H Calcium 8.3 L 06/13/17 06:30 INR PTT (Actin FS) 97.2 H D Sodium Potassium Chloride Carbon Dioxide Anion Gap BUN Creatinine Random Glucose Calcium Active Medications Generic Name Dose Route Start Last Admin Trade Name Freq PRN Reason Stop Dose Admin Acetaminophen 650 mg 06/11/17 22:29 Tylenol - PO Q4H PRN FEVER OR PAIN Cholecalciferol 2,000 unit 06/12/17 10:00 06/13/17 09:49 Vitamin D3 - PO 2,000 unit DAILY [facility] Administration Cyanocobalamin 500 mcg 06/12/17 10:00 06/13/17 09:49 Vitamin B12 - PO 500 mcg DAILY [facility] Administration Furosemide 40 mg 06/12/17 11:00 06/13/17 11:48 Lasix - PO Not Given DAILY [facility] Guaifenesin 10 ml 06/08/17 03:15 06/12/17 21:46 Robitussin - PO 10 ml Q4H PRN Administration COUGH Loperamide HCl 4 mg 06/05/17 20:26 06/06/17 17:15 Imodium - PO 4 mg Q6H PRN Administration DIARRHEA Magnesium Oxide 400 mg 06/12/17 10:00 06/13/17 09:49 Mag-Ox - PO 400 mg DAILY [facility] Administration Metoprolol Succinate 50 mg 06/12/17 10:00 06/13/17 09:49 Toprol Xl - PO 50 mg DAILY [facility] Administration Multi-Ingredient Ointment 1 applic 06/12/17 23:45 06/13/17 09:50 Zinc Oxide TP 1 applic DAILY [facility] Administration Nortriptyline HCl 10 mg 06/12/17 22:00 06/12/17 21:45 Pamelor - PO Not Given HS [facility] Fluticasone/Salmeterol 1 puff 06/12/17 10:00 06/13/17 09:50 Advair 100mcg/50mcg - IH 1 puff BID [facility] Administration Valsartan 320 mg 06/12/17 10:00 06/13/17 09:49 Diovan - PO 320 mg DAILY [facility] Administration Warfarin Sodium 6 mg 06/13/17 17:08 Coumadin - PO DAILY@1800 [facility] ASSESSMENT/PLAN: 46yF with PMH systolic CHF, NH, stent, COPD, asthma, morbid obesity, pulm HTN presented to the ED with SOB and cough x 3-4 days. Pt was admitted for B/L submassive PE's #Bilateral submassive pulmonary emboli -INR today is 2.45; theraputic. Will trend in AM -lower coumadin dose to 6 mg as there was a jump in INR from yesterday to today -d/c heparin drip -If pt does not tolerate the AC, IVC filter will be placed -Monitor for any bleeding, if bleeding repeat stat cbc -Dietary discussed patient's food options on coumadin #Acute on chronic CHF exacerbation, decrease in 3 lbs -CXR from today shows progressive congestive changes and pleural effusions -Lasix 40mg PO daily; Patient is refusing today -Continue aldactone 25 mg po -Continue Diovan 320 mg po daily -Continue toporol xl 50 mg po daily -echo with severely reduced EF on 11/02/16 -cardiology: c/w current management # Acute bronchitis/COPD exacerbation -Patient evaluated today for home oxygen; per respiratory therapy, patient is not able to walk long enough to assess - albuterol nebs PRN - cont home LABA and tudorza - Completed 7 day course of Ceftriaxone 1g IV and doxycycline 100 g bid - chest cta- right upper and bilateral lower lobe consolidation with small right pleural effusion #Chronic lymphedema - Patient refusing santyl - Dry dressing changes to left lower leg - Vascular surgery: barbie bandages from foot all the way up to knee. #HTN -Continue home medications valsartan 320 mg po daily -Continue lasix 40 mg iv daily #Diarrhea -Continue imodium #Chronic JOSE -Patient refuses CPAP -Continue O2 NC #anxiety and depression -continue nortriptyline 10 mg po hs #DVT PPX -patient on coumadin w/ theraputic INR -no indication for GI prophy at this time -per PT, patient not stable for discharge home, should be sent to [facility] #FEN -no indication for IVF at this time -wnl -low sodium diet Patient is dnr/dni Dispo -Planning for d/c to [facility] tomorrow. Visit type - Emergency Visit Emergency Visit: Yes ED Registration Date: 06/03/17 Care time: The patient presented to the Emergency Department on the above date and was hospitalized for further evaluation of their emergent condition. - New Patient This patient is new to me today: Yes Date on this admission: 06/13/17 - Critical Care Critical Care patient: No
[2017-06-13] MEDS: WARFARIN NA 3 MG TABLET PO SCH (18:39)
--- NOTE | 2017-06-13 19:04 | EKG ---
Test Reason : Blood Pressure : / mmHG Vent. Rate : 087 BPM Atrial Rate : 087 BPM P-R Int : 186 ms QRS Dur : 108 ms QT Int : 384 ms P-R-T Axes : 061 -07 046 degrees QTc Int : 462 ms NORMAL SINUS RHYTHM POSSIBLE LEFT ATRIAL ENLARGEMENT LOW VOLTAGE QRS POSSIBLE INFERIOR INFARCT (CITED ON OR BEFORE 02-NOV-2016) POSSIBLE ANTEROLATERAL INFARCT (CITED ON OR BEFORE 23-DEC-2010) ABNORMAL ECG WHEN COMPARED WITH ECG OF 03-JUN-2017 01:59, PREMATURE ATRIAL COMPLEXES ARE NO LONGER PRESENT VENT. RATE HAS DECREASED Confirmed by PACO ESTEVEZ MD ([id number]) on 06/13/2017 7:04:04 PM Referred By: Confirmed By:PACO ESTEVEZ MD
[2017-06-13] MEDS: NORTRIPTYLINE HCL 10 MG CAPSULE PO SCH (22:39)
[2017-06-14 07:43] LABS: INR 2.6 (0.82-1.09); PROTHROMBIN TIME (PATIENT) 29.2 SEC (9.98-11.88)
[2017-06-14] MEDS ORDERED: PT OWN MED DRAWER 7, Y5N ONE ×2 (10:18→20:45)
[2017-06-14] MEDS: CHOLECALCIFEROL (VITAMIN D3) 1,000 UNIT TABLET (FP) PO SCH (11:21)
[2017-06-14] MEDS: CYANOCOBALAMIN 1,000 MCG TABLET (FP) PO SCH (11:22)
[2017-06-14] MEDS: MAGNESIUM OXIDE 400 MG TABLET (FP) PO SCH (11:22)
[2017-06-14] MEDS: FUROSEMIDE 40 MG TABLET (FP) PO SCH (11:22)
[2017-06-14] MEDS: VALSARTAN 160 MG TABLET (UD) PO SCH (11:23)
[2017-06-14] MEDS: METOPROLOL SUCCINATE 50 MG TAB.SR.24H (FP) PO SCH (11:23)
[2017-06-14] MEDS: FLUTICASONE/SALMETEROL 100 MCG/50 MCG DISKUS IH SCH ×2 (11:23→21:21)
[2017-06-14] MEDS: ZINC OXIDE 20% TOPICAL OINTMENT 30 GM TUBE TP SCH (11:23)
--- NOTE | 2017-06-14 14:33 | PN ---
Teaching Attending Note Name of Resident: Adarsh Sung ATTENDING PHYSICIAN STATEMENT I saw and evaluated the patient. I reviewed the resident's note and discussed the case with the resident. I agree with the resident's findings and plan as documented. SUBJECTIVE: Patient complains of pleuritic right back pain. She feels SOB with exertion. OBJECTIVE: Vital Signs Period Temp Pulse Resp BP Sys/Magana Pulse Ox Last 24 Hr 97.5 F-98.6 F 68-93 20-20 109-130/65-79 87-97 HEART: S1S2, RRR LUNGS: Clear ABDOMEN: Obese, soft, non-tender, non-distended, normal BS EXTREMITIES: 3+ edema with chronic changes ASSESSMENT AND PLAN: This is a 46 year old woman with a history of morbid obesity, probable JOSE, probable OHS, CHF, CAD, COPD, pulmonary HTN, depression, anxiety who presented to the ER with SOB. 1. Bilateral submassive pulmonary emboli with probable pulmonary infarct - Continue heparin IV drip - IR evaluation 2. Acute on chronic systolic heart failure - Continue Lasix IV, Diovan, Toprol XL 3. Acute and possible chronic hypoxic respiratory failure, multifactorial - Continue oxygen to maintain saturation > 90% 4. Possible acute bronchitis, possible pneumonia - Continue Rocephin, Doxycycline 5. CAD, history of stent - Continue Toprol XL 6. HTN - Contnue Diovan, Toprol XL 7. COPD - Continue Advair, Tudorza 8. Pulmonary HTN 9. Probable JOSE and OHS - Continue oxygen - Refusing CPAP 10. Type 2 diabetes mellitus 11. Morbid obesity with BMI 52.8 12. Anxiety/depression - Continue Pamelor 13. Chronic lymphedema with venous ulcers - Continue wound care 46 year old woman with a history of morbid obesity, probable JOSE, probable OHS, CHF, CAD, COPD, pulmonary HTN, depression, anxiety who presented to the ER with SOB. 1. Bilateral submassive pulmonary emboli with probable pulmonary infarct- hemoptysis only blood streaked intermittently at this time. Hgb has been stable. no bleeding now that INR is therapeutic. d/c hep ggt. will reduce coumadin to 6mg. will need frequent INR monitor 2. Acute on chronic systolic heart failure- improved. on home dose of lasix. refusing aldactone. cont arb, betablocker. 3. Acute and possible chronic hypoxic respiratory failure, multifactorial-PE vs B/L PNA. saturating 97% on 3L. check pre & post may require home O2. Completed 7 day course of abx. Continue oxygen to maintain saturation > 90% 4. CAD, history of stent- Continue Toprol XL 5. HTN- Contnue Benjy, Toprol XL 6. COPD- Continue Yani Bui 7. Pulmonary HTN 8. Probable JOSE and OHS- refusing polysomography on discharge and CPAP HS 9. Type 2 diabetes mellitus 10. Morbid obesity with BMI 52.8 11. Anxiety/depression- Continue Pamelor 12. Chronic lymphedema with venous ulcers- Continue wound care. request vascular surgery to evaluate legs as not appear to be wrapping legs appropriately. 13. DNR/DNI 14. PT assessment will irene require SAR. LIMA to be sent out today for placement. medically optimized at this time for discharge
--- NOTE | 2017-06-14 15:15 | PN ---
Progress Note, Physician Chief Complaint: Events noted Not in distress History of Present Illness: Patient was seen and examined. Awake and alert. Chart was reviewed Denies chest pain, SOB or palpitations - Current Medication List Current Medications: Active Medications Acetaminophen (Tylenol -) 650 mg PO Q4H PRN PRN Reason: FEVER OR PAIN Cholecalciferol (Vitamin D3 -) 2,000 unit PO DAILY [facility] Last Admin: 06/14/17 11:21 Dose: 2,000 unit Cyanocobalamin (Vitamin B12 -) 500 mcg PO DAILY [facility] Last Admin: 06/14/17 11:22 Dose: 500 mcg Furosemide (Lasix -) 40 mg PO DAILY [facility] Last Admin: 06/14/17 11:22 Dose: 40 mg Guaifenesin (Robitussin -) 10 ml PO Q4H PRN PRN Reason: COUGH Last Admin: 06/12/17 21:46 Dose: 10 ml Loperamide HCl (Imodium -) 4 mg PO Q6H PRN PRN Reason: DIARRHEA Last Admin: 06/06/17 17:15 Dose: 4 mg Magnesium Oxide (Mag-Ox -) 400 mg PO DAILY [facility] Last Admin: 06/14/17 11:22 Dose: 400 mg Metoprolol Succinate (Toprol Xl -) 50 mg PO DAILY [facility] Last Admin: 06/14/17 11:23 Dose: 50 mg Multi-Ingredient Ointment (Zinc Oxide) 1 applic TP DAILY [facility] Last Admin: 06/14/17 11:23 Dose: 1 applic Nortriptyline HCl (Pamelor -) 10 mg PO HS [facility] Last Admin: 06/13/17 22:39 Dose: Not Given Fluticasone/Salmeterol (Advair 100mcg/50mcg -) 1 puff IH BID [facility] Last Admin: 06/14/17 11:23 Dose: 1 puff Valsartan (Diovan -) 320 mg PO DAILY [facility] Last Admin: 06/14/17 11:23 Dose: 320 mg Warfarin Sodium (Coumadin -) 6 mg PO DAILY@1800 [facility] Last Admin: 06/13/17 18:39 Dose: 6 mg - Objective Vital Signs: Vital Signs Temperature 97.7 F 06/14/17 14:23 Pulse Rate 68 06/14/17 14:23 Respiratory Rate 20 06/14/17 14:23 Blood Pressure 130/71 06/14/17 14:23 O2 Sat by Pulse Oximetry (%) 97 06/14/17 09:00 Cardiovascular: Yes: Regular Rate and Rhythm, S1, S2 Respiratory: Yes: Diminished Gastrointestinal: Yes: Normal Bowel Sounds, Soft, Abdomen, Obese. No: Tenderness Edema: Yes Labs: CBC, BMP 06/12/17 06:00 06/13/17 06:30 INR, PTT INR 2.60 (0.82-1.09) H 06/14/17 06:00 Problem List - Problems (1) Pulmonary embolism Code(s): I26.99 - OTHER PULMONARY EMBOLISM WITHOUT ACUTE COR PULMONALE Qualifiers: Qualified Code(s): I26.99 - Other pulmonary embolism without acute cor pulmonale (2) Pulmonary hypertension Code(s): I27.2 - OTHER SECONDARY PULMONARY HYPERTENSION (3) Acute on chronic systolic (congestive) heart failure Code(s): I50.23 - ACUTE ON CHRONIC SYSTOLIC (CONGESTIVE) HEART FAILURE (4) CHF (congestive heart failure) Code(s): I50.9 - HEART FAILURE, UNSPECIFIED Qualifiers: Qualified Code(s): I50.9 - Heart failure, unspecified (5) COPD (chronic obstructive pulmonary disease) Code(s): J44.9 - CHRONIC OBSTRUCTIVE PULMONARY DISEASE, UNSPECIFIED Qualifiers : Qualified Code(s): J44.9 - Chronic obstructive pulmonary disease, unspecified (6) Cellulitis and abscess of leg Code(s): L02.419 - CUTANEOUS ABSCESS OF LIMB, UNSPECIFIED L03.119 - CELLULITIS OF UNSPECIFIED PART OF LIMB (7) Coronary artery disease Code(s): I25.10 - ATHSCL HEART DISEASE OF [place] CORONARY ARTERY W/O ANG PCTRS Qualifiers: Qualified Code(s): I25.10 - Atherosclerotic heart disease of [place] coronary artery without angina pectoris (8) Status post coronary artery stent placement Code(s): Z95.5 - PRESENCE OF CORONARY ANGIOPLASTY IMPLANT AND GRAFT Assessment/Plan 1. Acute on chronic LV systolic failure class III NYHA classification LV failure 2. Bilateral pulmonary embolism 3. CAD post [place] PCI (stent), angina pectoris 4. HTN 5. DM 6. COPD 7. Morbid obesity with OSAS 8. Cellulitis 9. Poor compliance PLAN: 1. Monitor renal function and electrolytes 2. Continue Coumadin as per INR (keep 2-3) 3. Continue Toprol XL and Diovan. Continue Aldactone as tolerated 4. Continue antibiotics coverage and bronchodilator and O2 Roland Foote MD
--- NOTE | 2017-06-14 15:31 | PN ---
Progress Note (short form) - Note Progress Note: PULMONARY PATIENT SEEN AND EXAMINED NO SIGNIFICANT CLINICAL CHANGE IN EXAM SLIGHT IMPROVEMENT LABS/MEDS/NOTES/IMAGING REVIEWED INR 2.6 Submassive Pulmonary Emboli Likely Pulmonary Infarct Severe LV Systolic Dysfunction Pulmonary HTN CAD COPD Morbid Obesity Likely JOSE/OHS - continue anticoagulation - O2 to keep SpO2 >90% - monitor/quantify hemoptysis - inhaled bronchodilators - lasix as needed - pt DNR/DNI R JONAS VICENTE
[2017-06-14] MEDS: WARFARIN NA 3 MG TABLET PO SCH (18:01)
--- NOTE | 2017-06-14 19:48 | PN ---
Physical Exam: SUBJECTIVE: Patient seen and examined at bedside. Had an episode of blood tinged sputum overnight and worsening of her right sided pleuritic chest pain. v /s stable. This morning, no more blood tinged sputum but she continues to complain of the right sided pain. Breathing is mildly improved. OBJECTIVE: Vital Signs Period Temp Pulse Resp BP Sys/Magana Pulse Ox Last 24 Hr 97.5 F-98 F 68-85 20-20 113-130/65-78 90-97 GENERAL: The patient is awake, alert, and fully oriented, in no acute distress. HEAD: Normal with no signs of trauma. NECK: Trachea midline, full range of motion, supple. LUNGS: Breath sounds equal, ronchi in mid lung epstein bilaterally; decreased breath sounds on the right base, no accessory muscle use. HEART: Regular rate and rhythm, S1, S2 without murmur, rub or gallop. ABDOMEN: Soft, nontender, nondistended, normoactive bowel sounds, no guarding, no rebound. EXTREMITIES: 2+ pulses, warm, well-perfused, no edema. NEUROLOGICAL: Cranial nerves II through X grossly intact. Normal speech, gait not observed. PSYCH: Normal mood, normal affect. Laboratory Results - last 24 hr 06/14/17 06:00 INR 2.60 H Active Medications Generic Name Dose Route Start Last Admin Trade Name Lópezq PRN Reason Stop Dose Admin Acetaminophen 650 mg 06/11/17 22:29 Tylenol - PO Q4H PRN FEVER OR PAIN Cholecalciferol 2,000 unit 06/12/17 10:00 06/14/17 11:21 Vitamin D3 - PO 2,000 unit DAILY [facility] Administration Cyanocobalamin 500 mcg 06/12/17 10:00 06/14/17 11:22 Vitamin B12 - PO 500 mcg DAILY [facility] Administration Furosemide 40 mg 06/12/17 11:00 06/14/17 11:22 Lasix - PO 40 mg DAILY [facility] Administration Guaifenesin 10 ml 06/08/17 03:15 06/12/17 21:46 Robitussin - PO 10 ml Q4H PRN Administration COUGH Loperamide HCl 4 mg 06/05/17 20:26 06/06/17 17:15 Imodium - PO 4 mg Q6H PRN Administration DIARRHEA Magnesium Oxide 400 mg 06/12/17 10:00 06/14/17 11:22 Mag-Ox - PO 400 mg DAILY [facility] Administration Metoprolol Succinate 50 mg 06/12/17 10:00 06/14/17 11:23 Toprol Xl - PO 50 mg DAILY [facility] Administration Multi-Ingredient Ointment 1 applic 06/12/17 23:45 06/14/17 11:23 Zinc Oxide TP 1 applic DAILY [facility] Administration Nortriptyline HCl 10 mg 06/12/17 22:00 06/13/17 22:39 Pamelor - PO Not Given HS [facility] Fluticasone/Salmeterol 1 puff 06/12/17 10:00 06/14/17 11:23 Advair 100mcg/50mcg - IH 1 puff BID [facility] Administration Valsartan 320 mg 06/12/17 10:00 06/14/17 11:23 Diovan - PO 320 mg DAILY [facility] Administration Warfarin Sodium 6 mg 06/13/17 17:08 06/14/17 18:01 Coumadin - PO 6 mg DAILY@1800 [facility] Administration ASSESSMENT/PLAN: 46yF with PMH systolic CHF, [place], stent, COPD, asthma, morbid obesity, pulm HTN presented to the ED with SOB and cough x 3-4 days. Pt was admitted for B/L submassive PE's #Bilateral submassive pulmonary emboli -INR today is 2.6; theraputic. Will trend in AM -coumadin dose of 6 mg today -Monitor for any bleeding, if bleeding repeat stat cbc -Dietary discussed patient's food options on coumadin #Acute on chronic CHF exacerbation, decrease in 3 lbs -Lasix 40mg PO daily -Continue aldactone 25 mg po -Continue Diovan 320 mg po daily -Continue toporol xl 50 mg po daily -echo with severely reduced EF on 11/02/16 -cardiology: c/w current management # Acute bronchitis/COPD exacerbation - albuterol nebs PRN - cont home LABA and tudorza - Completed 7 day course of Ceftriaxone 1g IV and doxycycline 100 g bid - chest cta- right upper and bilateral lower lobe consolidation with small right pleural effusion #Chronic lymphedema - Patient refusing santyl - Dry dressing changes to left lower leg - Vascular surgery: barbie bandages from foot all the way up to knee. #HTN -Continue home medications valsartan 320 mg po daily #Diarrhea -Continue imodium #Chronic JOSE -Patient refuses CPAP -Continue O2 NC #anxiety and depression -continue nortriptyline 10 mg po hs #PPX -patient on coumadin w/ theraputic INR -no indication for GI prophy at this time -able to walk with PT today #FEN -no indication for IVF at this time -wnl -low sodium diet Patient is dnr/dni Dispo -Patient is for transfer to [facility]/ pulmonary rehab; awaiting placement. Visit type - Emergency Visit Emergency Visit: Yes ED Registration Date: 06/03/17 Care time: The patient presented to the Emergency Department on the above date and was hospitalized for further evaluation of their emergent condition. - New Patient This patient is new to me today: No - Critical Care Critical Care patient: No
[2017-06-14] MEDS: NORTRIPTYLINE HCL 10 MG CAPSULE PO SCH (21:21)
[2017-06-15] MEDS: guaiFENesin 200 MG/10 ML 10 ML UNIT-DOSE CUPS PO PRN (00:04)
[2017-06-15 09:30] LABS: INR 2.9 (0.82-1.09); PROTHROMBIN TIME (PATIENT) 32.6 SEC (9.98-11.88)
--- NOTE | 2017-06-15 10:54 | PN ---
Progress Note (short form) - Note Progress Note: PULMONARY NO SIGNIFICANT CLINICAL CHANGE IN EXAM INTERMITTENT BLD TINGED SPUTUM LABS/MEDS/NOTES/IMAGING REVIEWED INR 2.9 Submassive Pulmonary Emboli Pulmonary Infarct Severe LV Systolic Dysfunction Pulmonary HTN CAD COPD Morbid Obesity Likely JOSE/OHS - continue anticoagulation - O2 to keep SpO2 >90% - monitor/quantify hemoptysis - inhaled bronchodilators - lasix as needed - pt DNR/DNI R JONAS VICENTE
[2017-06-15] MEDS ORDERED: PT OWN MED DRAWER 7, Y5N ONE (11:04)
[2017-06-15] MEDS: VALSARTAN 160 MG TABLET (UD) PO SCH (11:11)
[2017-06-15] MEDS: CYANOCOBALAMIN 1,000 MCG TABLET (FP) PO SCH (11:12)
[2017-06-15] MEDS: ZINC OXIDE 20% TOPICAL OINTMENT 30 GM TUBE TP SCH (11:12)
[2017-06-15] MEDS: METOPROLOL SUCCINATE 50 MG TAB.SR.24H (FP) PO SCH (11:13)
[2017-06-15] MEDS: MAGNESIUM OXIDE 400 MG TABLET (FP) PO SCH (11:13)
[2017-06-15] MEDS: FUROSEMIDE 40 MG TABLET (FP) PO SCH (11:13)
[2017-06-15] MEDS: CHOLECALCIFEROL (VITAMIN D3) 1,000 UNIT TABLET (FP) PO SCH (11:13)
[2017-06-15] MEDS: FLUTICASONE/SALMETEROL 100 MCG/50 MCG DISKUS IH SCH (11:13)
--- NOTE | 2017-06-15 11:33 | PN ---
Physical Exam: SUBJECTIVE: Patient seen and examined at bedside. Patient has no new complaints. Pending PHIL/pulmonary rehab placement. OBJECTIVE: Vital Signs Period Temp Pulse Resp BP Sys/Magana Pulse Ox Last 24 Hr 97.4 F-97.9 F 68-88 20-22 117-130/69-76 92 GENERAL: The patient is awake, alert, and fully oriented, in no acute distress. HEAD: Normal with no signs of trauma. NECK: Trachea midline, full range of motion, supple. LUNGS: Breath sounds equal, clear to auscultation bilaterally decreased breath sounds at right base. no wheezes, no crackles, no accessory muscle use. HEART: Regular rate and rhythm, S1, S2 without murmur, rub or gallop. ABDOMEN: Soft, nontender, nondistended, normoactive bowel sounds, no guarding, no rebound. NEUROLOGICAL: Cranial nerves II through X grossly intact. Normal speech, gait not observed. PSYCH: Normal mood, normal affect. SKIN: Warm, dry, normal turgor. erythema and chronic changes noted over both feet. Laboratory Results - last 24 hr 06/15/17 09:00 INR 2.90 H Active Medications Generic Name Dose Route Start Last Admin Trade Name Freq PRN Reason Stop Dose Admin Acetaminophen 650 mg 06/11/17 22:29 06/15/17 11:12 Tylenol - PO 650 mg Q4H PRN Administration FEVER OR PAIN Cholecalciferol 2,000 unit 06/12/17 10:00 06/15/17 11:13 Vitamin D3 - PO 2,000 unit DAILY [facility] Administration Cyanocobalamin 500 mcg 06/12/17 10:00 06/15/17 11:12 Vitamin B12 - PO 500 mcg DAILY [facility] Administration Furosemide 40 mg 06/12/17 11:00 06/15/17 11:13 Lasix - PO 40 mg DAILY [facility] Administration Guaifenesin 10 ml 06/08/17 03:15 06/15/17 00:04 Robitussin - PO 10 ml Q4H PRN Administration COUGH Loperamide HCl 4 mg 06/05/17 20:26 06/06/17 17:15 Imodium - PO 4 mg Q6H PRN Administration DIARRHEA Magnesium Oxide 400 mg 06/12/17 10:00 06/15/17 11:13 Mag-Ox - PO 400 mg DAILY [facility] Administration Metoprolol Succinate 50 mg 06/12/17 10:00 06/15/17 11:13 Toprol Xl - PO 50 mg DAILY [facility] Administration Multi-Ingredient Ointment 1 applic 06/12/17 23:45 06/15/17 11:12 Zinc Oxide TP 1 applic DAILY [facility] Administration Nortriptyline HCl 10 mg 06/12/17 22:00 06/14/17 21:21 Pamelor - PO Not Given HS [facility] Fluticasone/Salmeterol 1 puff 06/12/17 10:00 06/15/17 11:13 Advair 100mcg/50mcg - IH 1 puff BID [facility] Administration Valsartan 320 mg 06/12/17 10:00 06/15/17 11:11 Diovan - PO 320 mg DAILY [facility] Administration Warfarin Sodium 6 mg 06/13/17 17:08 06/14/17 18:01 Coumadin - PO 6 mg DAILY@1800 [facility] Administration ASSESSMENT/PLAN: 46yF with PMH systolic CHF, [place], stent, COPD, asthma, morbid obesity, pulm HTN presented to the ED with SOB and cough x 3-4 days. Pt was admitted for B/L submassive PE's #Bilateral submassive pulmonary emboli -INR today is 2.9; trending up. Will adjust warfarin dose from 6 to . Will trend in AM -Monitor for any bleeding, if bleeding repeat stat cbc -Dietary discussed patient's food options on coumadin #Acute on chronic CHF exacerbation, decrease in 3 lbs -Lasix 40mg PO daily -Continue aldactone 25 mg po -Continue Diovan 320 mg po daily -Continue toporol xl 50 mg po daily -echo with severely reduced EF on 11/02/16 -cardiology: c/w current management # Acute bronchitis/COPD exacerbation- resolved - albuterol nebs PRN - cont home LABA and tudorza - Completed 7 day course of Ceftriaxone 1g IV and doxycycline 100 g bid - chest cta- right upper and bilateral lower lobe consolidation with small right pleural effusion #Chronic lymphedema - Patient refusing santyl - Dry dressing changes to left lower leg - Vascular surgery: barbie bandages from foot all the way up to knee. #HTN- BP controlled -Continue home medications valsartan 320 mg po daily #Diarrhea -Continue imodium #Chronic JOSE -Patient refuses CPAP -Continue O2 NC #anxiety and depression -continue nortriptyline 10 mg po hs #PPX -patient on coumadin w/ theraputic INR -no indication for GI prophy at this time -able to walk with PT today #FEN -no indication for IVF at this time -wnl -low sodium diet Dispo -Patient is for transfer to [facility]/ pulmonary rehab; awaiting placement.
--- NOTE | 2017-06-15 12:13 | PN ---
Progress Note, Physician Chief Complaint: Events noted Not in distress History of Present Illness: Patient was seen and examined. Awake and alert. Chart was reviewed Denies chest pain, SOB or palpitations - Current Medication List Current Medications: Active Medications Acetaminophen (Tylenol -) 650 mg PO Q4H PRN PRN Reason: FEVER OR PAIN Last Admin: 06/15/17 11:12 Dose: 650 mg Cholecalciferol (Vitamin D3 -) 2,000 unit PO DAILY [facility] Last Admin: 06/15/17 11:13 Dose: 2,000 unit Cyanocobalamin (Vitamin B12 -) 500 mcg PO DAILY [facility] Last Admin: 06/15/17 11:12 Dose: 500 mcg Furosemide (Lasix -) 40 mg PO DAILY [facility] Last Admin: 06/15/17 11:13 Dose: 40 mg Guaifenesin (Robitussin -) 10 ml PO Q4H PRN PRN Reason: COUGH Last Admin: 06/15/17 00:04 Dose: 10 ml Loperamide HCl (Imodium -) 4 mg PO Q6H PRN PRN Reason: DIARRHEA Last Admin: 06/06/17 17:15 Dose: 4 mg Magnesium Oxide (Mag-Ox -) 400 mg PO DAILY [facility] Last Admin: 06/15/17 11:13 Dose: 400 mg Metoprolol Succinate (Toprol Xl -) 50 mg PO DAILY [facility] Last Admin: 06/15/17 11:13 Dose: 50 mg Multi-Ingredient Ointment (Zinc Oxide) 1 applic TP DAILY [facility] Last Admin: 06/15/17 11:12 Dose: 1 applic Nortriptyline HCl (Pamelor -) 10 mg PO HS [facility] Last Admin: 06/14/17 21:21 Dose: Not Given Fluticasone/Salmeterol (Advair 100mcg/50mcg -) 1 puff IH BID [facility] Last Admin: 06/15/17 11:13 Dose: 1 puff Valsartan (Diovan -) 320 mg PO DAILY [facility] Last Admin: 06/15/17 11:11 Dose: 320 mg Warfarin Sodium (Coumadin -) 6 mg PO DAILY@1800 [facility] Last Admin: 06/14/17 18:01 Dose: 6 mg - Objective Vital Signs: Vital Signs Temperature 97.9 F 06/15/17 05:58 Pulse Rate 83 06/15/17 05:58 Respiratory Rate 20 06/15/17 05:58 Blood Pressure 117/76 06/15/17 05:58 O2 Sat by Pulse Oximetry (%) 92 L 06/14/17 21:00 Neck: Yes: Supple Cardiovascular: Yes: Regular Rate and Rhythm, S1, S2 Respiratory: Yes: Diminished Gastrointestinal: Yes: Normal Bowel Sounds, Soft, Abdomen, Obese. No: Tenderness Edema: Yes Labs: INR, PTT INR 2.90 (0.82-1.09) H 06/15/17 09:00 Problem List - Problems (1) Pulmonary embolism Code(s): I26.99 - OTHER PULMONARY EMBOLISM WITHOUT ACUTE COR PULMONALE Qualifiers: Qualified Code(s): I26.99 - Other pulmonary embolism without acute cor pulmonale (2) Pulmonary hypertension Code(s): I27.2 - OTHER SECONDARY PULMONARY HYPERTENSION (3) Acute on chronic systolic (congestive) heart failure Code(s): I50.23 - ACUTE ON CHRONIC SYSTOLIC (CONGESTIVE) HEART FAILURE (4) CHF (congestive heart failure) Code(s): I50.9 - HEART FAILURE, UNSPECIFIED Qualifiers: Qualified Code(s): I50.9 - Heart failure, unspecified (5) COPD (chronic obstructive pulmonary disease) Code(s): J44.9 - CHRONIC OBSTRUCTIVE PULMONARY DISEASE, UNSPECIFIED Qualifiers : Qualified Code(s): J44.9 - Chronic obstructive pulmonary disease, unspecified (6) Cellulitis and abscess of leg Code(s): L02.419 - CUTANEOUS ABSCESS OF LIMB, UNSPECIFIED L03.119 - CELLULITIS OF UNSPECIFIED PART OF LIMB (7) Coronary artery disease Code(s): I25.10 - ATHSCL HEART DISEASE OF [place] CORONARY ARTERY W/O ANG PCTRS Qualifiers: Qualified Code(s): I25.10 - Atherosclerotic heart disease of [place] coronary artery without angina pectoris (8) Status post coronary artery stent placement Code(s): Z95.5 - PRESENCE OF CORONARY ANGIOPLASTY IMPLANT AND GRAFT Assessment/Plan 1. Acute on chronic LV systolic failure class III NYHA classification LV failure 2. Bilateral pulmonary embolism 3. CAD post [place] PCI (stent), angina pectoris 4. HTN 5. DM 6. COPD 7. Morbid obesity with OSAS 8. Cellulitis 9. Poor compliance PLAN: 1. Monitor renal function and electrolytes 2. Continue Coumadin as per INR (keep 2-3) 3. Continue Toprol XL and Diovan. Continue Aldactone as tolerated Roland Foote MD
[2017-06-15 14:14] VITALS: TEMP 97.5
[2017-06-15 14:53] VITALS: BP 135/81; PULSE 66
--- NOTE | 2017-06-15 15:50 | DS ---
Physical Exam: SUBJECTIVE: Patient seen and examined. She states that she feels better and that her breathing is mildly improved. OBJECTIVE: Vital Signs Period Temp Pulse Resp BP Sys/Magana Pulse Ox Last 24 Hr 97.4 F-97.9 F 66-88 20-22 117-135/69-81 92-97 PHYSICAL EXAM GENERAL: The patient is awake, alert, and fully oriented, in no acute distress. HEAD: Normal with no signs of trauma. NECK: Trachea midline, full range of motion, supple. LUNGS: Breath sounds equal, clear to auscultation bilaterally. Decreased breath sounds at the right base. no wheezes, no crackles, no accessory muscle use. HEART: Regular rate and rhythm, S1, S2 without murmur, rub or gallop. ABDOMEN: Soft, nontender, nondistended, normoactive bowel sounds, no guarding, no rebound. EXTREMITIES: 2+ pulses, warm, well-perfused, no edema. NEUROLOGICAL: Cranial nerves II through X grossly intact. Normal speech, gait not observed. PSYCH: Normal mood, normal affect. LABS Laboratory Results - last 24 hr 06/15/17 09:00 INR 2.90 H HOSPITAL COURSE: Date of Admission:06/03/17 46 y/o morbidly obese F w/sig PMH of systolic CHF, [place], COPD, asthma, chronic lymphedema, depression, anxiety, pulmonary HTN presented to the ER w/SOB for 3- 4 days with some blood streaked phlegm as well as R flank pain. Pt was found to have b/l PE on CTA. Echo showed RV moderate dilation and 24% ejection fraction. Pt treated with heparin drip and monitored in ICU. Pt reported improvement on heparin with both flank pain (likely to be pleuritic pain from PE) and with SOB. Pt then bridged to Coumadin and taken off heparin drip once INR was therapeutic. Hospital course also complicated by acute on chronic CHF exacerbation for which was treated with Lasix which showed improvement of symptoms as well. Pt also treated for acute on chronic COPD exacerbation with nebs, inhalers, and 7 days of abx (ceftriaxone and doxy). Pt seen by cardiology , Dr. Foote during this visit. Pt seen by pulm, Dr. Mae, during this visit. Pt refused sleep study as outpatient upon d/c. She was also seen by Dr. Mcgrath , psych, for depression. She refused to take any meds from [facility]. Pt discharged with 5 mg Coumadin daily and to be titrated while in rehab after discharge to keep INR 2-3 (pt to have reheck of INR in 2 days after discharge). Pt also to f/ u with pulm, Dr. Mae and to f/u with cardio, Dr. Corey. Pt to see PCP as well after discharge. Date of Discharge: 06/15/17 Minutes to complete discharge: 35 Discharge Summary Reason For Visit: ACUTE ON CHRONIC SYSTOLIC CHF Current Active Problems Adjustment disorder with depressed mood (Acute) Biventricular failure (Acute) Pulmonary embolism (Acute) Pulmonary hypertension (Acute) Acute on chronic systolic (congestive) heart failure (Chronic) Condition: Improved - Instructions Diet, Activity, Other Instructions: Resume regular activity as tolerated. Please restart all of your home medications tomorrow. We have given you a new medication to thin your blood and help prevent other clots from forming. This medication is called warfarin ( coumadin) and should be taken every day starting tomorrow. On this medication, you will need to follow up with your primary doctor to get blood tests. Please follow up to get a blood test on this medication this Tuesday to check your INR and make sure this dose is working correctly. Your INR should be between 2 and 3. You should also follow up with Dr Mae for your lungs and Dr. Corey for your heart. If you experience fever, chills or your symptoms worsen, please come back to the ER. Referrals: Jess Long MD [Primary Care Provider] - Gutierrez Mae MD [Staff Physician] - Saji Corey MD [Staff Physician] - Disposition: LONG-TERM FACILITY - Home Medications Comprehensive Discharge Medication List: Ambulatory Orders Aclidinium [place] [Tudorza Pressair] 400 mcg IH DAILY 11/02/16 Albuterol Sulfate [Proventil HFA Inhaler -] 1 - 2 inh PO QID PRN 11/02/16 Aspirin [Lo-Dose Aspirin EC] 81 mg PO DAILY 11/02/16 Cholecalciferol (Vitamin D3) [Vitamin D3] 2,000 unit PO DAILY 11/02/16 Cyanocobalamin [Vitamin B12 -] 500 mcg PO DAILY 11/02/16 Famotidine [Pepcid -] 40 mg PO BID 11/02/16 Fluticasone/Salmeterol [Advair 250-50 Diskus] 1 each IH DAILY 11/02/16 Magnesium Oxide [Magnesium] 500 mg PO DAILY 11/02/16 Metoprolol Succinate [Toprol XL -] 50 mg PO DAILY 11/02/16 Nortriptyline HCl [Pamelor -] 10 mg PO HS 11/02/16 Valsartan 320 mg PO DAILY 11/02/16 Vitamin B Complex [B Complex # 1] 1 each PO DAILY 11/02/16 Vitamin E 400 unit PO DAILY 11/02/16 Furosemide [Lasix -] 40 mg PO DAILY #7 tablet 11/09/16 Salmeterol/Fluticasone [Advair 100Mcg/50Mcg -] 1 puff IH BID inhaler 11/09/16 Zinc Oxide 1 applic TP BID #1 tube 11/09/16 Clindamycin [Cleocin -] 600 mg PO Q8H #21 capsule 12/02/16 This patient is new to me today: No Emergency Visit: Yes ED Registration Date: 06/03/17 Care time: The patient presented to the Emergency Department on the above date and was hospitalized for further evaluation of their emergent condition. Critical Care patient: No - Discharge Referral Referred to [facility] Med P.C.: No
[2017-06-15] MEDS ORDERED: WARFARIN NA 5 MG TABLET (UD) PO ONE (16:06)
--- NOTE | 2017-06-15 19:55 | PN ---
Teaching Attending Note Name of Resident: Adarsh Sung ATTENDING PHYSICIAN STATEMENT I saw and evaluated the patient. I reviewed the resident's note and discussed the case with the resident. I agree with the resident's findings and plan as documented. SUBJECTIVE: OBJECTIVE: Vital Signs Period Temp Pulse Resp BP Sys/Magana Pulse Ox Last 24 Hr 97.4 F-97.9 F 66-88 20-22 117-135/69-81 92-97 ASSESSMENT AND PLAN:
== END 2017-06-15 18:39 | DRG 194 ==
LOC: JER 00:22 → JERBED 04:24 → UNDOADMIN 05:20 → JERBED 05:20 → J4W 14:17 → JICU 19:41 → J7W 06-05 11:43
PROVIDERS: ADMIT Internal Medicine; ATTEND Internal Medicine
PROC: 3E0F7GC Introduction of Other Therapeutic Substance into Respiratory Tract, Via Natural or Artificial Opening (ICD-10-PCS; principal; 2017-06-08)
DX: I11.0 Hypertensive heart disease with heart failure (principal); I50.23 Acute on chronic systolic (congestive) heart failure; I25.2 Old myocardial infarction; J44.1 Chronic obstructive pulmonary disease with (acute) exacerbation; I89.0 Lymphedema, not elsewhere classified; F41.8 Other specified anxiety disorders; E66.2 Morbid (severe) obesity with alveolar hypoventilation; Z68.43 Body mass index [BMI] 50.0-59.9, adult; F12.10 Cannabis abuse, uncomplicated; I27.2 Other secondary pulmonary hypertension; L97.829 Non-pressure chronic ulcer of other part of left lower leg with unspecified severity; L97.819 Non-pressure chronic ulcer of other part of right lower leg with unspecified severity; I25.10 Atherosclerotic heart disease of native coronary artery without angina pectoris; L03.119 Cellulitis of unspecified part of limb; I26.99 Other pulmonary embolism without acute cor pulmonale; L02.419 Cutaneous abscess of limb, unspecified; I08.1 Rheumatic disorders of both mitral and tricuspid valves; J96.21 Acute and chronic respiratory failure with hypoxia; E11.9 Type 2 diabetes mellitus without complications; A08.8 Other specified intestinal infections; Z66 Do not resuscitate; Z87.891 Personal history of nicotine dependence; Z95.5 Presence of coronary angioplasty implant and graft; F43.21 Adjustment disorder with depressed mood; Z99.81 Dependence on supplemental oxygen
CPT/HCPCS: 36415; 71010-TC; 71275-TC; 80048; 80053; 81003; 81015; 82272; 83735; 83880; 84100; 84443; 84484; 84703; 85025; 85027; 85610; 85730; 87086; 87186; 93005; 93010; 93306-TC; 93970-TC; 94010; 94761; 97116-GP; 97161-GP; 99283-25; J1644

== ENCOUNTER 2017-07-08 02:16 | Inpatient (IN) | payer OTHER ==
[2017-07-08 03:16] LABS: BASOPHIL 0.8 % (0-2.0); EOSINOPHIL 0.8 % (0-4.5); MCH 28.1 pg (25.7-33.7); MCHC 32.1 g/dl (32.0-36.0); MEAN CELL VOLUME 87.7 fl (80-96); MEAN PLT VOLUME 9.4 fl (7.5-11.1); NEUTROPHILS 77.6 % (42.8-82.8); PLATELET COUNT 232 K/MM3 (134-434); RDW 18.5 % (11.6-15.6); WHITE BLOOD COUNT 13.1 K/mm3 (4.0-10.0)
[2017-07-08 03:28] LABS: INR 1.75 (0.82-1.09); PROTHROMBIN TIME (PATIENT) 19.5 SEC (9.98-11.88)
--- NOTE | 2017-07-08 03:40 | PDOC ---
History of Present Illness - General History Source: Patient Exam Limitations: No Limitations - History of Present Illness Initial Comments: 07/08/17 03:35 46yo Female patient w/ PmHx: COPD, CHF, Morbid Obesity, Lymphedema, Depression, [place] w/ stent, Anxiety, HTN, PE on Coumadin 4.5mg presents to ED via EMS c/o "spitting up blood." Patient reports coughing up blood, trouble breathing, left upper back pain, shoulder, and neck pain. Patient denies fever, CP, n/v/d, confusion, disorientation, dysuria, hematuria, rectal bleeding, or any other complaints at this time. Timing/Duration: reports: getting worse, yesterday Severity: reports: moderate Episode Description: See HPI Possible Cause: No: no prior episodes, other, allergen exposure, chronic episodes, frequent episodes, illness exposure, irritant gases exposure, occasional episodes, smoke exposure, unknown cause <Marcelino Mayorga - Last Filed: 07/08/17 03:35> <Vahe Steel - Last Filed: 07/08/17 04:28> - General Chief Complaint: Hemoptysis Stated Complaint: DIFFICULTY BREATHING,SPIITING UP BLOOD Time Seen by Provider: 07/08/17 02:42 Past History - Travel Traveled outside of the country in the last 30 days: No Close contact w/someone who was outside of country & ill: No - Past Medical History Asthma: Yes Cardiac Disorders: Yes (CHF, [place]) COPD: Yes HTN: Yes Psychiatric Problems: Yes (Depression, anxiety) - Suicide/Smoking/Psychosocial Hx Smoking History: Never smoked Have you smoked in the past 12 months: No Number of Cigarettes Smoked Daily: 2 If you are a former smoker, when did you quit?: April 2016 Information on smoking cessation initiated: No 'Breaking Loose' booklet given: 06/03/17 Hx Alcohol Use: No Drug/Substance Use Hx: No Substance Use Type: None <Marcelino Mayorga - Last Filed: 07/08/17 03:35> <Vahe Steel - Last Filed: 07/08/17 04:28> - Past Medical History Allergies/Adverse Reactions: Allergies Allergy/AdvReac Type Severity Reaction Status Date / Time budesonide Allergy Severe Difficulty Verified 07/08/17 02:44 Breathing erythromycin base Allergy Severe Vomiting Verified 07/08/17 02:44 formoterol Allergy Severe Difficulty Verified 07/08/17 02:44 Breathing gabapentin Allergy Severe Verified 07/08/17 02:44 carvedilol Allergy Intermediate Nausea Verified 07/08/17 02:44 lisinopril Allergy Intermediate Nausea Verified 07/08/17 02:44 omeprazole Allergy Intermediate Verified 07/08/17 02:44 bupropion Allergy Unknown Verified 07/08/17 02:44 Home Medications: Ambulatory Orders Aclidinium Alger [Tudorza Pressair] 400 mcg IH DAILY 11/02/16 Albuterol Sulfate [Proventil HFA Inhaler -] 1 - 2 inh PO QID PRN 11/02/16 Cholecalciferol (Vitamin D3) [Vitamin D3] 2,000 unit PO DAILY 11/02/16 Cyanocobalamin [Vitamin B12 -] 500 mcg PO DAILY 11/02/16 Famotidine [Pepcid -] 40 mg PO BID 11/02/16 Fluticasone/Salmeterol [Advair 250-50 Diskus] 1 each IH DAILY 11/02/16 Magnesium Oxide [Magnesium] 500 mg PO DAILY 11/02/16 Metoprolol Succinate [Toprol XL -] 50 mg PO DAILY 11/02/16 Nortriptyline HCl [Pamelor -] 10 mg PO HS 11/02/16 Valsartan 320 mg PO DAILY 11/02/16 Vitamin B Complex [B Complex # 1] 1 each PO DAILY 11/02/16 Vitamin E 400 unit PO DAILY 11/02/16 Furosemide [Lasix -] 40 mg PO DAILY #7 tablet 11/09/16 Salmeterol/Fluticasone [Advair 100Mcg/50Mcg -] 1 puff IH BID inhaler 11/09/16 Zinc Oxide 1 applic TP BID #1 tube 11/09/16 Warfarin Sodium 5 mg PO DAILY #30 tablet 06/15/17 Respiratory Specific PMHX - Complaint Specific PMHX Angina: No Bronchitis: No Pneumonia: No Pulmonary Embolus: Yes TB (Tuberculosis): No <Marcelino Mayorga - Last Filed: 07/08/17 03:35> Review of Systems - Review of Systems Able to Perform ROS?: Yes Is the patient limited Chinese proficient: No Respiratory: Yes: Shortness of Breath, Hemoptysis Cardiac (ROS): No: Chest Pain, Lightheadedness, Palpitations, Syncope, Chest Tightness ABD/GI: No: Diarrhea, Nausea, Rectal Bleeding, Vomiting, Tarry Stools : No: Dysuria, Flank Pain, Hematuria Musculoskeletal: Yes: Back Pain All Other Systems: Reviewed and Negative <Marcelino Mayorga - Last Filed: 07/08/17 03:35> *Physical Exam - Vital Signs Last Vital Signs Temp Pulse Resp BP Pulse Ox 97.7 F 89 16 111/55 94 L 07/08/17 02:44 07/08/17 02:44 07/08/17 02:44 07/08/17 02:44 07/08/17 02:44 - Physical Exam General Appearance: Yes: Nourished, Appropriately Dressed, Mild Distress. No: Apparent Distress, Moderate Distress, Severe Distress Neck: positive: Trachea midline, Normal Thyroid, Supple. negative: Lymphadenopathy (R), Lymphadenopathy (L) Respiratory/Chest: positive: Decreased Breath Sounds. negative: Rhonchi, Stridor, Wheezing Cardiovascular: positive: Regular Rhythm, Regular Rate Gastrointestinal/Abdominal: positive: Normal Bowel Sounds, Soft, Distended. negative: Guarding, Rebound, Tenderness Musculoskeletal: positive: Normal Inspection. negative: CVA Tenderness Extremity: positive: Normal Capillary Refill, Normal Inspection, Normal Range of Motion, Pedal Edema, Swelling, Other (Lymph edema). negative: Calf Tenderness, Erythema, Inflammation Integumentary: positive: Normal Color, Dry, Warm Neurologic: positive: mediation commissioner II-XII NML intact, Fully Oriented, Alert, Normal Mood/ Affect, Normal Response, Motor Strength 5/5 <Marcelino Mayorga - Last Filed: 07/08/17 03:35> - Vital Signs Last Vital Signs Temp Pulse Resp BP Pulse Ox 97.7 F 89 16 111/55 94 L 07/08/17 02:44 07/08/17 02:44 07/08/17 02:44 07/08/17 02:44 07/08/17 02:44 <Vahe Steel - Last Filed: 07/08/17 04:28> ED Treatment Course - LABORATORY CBC & Chemistry Diagram: 07/08/17 03:07 07/08/17 03:07 - ADDITIONAL ORDERS Additional order review: 07/08/17 03:07 RBC 4.18 MCV 87.7 MCHC 32.1 RDW 18.5 H MPV 9.4 Neutrophils % 77.6 D Lymphocytes % 11.9 D Monocytes % 8.9 Eosinophils % 0.8 Basophils % 0.8 - RADIOLOGY Radiology Studies Ordered: Category Date Time Status CHEST CT WITHOUT CONTRAST [CT] Stat CT Scan 07/08/17 03:33 Ordered CHEST X-RAY PORTABLE* [RAD] Stat Radiology 07/08/17 02:53 Ordered <Marcelino Mayorga - Last Filed: 07/08/17 03:35> - LABORATORY CBC & Chemistry Diagram: 07/08/17 03:07 07/08/17 03:46 - ADDITIONAL ORDERS Additional order review: Laboratory Results 07/08/17 07/08/17 03:07 03:07 PT with INR 19.50 H INR 1.75 H D PTT (Actin FS) 25.0 L Sodium Cancelled Potassium Cancelled Chloride Cancelled Carbon Dioxide Cancelled Anion Gap Cancelled BUN Cancelled Creatinine Cancelled Creat Clearance w eGFR Cancelled Random Glucose Cancelled Calcium Cancelled Total Bilirubin Cancelled AST Cancelled ALT Cancelled Alkaline Phosphatase Cancelled Creatine Kinase Cancelled Troponin I Cancelled Total Protein Cancelled Albumin Cancelled 07/08/17 03:07 RBC 4.18 MCV 87.7 MCHC 32.1 RDW 18.5 H MPV 9.4 Neutrophils % 77.6 D Lymphocytes % 11.9 D Monocytes % 8.9 Eosinophils % 0.8 Basophils % 0.8 <Vahe Steel - Last Filed: 07/08/17 04:28> Medical Decision Making - Medical Decision Making 07/08/17 04:14 Microblogged Hospitalist & called 3x with no response. Awaiting callback. <Vahe Steel - Last Filed: 07/08/17 04:28>
[2017-07-08] MEDS ORDERED: SODIUM CHLORIDE 500 ML IV STA ×2 (04:00→06:19)
[2017-07-08] MEDS ORDERED: morphine CARPU-JECT 4 MG/1 ML DISP.SYRIN IVPUSH ONE ×2 (04:00→05:11)
[2017-07-08] MEDS ORDERED: ONDANSETRON 4 MG/2 ML VIAL IVPUSH ONE (04:00)
[2017-07-08 04:18] LABS: ALBUMIN 2.7 g/dl (3.4-5.0); ANION GAP 7 (8-16); BILIRUBIN,TOTAL 1.5 mg/dL (0.2-1.0); CALCIUM 8.3 mg/dL (8.5-10.1); CO2 29 mmol/L (21-32); CREATININE 0.6 mg/dL (0.55-1.02); GLUCOSE,RANDOM 105 mg/dL (74-106); SGPT/ALT 13 U/L (12-78); TOT PROT 7.4 g/dl (6.4-8.2)
[2017-07-08] MEDS ORDERED: morphine CARPU-JECT 4 MG/1 ML DISP.SYRIN ONE ×2 (04:19→05:14)
[2017-07-08] MEDS ORDERED: ONDANSETRON 4 MG/2 ML VIAL ONE (04:19)
[2017-07-08 04:20] LABS: ALK PHOS 98 U/L (45-117); CPK 56 IU/L (26-192)
[2017-07-08 04:21] LABS: SGOT/AST 18 U/L (15-37); TROPONIN I < 0.02 ng/ml (0.00-0.05)
[2017-07-08] MEDS ORDERED: ALBUTEROL SO4 0.083% IH SOL 2.5 MG/3 ML VIAL.NEB. NEB ONE ×2 (06:17→06:26)
[2017-07-08] MEDS ORDERED: methylPREDNISolone NA SUCC 125 MG/2 ML VIAL IVPB ONE (06:17)
[2017-07-08] MEDS ORDERED: methylPREDNISolone NA SUCC 125 MG/2 ML VIAL ONE (06:26)
--- NOTE | 2017-07-08 07:28 | PDOC ---
*Physical Exam - Vital Signs Last Vital Signs Temp Pulse Resp BP Pulse Ox 98.6 F 88 16 85/58 94 L 07/08/17 07:22 07/08/17 07:22 07/08/17 07:22 07/08/17 07:22 07/08/17 07:22 - Physical Exam Comments: 07/08/17 07:34 Pt appears comfortable on NC General Appearance: Yes: Appropriately Dressed, Apparent Distress HEENT: negative: Scleral Icterus (R), Scleral Icterus (L) Respiratory/Chest: positive: Other (decreased BS) Cardiovascular: positive: Regular Rate, S1, S2 Gastrointestinal/Abdominal: positive: Soft. negative: Tender Integumentary: positive: Dry, Warm Neurologic: positive: Fully Oriented, Alert, Normal Mood/Affect ED Treatment Course - LABORATORY CBC & Chemistry Diagram: 07/08/17 03:07 07/08/17 03:46 - ADDITIONAL ORDERS Additional order review: Laboratory Results 07/08/17 07/08/17 07/08/17 03:46 03:07 03:07 PT with INR 19.50 H INR 1.75 H D PTT (Actin FS) 25.0 L Sodium 134 L Cancelled Potassium 4.7 Cancelled Chloride 98 Cancelled Carbon Dioxide 29 Cancelled Anion Gap 7 L Cancelled BUN 12 Cancelled Creatinine 0.6 Cancelled Creat Clearance w eGFR > 60 Cancelled Random Glucose 105 Cancelled Calcium 8.3 L Cancelled Total Bilirubin 1.5 H D Cancelled AST 18 Cancelled ALT 13 Cancelled Alkaline Phosphatase 98 Cancelled Creatine Kinase 56 Cancelled Troponin I < 0.02 Cancelled Total Protein 7.4 Cancelled Albumin 2.7 L Cancelled 07/08/17 03:07 RBC 4.18 MCV 87.7 MCHC 32.1 RDW 18.5 H MPV 9.4 Neutrophils % 77.6 D Lymphocytes % 11.9 D Monocytes % 8.9 Eosinophils % 0.8 Basophils % 0.8 - Medications Given in the ED: ED Medications Discontinued Medications Generic Name Dose Route Start Last Admin Trade Name Freq PRN Reason Stop Dose Admin Albuterol Sulfate 1 amp 07/08/17 06:17 07/08/17 06:33 Ventolin 0.083% Nebulizer Soln - NEB 07/08/17 06:18 1 amp ONCE ONE Administration Sodium Chloride 500 mls @ 500 mls/hr 07/08/17 04:00 07/08/17 04:26 Normal Saline - IV 07/08/17 04:59 500 mls/hr ASDIR STA Administration Sodium Chloride 500 mls @ 500 mls/hr 07/08/17 06:19 07/08/17 06:33 Normal Saline - IV 07/08/17 07:18 500 mls/hr ASDIR STA Administration Methylprednisolone Sodium Succinate 125 mg 07/08/17 06:17 07/08/17 06:33 Solu-Medrol - IVPB 07/08/17 06:18 125 mg ONCE ONE Administration Morphine Sulfate 4 mg 07/08/17 04:00 07/08/17 04:26 Morphine Injection - IVPUSH 07/08/17 04:01 4 mg ONCE ONE Administration Morphine Sulfate 4 mg 07/08/17 05:11 07/08/17 05:18 Morphine Injection - IVPUSH 07/08/17 05:12 4 mg ONCE ONE Administration Ondansetron HCl 4 mg 07/08/17 04:00 07/08/17 04:26 Zofran Injection IVPUSH 07/08/17 04:01 4 mg ONCE ONE Administration Medical Decision Making - Medical Decision Making 07/08/17 07:28 Patient signed out to me by SANDY Mayorga at 7 AM today. Patient is a 46-year-old morbidly obesed female with history of anxiety, depression, [place] w/ stent, CHF on lasix, COPD (was sent home on oxygen during last admission but pt not using it), lymphedema, currently on Coumadin for PE, presents with productive cough with chest pain and shortness of breath since yesterday. Denies fever. As per prior team, had decreased breath sounds on exam. Labs remarkable for white count of 13. Status post CTA which showed approximately 4 cm mass to right base with possible pneumonia to left base and b /l small pleural effusion. Antibiotics in progress (will cover for HAP given recent admission-allergic to erythromycin so unable to give zithro). During last admission, patient was seen by Dr. Francis and SANDY Mayorga discussed case with Dr. Madison who is covering for Penny, who states if patient is not hypoxic on room air that she can potentially be discharged. However, on my eval patient desatted to 84% on room air when taken off nasal cannula. In addition, pt sub-therapeutic on her coumadin and hypotensive now. Will not be discharging patient home. Will contact hospitalist and admit. 07/08/17 07:[address] Jacobo and patient admitted at this time 07/08/17 07:46 *DC/Admit/Observation/Transfer Diagnosis at time of Disposition: SOB (shortness of breath) Pneumonia Qualifiers: Pneumonia type: due to unspecified organism Laterality: left Lung location: unspecified part of lung Qualified Code(s): J18.9 - Pneumonia, unspecified organism - Discharge Dispostion Condition at time of disposition: Fair Admit: Yes - Referrals Referrals: Jess Long MD [Primary Care Provider] -
[2017-07-08] MEDS ORDERED: VANCOMYCIN 1,000 MG in DEXTROSE 5%-WATER - 250 ML IVPB ONE (07:30)
[2017-07-08] MEDS ORDERED: CEFEPIME HCL 2 GM VIAL (RESTRICTED TO ID) IVPB ONE (07:30)
[2017-07-08] MEDS ORDERED: VANCOMYCIN 1 GRAM (PRE-DOCKED) 250 ML IVPB ONE (07:35)
[2017-07-08] MEDS ORDERED: CEFEPIME 100 ML IVPB ONE (07:35)
[2017-07-08] MEDS ORDERED: ONDANSETRON 4 MG/2 ML VIAL IVPB PRN (07:55)
[2017-07-08] MEDS ORDERED: ALBUTEROL SO4 0.083% IH SOL 2.5 MG/3 ML VIAL.NEB. NEB PRN (07:55)
[2017-07-08 07:57] LABS: URINE APPEARANCE SLCLOUDY; URINE BILIRUBIN NEGATIVE (NEGATIVE); URINE BLOOD NEGATIVE (NEGATIVE); URINE COLOR AMBER; URINE GLUCOSE (UA) NEGATIVE (NEGATIVE); URINE KETONE NEGATIVE (NEGATIVE); URINE LEUK ESTERASE NEGATIVE (NEGATIVE); URINE NITRITE POSITIVE (NEGATIVE); URINE UROBILINOGEN NEGATIVE mg/dL (0.2-1.0)
--- NOTE | 2017-07-08 08:14 | HP ---
CHIEF COMPLAINT:shortness of breath. PCP:Jess Long MD, Gutierrez Mae MD HISTORY OF PRESENT ILLNESS: 46 y/o morbidly obese F with significant PMHx of systolic CHF, [place](2011 s/p stents X2), COPD, asthma, chronic lymphedema, depression, anxiety, pulmonary HTN on Warfarin for h/o of DVT's presented today to ER for spitting up blood. Patient reports coughing up blood, trouble breathing, left upper back pain, shoulder, and neck pain. Patient denies fever, CP, n/v/d, confusion, disorientation, dysuria, hematuria, rectal bleeding, or any other complaints at this time. ER course was notable for: (1)CTA shows possible LLL PNA, RLL 4.8cm masslike density, possible LLL PE's (2)Hypotensive SPB in 80's (3)Given fluids, IV steroids and Vanco/Cefipime x1 Recent Travel:Denies PAST MEDICAL HISTORY:systolic CHF, [place](2011 s/p stents X2), COPD, asthma, chronic lymphedema, depression, anxiety, pulmonary HTN on Warfarin for h/o of DVT's PAST SURGICAL HISTORY: Cardiac stents x2 2010 Social History: Smoking:few cigs/day Alcohol:denies Drugs: marijuana Family History: Mother (alive with HTN);Father age 63, [place], first [place] in his 50s Allergies budesonide Allergy (Severe, Verified 07/08/17 02:44) Difficulty Breathing erythromycin base Allergy (Severe, Verified 07/08/17 02:44) Vomiting formoterol Allergy (Severe, Verified 07/08/17 02:44) Difficulty Breathing gabapentin Allergy (Severe, Verified 07/08/17 02:44) carvedilol Allergy (Intermediate, Verified 07/08/17 02:44) Nausea lisinopril Allergy (Intermediate, Verified 07/08/17 02:44) Nausea omeprazole Allergy (Intermediate, Verified 07/08/17 02:44) bupropion Allergy (Unknown, Verified 07/08/17 02:44) HOME MEDICATIONS: Home Medications Medication Instructions Recorded Albuterol Sulfate [Proventil HFA 1 - 2 inh PO QID PRN 11/02/16 Inhaler -] Cholecalciferol (Vitamin D3) 2,000 unit PO DAILY 11/02/16 [Vitamin D3] Cyanocobalamin [Vitamin B12 -] 500 mcg PO DAILY 11/02/16 Famotidine [Pepcid -] 40 mg PO BID 11/02/16 Fluticasone/Salmeterol [Advair 1 each IH DAILY 11/02/16 250-50 Diskus] Magnesium Oxide [Magnesium] 500 mg PO DAILY 11/02/16 Metoprolol Succinate [Toprol XL -] 50 mg PO DAILY 11/02/16 Valsartan 320 mg PO DAILY 11/02/16 Vitamin B Complex [B Complex # 1] 1 each PO DAILY 11/02/16 Furosemide [Lasix -] 40 mg PO DAILY #7 tablet 11/09/16 Salmeterol/Fluticasone [Advair 1 puff IH BID inhaler 11/09/16 100Mcg/50Mcg -] Warfarin Sodium 4.5 mg PO DAILY 07/08/17 REVIEW OF SYSTEMS CONSTITUTIONAL: Absent: fever, chills, diaphoresis, generalized weakness, malaise, loss of appetite, weight change HEENT: Absent: rhinorrhea, nasal congestion, throat pain, throat swelling, difficulty swallowing, mouth swelling, ear pain, eye pain, visual changes CARDIOVASCULAR: Absent: chest pain, syncope, palpitations, irregular heart rate, lightheadedness , peripheral edema RESPIRATORY: Absent: cough, shortness of breath, dyspnea with exertion, orthopnea, wheezing, stridor, hemoptysis GASTROINTESTINAL: Absent: abdominal pain, abdominal distension, nausea, vomiting, diarrhea, constipation, melena, hematochezia GENITOURINARY: Absent: dysuria, frequency, urgency, hesitancy, hematuria, flank pain, genital pain MUSCULOSKELETAL: Absent: myalgia, arthralgia, joint swelling, back pain, neck pain SKIN: Absent: rash, itching, pallor HEMATOLOGIC/IMMUNOLOGIC: Absent: easy bleeding, easy bruising, lymphadenopathy, frequent infections ENDOCRINE: Absent: unexplained weight gain, unexplained weight loss, heat intolerance, cold intolerance NEUROLOGIC: Absent: headache, focal weakness or paresthesias, dizziness, unsteady gait, seizure, mental status changes, bladder or bowel incontinence PSYCHIATRIC: Absent: anxiety, depression, suicidal or homicidal ideation, hallucinations. PHYSICAL EXAMINATION Vital Signs - 24 hr 07/08/17 07/08/17 07/08/17 02:44 06:44 07:22 Temperature 97.7 F 98.6 F Pulse Rate 89 Pulse Rate [ 89 88 Radial] Respiratory 16 19 16 Rate Blood Pressure 111/55 Blood Pressure 96/70 85/58 [Right Arm] O2 Sat by Pulse 94 L 96 94 L Oximetry (%) 07/08/17 07:25 Temperature Pulse Rate 88 Pulse Rate [ Radial] Respiratory Rate Blood Pressure Blood Pressure [Right Arm] O2 Sat by Pulse 94 L Oximetry (%) GENERAL: Awake, alert, and fully oriented, in no acute distress. HEAD: Normal with no signs of trauma. EYES: Pupils equal, round and reactive to light, extraocular movements intact, sclera anicteric, conjunctiva clear. No lid lag. EARS, NOSE, THROAT: Ears normal, nares patent, oropharynx clear without exudates. Moist mucous membranes. NECK: Normal range of motion, supple without lymphadenopathy, JVD, or masses. LUNGS: Breath sounds equal, clear to auscultation bilaterally. No wheezes, and no crackles. No accessory muscle use. HEART: Regular rate and rhythm, normal S1 and S2 without murmur, rub or gallop. ABDOMEN: Soft, nontender, not distended, normoactive bowel sounds, no guarding, no rebound, no masses. No hepatomegaly or splenomegaly. MUSCULOSKELETAL: Normal range of motion at all joints. No bony deformities or tenderness. No CVA tenderness. UPPER EXTREMITIES: 2+ pulses, warm, well-perfused. No cyanosis. No clubbing. No peripheral edema. LOWER EXTREMITIES: 2+ pulses, warm, well-perfused. No calf tenderness. No peripheral edema. NEUROLOGICAL: Cranial nerves II-XII intact. Normal speech. Normal gait. PSYCHIATRIC: Cooperative. Good eye contact. Appropriate mood and affect. SKIN: Warm, dry, normal turgor, no rashes or lesions noted, normal capillary refill. Laboratory Results - last 24 hr 07/08/17 07/08/17 07/08/17 03:07 03:07 03:07 WBC 13.1 H D RBC 4.18 Hgb 11.7 Hct 36.6 MCV 87.7 MCH 28.1 MCHC 32.1 RDW 18.5 H Plt Count 232 MPV 9.4 Neutrophils % 77.6 D Lymphocytes % 11.9 D Monocytes % 8.9 Eosinophils % 0.8 Basophils % 0.8 PT with INR 19.50 H INR 1.75 H D PTT (Actin FS) 25.0 L Sodium Cancelled Potassium Cancelled Chloride Cancelled Carbon Dioxide Cancelled Anion Gap Cancelled BUN Cancelled Creatinine Cancelled Creat Clearance w eGFR Cancelled Random Glucose Cancelled Calcium Cancelled Total Bilirubin Cancelled AST Cancelled ALT Cancelled Alkaline Phosphatase Cancelled Creatine Kinase Cancelled Troponin I Cancelled Total Protein Cancelled Albumin Cancelled 07/08/17 03:46 WBC RBC Hgb Hct MCV MCH MCHC RDW Plt Count MPV Neutrophils % Lymphocytes % Monocytes % Eosinophils % Basophils % PT with INR INR PTT (Actin FS) Sodium 134 L Potassium 4.7 Chloride 98 Carbon Dioxide 29 Anion Gap 7 L BUN 12 Creatinine 0.6 Creat Clearance w eGFR > 60 Random Glucose 105 Calcium 8.3 L Total Bilirubin 1.5 H D AST 18 ALT 13 Alkaline Phosphatase 98 Creatine Kinase 56 Troponin I < 0.02 Total Protein 7.4 Albumin 2.7 L IMAGING: * EXAM#: TYPE/EXAM: RESULT: [id number] RAD/CHEST X-RAY PORTABLE* AP portable chest: Shortness of breath. Coughing up blood. Imaging reveals a large heart with unfolded aorta and congestive changes. There is improvement since 2016. Reported By: Marvel Gallagher MD 07/08/17 0731 * [id number] CT/CHEST CTA CT angiogram chest with contrast: HISTORY: Coughing up blood. CT angiogram of the chest is performed with intravenous contrast. 124 cc of Omnipaque 350 was administered intravenously. Axial images were obtained with pulmonary embolism protocol. Coronal and sagittal reconstructions are also provided. Poor contrast opacification of multiple left lower lobe arterial branches is noted concerning for pulmonary embolism versus artifact. Patchy density in the left lower lobe may reflect pneumonia or developing infarction. 4.8 cm sized masslike density in the right lower lobe is noted and recommend follow-up. There are small bilateral pleural effusions. There is no evidence of aortic dissection or aneurysm. There is hilar and mediastinal lymphadenopathy. Minimal emphysematous changes are noted. 1 cm calcification related to the right thyroid is noted. There is cardiomegaly. There is coronary artery vascular disease. The liver demonstrates slightly nodular contour and recommend clinical correlation for cirrhosis. The liver also appears enlarged consistent with hepatomegaly however is incompletely imaged. There is question of periportal lymphadenopathy. There is subcutaneous edema noted posteriorly on the upper cuts of the abdomen. IMPRESSION: Poor contrast opacification of multiple left lower lobe arterial branches raising possibility of pulmonary embolism. Additional findings as above. Reported By: Zina Modi MD [id number] ASSESSMENT/PLAN: 46 y/o morbidly obese F with significant PMHx of systolic CHF, [place](2010 s/p stents X2), COPD, asthma, chronic lymphedema, depression, anxiety, pulmonary HTN on Warfarin for h/o of DVT's presented today to ER for spitting up blood admitted to hospital for Pneumonia and hypotension. Problem List - Problem (1) Pneumonia Assessment/Plan: * CTA shows 4 cm mass to right base with possible pneumonia to left base and b/ l small pleural effusion. * Given Vanco/Cefipime in ED. * Will consult pulmonary * Sputum and Urine atingen for PNA sent. * Blood cultures pending. (2) COPD (chronic obstructive pulmonary disease) Assessment/Plan: * IV solumedrol * Duonegs standing and albuterol PRN for wheezing. * Incentive spirometry. * Resume Advair. * pulmonary consulted. * supplemental O2 to maintain Spo2 >90% (3) Systolic CHF Assessment/Plan: * Continue Lasix 40mg PO daily * Continue Toprol XL 50mg PO dialy (4) Coronary artery disease (5) Morbid (severe) obesity with alveolar hypoventilation Assessment/Plan: * BiPaP as needed. * Calorie restricted diet. * counseled on importance of losing weight and eating a low sodium heart healthy diet. (6) Adjustment disorder with depressed mood (7) Subtherapeutic international normalized ratio (INR) Assessment/Plan: * will continue warfarin at current dose. * repeat INR in AM Visit type - Emergency Visit Emergency Visit: Yes ED Registration Date: 07/08/17 Care time: The patient presented to the Emergency Department on the above date and was hospitalized for further evaluation of their emergent condition. - New Patient This patient is new to me today: Yes Date on this admission: 07/10/17 - Critical Care Critical Care patient: No
[2017-07-08 08:22] LABS: URINE PROTEIN 1+ (NEGATIVE)
--- NOTE | 2017-07-08 08:26 | HP ---
CHIEF COMPLAINT: Shortness of breath PCP:Jess Long MD, Gutierrez Mae MD HISTORY OF PRESENT ILLNESS: 46yo Female patient w/ PmHx: COPD, CHF, Morbid Obesity, Lymphedema, Depression, [place] w/ stent, Anxiety, HTN, PE on Coumadin 4.5mg presents to ED via EMS c/o "spitting up blood." Patient reports coughing up blood, trouble breathing, left upper back pain, shoulder, and neck pain. Patient denies fever, CP, n/v/d, confusion, disorientation, dysuria, hematuria, rectal bleeding, or any other complaints at this time.reports getting worse, yesterday ER course was notable for: (1)CTA shows possible LLL PNA, RLL 4.8cm masslike density, possible LLL PE's (2)Hypotensive SPB in 80's (3)Given fluids, IV steroids and Vanco/Cefipime x1 Recent Travel: denies PAST MEDICAL HISTORY: systolic CHF, [place](2011 s/p stents X2), COPD, asthma, chronic lymphedema, depression, anxiety, pulmonary HTN on Warfarin for h/o of DVT's PAST SURGICAL HISTORY: Cardiac stent x2 2011 Social History: Smoking: few cig/day Alcohol:sochially Drugs: marijuana Family History: mother with HTN she is alive, ;Father age 63, [place]. Allergies budesonide Allergy (Severe, Verified 07/08/17 02:44) Difficulty Breathing erythromycin base Allergy (Severe, Verified 07/08/17 02:44) Vomiting formoterol Allergy (Severe, Verified 07/08/17 02:44) Difficulty Breathing gabapentin Allergy (Severe, Verified 07/08/17 02:44) carvedilol Allergy (Intermediate, Verified 07/08/17 02:44) Nausea lisinopril Allergy (Intermediate, Verified 07/08/17 02:44) Nausea omeprazole Allergy (Intermediate, Verified 07/08/17 02:44) bupropion Allergy (Unknown, Verified 07/08/17 02:44) HOME MEDICATIONS: Home Medications Medication Instructions Recorded Albuterol Sulfate [Proventil HFA 1 - 2 inh PO QID PRN 11/02/16 Inhaler -] Cholecalciferol (Vitamin D3) 2,000 unit PO DAILY 11/02/16 [Vitamin D3] Cyanocobalamin [Vitamin B12 -] 500 mcg PO DAILY 11/02/16 Famotidine [Pepcid -] 40 mg PO BID 11/02/16 Fluticasone/Salmeterol [Advair 1 each IH DAILY 11/02/16 250-50 Diskus] Magnesium Oxide [Magnesium] 500 mg PO DAILY 11/02/16 Metoprolol Succinate [Toprol XL -] 50 mg PO DAILY 11/02/16 Valsartan 320 mg PO DAILY 11/02/16 Vitamin B Complex [B Complex # 1] 1 each PO DAILY 11/02/16 Furosemide [Lasix -] 40 mg PO DAILY #7 tablet 11/09/16 Salmeterol/Fluticasone [Advair 1 puff IH BID inhaler 11/09/16 100Mcg/50Mcg -] Warfarin Sodium 4.5 mg PO DAILY 07/08/17 REVIEW OF SYSTEMS CONSTITUTIONAL: Absent: fever, chills, diaphoresis, generalized weakness, malaise, loss of appetite, weight change HEENT: Absent: rhinorrhea, nasal congestion, throat pain, throat swelling, difficulty swallowing, mouth swelling, ear pain, eye pain, visual changes CARDIOVASCULAR: Absent: chest pain, syncope, palpitations, irregular heart rate, lightheadedness , peripheral edema RESPIRATORY: Absent: cough, shortness of breath, dyspnea with exertion, orthopnea, wheezing, stridor, hemoptysis GASTROINTESTINAL: Absent: abdominal pain, abdominal distension, nausea, vomiting, diarrhea, constipation, melena, hematochezia GENITOURINARY: Absent: dysuria, frequency, urgency, hesitancy, hematuria, flank pain, genital pain MUSCULOSKELETAL: Absent: myalgia, arthralgia, joint swelling, back pain, neck pain SKIN: Absent: rash, itching, pallor HEMATOLOGIC/IMMUNOLOGIC: Absent: easy bleeding, easy bruising, lymphadenopathy, frequent infections ENDOCRINE: Absent: unexplained weight gain, unexplained weight loss, heat intolerance, cold intolerance NEUROLOGIC: Absent: headache, focal weakness or paresthesias, dizziness, unsteady gait, seizure, mental status changes, bladder or bowel incontinence PSYCHIATRIC: Absent: anxiety, depression, suicidal or homicidal ideation, hallucinations. PHYSICAL EXAMINATION Vital Signs - 24 hr 07/08/17 07/08/17 07/08/17 07:55 07:58 08:22 Temperature 98.4 F Pulse Rate [ 87 86 Radial] Respiratory 16 16 Rate Blood Pressure 91/59 106/58 [Right Arm] O2 Sat by Pulse 94 L 92 L 93 L Oximetry (%) GENERAL: Awake, alert, and fully oriented, in no acute distress. HEAD: Normal with no signs of trauma. EYES: Pupils equal, round and reactive to light, extraocular movements intact, sclera anicteric, conjunctiva clear. No lid lag. EARS, NOSE, THROAT: Ears normal, nares patent, oropharynx clear without exudates. Moist mucous membranes. NECK: Normal range of motion, supple without lymphadenopathy, JVD, or masses. LUNGS: Breath sounds equal, clear to auscultation bilaterally. No wheezes, and no crackles. No accessory muscle use. HEART: Regular rate and rhythm, normal S1 and S2 without murmur, rub or gallop. ABDOMEN: Soft, nontender, not distended, normoactive bowel sounds, no guarding, no rebound, no masses. No hepatomegaly or splenomegaly. MUSCULOSKELETAL: Normal range of motion at all joints. No bony deformities or tenderness. No CVA tenderness. UPPER EXTREMITIES: 2+ pulses, warm, well-perfused. No cyanosis. No clubbing. No peripheral edema. LOWER EXTREMITIES: 2+ pulses, warm, well-perfused. No calf tenderness. No peripheral edema. NEUROLOGICAL: Cranial nerves II-XII intact. Normal speech. Normal gait. PSYCHIATRIC: Cooperative. Good eye contact. Appropriate mood and affect. SKIN: Warm, dry, normal turgor, no rashes or lesions noted, normal capillary refill. Laboratory Results - last 24 hr 07/08/17 07:50 Urine Color Myrtle Urine Appearance Slcloudy Urine pH 5.0 Urine Protein 1+ H Urine Glucose (UA) Negative Urine Ketones Negative Urine Blood Negative Urine Nitrite Positive Urine Bilirubin Negative Urine Urobilinogen Negative IMAGING: * EXAM#: TYPE/EXAM: RESULT: [id number] RAD/CHEST X-RAY PORTABLE* AP portable chest: Shortness of breath. Coughing up blood. Imaging reveals a large heart with unfolded aorta and congestive changes. There is improvement since 2016. Reported By: Marvel Gallagher MD 07/08/17 0731 * [id number] CT/CHEST CTA CT angiogram chest with contrast: HISTORY: Coughing up blood. CT angiogram of the chest is performed with intravenous contrast. 124 cc of Omnipaque 350 was administered intravenously. Axial images were obtained with pulmonary embolism protocol. Coronal and sagittal reconstructions are also provided. Poor contrast opacification of multiple left lower lobe arterial branches is noted concerning for pulmonary embolism versus artifact. Patchy density in the left lower lobe may reflect pneumonia or developing infarction. 4.8 cm sized masslike density in the right lower lobe is noted and recommend follow-up. There are small bilateral pleural effusions. There is no evidence of aortic dissection or aneurysm. There is hilar and mediastinal lymphadenopathy. Minimal emphysematous changes are noted. 1 cm calcification related to the right thyroid is noted. There is cardiomegaly. There is coronary artery vascular disease. The liver demonstrates slightly nodular contour and recommend clinical correlation for cirrhosis. The liver also appears enlarged consistent with hepatomegaly however is incompletely imaged. There is question of periportal lymphadenopathy. There is subcutaneous edema noted posteriorly on the upper cuts of the abdomen. IMPRESSION: Poor contrast opacification of multiple left lower lobe arterial branches raising possibility of pulmonary embolism. Additional findings as above. Reported By: Zina Modi MD 0834 ASSESSMENT/PLAN: 46 y/o morbidly obese F with significant PMHx of systolic CHF, [place](2011 s/p stents X2), COPD, asthma, chronic lymphedema, depression, anxiety, pulmonary HTN on Warfarin for h/o of DVT's presented today to ER for spitting up blood admitted to hospital for Pneumonia and hypotension. #Acute hypoxic respiratory distress likely 2/2 pneumonia vs CHF * saturating 93% on RA * CTA shows 4 cm mass to right base with possible pneumonia to left base and b/ l small pleural effusion. * Given Vanco/Cefipime in ED. * Start Levaquin * Will consult pulmonary * Sputum and Urine atingen for PNA sent. * Blood cultures pending. * pre and post to assess for home O2 #COPD (chronic obstructive pulmonary disease) * IV solumedrol * Duonegs standing and albuterol PRN for wheezing. * Incentive spirometry. * Resume Advair. * pulmonary consulted. * supplemental O2 to maintain Spo2 >90% #Systolic CHF * Continue Lasix 40mg PO daily * Continue Toprol XL 50mg PO dialy * I&O * Daily wait * Restrict free water intake # Subtheraputic INR * start hep bridge for additional day. * monitor INR closely. * cont rate control with metoprolol # chronic lymphedema * likely worsened with volume overload. * will need to f/u with vascular surgeon as outpatient. * consider pain management as outpatient if continues to have pain after optimized # DM * A1c last admission 7.2 * non compliant with diabetic diet. # Morbid (severe) obesity with alveolar hypoventilation * BiPaP as needed. * Calorie restricted diet. * counseled on importance of losing weight and eating a low sodium heart healthy diet. # Subtherapeutic international normalized ratio (INR) * will continue warfarin at current dose. * repeat INR in AM # Dispo * Admit to med surg * DNR/DNI on last admission. verbalized she would like to maintain code status at this time Visit type - Emergency Visit Emergency Visit: Yes ED Registration Date: 07/08/17 Care time: The patient presented to the Emergency Department on the above date and was hospitalized for further evaluation of their emergent condition. - New Patient This patient is new to me today: Yes Date on this admission: 07/10/17 - Critical Care Critical Care patient: No
[2017-07-08 09:08] LABS: URINE BACTERIA MANY /hpf (NONE SEEN); URINE MUCUS RARE; URINE RBC 1 /hpf (0-3); URINE WBC 3 /hpf (3-5)
[2017-07-08] MEDS ORDERED: WARFARIN NA 5 MG TABLET (UD) PO SCH (10:00)
[2017-07-08] MEDS ORDERED: FUROSEMIDE 40 MG TABLET (FP) PO SCH (10:00)
[2017-07-08] MEDS: ALBUTEROL SO4 2.5/IPRATROPIUM 0.5 INH SOL 3 ML VIAL.NEB. NEB SCH ×2 (11:24→17:13)
[2017-07-08] MEDS: CHOLECALCIFEROL (VITAMIN D3) 1,000 UNIT TABLET (FP) PO SCH (11:41)
[2017-07-08] MEDS: RANITIDINE HCL 150 MG TABLET (FP) PO SCH (11:42)
[2017-07-08] MEDS: VALSARTAN 160 MG TABLET (UD) PO SCH (11:42)
[2017-07-08] MEDS: MAGNESIUM OXIDE 400 MG TABLET (FP) PO SCH (11:43)
[2017-07-08] MEDS: CYANOCOBALAMIN 1,000 MCG TABLET (FP) PO SCH (11:43)
[2017-07-08] MEDS: METOPROLOL SUCCINATE 50 MG TAB.SR.24H (FP) PO SCH (11:47)
--- NOTE | 2017-07-08 12:56 | CON.PULM ---
Consult Consult Specialty:: PULMONARY Referred by:: ALHJAI Reason for Consultation:: HEMOPTYSIS - History of Present Illness Chief Complaint: COUGHING BLOOD History of Present Illness: 46 morbidly obese female with history of of CAD post [place] (2011 s/p stents X2) , systolic dysfunction with h/o failure, pulm HTN, COPD, asthma, chronic lymphedema, anxiety, current smoker, depression and anxiety, had episode of hemoptysis in past,who presented with increased SOB, orthopnea and cough x 3-4 days with blood streaked sputum. She also presents with right flank pain. Denies N/V/D abdominal pain, near or true syncope, palpitations or PND. Patient reports left sided chest pain and mid epigastric discomfort. Well known to our service. - History Source History Provided By: Patient, Medical Record Limitations to Obtaining History: No Limitations - Past Medical History DECATIZER: No: Alzheimer's Cardio/Vascular: Yes: CAD, CHF, [place], Pulmonary Hypertension Pulmonary: Yes: Asthma, COPD Gastrointestinal: No: Cancer Hepatobiliary: No: Cirrhosis Renal/: No: Renal Failure Reproductive: Yes: Postmenopausal Infectious Disease: No: AIDS Psych: No: Addictions Dermatology: Yes: Other (Leg Cellulitis) - Alcohol/Substance Use Hx Alcohol Use: No - Smoking History Smoking history: Never smoked Have you smoked in the past 12 months: No Aproximately how many cigarettes per day: 2 If you are a former smoker, when did you quit?: April 2016 - Social History Usual Living Arrangement: Alone ADL: Family Assistance Place of : [facility] History of Recent Travel: No Home Medications - Allergies Allergies/Adverse Reactions: Allergies Allergy/AdvReac Type Severity Reaction Status Date / Time budesonide Allergy Severe Difficulty Verified 07/08/17 02:44 Breathing erythromycin base Allergy Severe Vomiting Verified 07/08/17 02:44 formoterol Allergy Severe Difficulty Verified 07/08/17 02:44 Breathing gabapentin Allergy Severe Verified 07/08/17 02:44 carvedilol Allergy Intermediate Nausea Verified 07/08/17 02:44 lisinopril Allergy Intermediate Nausea Verified 07/08/17 02:44 omeprazole Allergy Intermediate Verified 07/08/17 02:44 bupropion Allergy Unknown Verified 07/08/17 02:44 - Home Medications Home Medications: Ambulatory Orders Albuterol Sulfate [Proventil HFA Inhaler -] 1 - 2 inh PO QID PRN 11/02/16 Cholecalciferol (Vitamin D3) [Vitamin D3] 2,000 unit PO DAILY 11/02/16 Cyanocobalamin [Vitamin B12 -] 500 mcg PO DAILY 11/02/16 Famotidine [Pepcid -] 40 mg PO BID 11/02/16 Fluticasone/Salmeterol [Advair 250-50 Diskus] 1 each IH DAILY 11/02/16 Magnesium Oxide [Magnesium] 500 mg PO DAILY 11/02/16 Metoprolol Succinate [Toprol XL -] 50 mg PO DAILY 11/02/16 Valsartan 320 mg PO DAILY 11/02/16 Vitamin B Complex [B Complex # 1] 1 each PO DAILY 11/02/16 Furosemide [Lasix -] 40 mg PO DAILY #7 tablet 11/09/16 Salmeterol/Fluticasone [Advair 100Mcg/50Mcg -] 1 puff IH BID inhaler 11/09/16 Warfarin Sodium 4.5 mg PO DAILY 07/08/17 Family Disease History - Family Disease History Family History: Unremarkable Review of Systems - Review of Systems Constitutional: denies: Fever Eyes: reports: No Symptoms HENT: denies: Throat Pain Neck: reports: No Symptoms Cardiovascular: reports: Chest Pain Respiratory: reports: Cough, Hemoptysis, SOB on Exertion. denies: Wheezing Gastrointestinal: reports: Abdominal Pain (midepigastric) Musculoskeletal: reports: Other (lymphedema) Physical Exam Vital Sings: Vital Signs Temperature 98.4 F 07/08/17 08:22 Pulse Rate 90 07/08/17 10:28 Respiratory Rate 16 07/08/17 08:22 Blood Pressure 106/58 07/08/17 08:22 O2 Sat by Pulse Oximetry (%) 92 L 07/08/17 10:28 Constitutional: Yes: Calm Eyes: Yes: EOM Intact HENT: Yes: Normocephalic Neck: Yes: Trachea Midline Cardiovascular: Yes: S1, S2 Respiratory: Yes: Diminished (at bases) ...Clubbing: No Gastrointestinal: Yes: Abdomen, Obese Extremities: Yes: Other (lymphedema) Integumentary: Yes: Venous Stasis Changes Neurological: Yes: Alert Labs: reviewed Imaging - Results Chest X-ray: Report Reviewed, Image Reviewed Cat Scan: Report Reviewed, Image Reviewed Problem List - Problems (1) Pneumonia Code(s): J18.9 - PNEUMONIA, UNSPECIFIED ORGANISM Qualifiers: Pneumonia type: due to unspecified organism Laterality: left Lung location: unspecified part of lung Qualified Code(s): J18.9 - Pneumonia, unspecified organism (2) SOB (shortness of breath) Code(s): R06.02 - SHORTNESS OF BREATH (3) Systolic CHF Code(s): I50.20 - UNSPECIFIED SYSTOLIC (CONGESTIVE) HEART FAILURE Qualifiers: Congestive heart failure chronicity: chronic Qualified Code(s): I50.22 - Chronic systolic (congestive) heart failure (4) Biventricular failure Code(s): I50.9 - HEART FAILURE, UNSPECIFIED (5) Pulmonary embolism Code(s): I26.99 - OTHER PULMONARY EMBOLISM WITHOUT ACUTE COR PULMONALE Qualifiers: Pulmonary embolism type: other Chronicity: acute Acute cor pulmonale presence: without acute cor pulmonale Qualified Code(s): I26.99 - Other pulmonary embolism without acute cor pulmonale (6) Hemoptysis Code(s): R04.2 - HEMOPTYSIS Assessment/Plan Hemoptysis likely related to pe/?infarction infiltrate at left base may be heme/? pneumonia The mid right lung density which was not present in May is likely fluid in right minor fissure monitor hemoptysis continue anticoagulation/ monitor hgb o2/bronchodilators/abs f/u cultures cardio follow up will follow Mitch MCDANIEL MD
[2017-07-08 13:08] VITALS: BMI 57.2
[2017-07-08] MEDS ORDERED: HEPARIN NA (PORCINE) 5,000 UNITS/ML 1ML VIAL IVPUSH PRN (14:10)
--- NOTE | 2017-07-08 14:20 | PN ---
Teaching Attending Note Name of Resident: Simone Lerma ATTENDING PHYSICIAN STATEMENT I saw and evaluated the patient. I reviewed the resident's note and discussed the case with the resident. I agree with the resident's findings and plan as documented. SUBJECTIVE:46yo F who was recently admitted for B/L PE and CHF exacerbation returned to the ER with hemoptysis. states the past few days been having productive cough of clear sputum with increasing shortness of breath on exertion and is unable to walk more than 10 feet prior to getting short of breath. +orthopnea (been using 3 pillows and typicall uses 2). and L shoulder pain. yesterday started having gross hemoptysis that persisted which prompted her to the ER. states when she left here she was sent to [facility] which she signed out AMA and they refused to give her oxygen for home and her medications so shes been without her home O2. therefore she has not been using it. denies CP , fever, chills, night sweats, N/V/C/D OBJECTIVE: Last Vital Signs Temp Pulse Resp BP Pulse Ox 97.6 F 86 16 136/72 95 07/08/17 12:28 07/08/17 12:28 07/08/17 12:28 07/08/17 12:28 07/08/17 12:28 General NAD CV S1 S2 RRR Lungs decreased breath sounds diffusely. poor inspiratory effort Abdomen soft NT/ND obese extremities 1+ pitting edema ASSESSMENT AND PLAN: 46yo F wtih PMH systolic CHF, [place] s/p 2 stents, COPD, depression, pulmonary HTN, B/L PE on coumadin presented with hemoptysis and orthopnea 1. Acute hypoxic respiratory distress- Medicine admission. likely due to LLL PNA and some acute on chronic CHF exacerbation. saturating 92% on 3L. will start levaquin as was on ceftriaxone and doxycycline last admission. elevated BNP and increased in weight by 20 lbs since last admission. will start lasix IV 40mg BID and monitor weights. strict I&O. supplemental oxygen as needed. will likley require home O2. will have respiratory evaluation. Pulmonary consult 2. Hemoptysis- likely due to PNA or from chronic coughing and mucosa irritation. monitor CBC 3. Subtherapeutic INR- will not adjust coumadin at this time as starting levaquin. start heparin bridge as pt is subtherapeutic. can not give lovenox as she is 160kg and would need multiple injection to comprise that dose. cont rate control with metoprolol 4. HTN- this morning was hypotensive. currently stable. re-start medications as needed to control. 5. DM2- A1c last admission 7.2 diet controlled 6. DNR/DNI on last admission. will confirm there is no change in code status
[2017-07-08] MEDS: LEVOFLOXACIN 500 MG TABLET (FP) PO SCH (16:05)
[2017-07-08] MEDS: HEPARIN - 25,000 UNIT in SODIUM CHLORIDE 495 ML IV SCH (17:17)
[2017-07-08] MEDS ORDERED: WARFARIN NA 2.5 MG, WARFARIN NA 2 MG PO SCH (18:00)
[2017-07-08] MEDS ORDERED: WARFARIN NA 2 MG TABLET (UD) ONE (18:31)
[2017-07-08] MEDS ORDERED: WARFARIN NA 2.5 MG TABLET (FP) ONE (18:31)
[2017-07-09] MEDS: ALBUTEROL SO4 2.5/IPRATROPIUM 0.5 INH SOL 3 ML VIAL.NEB. NEB SCH ×4 (00:32→17:28)
[2017-07-09] MEDS ORDERED: ACETAMINOPHEN 500 MG TABLET (FP) PO PRN (01:01)
[2017-07-09] MEDS ORDERED: morphine SO4 SUSTAINED ACTING 15 MG TABLET.SA PO ONE (03:56)
[2017-07-09] MEDS ORDERED: morphine CARPU-JECT 2 MG/1 ML DISP.SYRIN IM ONE (04:02)
[2017-07-09] MEDS: FUROSEMIDE 40 MG/4 ML INJECTABLE VIAL IVPB SCH ×2 (06:55→15:20)
[2017-07-09] MEDS: LEVOFLOXACIN 500 MG TABLET (FP) PO SCH (06:57)
[2017-07-09 07:27] LABS: BASOPHIL 0.2 % (0-2.0); EOSINOPHIL 0.1 % (0-4.5); MCH 27.4 pg (25.7-33.7); MCHC 31.4 g/dl (32.0-36.0); MEAN CELL VOLUME 87.5 fl (80-96); MEAN PLT VOLUME 9.5 fl (7.5-11.1); NEUTROPHILS 80.5 % (42.8-82.8); PLATELET COUNT 221 K/MM3 (134-434); WHITE BLOOD COUNT 13.9 K/mm3 (4.0-10.0)
[2017-07-09 07:41] LABS: INR 2.45 (0.82-1.09); PROTHROMBIN TIME (PATIENT) 27.4 SEC (9.98-11.88)
[2017-07-09 08:00] LABS: ALBUMIN 2.6 g/dl (3.4-5.0); ALK PHOS 95 U/L (45-117); ANION GAP 8 (8-16); BILIRUBIN,TOTAL 1.2 mg/dL (0.2-1.0); CALCIUM 8.3 mg/dL (8.5-10.1); CO2 27 mmol/L (21-32); CREATININE 0.9 mg/dL (0.55-1.02); GLUCOSE,RANDOM 114 mg/dL (74-106); MAGNESIUM 2.2 mg/dL (1.8-2.4); PHOSPHOROUS 4.3 mg/dL (2.5-4.9); SGOT/AST 39 U/L (15-37); SGPT/ALT 31 U/L (12-78); TOT PROT 7.7 g/dl (6.4-8.2)
[2017-07-09] MEDS ORDERED: oxyCODONE HCL 5 MG TABLET PO PRN (08:45)
--- NOTE | 2017-07-09 08:56 | PN ---
Progress Note (short form) - Note Progress Note: very upset over being on diabetic diet. c/o LLE pain that has been chronic. states breathing is slightly improved but have not ambulated much since admitted to the hospital. reports good UOP. continues to have gross hemoptysis. denies CP, fever, chills, night sweats. N/V/C/D Current Medications Generic Name Dose Route Start Last Admin Trade Name Freq PRN Reason Stop Dose Admin Acetaminophen 500 mg 07/09/17 01:01 Tylenol - PO Q6H PRN FEVER OR PAIN Albuterol Sulfate 1 amp 07/08/17 07:55 Ventolin 0.083% Nebulizer Soln - NEB Q4H PRN SHORT OF BREATH/WHEEZING Albuterol/Ipratropium 1 amp 07/08/17 12:00 07/09/17 06:51 Duoneb - NEB 1 amp QIDR MARCO Administration Cholecalciferol 2,000 unit 07/08/17 10:00 07/08/17 11:41 Vitamin D3 - PO 2,000 unit DAILY MARCO Administration Cyanocobalamin 500 mcg 07/08/17 10:00 07/08/17 11:43 Vitamin B12 - PO 500 mcg DAILY MARCO Administration Furosemide 40 mg 07/09/17 06:00 07/09/17 06:55 Lasix Injection - IVPB 40 mg BID@0600,1400 MARCO Administration Heparin Sodium (Porcine) 1,000 unit 07/08/17 14:10 Heparin - IVPUSH PRN PRN Heparin Heparin Sodium (Porcine) 5,000 unit 07/08/17 14:10 Heparin - IVPUSH PRN PRN Heparin Heparin Sodium (Porcine) 25, 500 mls @ 20 mls/hr 07/08/17 14:15 07/08/17 17:17 000 unit/ Sodium Chloride IV 20 mls/hr TITR MARCO Administration Protocol 1,000 UNIT/HR Levofloxacin 500 mg 07/08/17 12:45 07/09/17 06:57 Levaquin - PO 500 mg DAILY@0600 MARCO Administration Magnesium Oxide 400 mg 07/08/17 10:00 07/08/17 11:43 Mag-Ox - PO 400 mg DAILY MARCO Administration Metoprolol Succinate 50 mg 07/08/17 10:00 07/08/17 11:47 Toprol Xl - PO 50 mg DAILY MARCO Administration Non-Formulary Medication 1 each 07/08/17 10:00 Fluticasone/Salmeterol [Advair 250-50 Diskus] IH DAILY MARCO Non-Formulary Medication 1 each 07/08/17 10:00 Vitamin B Complex [B Complex # 1] PO DAILY MARCO Ondansetron HCl 4 mg 07/08/17 07:55 Zofran Injection IVPB Q6H PRN NAUSEA Oxycodone HCl 15 mg 07/09/17 08:45 Roxicodone - PO Q6H PRN PAIN Ranitidine HCl 300 mg 07/08/17 10:00 07/08/17 11:42 Zantac - PO 300 mg DAILY MARCO Administration Valsartan 320 mg 07/08/17 10:00 07/08/17 11:42 Diovan - PO 320 mg DAILY MARCO Administration Last Vital Signs Temp Pulse Resp BP Pulse Ox 98.8 F 65 16 102/42 96 07/09/17 07:01 07/09/17 07:01 07/09/17 07:01 07/09/17 07:01 07/08/17 21:00 Intake & Output 07/06/17 07/07/17 07/08/17 07/09/17 23:59 23:59 23:59 23:59 Intake Total 480 Output Total 1700 Balance -1700 480 Weight 365 lb 6.4 oz 368 lb 8 oz General NAD CV S1 S2 RRR Lungs decreased breath sounds diffusely. LLL crackles. poor inspiratory effort Abdomen soft NT/ND obese extremities 1+ pitting edema CBCD WBC 13.9 K/mm3 (4.0-10.0) H 07/09/17 06:00 RBC 4.02 M/mm3 (3.60-5.2) 07/09/17 06:00 Hgb 11.0 GM/dL (10.7-15.3) 07/09/17 06:00 Hct 35.2 % (32.4-45.2) 07/09/17 06:00 MCV 87.5 fl (80-96) 07/09/17 06:00 MCHC 31.4 g/dl (32.0-36.0) L 07/09/17 06:00 RDW 18.0 % (11.6-15.6) H 07/09/17 06:00 Plt Count 221 K/MM3 (134-434) 07/09/17 06:00 MPV 9.5 fl (7.5-11.1) 07/09/17 06:00 CMP Sodium 131 mmol/L (136-145) L 07/09/17 06:00 Potassium 5.1 mmol/L (3.5-5.1) 07/09/17 06:00 Chloride 96 mmol/L (98-107) L 07/09/17 06:00 Carbon Dioxide 27 mmol/L (21-32) 07/09/17 06:00 Anion Gap 8 (8-16) 07/09/17 06:00 BUN 21 mg/dL (7-18) H D 07/09/17 06:00 Creatinine 0.9 mg/dL (0.55-1.02) D 07/09/17 06:00 Creat Clearance w eGFR > 60 (>60) 07/09/17 06:00 Calcium 8.3 mg/dL (8.5-10.1) L 07/09/17 06:00 Total Bilirubin 1.2 mg/dL (0.2-1.0) H 07/09/17 06:00 AST 39 U/L (15-37) H D 07/09/17 06:00 ALT 31 U/L (12-78) D 07/09/17 06:00 Alkaline Phosphatase 95 U/L (45-117) 07/09/17 06:00 Total Protein 7.7 g/dl (6.4-8.2) 07/09/17 06:00 Albumin 2.6 g/dl (3.4-5.0) L 07/09/17 06:00 ASSESSMENT AND PLAN: 46yo F wtih PMH systolic CHF, [place] s/p 2 stents, COPD, depression, pulmonary HTN, B/L PE on coumadin presented with hemoptysis and orthopnea 1. Acute hypoxic respiratory distress-due to LLL PNA and acute on chronic systolic CHF. saturating 93% on RA. on Levaquin day 2. has some crackles and pitting edema on exam. increase in weight by 3 lbs since yesterday. will cont lasix IV for now. monitor weights closely. maintain blue for accurate I&O. pre and post to assess for home O2. Pulmonary consult 2. Hemoptysis- likely due to PNA or from chronic coughing and mucosa irritation. visualized by me. Hgb stable. would resume anticoagulation for now 3. Subtherapeutic INR- INR now in therapeutic range likely due to levaquin. will reduce coumadin to 3mg. maintain hep bridge for additional day. will likely require increase dose of Coumadin once off levaquin. monitor INR closely. cont rate control with metoprolol 4. HTN- hypotension on admission resolved. on home medications 5. chronic lymphedema- likely worsened with volume overload. will start oxy 15mg as percocet 5mg not helping. will need to f/u with vascular surgeon as outpatient. consider pain management as outpatient if continues to have pain after optimized 6. DM2- A1c last admission 7.2 refusing to comply with diabetic diet. explained risks as not currently on medications in effort to diet control so medications are not necessary. verbalized understanding but does not appreciate her options on the menu and "will eat what I want to eat at home" 7. hyponatremia- likely due to CHF. asymptomatic. monitor 8. DNR/DNI on last admission. verbalized she would like to maintain code status at this time Visit type - Emergency Visit Emergency Visit: Yes ED Registration Date: 07/08/17 Care time: The patient presented to the Emergency Department on the above date and was hospitalized for further evaluation of their emergent condition. - New Patient This patient is new to me today: No - Critical Care Critical Care patient: No - Discharge Referral Referred to [facility] Med [facility] No
[2017-07-09] MEDS: METOPROLOL SUCCINATE 50 MG TAB.SR.24H (FP) PO SCH (09:11)
[2017-07-09] MEDS: CYANOCOBALAMIN 1,000 MCG TABLET (FP) PO SCH (09:11)
[2017-07-09] MEDS: MAGNESIUM OXIDE 400 MG TABLET (FP) PO SCH (09:14)
[2017-07-09] MEDS: RANITIDINE HCL 150 MG TABLET (FP) PO SCH (09:14)
[2017-07-09] MEDS: CHOLECALCIFEROL (VITAMIN D3) 1,000 UNIT TABLET (FP) PO SCH (09:14)
[2017-07-09] MEDS: HEPARIN NA (PORCINE) 5,000 UNITS/ML 1ML VIAL IVPUSH PRN ×2 (09:14→16:18)
[2017-07-09] MEDS: VALSARTAN 160 MG TABLET (UD) PO SCH (09:26)
--- NOTE | 2017-07-09 11:13 | PN ---
Progress Note (short form) - Note Progress Note: PULMONARY Still with hemoptysis described as bright red. About the same so far as yesterday. Breathing improving, no chest pain. Last Vital Signs Temp Pulse Resp BP Pulse Ox 97.3 F L 72 18 96/49 96 07/09/17 09:40 07/09/17 09:40 07/09/17 09:40 07/09/17 09:40 07/08/17 21:00 Gen: NAD at rest Heart: RRR Lung: decreased breath sounds at the bases Abd: soft, obese Ext: + edema CBC, BMP 07/09/17 06:00 07/09/17 06:00 INR, PTT INR 2.45 (0.82-1.09) H D 07/09/17 06:00 Active Medications Acetaminophen (Tylenol -) 500 mg PO Q6H PRN PRN Reason: FEVER OR PAIN Albuterol Sulfate (Ventolin 0.083% Nebulizer Soln -) 1 amp NEB Q4H PRN PRN Reason: SHORT OF BREATH/WHEEZING Albuterol/Ipratropium (Duoneb -) 1 amp NEB QIDR [facility] Last Admin: 07/09/17 06:51 Dose: 1 amp Cholecalciferol (Vitamin D3 -) 2,000 unit PO DAILY [facility] Last Admin: 07/09/17 09:14 Dose: 2,000 unit Cyanocobalamin (Vitamin B12 -) 500 mcg PO DAILY [facility] Last Admin: 07/09/17 09:11 Dose: 500 mcg Furosemide (Lasix Injection -) 40 mg IVPB BID@0600,1400 [facility] Last Admin: 07/09/17 06:55 Dose: 40 mg Heparin Sodium (Porcine) (Heparin -) 1,000 unit IVPUSH PRN PRN PRN Reason: Heparin Heparin Sodium (Porcine) (Heparin -) 5,000 unit IVPUSH PRN PRN PRN Reason: Heparin Last Admin: 07/09/17 09:14 Dose: 5,000 unit Heparin Sodium (Porcine) 25, (000 unit/ Sodium Chloride) 500 mls @ 20 mls/hr IV TITR [facility]; 1,000 UNIT/HR PRN Reason: Protocol Last Titration: 07/09/17 09:15 Dose: 1,150 unit/hr Levofloxacin (Levaquin -) 500 mg PO DAILY@0600 [facility] Last Admin: 07/09/17 06:57 Dose: 500 mg Magnesium Oxide (Mag-Ox -) 400 mg PO DAILY [facility] Last Admin: 07/09/17 09:14 Dose: 400 mg Metoprolol Succinate (Toprol Xl -) 50 mg PO DAILY [facility] Last Admin: 07/09/17 09:11 Dose: Not Given Non-Formulary Medication (Fluticasone/Salmeterol [Advair 250-50 Diskus]) 1 each IH DAILY [facility] Non-Formulary Medication (Vitamin B Complex [B Complex # 1]) 1 each PO DAILY [facility] Ondansetron HCl (Zofran Injection) 4 mg IVPB Q6H PRN PRN Reason: NAUSEA Oxycodone HCl (Roxicodone -) 15 mg PO Q6H PRN PRN Reason: PAIN Last Admin: 07/09/17 09:12 Dose: 15 mg Ranitidine HCl (Zantac -) 300 mg PO DAILY [facility] Last Admin: 07/09/17 09:14 Dose: 300 mg Valsartan (Diovan -) 320 mg PO DAILY [facility] Last Admin: 07/09/17 09:26 Dose: Not Given A/P Hemoptysis Pulmonary Embolism Likely Pulmonary Infarct CAD s/p stents Severe LV Systolic Dysfunction Pulmonary HTN COPD Depression Morbid Obesity DM - continue anticoagulation - monitor and quantify hemoptysis - O2 to keep SpO2 >90% - continue empiric antibiotics - inhaled bronchodilators - continue cardiac meds - pt DNR/DNI
[2017-07-09] MEDS: HEPARIN - 25,000 UNIT in SODIUM CHLORIDE 495 ML IV SCH (16:18)
[2017-07-09] MEDS: ZINC OXIDE 20% TOPICAL OINTMENT 30 GM TUBE TP SCH (23:00)
[2017-07-10] MEDS: ALBUTEROL SO4 2.5/IPRATROPIUM 0.5 INH SOL 3 ML VIAL.NEB. NEB SCH ×4 (00:26→17:30)
[2017-07-10] MEDS: HEPARIN NA (PORCINE) 5,000 UNITS/ML 1ML VIAL IVPUSH PRN (03:10)
[2017-07-10] MEDS: morphine CARPU-JECT 2 MG/1 ML DISP.SYRIN IVPUSH PRN ×3 (03:15→21:17)
[2017-07-10] MEDS: LEVOFLOXACIN 500 MG TABLET (FP) PO SCH (06:19)
[2017-07-10] MEDS: FUROSEMIDE 40 MG/4 ML INJECTABLE VIAL IVPB SCH (06:19)
[2017-07-10 07:41] LABS: MCH 27.4 pg (25.7-33.7); MCHC 31.6 g/dl (32.0-36.0); MEAN CELL VOLUME 86.7 fl (80-96); MEAN PLT VOLUME 9.2 fl (7.5-11.1); PLATELET COUNT 217 K/MM3 (134-434); RDW 17.6 % (11.6-15.6); WHITE BLOOD COUNT 12.5 K/mm3 (4.0-10.0)
[2017-07-10 07:55] LABS: INR 2.04 (0.82-1.09); PROTHROMBIN TIME (PATIENT) 22.8 SEC (9.98-11.88)
[2017-07-10 08:06] LABS: ANION GAP 9 (8-16); CALCIUM 8.6 mg/dL (8.5-10.1); CO2 26 mmol/L (21-32); CREATININE 0.8 mg/dL (0.55-1.02); GLUCOSE,RANDOM 97 mg/dL (74-106)
[2017-07-10] MEDS: RANITIDINE HCL 150 MG TABLET (FP) PO SCH (09:50)
[2017-07-10] MEDS: METOPROLOL SUCCINATE 50 MG TAB.SR.24H (FP) PO SCH (09:51)
[2017-07-10] MEDS: CHOLECALCIFEROL (VITAMIN D3) 1,000 UNIT TABLET (FP) PO SCH (09:51)
[2017-07-10] MEDS: VALSARTAN 160 MG TABLET (UD) PO SCH (09:51)
[2017-07-10] MEDS: MAGNESIUM OXIDE 400 MG TABLET (FP) PO SCH (09:51)
[2017-07-10] MEDS: CYANOCOBALAMIN 1,000 MCG TABLET (FP) PO SCH (09:51)
[2017-07-10] MEDS: ZINC OXIDE 20% TOPICAL OINTMENT 30 GM TUBE TP SCH ×2 (09:52→23:30)
--- NOTE | 2017-07-10 10:12 | PN ---
Physical Exam: SUBJECTIVE: Patient seen and examined at bedside. Patient feels better today, but continues to bring up blood tinged sputum. OBJECTIVE: Vital Signs Period Temp Pulse Resp BP Sys/Magana Pulse Ox Last 24 Hr 97.6 F-97.8 F 71-89 18-20 87-109/49-67 95-95 GENERAL: The patient is awake, alert, and fully oriented, in no acute distress. HEAD: Normal with no signs of trauma. EYES: extraocular movements intact, sclera anicteric, conjunctiva clear. No ptosis. NECK: Trachea midline, full range of motion, supple. LUNGS: Breath sounds equal, clear to auscultation bilaterally, no wheezes, no crackles, no accessory muscle use. HEART: Regular rate and rhythm, S1, S2 without murmur, rub or gallop. ABDOMEN: Soft, nontender, nondistended, normoactive bowel sounds, no guarding, no rebound. EXTREMITIES: 2+ pulses, warm, well-perfused, no edema. NEUROLOGICAL: Cranial nerves II through X grossly intact. Normal speech, gait not observed. PSYCH: Normal mood, normal affect. SKIN: Warm, dry, normal turgor, no rashes or lesions noted Laboratory Results - last 24 hr 07/09/17 07/09/17 07/10/17 13:10 21:40 06:20 WBC 12.5 H RBC 3.99 Hgb 10.9 Hct 34.5 MCV 86.7 MCH 27.4 MCHC 31.6 L RDW 17.6 H Plt Count 217 MPV 9.2 PT with INR INR PTT (Actin FS) 28.4 31.2 Sodium Potassium Chloride Carbon Dioxide Anion Gap BUN Creatinine Random Glucose Calcium Magnesium 07/10/17 07/10/17 07/10/17 06:20 06:20 07:27 WBC RBC Hgb Hct MCV MCH MCHC RDW Plt Count MPV PT with INR 22.80 H INR 2.04 H PTT (Actin FS) 29.4 Sodium 131 L Potassium 4.4 Chloride 96 L Carbon Dioxide 26 Anion Gap 9 BUN 27 H D Creatinine 0.8 Random Glucose 97 Calcium 8.6 Magnesium 2.0 Active Medications Generic Name Dose Route Start Last Admin Trade Name Freq PRN Reason Stop Dose Admin Acetaminophen 500 mg 07/09/17 01:01 07/09/17 12:40 Tylenol - PO 500 mg Q6H PRN Administration FEVER OR PAIN Albuterol Sulfate 1 amp 07/08/17 07:55 Ventolin 0.083% Nebulizer Soln - NEB Q4H PRN SHORT OF BREATH/WHEEZING Albuterol/Ipratropium 1 amp 07/08/17 12:00 07/10/17 06:45 Duoneb - NEB Not Given QIDR [facility] Cholecalciferol 2,000 unit 07/08/17 10:00 07/09/17 09:14 Vitamin D3 - PO 2,000 unit DAILY [facility] Administration Cyanocobalamin 500 mcg 07/08/17 10:00 07/09/17 09:11 Vitamin B12 - PO 500 mcg DAILY [facility] Administration Furosemide 40 mg 07/10/17 14:00 Lasix - PO BID@0600,1400 [facility] Levofloxacin 500 mg 07/08/17 12:45 07/10/17 06:19 Levaquin - PO 500 mg DAILY@0600 [facility] Administration Magnesium Oxide 400 mg 07/08/17 10:00 07/09/17 09:14 Mag-Ox - PO 400 mg DAILY [facility] Administration Metoprolol Succinate 50 mg 07/08/17 10:00 07/09/17 09:11 Toprol Xl - PO Not Given DAILY [facility] Morphine Sulfate 2 mg 07/09/17 15:27 07/10/17 03:15 Morphine Injection - IVPUSH 2 mg Q4H PRN Administration PAIN Multi-Ingredient Ointment 1 applic 07/09/17 22:00 07/09/17 23:00 Zinc Oxide TP Not Given BID [facility] Non-Formulary Medication 1 each 07/08/17 10:00 Fluticasone/Salmeterol [Advair 250-50 Diskus] IH DAILY [facility] Non-Formulary Medication 1 each 07/08/17 10:00 Vitamin B Complex [B Complex # 1] PO DAILY [facility] Ondansetron HCl 4 mg 07/08/17 07:55 Zofran Injection IVPB Q6H PRN NAUSEA Ranitidine HCl 300 mg 07/08/17 10:00 07/09/17 09:14 Zantac - PO 300 mg DAILY [facility] Administration Valsartan 320 mg 07/08/17 10:00 07/09/17 09:26 Diovan - PO Not Given DAILY [facility] Warfarin Sodium 3 mg 07/10/17 18:00 Coumadin - PO DAILY@1800 [facility] ASSESSMENT/PLAN: 46 y/o morbidly obese F with significant PMHx of systolic CHF, DC(2011 s/p stents X2), COPD, asthma, chronic lymphedema, depression, anxiety, pulmonary HTN on Warfarin for h/o of DVT's presented today to ER for spitting up blood admitted to hospital for Pneumonia and hypotension. #Acute hypoxic respiratory distress 2/2 PNA and CHF exacerbation -CTA shows 4 cm mass to right base with possible pneumonia to left base and b /l small pleural effusion. -Levaquin 500 PO daily, day 3 -pulmonary onboard -Sputum gram stain negative. will await c&s -Flu swab negative -BCx: no growth to date #hemoptysis likely 2/2 airway irritation 2/2 to coughing -unchanged since admission -Hb has been stable throughout admission -no SOB on baseline home O2 #Subtheraputic INR on warfarin -warfarin decreased from 4.5 to 3. Dose requirements affected by current levaquin use. -INR 2.04 today -d/c heparin drip -repeat INR in AM #COPD- controlled -Nebs standing and PRN -Incentive spirometry. -continue home Advair. -supplemental O2 to maintain Spo2 >90% -on 3L supp. O2 at home #systolic CHF exacerbation -changed lasix 40mg IV BID to Lasix 40mg PO BID -Continue home Toprol XL 50mg PO daily #Morbid obesity w/ hyperventilation syndrome -BiPaP PRN -counseled on importance of losing weight and eating a low sodium heart healthy diet. -senior materials planner consult #FEN -no fluids indicated -lytes WNL -regular diet #Dispo -D/c planning in the next few days Visit type - Emergency Visit Emergency Visit: Yes ED Registration Date: 07/08/17 Care time: The patient presented to the Emergency Department on the above date and was hospitalized for further evaluation of their emergent condition. - New Patient This patient is new to me today: No - Critical Care Critical Care patient: No
--- NOTE | 2017-07-10 11:09 | PN ---
Progress Note (short form) - Note Progress Note: PULMONARY Still with hemoptysis but stable in amount compared to day before. Breathing improving, no chest pain. Last Vital Signs Temp Pulse Resp BP Pulse Ox 97.6 F 82 20 124/80 95 07/10/17 09:57 07/10/17 10:00 07/10/17 09:57 07/10/17 09:57 07/10/17 10:00 Gen: NAD at rest Heart: RRR Lung: decreased breath sounds at the bases Abd: soft, obese Ext: + edema CBC, BMP 07/10/17 06:20 07/10/17 06:20 Active Medications Acetaminophen (Tylenol -) 500 mg PO Q6H PRN PRN Reason: FEVER OR PAIN Last Admin: 07/09/17 12:40 Dose: 500 mg Albuterol Sulfate (Ventolin 0.083% Nebulizer Soln -) 1 amp NEB Q4H PRN PRN Reason: SHORT OF BREATH/WHEEZING Albuterol/Ipratropium (Duoneb -) 1 amp NEB QIDR [facility] Last Admin: 07/10/17 06:45 Dose: Not Given Cholecalciferol (Vitamin D3 -) 2,000 unit PO DAILY [facility] Last Admin: 07/10/17 09:51 Dose: 2,000 unit Cyanocobalamin (Vitamin B12 -) 500 mcg PO DAILY [facility] Last Admin: 07/10/17 09:51 Dose: 500 mcg Furosemide (Lasix -) 40 mg PO BID@0600,1400 [facility] Levofloxacin (Levaquin -) 500 mg PO DAILY@0600 [facility] Last Admin: 07/10/17 06:19 Dose: 500 mg Magnesium Oxide (Mag-Ox -) 400 mg PO DAILY [facility] Last Admin: 07/10/17 09:51 Dose: 400 mg Metoprolol Succinate (Toprol Xl -) 50 mg PO DAILY [facility] Last Admin: 07/10/17 09:51 Dose: 50 mg Morphine Sulfate (Morphine Injection -) 2 mg IVPUSH Q4H PRN PRN Reason: PAIN Last Admin: 07/10/17 03:15 Dose: 2 mg Multi-Ingredient Ointment (Zinc Oxide) 1 applic TP BID [facility] Last Admin: 07/10/17 09:52 Dose: 1 applic Non-Formulary Medication (Fluticasone/Salmeterol [Advair 250-50 Diskus]) 1 each IH DAILY [facility] Non-Formulary Medication (Vitamin B Complex [B Complex # 1]) 1 each PO DAILY [facility] Ondansetron HCl (Zofran Injection) 4 mg IVPB Q6H PRN PRN Reason: NAUSEA Ranitidine HCl (Zantac -) 300 mg PO DAILY [facility] Last Admin: 07/10/17 09:50 Dose: Not Given Valsartan (Diovan -) 320 mg PO DAILY [facility] Last Admin: 07/10/17 09:51 Dose: 320 mg Warfarin Sodium (Coumadin -) 3 mg PO DAILY@1800 [facility] A/P Hemoptysis Pulmonary Embolism Likely Pulmonary Infarct CAD s/p stents Severe LV Systolic Dysfunction Pulmonary HTN COPD Depression Morbid Obesity DM - continue anticoagulation - monitor and quantify hemoptysis - O2 to keep SpO2 >90% - continue empiric antibiotics - inhaled bronchodilators - continue cardiac meds - will need outpt f/u of chest imaging - pt DNR/DNI
--- NOTE | 2017-07-10 12:27 | PN ---
Teaching Attending Note Name of Resident: Adarsh Sung ATTENDING PHYSICIAN STATEMENT I saw and evaluated the patient. I reviewed the resident's note and discussed the case with the resident. I agree with the resident's findings and plan as documented. SUBJECTIVE: Reports improvement of SOB and cough. Still has episodes of blood tinged sputum . Says that her blue is leaking from being full OBJECTIVE: Vital Signs Temperature 97.6 F 07/10/17 09:57 Pulse Rate 82 07/10/17 10:00 Respiratory Rate 20 07/10/17 09:57 Blood Pressure 124/80 07/10/17 09:57 O2 Sat by Pulse Oximetry (%) 95 07/10/17 10:00 Gen: NAD at rest Heart: RRR Lung: decreased breath sounds at the bases Abd: soft, obese Ext: + edema CBC, BMP 07/10/17 06:20 07/10/17 06:20 ASSESSMENT AND PLAN 1. Acute on chronic respiratory failure - secondary to systolic dysfunction and underlying B/L PE + atelectasis.Superimposed infectious process can not be excluded According to last Echocardiogram patient has severe LV dysfunction and suspected RV thombus. CT chest apparently did not show thrombus . She is improving with diuresis. - c/w O2 - will repeat TTE due to abnormal previous study - c/w anticoagulation with coumadin - on Levaquin PO 2. Hemoptysis- no signifiant blood loss. 3. Chronic LE lymphedema - improved with diuretics 4. Uncontrolled DM - non compliant with dietary recommendations.
[2017-07-10] MEDS: FUROSEMIDE 40 MG TABLET (FP) PO SCH (14:36)
[2017-07-10] MEDS: WARFARIN NA 3 MG TABLET PO SCH (18:10)
[2017-07-10] MEDS ORDERED: morphine CARPU-JECT 2 MG/1 ML DISP.SYRIN IVPUSH ONE (23:00)
[2017-07-11] MEDS: ALBUTEROL SO4 2.5/IPRATROPIUM 0.5 INH SOL 3 ML VIAL.NEB. NEB SCH ×4 (00:01→17:19)
[2017-07-11] MEDS ORDERED: oxyCODONE HCL 5 MG TABLET PO PRN ×2 (01:15→12:04)
[2017-07-11] MEDS ORDERED: ACETAMINOPHEN 325 MG TABLET (FP) PO PRN ×2 (01:15→12:04)
--- NOTE | 2017-07-11 03:04 | HOSP ---
Physical Examination Vital Signs: Vital Signs Temperature 97.2 F L 07/10/17 18:44 Pulse Rate 85 07/10/17 21:26 Respiratory Rate 20 07/10/17 21:26 Blood Pressure 121/69 07/10/17 21:26 O2 Sat by Pulse Oximetry (%) 95 07/10/17 10:00 Labs: CBC, BMP 07/10/17 06:20 07/10/17 06:20 Hospitalist Encounter Assessment: Condition 10 called @ 1:34. RN states that patient was being uncooperative and cursing her out. Went to see patient, patient was found in bed crying and yelling "I want my mother." Patient states that the nurses are lying to her and that they are giving her medications that are not helping her. Patient states she has severe pain in her left leg from her wound. Patient offered morphine, dilaudid, and gabapentin. Patient refused all medication options. Patient then attempted to call [employer] [place] police department to ask the police to go to her house and get her mother. Explained to the patient why she is here and what medications she is receiving. Gave her various options as stated above. Patient refused to understand. She states all the treatments she has received in the past has not been helpful. Update: 05:14 AM Paged by RN again. Patient still complaining of pain. Patient states she is angry because her wound is not being dressed correctly. Many alternative treatments were offered including pain medications, cold pack, heat pack, anti anxiety meds, anti depressant meds, re-wrapping her dressing either now or in the AM, and calling her vascular surgeon (Dr. Lloyd) regarding proper wound care [Patient states Dr. Lloyd is the only doctor who can treat her wound correctly]. Patient denies all options. Conversation with patient is cyclical and she is not open to hearing any options. Patient uses very abusive language regarding nurses and other staff. Patient insistent on removing blue catheter and wrapping her wound herself. In addition, patient verbalized the following sentiments: -"Give me extra morphine and end my misery." -"I am going to leave AMA so I can go home and ." -"What is the point of living? I may as well " Plan: -1:1 observation -Psychiatry consult Discussed case with Dr. Serrano Visit type - Emergency Visit Emergency Visit: Yes ED Registration Date: 07/08/17 Care time: The patient presented to the Emergency Department on the above date and was hospitalized for further evaluation of their emergent condition. - New Patient This patient is new to me today: No - Critical Care Critical Care patient: No
[2017-07-11] MEDS: LEVOFLOXACIN 500 MG TABLET (FP) PO SCH (06:41)
[2017-07-11] MEDS: FUROSEMIDE 40 MG TABLET (FP) PO SCH ×2 (06:41→16:53)
[2017-07-11] MEDS ORDERED: PT OWN MED DRAWER 7, Y5N ONE (06:52)
[2017-07-11 09:44] LABS: INR 1.93 (0.82-1.09); PROTHROMBIN TIME (PATIENT) 21.5 SEC (9.98-11.88)
[2017-07-11 09:52] LABS: ANION GAP 7 (8-16); CALCIUM 8.8 mg/dL (8.5-10.1); CO2 30 mmol/L (21-32); CREATININE 0.7 mg/dL (0.55-1.02); GLUCOSE,RANDOM 118 mg/dL (74-106)
--- NOTE | 2017-07-11 10:33 | PN ---
Progress Note (short form) - Note Progress Note: Resting in NAD as she received pain medication earlier. Reports some minimal blood streaked sputum since yesterday. Intake & Output 07/08/17 07/09/17 07/10/17 07/11/17 23:59 23:59 23:59 23:59 Intake Total 990 501 Output Total 1700 1600 6499 5058 Balance -1700 -610 -5949 -1200 Weight 365 lb 6.4 oz 368 lb 8 oz 372 lb 3.2 oz Last Vital Signs Temp Pulse Resp BP Pulse Ox 97 F L 85 20 121/69 84 L 07/10/17 21:00 07/10/17 21:26 07/10/17 21:26 07/10/17 21:26 07/10/17 21:00 Active Medications Acetaminophen (Tylenol -) 500 mg PO Q6H PRN PRN Reason: FEVER OR PAIN Last Admin: 07/09/17 12:40 Dose: 500 mg Acetaminophen (Tylenol -) 650 mg PO Q4H PRN PRN Reason: PAIN Stop: 07/14/17 01:14 Albuterol Sulfate (Ventolin 0.083% Nebulizer Soln -) 1 amp NEB Q4H PRN PRN Reason: SHORT OF BREATH/WHEEZING Albuterol/Ipratropium (Duoneb -) 1 amp NEB QIDR [facility] Last Admin: 07/11/17 05:28 Dose: 1 amp Cholecalciferol (Vitamin D3 -) 2,000 unit PO DAILY [facility] Last Admin: 07/10/17 09:51 Dose: 2,000 unit Cyanocobalamin (Vitamin B12 -) 500 mcg PO DAILY [facility] Last Admin: 07/10/17 09:51 Dose: 500 mcg Furosemide (Lasix -) 40 mg PO BID@0600,1400 [facility] Last Admin: 07/11/17 06:41 Dose: Not Given Levofloxacin (Levaquin -) 500 mg PO DAILY@0600 [facility] Last Admin: 07/11/17 06:41 Dose: Not Given Magnesium Oxide (Mag-Ox -) 400 mg PO DAILY [facility] Last Admin: 07/10/17 09:51 Dose: 400 mg Metoprolol Succinate (Toprol Xl -) 50 mg PO DAILY [facility] Last Admin: 07/10/17 09:51 Dose: 50 mg Morphine Sulfate (Morphine Injection -) 2 mg IVPUSH Q4H PRN PRN Reason: PAIN Last Admin: 07/10/17 21:17 Dose: 2 mg Multi-Ingredient Ointment (Zinc Oxide) 1 applic TP BID [facility] Last Admin: 07/10/17 23:30 Dose: 1 applic Non-Formulary Medication (Fluticasone/Salmeterol [Advair 250-50 Diskus]) 1 each IH DAILY [facility] Non-Formulary Medication (Vitamin B Complex [B Complex # 1]) 1 each PO DAILY [facility] Ondansetron HCl (Zofran Injection) 4 mg IVPB Q6H PRN PRN Reason: NAUSEA Oxycodone HCl (Roxicodone -) 10 mg PO Q4H PRN PRN Reason: PAIN Ranitidine HCl (Zantac -) 300 mg PO DAILY [facility] Last Admin: 07/10/17 09:50 Dose: Not Given Valsartan (Diovan -) 320 mg PO DAILY [facility] Last Admin: 07/10/17 09:51 Dose: 320 mg Warfarin Sodium (Coumadin -) 3 mg PO DAILY@1800 [facility] Last Admin: 07/10/17 18:10 Dose: 3 mg Gen: NAD at rest Heart: RRR Lung: decreased breath sounds at the bases Abd: soft, obese Ext: + edema Laboratory Results - last 24 hr 07/11/17 07/11/17 08:30 08:30 PT with INR 21.50 H INR 1.93 H Sodium 132 L Potassium 4.2 Chloride 95 L Carbon Dioxide 30 Anion Gap 7 L BUN 25 H Creatinine 0.7 Random Glucose 118 H D Calcium 8.8 A/P Hemoptysis Pulmonary Embolism Likely Pulmonary Infarct CAD s/p stents Severe LV Systolic Dysfunction Pulmonary HTN COPD Depression Morbid Obesity DM - continue anticoagulation - monitor and quantify hemoptysis - O2 to keep SpO2 >90% - ABX - inhaled bronchodilators - continue cardiac meds - will need outpt f/u of chest imaging - pt DNR/DNI - No Pulmonary contraindication for D/C planning. Need to assess for home O2. Dr Madison
--- NOTE | 2017-07-11 11:22 | CON.PSY ---
Psychiatry Consult Chief Complaint: I am not depressed, Kimani not suicidal i dont need you. These nurses are over reacting to what I said. Symptoms: reports: Conduct Problems, Oppositionalism - Previous Psychiatric Treatment Outpatient: More than 6 mos ago Inpatient: None - Previous Substance Abuse Treatment Outpatient: None Inpatient: None - Current Medications Current Medications: Active Medications Acetaminophen (Tylenol -) 500 mg PO Q6H PRN PRN Reason: FEVER OR PAIN Last Admin: 07/09/17 12:40 Dose: 500 mg Acetaminophen (Tylenol -) 650 mg PO Q4H PRN PRN Reason: PAIN Stop: 07/14/17 01:14 Albuterol Sulfate (Ventolin 0.083% Nebulizer Soln -) 1 amp NEB Q4H PRN PRN Reason: SHORT OF BREATH/WHEEZING Albuterol/Ipratropium (Duoneb -) 1 amp NEB QIDR [facility] Last Admin: 07/11/17 11:17 Dose: Not Given Cholecalciferol (Vitamin D3 -) 2,000 unit PO DAILY [facility] Last Admin: 07/10/17 09:51 Dose: 2,000 unit Cyanocobalamin (Vitamin B12 -) 500 mcg PO DAILY [facility] Last Admin: 07/10/17 09:51 Dose: 500 mcg Furosemide (Lasix -) 40 mg PO BID@0600,1400 [facility] Last Admin: 07/11/17 06:41 Dose: Not Given Levofloxacin (Levaquin -) 500 mg PO DAILY@0600 [facility] Last Admin: 07/11/17 06:41 Dose: Not Given Magnesium Oxide (Mag-Ox -) 400 mg PO DAILY [facility] Last Admin: 07/10/17 09:51 Dose: 400 mg Metoprolol Succinate (Toprol Xl -) 50 mg PO DAILY [facility] Last Admin: 07/10/17 09:51 Dose: 50 mg Morphine Sulfate (Morphine Injection -) 2 mg IVPUSH Q4H PRN PRN Reason: PAIN Last Admin: 07/10/17 21:17 Dose: 2 mg Multi-Ingredient Ointment (Zinc Oxide) 1 applic TP BID [facility] Last Admin: 07/10/17 23:30 Dose: 1 applic Non-Formulary Medication (Fluticasone/Salmeterol [Advair 250-50 Diskus]) 1 each IH DAILY [facility] Non-Formulary Medication (Vitamin B Complex [B Complex # 1]) 1 each PO DAILY [facility] Ondansetron HCl (Zofran Injection) 4 mg IVPB Q6H PRN PRN Reason: NAUSEA Oxycodone HCl (Roxicodone -) 10 mg PO Q4H PRN PRN Reason: PAIN Ranitidine HCl (Zantac -) 300 mg PO DAILY [facility] Last Admin: 07/10/17 09:50 Dose: Not Given Valsartan (Diovan -) 320 mg PO DAILY [facility] Last Admin: 07/10/17 09:51 Dose: 320 mg Warfarin Sodium (Coumadin -) 3 mg PO DAILY@1800 [facility] Last Admin: 07/10/17 18:10 Dose: 3 mg - Allergies Allergies: Allergies Allergy/AdvReac Type Severity Reaction Status Date / Time budesonide Allergy Severe Difficulty Verified 07/08/17 02:44 Breathing erythromycin base Allergy Severe Vomiting Verified 07/08/17 02:44 formoterol Allergy Severe Difficulty Verified 07/08/17 02:44 Breathing gabapentin Allergy Severe Verified 07/08/17 02:44 carvedilol Allergy Intermediate Nausea Verified 07/08/17 02:44 lisinopril Allergy Intermediate Nausea Verified 07/08/17 02:44 omeprazole Allergy Intermediate Verified 07/08/17 02:44 bupropion Allergy Unknown Verified 07/08/17 02:44 - Current Living Status Usual Living Arrangement: Alone - Current Mental Status Evaluation Appearance: Disheveled Attitude: Guarded - Affect Affect: Constrictive Appropriateness: Appropriate to Content - Mood Mood: Euthymic, Irritable - Speech/Language Expressive: Coherent - Psychomotor Activity Psychomotor Activity: Normal - Thought Process Thought Process: Intact - Thought Content Hallucinations: Absent Delusions: Absent - Self Perception Self Perception: No Impairment - Cognition Attention: Alert Orientation: Time Memory, Immediate Recall: Intact Memory, Short Term: 3/3 Memory, Remote with Promptin/3 - Concentration Serial Sevens Intact: No Simple Calculations Intact: No - Abstraction Proverb Interpretation: Intact Judgement: Minimally Impaired - Insight Insight: Intact - Impulse Control Impulse Control: Minimally Impaired - Suicidal Ideation Suicidal Ideation: No - Homicidal Ideation Homicidal Ideation: No Assessment/Plan 1) Patient is not suicidal 2) Discharge when medically stable. NO psych follow up needed.
[2017-07-11] MEDS ORDERED: HYDROmorphone HCL CARPU-JECT 2 MG/1 ML DISP.SYRIN IM PRN (11:47)
[2017-07-11] MEDS ORDERED: ACETAMINOPHEN 500 MG TABLET (FP) PO PRN (12:04)
[2017-07-11] MEDS: HYDROmorphone HCL CARPU-JECT 2 MG/1 ML DISP.SYRIN IM PRN ×2 (12:34→23:39)
[2017-07-11] MEDS: VALSARTAN 160 MG TABLET (UD) PO SCH (13:20)
[2017-07-11] MEDS: CHOLECALCIFEROL (VITAMIN D3) 1,000 UNIT TABLET (FP) PO SCH (13:21)
[2017-07-11] MEDS: MAGNESIUM OXIDE 400 MG TABLET (FP) PO SCH (13:21)
[2017-07-11] MEDS: CYANOCOBALAMIN 1,000 MCG TABLET (FP) PO SCH (13:21)
[2017-07-11] MEDS: METOPROLOL SUCCINATE 50 MG TAB.SR.24H (FP) PO SCH (13:21)
[2017-07-11] MEDS: RANITIDINE HCL 150 MG TABLET (FP) PO SCH (13:22)
--- NOTE | 2017-07-11 15:01 | PN ---
Teaching Attending Note Name of Resident: Adarsh Sung ATTENDING PHYSICIAN STATEMENT I saw and evaluated the patient. I reviewed the resident's note and discussed the case with the resident. I agree with the resident's findings and plan as documented. SUBJECTIVE:states she does not want to be here, wants to be with God. clarifies that she does not want to kill herself but desires to be . also questioned if she took all her medications with a bottle of tequila if she would wake up from that. and "Im DNR/DNI so no one would do anything to save me." also stated that she knows how to speak to "a shrink and wrap them around my finger" . states her breathing is better. continues to have hemoptysis. slightly less in quantity than previously. denies CP OBJECTIVE: Last Vital Signs Temp Pulse Resp BP Pulse Ox 97 F L 85 20 121/69 84 L 07/10/17 21:00 07/10/17 21:26 07/10/17 21:26 07/10/17 21:26 07/10/17 21:00 General NAD Lungs Crackles L base no wheezing Extremities 1+ pitting edema ASSESSMENT AND PLAN: 46yo F wtih PMH systolic CHF, [place] s/p 2 stents, COPD, depression, pulmonary HTN, B/L PE on coumadin presented with hemoptysis and orthopnea 1. Acute hypoxic respiratory distress-due to LLL PNA and acute on chronic systolic CHF. talking in full sentences without difficulty. pt ripped out IV site (after watching Youtube on how to and refusing re-placement of it. continues to have crackles. states she took her own medications but not the lasix as she didnt know how much to take. will give lasix po. convert levaquin to po, on day 4. maintain blue for I&O. Pulmonary consult 2. Hemoptysis- likely due to PNA or from chronic coughing and mucosa irritation. continues to have but has been stable. pt refused to take coumadin last night and INR now dropped. pt was not placed on NOAC in the past due to hemoptysis but since hgb has been stable may be easier for compliance issues to transition to pradaxa. 3. Subtherapeutic INR- INR dropped this AM due to refusing medication yesterday vs difficulty obtaining in range. as above will transition to pradaxa. cont rate control with metoprolol 4. Suicidal idealizations-continues to desire to be . believe pt is a threat to herself as she has a plan of overdosing on medication and alcohol and appears to know the results could result in . evaluated by psych and cleared but appears pt may have used manipulation in order to be cleared to go home and carry out her plans. will maintain 1:1 for now. pt does not have competency to sign out AMA 4. HTN- hypotension on admission resolved. on home medications 5. chronic lymphedema- likely worsened with volume overload. refusing percocet and morphine. will give dilaudid IM prn 6. DM2- A1c last admission 7.2 refusing diabetic diet. understands risks of not having controlled diet. will allow regular diet. 8. DNR/DNI on last admission. pt is medically optimized for discharge. however poses a risk to herself and needs to be monitored. can not sign out AMA
[2017-07-11] MEDS: WARFARIN NA 3 MG TABLET PO SCH (17:31)
[2017-07-11] MEDS: ZINC OXIDE 20% TOPICAL OINTMENT 30 GM TUBE TP SCH (18:02)
[2017-07-11] MEDS ORDERED: ONDANSETRON 4 MG TABLET PO PRN (20:31)
--- NOTE | 2017-07-11 20:50 | HOSP ---
Subjective - Review of Symptoms Events since last encounter: 20:30 46yo F acting out. Ms. Pierce is found nude sitting on her bed yelling out and calling the nurse community arts centre manager and her aid juan weller. It was reported to me that she made stool in the bathroom, and threw used/soiled toilet paper at healthcare providers. Several wads of soiled toilet paper were seen scattered outside the bathroom door. Pt wants to leave AMA. After myself and Dr. Oliver Shields spoke with pt, she has calmed down and decided to stay the night. Blue and IV were D/Tolu per pt request. Psych (Dr. Mcgrath) saw pt today, and assessed that she is not suicidal and has capacity. Psych (Dr. Mcgrath) was paged stat tonight, regarding pt wanting to leave AMA. Dr. Mcgrath confirms that pt is psychologically stable, and uses threats of suicide for manipulation. At this time pt has agreed to stay. Will continue to monitor for medical need to re- start blue and/or IV access. 21:30 Pt wants to leave AMA. Pt's mother is here. After speaking with pt she has decided to stay the night. One-to-one supervision D/Tolu per pt request, as pt is to be considered psychologically stable. Will continue to monitor for need to re-start one-to-one supervision. Physical Examination Vital Signs: Vital Signs Temperature 97.4 F L 07/11/17 15:18 Pulse Rate 74 07/11/17 17:30 Respiratory Rate 18 07/11/17 17:30 Blood Pressure 87/41 07/11/17 17:30 O2 Sat by Pulse Oximetry (%) 94 L 07/11/17 09:00 Labs: CBC, BMP 07/10/17 06:20 07/11/17 08:30 Visit type - Emergency Visit Emergency Visit: Yes ED Registration Date: 07/08/17 Care time: The patient presented to the Emergency Department on the above date and was hospitalized for further evaluation of their emergent condition. - New Patient This patient is new to me today: Yes Date on this admission: 07/11/17 - Critical Care Critical Care patient: No
--- NOTE | 2017-07-11 23:20 | PN ---
Physical Exam: SUBJECTIVE: Patient seen and examined at bedside. Night team was called for patient becoming aggressive as well as verbally abusive to staff. Patient continues to complain of pain in her left foot, though continues to refuse any IV or PO treatment offered to her. Patient as also removed her IV and is refusing medications this AM. Stressed the importance of taking medications and the possible complications of not taking them. Expressed suicidal ideation, prompting the night team to place her on a one to one observation. OBJECTIVE: Vital Signs Period Temp Pulse Resp BP Sys/Magana Pulse Ox Last 24 Hr 97.4 F 74-86 18-19 87-98/33-41 94 GENERAL: The patient is awake, alert, and fully oriented, in no acute distress. HEAD: Normal with no signs of trauma. EYES: extraocular movements intact, sclera anicteric, conjunctiva clear. No ptosis. NECK: Trachea midline, full range of motion, supple. LUNGS: Breath sounds equal, clear to auscultation bilaterally, no wheezes, no crackles, no accessory muscle use. HEART: Regular rate and rhythm, S1, S2 without murmur, rub or gallop. ABDOMEN: Soft, nontender, nondistended, normoactive bowel sounds, no guarding, no rebound. EXTREMITIES: 2+ pulses, warm, well-perfused, no edema. NEUROLOGICAL: Cranial nerves II through X grossly intact. Normal speech, gait not observed. PSYCH: Normal mood, normal affect. SKIN: Warm, dry, normal turgor, no rashes or lesions noted Laboratory Results - last 24 hr 07/11/17 07/11/17 08:30 08:30 PT with INR 21.50 H INR 1.93 H Sodium 132 L Potassium 4.2 Chloride 95 L Carbon Dioxide 30 Anion Gap 7 L BUN 25 H Creatinine 0.7 Random Glucose 118 H D Calcium 8.8 Active Medications Generic Name Dose Route Start Last Admin Trade Name Freq PRN Reason Stop Dose Admin Acetaminophen 650 mg 07/11/17 12:04 Tylenol - PO 07/14/17 01:14 Q4H PRN PAIN LEVEL 1-5 Albuterol Sulfate 1 amp 07/08/17 07:55 Ventolin 0.083% Nebulizer Soln - NEB Q4H PRN SHORT OF BREATH/WHEEZING Albuterol/Ipratropium 1 amp 07/08/17 12:00 07/11/17 17:19 Duoneb - NEB 1 amp QIDR [facility] Administration Cholecalciferol 2,000 unit 07/08/17 10:00 07/11/17 13:21 Vitamin D3 - PO Not Given DAILY [facility] Cyanocobalamin 500 mcg 07/08/17 10:00 07/11/17 13:21 Vitamin B12 - PO Not Given DAILY [facility] Furosemide 40 mg 07/10/17 14:00 07/11/17 16:53 Lasix - PO Not Given BID@0600,1400 [facility] Hydromorphone HCl 2 mg 07/11/17 12:01 07/11/17 12:34 Dilaudid Injection - IM 2 mg Q6H PRN Administration PAIN LEVEL 6-10 Levofloxacin 500 mg 07/08/17 12:45 07/11/17 06:41 Levaquin - PO Not Given DAILY@0600 [facility] Magnesium Oxide 400 mg 07/08/17 10:00 07/11/17 13:21 Mag-Ox - PO Not Given DAILY [facility] Metoprolol Succinate 50 mg 07/08/17 10:00 07/11/17 13:21 Toprol Xl - PO Not Given DAILY [facility] Multi-Ingredient Ointment 1 applic 07/09/17 22:00 07/11/17 18:02 Zinc Oxide TP Not Given BID [facility] Non-Formulary Medication 1 each 07/08/17 10:00 Fluticasone/Salmeterol [Advair 250-50 Diskus] IH DAILY [facility] Non-Formulary Medication 1 each 07/08/17 10:00 Vitamin B Complex [B Complex # 1] PO DAILY [facility] Ondansetron HCl 4 mg 07/11/17 20:31 Zofran - PO Q6H PRN [facility]USE[facility] Oxycodone HCl 10 mg 07/11/17 12:04 Roxicodone - PO Q4H PRN PAIN LEVEL 1-5 Ranitidine HCl 300 mg 07/08/17 10:00 07/11/17 13:22 Zantac - PO Not Given DAILY [facility] Valsartan 320 mg 07/08/17 10:00 07/11/17 13:20 Diovan - PO Not Given DAILY [facility] Warfarin Sodium 3 mg 07/10/17 18:00 07/11/17 17:31 Coumadin - PO Not Given DAILY@1800 [facility] ASSESSMENT/PLAN: 46 y/o morbidly obese F with significant PMHx of systolic CHF, [place](2011 s/p stents X2), COPD, asthma, chronic lymphedema, depression, anxiety, pulmonary HTN on Warfarin for h/o of DVT's presented today to ER for spitting up blood admitted to hospital for Pneumonia and hypotension. #Acute hypoxic respiratory distress 2/2 PNA and CHF exacerbation. -Levaquin 500 PO daily, day 4 -pulmonary onboard -Sputum gram stain growing normal rodrigo -Flu swab negative -BCx: no growth to date #hemoptysis likely 2/2 airway irritation 2/2 to coughing -unchanged since admission -Hb has been stable throughout admission -no SOB on baseline home O2 #Subtheraputic INR on warfarin -INR 1.92 today -will d/c warfarin and start pradaxa 150mg BID in an effort to enhance compliance -repeat INR in AM #psychiatric disturbances -patient verbally and physically abusive to staff -psych consult -pastoral care consult. #Asymptomatic bactiuria -Ucx positive for e.coli and klebsiella pneumoniae -will initiate treatment if patient becomes symptomatic -some coverage with existing levaquin dose #COPD- controlled -Nebs standing and PRN -Incentive spirometry. -continue home Advair. -supplemental O2 to maintain Spo2 >90% -on 3L supp. O2 at home #systolic CHF exacerbation -changed lasix 40mg IV BID to Lasix 40mg PO BID -Continue home Toprol XL 50mg PO daily #Morbid obesity w/ hypoventilation syndrome -BiPaP PRN -counseled on importance of losing weight and eating a low sodium heart healthy diet. -deep submergence vehicle operator consult #FEN -no fluids indicated -marcos WNL -regular diet #Dispo -will d/c once medically and psychiatrically stable Visit type - Emergency Visit Emergency Visit: Yes ED Registration Date: 07/08/17 Care time: The patient presented to the Emergency Department on the above date and was hospitalized for further evaluation of their emergent condition. - New Patient This patient is new to me today: No - Critical Care Critical Care patient: No
[2017-07-12] MEDS: ZINC OXIDE 20% TOPICAL OINTMENT 30 GM TUBE TP SCH ×3 (00:04→23:00)
[2017-07-12] MEDS: ALBUTEROL SO4 2.5/IPRATROPIUM 0.5 INH SOL 3 ML VIAL.NEB. NEB SCH ×4 (00:05→17:55)
[2017-07-12] MEDS: LEVOFLOXACIN 500 MG TABLET (FP) PO SCH (06:51)
[2017-07-12 07:19] LABS: MCH 27.5 pg (25.7-33.7); MCHC 31.7 g/dl (32.0-36.0); MEAN CELL VOLUME 86.8 fl (80-96); MEAN PLT VOLUME 8.6 fl (7.5-11.1); PLATELET COUNT 180 K/MM3 (134-434); RDW 18.2 % (11.6-15.6); WHITE BLOOD COUNT 9.4 K/mm3 (4.0-10.0)
[2017-07-12 07:26] LABS: INR 1.93 (0.82-1.09); PROTHROMBIN TIME (PATIENT) 21.5 SEC (9.98-11.88)
[2017-07-12] MEDS: RANITIDINE HCL 150 MG TABLET (FP) PO SCH (09:45)
[2017-07-12] MEDS: MAGNESIUM OXIDE 400 MG TABLET (FP) PO SCH (09:46)
[2017-07-12] MEDS: CHOLECALCIFEROL (VITAMIN D3) 1,000 UNIT TABLET (FP) PO SCH (09:46)
[2017-07-12] MEDS: VALSARTAN 160 MG TABLET (UD) PO SCH (09:46)
[2017-07-12] MEDS: CYANOCOBALAMIN 1,000 MCG TABLET (FP) PO SCH (09:46)
[2017-07-12] MEDS: METOPROLOL SUCCINATE 50 MG TAB.SR.24H (FP) PO SCH (09:46)
[2017-07-12] MEDS: FUROSEMIDE 40 MG TABLET (FP) PO SCH ×2 (09:47→13:43)
[2017-07-12] MEDS: HYDROmorphone HCL CARPU-JECT 2 MG/1 ML DISP.SYRIN IM PRN ×2 (09:48→21:39)
[2017-07-12] MEDS ORDERED: DABIGATRAN ETEXILATE MESYLATE 150 MG CAPSULE PO SCH (10:00)
[2017-07-12] MEDS: hydrOXYzine HCL 10 MG TABLET PO SCH ×2 (17:33→23:00)
[2017-07-12] MEDS: WARFARIN NA 3 MG TABLET PO SCH (17:33)
--- NOTE | 2017-07-12 18:03 | PN ---
Teaching Attending Note Name of Resident: Adarsh Sung ATTENDING PHYSICIAN STATEMENT I saw and evaluated the patient. I reviewed the resident's note and discussed the case with the resident. I agree with the resident's findings and plan as documented. SUBJECTIVE: Patient has non-productive cough which she thinks is improving. SOB is improving. OBJECTIVE: Vital Signs Period Temp Pulse Resp BP Sys/Magana Pulse Ox Last 24 Hr 97.3 F-97.6 F 69-82 20-22 101-113/53-71 92 HEART: S1S2, RRR LUNGS: Clear ABDOMEN: Obese, soft, non-tender, non-distended, normal BS EXTREMITIES: 1+ edema with chronic changes of both legs Current Medications Generic Name Dose Route Start Last Admin Trade Name Freq PRN Reason Stop Dose Admin Acetaminophen 650 mg 07/11/17 12:04 Tylenol - PO 07/14/17 01:14 Q4H PRN PAIN LEVEL 1-5 Albuterol Sulfate 1 amp 07/08/17 07:55 Ventolin 0.083% Nebulizer Soln - NEB Q4H PRN SHORT OF BREATH/WHEEZING Albuterol/Ipratropium 1 amp 07/08/17 12:00 07/12/17 17:55 Duoneb - NEB 1 amp QIDR [facility] Administration Cholecalciferol 2,000 unit 07/08/17 10:00 07/12/17 09:46 Vitamin D3 - PO 2,000 unit DAILY [facility] Administration Cyanocobalamin 500 mcg 07/08/17 10:00 07/12/17 09:46 Vitamin B12 - PO 500 mcg DAILY [facility] Administration Furosemide 40 mg 07/10/17 14:00 07/12/17 13:43 Lasix - PO Not Given BID@0600,1400 [facility] Hydromorphone HCl 2 mg 07/11/17 12:01 07/12/17 09:48 Dilaudid Injection - IM 2 mg Q6H PRN Administration PAIN LEVEL 6-10 Hydroxyzine HCl 10 mg 07/12/17 18:00 07/12/17 17:33 Atarax - PO 10 mg Q6HPO [facility] Administration Levofloxacin 500 mg 07/08/17 12:45 07/12/17 06:51 Levaquin - PO 500 mg DAILY@0600 [facility] Administration Magnesium Oxide 400 mg 07/08/17 10:00 07/12/17 09:46 Mag-Ox - PO 400 mg DAILY [facility] Administration Metoprolol Succinate 50 mg 07/08/17 10:00 07/12/17 09:46 Toprol Xl - PO Not Given DAILY [facility] Multi-Ingredient Ointment 1 applic 07/09/17 22:00 07/12/17 09:48 Zinc Oxide TP 1 applic BID [facility] Administration Non-Formulary Medication 1 each 07/08/17 10:00 Fluticasone/Salmeterol [Advair 250-50 Diskus] IH DAILY [facility] Non-Formulary Medication 1 each 07/08/17 10:00 Vitamin B Complex [B Complex # 1] PO DAILY [facility] Ondansetron HCl 4 mg 07/11/17 20:31 Zofran - PO Q6H PRN NAUSEA Ranitidine HCl 300 mg 07/08/17 10:00 07/12/17 09:45 Zantac - PO Not Given DAILY [facility] Valsartan 320 mg 07/08/17 10:00 07/12/17 09:46 Diovan - PO Not Given DAILY [facility] Warfarin Sodium 3 mg 07/12/17 18:00 07/12/17 17:33 Coumadin - PO 3 mg DAILY@1800 [facility] Administration ASSESSMENT AND PLAN: This is a 46 year old woman with a history of morbid obesity, probable JOSE, probable OHS, CHF, CAD, [place], cardiac stents, COPD, pulmonary HTN, depression, anxiety, recent PE who presented with hemoptysis and orthopnea. 1. Pneumonia - Continue Levaquin (day 5) 2. Acute on chronic systolic heart failure - Lasix changed to PO - Continue Diovan 3. Hemoptysis - Resolved 3. Recent submassive bilateral pulmonary emboli - Recommend Coumadin over NOACs secondary to patient's weight 4. Suicidal ideation - Patient denies any thoughts of or plans for harming herself - Seen by psychiatry who has cleared her 5. HTN - Continue Diovan, Toprol XL, Lasix 6. Chronic lymphedema of both legs 7. Type 2 DM 8. Pulmonary HTN 9. Morbid obesity 10. CAD, history of MA and stents - Continue Toprol XL 11. COPD - Continue Advair DuoNeb 12. Anxiety/depression
--- NOTE | 2017-07-12 20:18 | EKG ---
Test Reason : Blood Pressure : / mmHG Vent. Rate : 088 BPM Atrial Rate : 088 BPM P-R Int : 166 ms QRS Dur : 114 ms QT Int : 388 ms P-R-T Axes : 054 -34 039 degrees QTc Int : 469 ms SINUS RHYTHM WITH INTRA ATRIAL CONDUCTION ABNORMALITY POSSIBLE LEFT ATRIAL ENLARGEMENT LEFT AXIS DEVIATION LOW VOLTAGE QRS INFERIOR INFARCT (CITED ON OR BEFORE 02-NOV-2016) ANTEROLATERAL INFARCT (CITED ON OR BEFORE 23-DEC-2010) ABNORMAL ECG WHEN COMPARED WITH ECG OF 10-JUN-2017 22:46, NO SIGNIFICANT CHANGE WAS FOUND SUBMITTED ON 07-12-2017 REPEAT EKG IF CLINICALLY INDICATED Confirmed by BARBRA MANRIQUE MD ([id number]) on 07/12/2017 8:18:29 PM Referred By: Confirmed By:BARBRA MANRIQUE MD
--- NOTE | 2017-07-12 20:31 | PN ---
Physical Exam: SUBJECTIVE: Patient seen and examined at bedside. Patient had another episode of aggressive behavior overnight. Psychiatry was contacted by the night team and Dr. Estrada states that the patient is cleared psychiatrically for discharge and is not a suicide risk. OBJECTIVE: Vital Signs Period Temp Pulse Resp BP Sys/Magana Pulse Ox Last 24 Hr 97.3 F-97.6 F 69-93 20-22 96-113/53-71 92 GENERAL: The patient is awake, alert, and fully oriented, in no acute distress. HEAD: Normal with no signs of trauma. EYES: extraocular movements intact, sclera anicteric, conjunctiva clear. No ptosis. NECK: Trachea midline, full range of motion, supple. LUNGS: Breath sounds equal, clear to auscultation bilaterally, no wheezes, no crackles, no accessory muscle use. HEART: Regular rate and rhythm, S1, S2 without murmur, rub or gallop. ABDOMEN: Soft, nontender, nondistended, normoactive bowel sounds, no guarding, no rebound. EXTREMITIES: 2+ pulses, warm, well-perfused, no edema. NEUROLOGICAL: Cranial nerves II through X grossly intact. Normal speech, gait not observed. SKIN: Warm, dry, normal turgor. Laboratory Results - last 24 hr 07/12/17 07/12/17 07/12/17 06:00 06:00 06:00 WBC 9.4 RBC 3.91 Hgb 10.8 Hct 34.0 MCV 86.8 MCH 27.5 MCHC 31.7 L RDW 18.2 H Plt Count 180 MPV 8.6 PT with INR 21.50 H INR 1.93 H PTT (Actin FS) 28.3 Active Medications Generic Name Dose Route Start Last Admin Trade Name Freq PRN Reason Stop Dose Admin Acetaminophen 650 mg 07/11/17 12:04 Tylenol - PO 07/14/17 01:14 Q4H PRN PAIN LEVEL 1-5 Albuterol Sulfate 1 amp 07/08/17 07:55 Ventolin 0.083% Nebulizer Soln - NEB Q4H PRN SHORT OF BREATH/WHEEZING Albuterol/Ipratropium 1 amp 07/08/17 12:00 07/12/17 17:55 Duoneb - NEB 1 amp QIDR [facility] Administration Cholecalciferol 2,000 unit 07/08/17 10:00 07/12/17 09:46 Vitamin D3 - PO 2,000 unit DAILY [facility] Administration Cyanocobalamin 500 mcg 07/08/17 10:00 07/12/17 09:46 Vitamin B12 - PO 500 mcg DAILY [facility] Administration Furosemide 40 mg 07/10/17 14:00 07/12/17 13:43 Lasix - PO Not Given BID@0600,1400 [facility] Hydromorphone HCl 2 mg 07/11/17 12:01 07/12/17 09:48 Dilaudid Injection - IM 2 mg Q6H PRN Administration PAIN LEVEL 6-10 Hydroxyzine HCl 10 mg 07/12/17 18:00 07/12/17 17:33 Atarax - PO 10 mg Q6HPO [facility] Administration Levofloxacin 500 mg 07/08/17 12:45 07/12/17 06:51 Levaquin - PO 500 mg DAILY@0600 [facility] Administration Magnesium Oxide 400 mg 07/08/17 10:00 07/12/17 09:46 Mag-Ox - PO 400 mg DAILY [facility] Administration Metoprolol Succinate 50 mg 07/08/17 10:00 07/12/17 09:46 Toprol Xl - PO Not Given DAILY [facility] Multi-Ingredient Ointment 1 applic 07/09/17 22:00 07/12/17 09:48 Zinc Oxide TP 1 applic BID [facility] Administration Non-Formulary Medication 1 each 07/08/17 10:00 Fluticasone/Salmeterol [Advair 250-50 Diskus] IH DAILY [facility] Non-Formulary Medication 1 each 07/08/17 10:00 Vitamin B Complex [B Complex # 1] PO DAILY [facility] Ondansetron HCl 4 mg 07/11/17 20:31 Zofran - PO Q6H PRN NAUSEA Ranitidine HCl 300 mg 07/08/17 10:00 07/12/17 09:45 Zantac - PO Not Given DAILY [facility] Valsartan 320 mg 07/08/17 10:00 07/12/17 09:46 Diovan - PO Not Given DAILY [facility] Warfarin Sodium 3 mg 07/12/17 18:00 07/12/17 17:33 Coumadin - PO 3 mg DAILY@1800 [facility] Administration ASSESSMENT/PLAN: 46 y/o morbidly obese F with significant PMHx of systolic CHF, [place](2011 s/p stents X2), COPD, asthma, chronic lymphedema, depression, anxiety, pulmonary HTN on Warfarin for h/o of DVT's presented today to ER for spitting up blood admitted to hospital for Pneumonia and hypotension. #Acute hypoxic respiratory distress 2/2 PNA and CHF exacerbation. -Levaquin 500 PO daily, day 5 -pulmonary onboard -Sputum gram stain growing normal rodrigo -Flu swab negative -BCx: no growth to date #hemoptysis likely 2/2 airway irritation 2/2 to coughing -Hb has been stable throughout admission -no SOB on baseline home O2 #Subtheraputic INR on warfarin -INR 1.92 today -Continued patient on warfarin; due to patient's BMI, Pradaxa level monitoring would be overly complicated and compliance would be better on coumadin -warfarin 3mg HS -repeat INR in AM -If INR subtheraputic in AM, will start lovenox bridge #psychiatric disturbances -patient verbally and physically abusive to staff -patient is psychiatrically cleared -pastoral care consult -1:1 observation d/c as patient denies desire to actively end her own life and has been cleared by psych. #Asymptomatic bactiuria -Ucx positive for e.coli and klebsiella pneumoniae -will initiate treatment if patient becomes symptomatic -some coverage with existing levaquin dose #COPD- controlled -Nebs standing and PRN -Incentive spirometry. -supplemental O2 to maintain Spo2 >90% #systolic CHF exacerbation -Lasix 40mg PO BID -Continue home Toprol XL 50mg PO daily #Morbid obesity w/ hypoventilation syndrome -BiPaP PRN -counseled on importance of losing weight and eating a low sodium heart healthy diet. #FEN -no fluids indicated -lytes WNL -regular diet #Dispo -for dc once INR theraputic Visit type - Emergency Visit Emergency Visit: Yes ED Registration Date: 07/08/17 Care time: The patient presented to the Emergency Department on the above date and was hospitalized for further evaluation of their emergent condition. - New Patient This patient is new to me today: No - Critical Care Critical Care patient: No
[2017-07-13] MEDS: ALBUTEROL SO4 2.5/IPRATROPIUM 0.5 INH SOL 3 ML VIAL.NEB. NEB SCH ×4 (06:34→17:41)
[2017-07-13] MEDS: FUROSEMIDE 40 MG TABLET (FP) PO SCH ×2 (06:55→13:41)
[2017-07-13] MEDS: hydrOXYzine HCL 10 MG TABLET PO SCH ×4 (06:56→23:55)
[2017-07-13] MEDS: LEVOFLOXACIN 500 MG TABLET (FP) PO SCH (06:56)
[2017-07-13 07:45] LABS: INR 1.86 (0.82-1.09); PROTHROMBIN TIME (PATIENT) 20.7 SEC (9.98-11.88)
[2017-07-13 07:46] LABS: MCH 27.2 pg (25.7-33.7); MEAN CELL VOLUME 87.7 fl (80-96); MEAN PLT VOLUME 8.4 fl (7.5-11.1); PLATELET COUNT 186 K/MM3 (134-434); RDW 18.3 % (11.6-15.6); WHITE BLOOD COUNT 11.5 K/mm3 (4.0-10.0)
[2017-07-13] MEDS ORDERED: ENOXAPARIN NA (PORCINE) 40 MG/0.4 ML DISP.SYRIN SQ SCH (09:15)
[2017-07-13] MEDS: VALSARTAN 160 MG TABLET (UD) PO SCH (10:08)
[2017-07-13] MEDS: CHOLECALCIFEROL (VITAMIN D3) 1,000 UNIT TABLET (FP) PO SCH (10:09)
[2017-07-13] MEDS: METOPROLOL SUCCINATE 50 MG TAB.SR.24H (FP) PO SCH (10:09)
[2017-07-13] MEDS: RANITIDINE HCL 150 MG TABLET (FP) PO SCH (10:09)
[2017-07-13] MEDS: MAGNESIUM OXIDE 400 MG TABLET (FP) PO SCH (10:09)
[2017-07-13] MEDS: CYANOCOBALAMIN 1,000 MCG TABLET (FP) PO SCH (10:09)
[2017-07-13] MEDS: ZINC OXIDE 20% TOPICAL OINTMENT 30 GM TUBE TP SCH ×2 (10:10→22:42)
[2017-07-13] MEDS: ENOXAPARIN 120 MG, ENOXAPARIN 30 MG SQ SCH ×2 (10:12→22:42)
--- NOTE | 2017-07-13 12:30 | PN ---
Progress Note (short form) - Note Progress Note: PULMONARY NO FURTHER HEMOPTYSIS VSS/AFEBRILE ANICTERIC DIMINISHED BREATH SOUNDS S1S2 OBESE LYMPHEDEMA LOWER EXT LABS/MEDS/NOTES/IMAGING REVIEWED Hemoptysis resolved Pulmonary Embolism Likely Pulmonary Infarct CAD s/p stents Severe LV Systolic Dysfunction Pulmonary HTN COPD Depression Morbid Obesity DM - continue anticoagulation - monitor hemoptysis - O2 to keep SpO2 >90% - ABX - inhaled bronchodilators - continue cardiac meds - will need outpt f/u of chest imaging - pt DNR/DNI - No Pulmonary contraindication for D/C planning. Need to assess for home O2. Mitch MCDANIEL MD Problem List - Problems (1) Pneumonia Code(s): J18.9 - PNEUMONIA, UNSPECIFIED ORGANISM Qualifiers: Pneumonia type: due to unspecified organism Laterality: left Lung location: unspecified part of lung Qualified Code(s): J18.9 - Pneumonia, unspecified organism (2) SOB (shortness of breath) Code(s): R06.02 - SHORTNESS OF BREATH (3) Systolic CHF Code(s): I50.20 - UNSPECIFIED SYSTOLIC (CONGESTIVE) HEART FAILURE Qualifiers: Congestive heart failure chronicity: chronic Qualified Code(s): I50.22 - Chronic systolic (congestive) heart failure (4) Biventricular failure Code(s): I50.9 - HEART FAILURE, UNSPECIFIED (5) Pulmonary embolism Code(s): I26.99 - OTHER PULMONARY EMBOLISM WITHOUT ACUTE COR PULMONALE Qualifiers: Pulmonary embolism type: other Chronicity: acute Acute cor pulmonale presence: without acute cor pulmonale Qualified Code(s): I26.99 - Other pulmonary embolism without acute cor pulmonale (6) Hemoptysis Code(s): R04.2 - HEMOPTYSIS
--- NOTE | 2017-07-13 16:21 | PN ---
Physical Exam: SUBJECTIVE: Patient seen and examined at bedside. No new complaints. No events overnight. OBJECTIVE: Vital Signs Period Temp Pulse Resp BP Sys/Magana Pulse Ox Last 24 Hr 97.5 F-97.5 F 79-101 20-22 92-131/56-89 GENERAL: The patient is awake, alert, and fully oriented, in no acute distress. HEAD: Normal with no signs of trauma. EYES: extraocular movements intact, sclera anicteric, conjunctiva clear. No ptosis. NECK: Trachea midline, full range of motion, supple. LUNGS: Breath sounds equal, clear to auscultation bilaterally, no wheezes, no crackles, no accessory muscle use. HEART: Regular rate and rhythm, S1, S2 without murmur, rub or gallop. ABDOMEN: Soft, nontender, nondistended, normoactive bowel sounds, no guarding, no rebound, no hepatosplenomegaly, no masses. EXTREMITIES: 2+ pulses, warm, well-perfused, no edema. NEUROLOGICAL: Cranial nerves II through X grossly intact. Normal speech, gait not observed. SKIN: Warm, dry, normal turgor, no rashes or lesions noted Laboratory Results - last 24 hr 07/13/17 07/13/17 07/13/17 06:00 06:00 06:00 WBC 11.5 H RBC 4.35 Hgb 11.8 Hct 38.1 MCV 87.7 MCH 27.2 MCHC 31.0 L RDW 18.3 H Plt Count 186 MPV 8.4 PT with INR 20.70 H INR 1.86 H PTT (Actin FS) 29.1 Active Medications Generic Name Dose Route Start Last Admin Trade Name Kal PRN Reason Stop Dose Admin Acetaminophen 650 mg 07/11/17 12:04 Tylenol - PO 07/14/17 01:14 Q4H PRN PAIN LEVEL 1-5 Albuterol Sulfate 1 amp 07/08/17 07:55 Ventolin 0.083% Nebulizer Soln - NEB Q4H PRN SHORT OF BREATH/WHEEZING Albuterol/Ipratropium 1 amp 07/08/17 12:00 07/13/17 11:48 Duoneb - NEB 1 amp QIDR [facility] Administration Cholecalciferol 2,000 unit 07/08/17 10:00 07/13/17 10:09 Vitamin D3 - PO 2,000 unit DAILY [facility] Administration Cyanocobalamin 500 mcg 07/08/17 10:00 07/13/17 10:09 Vitamin B12 - PO 500 mcg DAILY [facility] Administration Enoxaparin Sodium 120 mg/ 150 mg 07/13/17 10:00 07/13/17 10:12 Enoxaparin Sodium 30 mg SQ Not Given BID [facility] Furosemide 40 mg 07/10/17 14:00 07/13/17 13:41 Lasix - PO Not Given BID@0600,1400 [facility] Hydromorphone HCl 2 mg 07/11/17 12:01 07/12/17 21:39 Dilaudid Injection - IM 2 mg Q6H PRN Administration PAIN LEVEL 6-10 Hydroxyzine HCl 10 mg 07/12/17 18:00 07/13/17 13:41 Atarax - PO Not Given Q6HPO [facility] Levofloxacin 500 mg 07/08/17 12:45 07/13/17 06:56 Levaquin - PO 500 mg DAILY@0600 [facility] Administration Magnesium Oxide 400 mg 07/08/17 10:00 07/13/17 10:09 Mag-Ox - PO 400 mg DAILY [facility] Administration Metoprolol Succinate 50 mg 07/08/17 10:00 07/13/17 10:09 Toprol Xl - PO 50 mg DAILY [facility] Administration Multi-Ingredient Ointment 1 applic 07/09/17 22:00 07/13/17 10:10 Zinc Oxide TP 1 applic BID [facility] Administration Non-Formulary Medication 1 each 07/08/17 10:00 Fluticasone/Salmeterol [Advair 250-50 Diskus] IH DAILY [facility] Non-Formulary Medication 1 each 07/08/17 10:00 Vitamin B Complex [B Complex # 1] PO DAILY [facility] Ondansetron HCl 4 mg 07/11/17 20:31 Zofran - PO Q6H PRN NAUSEA Ranitidine HCl 300 mg 07/08/17 10:00 07/13/17 10:09 Zantac - PO Not Given DAILY [facility] Valsartan 320 mg 07/08/17 10:00 07/13/17 10:08 Diovan - PO 320 mg DAILY [facility] Administration Warfarin Sodium 3 mg 07/12/17 18:00 07/12/17 17:33 Coumadin - PO 3 mg DAILY@1800 [facility] Administration ASSESSMENT/PLAN: 46 y/o morbidly obese F with significant PMHx of systolic CHF, [place](2011 s/p stents X2), COPD, asthma, chronic lymphedema, depression, anxiety, pulmonary HTN on Warfarin for h/o of DVT's presented today to ER for spitting up blood admitted to hospital for Pneumonia and hypotension. #Acute hypoxic respiratory distress 2/2 PNA and CHF exacerbation. -Levaquin 500 PO daily, day 7 -pulmonary onboard -Sputum gram stain growing normal rodrigo -Flu swab negative -BCx: no growth to date #Subtheraputic INR on warfarin -INR 1.92 today -due to patient's BMI, Pradaxa level monitoring would be overly complicated and compliance would be better on coumadin -warfarin 3mg HS -repeat INR in AM -INR is 1.86 today, bridging with lovenox 150mg SQ Q12H. Patient refusing treatment. #psychiatric disturbances -patient verbally and physically abusive to staff -1:1 observation d/c as patient denies desire to actively end her own life and has been cleared by psych. #hemoptysis likely 2/2 airway irritation 2/2 to coughing -Hb has been stable throughout admission -no SOB on baseline home O2 #Asymptomatic bactiuria -Ucx positive for e.coli and klebsiella pneumoniae -will initiate treatment if patient becomes symptomatic -some coverage with existing levaquin dose #COPD- controlled -Nebs standing and PRN -Incentive spirometry. -supplemental O2 to maintain Spo2 >90% #systolic CHF exacerbation - controlled -Lasix 40mg PO BID -Continue home Toprol XL 50mg PO daily #Morbid obesity w/ hypoventilation syndrome -BiPaP PRN -counseled on importance of losing weight and eating a low sodium heart healthy diet. #FEN -no fluids indicated -lytes WNL -regular diet #Dispo -for dc once INR theraputic -patient is refusing multiple medications despite counseling on importance of compliance and its potential health risks Visit type - Emergency Visit Emergency Visit: Yes ED Registration Date: 07/08/17 Care time: The patient presented to the Emergency Department on the above date and was hospitalized for further evaluation of their emergent condition. - New Patient This patient is new to me today: No - Critical Care Critical Care patient: No
[2017-07-13] MEDS: VITAMIN B COMPLEX PO SCH ×2 (16:27→16:28)
[2017-07-13] MEDS: WARFARIN NA 3 MG TABLET PO SCH (17:42)
--- NOTE | 2017-07-13 17:43 | PN ---
Teaching Attending Note Name of Resident: Adarsh Sung ATTENDING PHYSICIAN STATEMENT I saw and evaluated the patient. I reviewed the resident's note and discussed the case with the resident. I agree with the resident's findings and plan as documented. SUBJECTIVE: No complaints. OBJECTIVE: Vital Signs Period Temp Pulse Resp BP Sys/Magana Pulse Ox Last 24 Hr 97.5 F-97.5 F 79-101 20-22 92-131/56-89 92 HEART: S1S2, RRR LUNGS: Clear ABDOMEN: Obese, soft, non-tender, non-distended, normal BS EXTREMITIES: 1+ edema with chronic changes of both legs Current Medications Generic Name Dose Route Start Last Admin Trade Name Freq PRN Reason Stop Dose Admin Acetaminophen 650 mg 07/11/17 12:04 Tylenol - PO 07/14/17 01:14 Q4H PRN PAIN LEVEL 1-5 Albuterol Sulfate 1 amp 07/08/17 07:55 Ventolin 0.083% Nebulizer Soln - NEB Q4H PRN SHORT OF BREATH/WHEEZING Albuterol/Ipratropium 1 amp 07/08/17 12:00 07/13/17 17:41 Duoneb - NEB 1 amp QIDR [facility] Administration Cholecalciferol 2,000 unit 07/08/17 10:00 07/13/17 10:09 Vitamin D3 - PO 2,000 unit DAILY [facility] Administration Cyanocobalamin 500 mcg 07/08/17 10:00 07/13/17 10:09 Vitamin B12 - PO 500 mcg DAILY [facility] Administration Enoxaparin Sodium 120 mg/ 150 mg 07/13/17 10:00 07/13/17 10:12 Enoxaparin Sodium 30 mg SQ Not Given BID [facility] Furosemide 40 mg 07/10/17 14:00 07/13/17 13:41 Lasix - PO Not Given BID@0600,1400 [facility] Hydromorphone HCl 2 mg 07/11/17 12:01 07/12/17 21:39 Dilaudid Injection - IM 2 mg Q6H PRN Administration PAIN LEVEL 6-10 Hydroxyzine HCl 10 mg 07/12/17 18:00 07/13/17 17:41 Atarax - PO Not Given Q6HPO [facility] Levofloxacin 500 mg 07/08/17 12:45 07/13/17 06:56 Levaquin - PO 500 mg DAILY@0600 [facility] Administration Magnesium Oxide 400 mg 07/08/17 10:00 07/13/17 10:09 Mag-Ox - PO 400 mg DAILY [facility] Administration Metoprolol Succinate 50 mg 07/08/17 10:00 07/13/17 10:09 Toprol Xl - PO 50 mg DAILY [facility] Administration Multi-Ingredient Ointment 1 applic 07/09/17 22:00 07/13/17 10:10 Zinc Oxide TP 1 applic BID [facility] Administration Ondansetron HCl 4 mg 07/11/17 20:31 Zofran - PO Q6H PRN NAUSEA Ranitidine HCl 300 mg 07/08/17 10:00 07/13/17 10:09 Zantac - PO Not Given DAILY [facility] Valsartan 320 mg 07/08/17 10:00 07/13/17 10:08 Diovan - PO 320 mg DAILY [facility] Administration Warfarin Sodium 3 mg 07/12/17 18:00 07/13/17 17:42 Coumadin - PO 3 mg DAILY@1800 [facility] Administration ASSESSMENT AND PLAN: This is a 46 year old woman with a history of morbid obesity, probable JOSE, probable OHS, CHF, CAD, [place], cardiac stents, COPD, pulmonary HTN, depression, anxiety, recent PE who presented with hemoptysis and orthopnea. 1. Pneumonia - Continue Levaquin (day 7) 2. Acute systolic heart failure - Resolved 3. Chronic systolic heart failure - Continue Lasix, Diovan, Toprol XL 4. Hemoptysis - Resolved 5. Recent submassive bilateral pulmonary emboli - Recommend Coumadin over NOACs secondary to patient's weight - INR subtherapeutic - Lovenox until INR > 2 6. HTN - Continue Diovan, Toprol XL, Lasix 7. Chronic lymphedema of both legs 8. Type 2 DM 9. Pulmonary HTN 10. Morbid obesity 11. CAD, history of [place] and stents - Continue Toprol XL 12. COPD - Continue Jona Bui 13. Anxiety/depression
[2017-07-13] MEDS: HYDROmorphone HCL CARPU-JECT 2 MG/1 ML DISP.SYRIN IM PRN ×2 (17:52→23:55)
[2017-07-14] MEDS ORDERED: PT OWN MED DRAWER 7, Y5N ONE ×2 (06:24→10:46)
[2017-07-14] MEDS: hydrOXYzine HCL 10 MG TABLET PO SCH ×3 (06:28→17:09)
[2017-07-14] MEDS: HYDROmorphone HCL CARPU-JECT 2 MG/1 ML DISP.SYRIN IM PRN ×2 (06:28→20:17)
[2017-07-14] MEDS: LEVOFLOXACIN 500 MG TABLET (FP) PO SCH (06:28)
[2017-07-14] MEDS: FUROSEMIDE 40 MG TABLET (FP) PO SCH ×2 (06:28→15:26)
[2017-07-14 07:24] LABS: MCH 27.3 pg (25.7-33.7); MCHC 31.5 g/dl (32.0-36.0); MEAN CELL VOLUME 86.9 fl (80-96); MEAN PLT VOLUME 8.2 fl (7.5-11.1); PLATELET COUNT 157 K/MM3 (134-434); RDW 18.3 % (11.6-15.6); WHITE BLOOD COUNT 9.5 K/mm3 (4.0-10.0)
[2017-07-14] MEDS: ALBUTEROL SO4 2.5/IPRATROPIUM 0.5 INH SOL 3 ML VIAL.NEB. NEB SCH ×5 (07:32→23:10)
[2017-07-14 07:34] LABS: INR 1.87 (0.82-1.09); PROTHROMBIN TIME (PATIENT) 20.8 SEC (9.98-11.88)
[2017-07-14] MEDS: METOPROLOL SUCCINATE 50 MG TAB.SR.24H (FP) PO SCH (10:53)
[2017-07-14] MEDS: CYANOCOBALAMIN 1,000 MCG TABLET (FP) PO SCH (10:53)
[2017-07-14] MEDS: RANITIDINE HCL 150 MG TABLET (FP) PO SCH (10:54)
[2017-07-14] MEDS: VALSARTAN 160 MG TABLET (UD) PO SCH (10:54)
[2017-07-14] MEDS: MAGNESIUM OXIDE 400 MG TABLET (FP) PO SCH (10:55)
[2017-07-14] MEDS: CHOLECALCIFEROL (VITAMIN D3) 1,000 UNIT TABLET (FP) PO SCH (10:55)
[2017-07-14] MEDS: ENOXAPARIN 120 MG, ENOXAPARIN 30 MG SQ SCH ×2 (10:55→21:27)
[2017-07-14] MEDS: ZINC OXIDE 20% TOPICAL OINTMENT 30 GM TUBE TP SCH ×2 (16:27→21:27)
[2017-07-14] MEDS: WARFARIN NA 5 MG TABLET (UD) PO SCH (17:09)
--- NOTE | 2017-07-14 18:10 | PN ---
Teaching Attending Note Name of Resident: Adarsh Sung ATTENDING PHYSICIAN STATEMENT I saw and evaluated the patient. I reviewed the resident's note and discussed the case with the resident. I agree with the resident's findings and plan as documented. SUBJECTIVE: Patient has no complaints. OBJECTIVE: Vital Signs Period Temp Pulse Resp BP Sys/Magana Pulse Ox Last 24 Hr 97.4 F-98.1 F 68-82 18-20 88-126/51-66 92-97 HEART: S1S2, RRR LUNGS: Clear ABDOMEN: Obese, soft, non-tender, non-distended, normal BS EXTREMITIES: 1+ edema with chronic changes of both legs Current Medications Generic Name Dose Route Start Last Admin Trade Name Freq PRN Reason Stop Dose Admin Albuterol Sulfate 1 amp 07/08/17 07:55 Ventolin 0.083% Nebulizer Soln - NEB Q4H PRN SHORT OF BREATH/WHEEZING Albuterol/Ipratropium 1 amp 07/08/17 12:00 07/14/17 17:55 Duoneb - NEB 1 amp QIDR [facility] Administration Cholecalciferol 2,000 unit 07/08/17 10:00 07/14/17 10:55 Vitamin D3 - PO 2,000 unit DAILY [facility] Administration Cyanocobalamin 500 mcg 07/08/17 10:00 07/14/17 10:53 Vitamin B12 - PO 500 mcg DAILY [facility] Administration Enoxaparin Sodium 120 mg/ 150 mg 07/13/17 10:00 07/14/17 10:55 Enoxaparin Sodium 30 mg SQ 150 mg BID [facility] Administration Furosemide 40 mg 07/10/17 14:00 07/14/17 15:26 Lasix - PO Not Given BID@0600,1400 [facility] Hydromorphone HCl 2 mg 07/11/17 12:01 07/13/17 23:55 Dilaudid Injection - IM 2 mg Q6H PRN Administration PAIN LEVEL 6-10 Hydroxyzine HCl 10 mg 07/12/17 18:00 07/14/17 17:09 Atarax - PO 10 mg Q6HPO [facility] Administration Levofloxacin 500 mg 07/08/17 12:45 07/14/17 06:28 Levaquin - PO 500 mg DAILY@0600 [facility] Administration Magnesium Oxide 400 mg 07/08/17 10:00 07/14/17 10:55 Mag-Ox - PO 400 mg DAILY [facility] Administration Metoprolol Succinate 50 mg 07/08/17 10:00 07/14/17 10:53 Toprol Xl - PO 50 mg DAILY [facility] Administration Multi-Ingredient Ointment 1 applic 07/09/17 22:00 07/14/17 16:27 Zinc Oxide TP 1 applic BID [facility] Administration Ondansetron HCl 4 mg 07/11/17 20:31 Zofran - PO Q6H PRN NAUSEA Ranitidine HCl 300 mg 07/08/17 10:00 07/14/17 10:54 Zantac - PO 300 mg DAILY [facility] Administration Valsartan 320 mg 07/08/17 10:00 07/14/17 10:54 Diovan - PO 320 mg DAILY [facility] Administration Warfarin Sodium 5 mg 07/14/17 18:00 07/14/17 17:09 Coumadin - PO 5 mg DAILY@1800 [facility] Administration ASSESSMENT AND PLAN: This is a 46 year old woman with a history of morbid obesity, probable JOSE, probable OHS, CHF, CAD, [place], cardiac stents, COPD, pulmonary HTN, depression, anxiety, recent PE who presented with hemoptysis and orthopnea. 1. Pneumonia - Discontinue Levaquin 2. Acute systolic heart failure - Resolved 3. Chronic systolic heart failure - Continue Lasix, Diovan, Toprol XL 4. Hemoptysis - Resolved 5. Recent submassive bilateral pulmonary emboli - Recommend Coumadin over NOACs secondary to patient's weight - INR remains subtherapeutic - Coumadin increased - Continue Lovenox until INR > 2 6. HTN - Continue Diovan, Toprol XL, Lasix 7. Chronic lymphedema of both legs 8. Type 2 DM 9. Pulmonary HTN 10. Morbid obesity 11. CAD, history of [place] and stents - Continue Toprol XL 12. COPD - Continue Advair, DuoNeb 13. Anxiety/depression
[2017-07-14] MEDS ORDERED: ONDANSETRON 4 MG TABLET PO PRN (20:14)
--- NOTE | 2017-07-14 21:31 | PN ---
Physical Exam: SUBJECTIVE: Patient seen and examined OBJECTIVE: Vital Signs Period Temp Pulse Resp BP Sys/Magana Pulse Ox Last 24 Hr 97.4 F-97.7 F 68-80 18-20 106-126/52-66 92-94 GENERAL: The patient is awake, alert, and fully oriented, in no acute distress. HEAD: Normal with no signs of trauma. EYES: PERRL, extraocular movements intact, sclera anicteric, conjunctiva clear. No ptosis. ENT: Ears normal, nares patent, oropharynx clear without exudates, moist mucous membranes. NECK: Trachea midline, full range of motion, supple. LUNGS: Breath sounds equal, clear to auscultation bilaterally, no wheezes, no crackles, no accessory muscle use. HEART: Regular rate and rhythm, S1, S2 without murmur, rub or gallop. ABDOMEN: Soft, nontender, nondistended, normoactive bowel sounds, no guarding, no rebound, no hepatosplenomegaly, no masses. EXTREMITIES: 2+ pulses, warm, well-perfused, no edema. NEUROLOGICAL: Cranial nerves II through XII grossly intact. Normal speech, gait not observed. PSYCH: Normal mood, normal affect. SKIN: Warm, dry, normal turgor, no rashes or lesions noted Laboratory Results - last 24 hr 07/14/17 07/14/17 07/14/17 06:00 06:00 06:00 WBC 9.5 RBC 4.18 Hgb 11.4 Hct 36.3 MCV 86.9 MCH 27.3 MCHC 31.5 L RDW 18.3 H Plt Count 157 MPV 8.2 PT with INR 20.80 H INR 1.87 H PTT (Actin FS) 30.6 Active Medications Generic Name Dose Route Start Last Admin Trade Name Freq PRN Reason Stop Dose Admin Albuterol Sulfate 1 amp 07/08/17 07:55 Ventolin 0.083% Nebulizer Soln - NEB Q4H PRN SHORT OF BREATH/WHEEZING Albuterol/Ipratropium 1 amp 07/08/17 12:00 07/14/17 17:55 Duoneb - NEB 1 amp QIDR [facility] Administration Cholecalciferol 2,000 unit 07/08/17 10:00 07/14/17 10:55 Vitamin D3 - PO 2,000 unit DAILY [facility] Administration Cyanocobalamin 500 mcg 07/08/17 10:00 07/14/17 10:53 Vitamin B12 - PO 500 mcg DAILY [facility] Administration Enoxaparin Sodium 120 mg/ 150 mg 07/13/17 10:00 07/14/17 10:55 Enoxaparin Sodium 30 mg SQ 150 mg BID [facility] Administration Furosemide 40 mg 07/10/17 14:00 07/14/17 15:26 Lasix - PO Not Given BID@0600,1400 [facility] Hydromorphone HCl 2 mg 07/11/17 12:01 07/14/17 20:17 Dilaudid Injection - IM 2 mg Q6H PRN Administration PAIN LEVEL 6-10 Hydroxyzine HCl 10 mg 07/12/17 18:00 07/14/17 17:09 Atarax - PO 10 mg Q6HPO [facility] Administration Levofloxacin 500 mg 07/08/17 12:45 07/14/17 06:28 Levaquin - PO 500 mg DAILY@0600 [facility] Administration Magnesium Oxide 400 mg 07/08/17 10:00 07/14/17 10:55 Mag-Ox - PO 400 mg DAILY [facility] Administration Metoprolol Succinate 50 mg 07/08/17 10:00 07/14/17 10:53 Toprol Xl - PO 50 mg DAILY [facility] Administration Multi-Ingredient Ointment 1 applic 07/09/17 22:00 07/14/17 16:27 Zinc Oxide TP 1 applic BID [facility] Administration Ondansetron HCl 4 mg 07/14/17 20:14 Zofran - PO Q6H PRN NAUSEA Ranitidine HCl 300 mg 07/08/17 10:00 07/14/17 10:54 Zantac - PO 300 mg DAILY [facility] Administration Valsartan 320 mg 07/08/17 10:00 07/14/17 10:54 Diovan - PO 320 mg DAILY [facility] Administration Warfarin Sodium 5 mg 07/14/17 18:00 07/14/17 17:09 Coumadin - PO 5 mg DAILY@1800 [facility] Administration ASSESSMENT/PLAN: 46 y/o morbidly obese F with significant PMHx of systolic CHF, [place](2011 s/p stents X2), COPD, asthma, chronic lymphedema, depression, anxiety, pulmonary HTN on Warfarin for h/o of DVT's presented today to ER for spitting up blood admitted to hospital for Pneumonia and hypotension. #Acute hypoxic respiratory distress 2/2 PNA and CHF exacerbation. -Levaquin 500 PO daily, day 8; d/cd levaquin after today's dose -pulmonary onboard -Sputum gram stain growing normal rodrigo -Flu swab negative -BCx: no growth to date #Subtheraputic INR on warfarin -warfarin 3mg HS increased to 5mg HS -repeat INR in AM -INR is 1.87 today, bridging with lovenox 150mg SQ Q12H. Patient refusing treatment. #psychiatric disturbances -patient verbally and physically abusive to staff -1:1 observation d/c as patient denies desire to actively end her own life and has been cleared by psych. #hemoptysis likely 2/2 airway irritation 2/2 to coughing -Hb has been stable throughout admission -no SOB on baseline home O2 #Asymptomatic bactiuria -Ucx positive for e.coli and klebsiella pneumoniae -will initiate treatment if patient becomes symptomatic -some coverage with existing levaquin dose #COPD- controlled -Nebs standing and PRN -Incentive spirometry. -supplemental O2 to maintain Spo2 >90% #systolic CHF exacerbation - controlled -Lasix 40mg PO BID -Continue home Toprol XL 50mg PO daily #Morbid obesity w/ hypoventilation syndrome -BiPaP PRN -counseled on importance of losing weight and eating a low sodium heart healthy diet. #FEN -no fluids indicated -lytes WNL -regular diet #Dispo -for dc once INR theraputic -patient is refusing multiple medications despite counseling on importance of compliance and its potential health risks Visit type - Emergency Visit Emergency Visit: Yes ED Registration Date: 07/08/17 Care time: The patient presented to the Emergency Department on the above date and was hospitalized for further evaluation of their emergent condition. - New Patient This patient is new to me today: No - Critical Care Critical Care patient: No
[2017-07-15] MEDS: hydrOXYzine HCL 10 MG TABLET PO SCH ×5 (00:02→23:30)
[2017-07-15] MEDS: FUROSEMIDE 40 MG TABLET (FP) PO SCH ×2 (06:28→14:12)
[2017-07-15] MEDS: ALBUTEROL SO4 2.5/IPRATROPIUM 0.5 INH SOL 3 ML VIAL.NEB. NEB SCH ×3 (06:50→17:15)
[2017-07-15 07:25] LABS: INR 1.76 (0.82-1.09); PROTHROMBIN TIME (PATIENT) 19.6 SEC (9.98-11.88)
[2017-07-15] MEDS: ZINC OXIDE 20% TOPICAL OINTMENT 30 GM TUBE TP SCH ×2 (10:00→21:43)
[2017-07-15] MEDS ORDERED: PT OWN MED DRAWER 7, Y5N ONE ×2 (11:00→20:13)
[2017-07-15] MEDS: ENOXAPARIN 120 MG, ENOXAPARIN 30 MG SQ SCH ×2 (11:24→21:43)
[2017-07-15] MEDS: CYANOCOBALAMIN 1,000 MCG TABLET (FP) PO SCH (11:24)
[2017-07-15] MEDS: VALSARTAN 160 MG TABLET (UD) PO SCH (11:24)
[2017-07-15] MEDS: RANITIDINE HCL 150 MG TABLET (FP) PO SCH ×2 (11:24→11:35)
[2017-07-15] MEDS: METOPROLOL SUCCINATE 50 MG TAB.SR.24H (FP) PO SCH (11:25)
[2017-07-15] MEDS: CHOLECALCIFEROL (VITAMIN D3) 1,000 UNIT TABLET (FP) PO SCH (11:25)
[2017-07-15] MEDS: MAGNESIUM OXIDE 400 MG TABLET (FP) PO SCH (11:25)
--- NOTE | 2017-07-15 15:03 | PN ---
Progress Note (short form) - Note Progress Note: PULMONARY RESTING COMFORTABLY VSS/AFEBRILE ANICTERIC DIMINISHED BREATH SOUNDS S1S2 OBESE LYMPHEDEMA LOWER EXT LABS/MEDS/NOTES/IMAGING REVIEWED Hemoptysis resolved Pulmonary Embolism Likely Pulmonary Infarct CAD s/p stents Severe LV Systolic Dysfunction Pulmonary HTN COPD Depression Morbid Obesity DM - continue anticoagulation - monitor hemoptysis - O2 to keep SpO2 >90% - ABX - inhaled bronchodilators - continue cardiac meds - will need outpt f/u of chest imaging - pt DNR/DNI - No Pulmonary contraindication for D/C planning. Need to assess for home O2. Mitch MCDANIEL MD Problem List - Problems (1) Pneumonia Code(s): J18.9 - PNEUMONIA, UNSPECIFIED ORGANISM Qualifiers: Pneumonia type: due to unspecified organism Laterality: left Lung location: unspecified part of lung Qualified Code(s): J18.9 - Pneumonia, unspecified organism (2) SOB (shortness of breath) Code(s): R06.02 - SHORTNESS OF BREATH (3) Systolic CHF Code(s): I50.20 - UNSPECIFIED SYSTOLIC (CONGESTIVE) HEART FAILURE Qualifiers: Congestive heart failure chronicity: chronic Qualified Code(s): I50.22 - Chronic systolic (congestive) heart failure (4) Biventricular failure Code(s): I50.9 - HEART FAILURE, UNSPECIFIED (5) Pulmonary embolism Code(s): I26.99 - OTHER PULMONARY EMBOLISM WITHOUT ACUTE COR PULMONALE Qualifiers: Pulmonary embolism type: other Chronicity: acute Acute cor pulmonale presence: without acute cor pulmonale Qualified Code(s): I26.99 - Other pulmonary embolism without acute cor pulmonale (6) Hemoptysis Code(s): R04.2 - HEMOPTYSIS
--- NOTE | 2017-07-15 16:50 | PN ---
Teaching Attending Note Name of Resident: Adarsh Sung ATTENDING PHYSICIAN STATEMENT I saw and evaluated the patient. I reviewed the resident's note and discussed the case with the resident. I agree with the resident's findings and plan as documented. SUBJECTIVE: Patient has no complaints. She wants to leave today or tomorrow because she is planning on going to [place] tomorrow with a friend and will be living there. OBJECTIVE: Vital Signs Period Temp Pulse Resp BP Sys/Magana Pulse Ox Last 24 Hr 97 F-98.2 F 65-78 18-20 115-131/52-72 89-97 HEART: S1S2, RRR LUNGS: Clear ABDOMEN: Obese, soft, non-tender, non-distended, normal BS EXTREMITIES: 1+ edema with chronic changes of both legs Current Medications Generic Name Dose Route Start Last Admin Trade Name Freq PRN Reason Stop Dose Admin Albuterol Sulfate 1 amp 07/08/17 07:55 Ventolin 0.083% Nebulizer Soln - NEB Q4H PRN SHORT OF BREATH/WHEEZING Albuterol/Ipratropium 1 amp 07/08/17 12:00 07/15/17 11:00 Duoneb - NEB 1 amp QIDR [facility] Administration Cholecalciferol 2,000 unit 07/08/17 10:00 07/15/17 11:25 Vitamin D3 - PO 2,000 unit DAILY [facility] Administration Cyanocobalamin 500 mcg 07/08/17 10:00 07/15/17 11:24 Vitamin B12 - PO 500 mcg DAILY [facility] Administration Enoxaparin Sodium 120 mg/ 150 mg 07/13/17 10:00 07/15/17 11:24 Enoxaparin Sodium 30 mg SQ 150 mg BID [facility] Administration Furosemide 40 mg 07/10/17 14:00 07/15/17 14:12 Lasix - PO Not Given BID@0600,1400 [facility] Hydromorphone HCl 2 mg 07/11/17 12:01 07/14/17 20:17 Dilaudid Injection - IM 2 mg Q6H PRN Administration PAIN LEVEL 6-10 Hydroxyzine HCl 10 mg 07/12/17 18:00 07/15/17 11:25 Atarax - PO 10 mg Q6HPO [facility] Administration Magnesium Oxide 400 mg 07/08/17 10:00 07/15/17 11:25 Mag-Ox - PO 400 mg DAILY [facility] Administration Metoprolol Succinate 50 mg 07/08/17 10:00 07/15/17 11:25 Toprol Xl - PO 50 mg DAILY [facility] Administration Multi-Ingredient Ointment 1 applic 07/09/17 22:00 07/15/17 10:00 Zinc Oxide TP Not Given BID [facility] Ondansetron HCl 4 mg 07/14/17 20:14 Zofran - PO Q6H PRN NAUSEA Ranitidine HCl 300 mg 07/08/17 10:00 07/15/17 11:35 Zantac - PO Not Given DAILY [facility] Valsartan 320 mg 07/08/17 10:00 07/15/17 11:24 Diovan - PO 320 mg DAILY [facility] Administration Warfarin Sodium 5 mg 07/14/17 18:00 07/14/17 17:09 Coumadin - PO 5 mg DAILY@1800 [facility] Administration ASSESSMENT AND PLAN: This is a 46 year old woman with a history of morbid obesity, probable JOSE, probable OHS, CHF, CAD, [place], cardiac stents, COPD, pulmonary HTN, depression, anxiety, recent PE who presented with hemoptysis and orthopnea. 1. Pneumonia - Completed Levaquin 2. Acute systolic heart failure - Resolved 3. Chronic systolic heart failure - Continue Lasix, Diovan, Toprol XL 4. Hemoptysis - Resolved 5. Recent submassive bilateral pulmonary emboli - Recommend Coumadin over NOACs secondary to patient's weight - INR remains subtherapeutic - Continue Coumadin and Lovenox until INR > 2 6. HTN - Continue Diovan, Toprol XL, Lasix 7. Chronic lymphedema of both legs 8. Type 2 DM 9. Pulmonary HTN 10. Morbid obesity 11. CAD, history of [place] and stents - Continue Toprol XL 12. COPD - Continue Jona Biu 13. Anxiety/depression
[2017-07-15] MEDS: WARFARIN NA 5 MG TABLET (UD) PO SCH (17:40)
--- NOTE | 2017-07-15 18:05 | PN ---
Physical Exam: SUBJECTIVE: Patient seen and examined at bedside. Patient with no new complaints. OBJECTIVE: Vital Signs Period Temp Pulse Resp BP Sys/Magana Pulse Ox Last 24 Hr 97 F-98.2 F 65-78 18-20 115-131/55-72 89-97 GENERAL: The patient is awake, alert, and fully oriented, in no acute distress. HEAD: Normal with no signs of trauma. EYES: extraocular movements intact, sclera anicteric, conjunctiva clear. No ptosis. NECK: Trachea midline, full range of motion, supple. LUNGS: Breath sounds equal, clear to auscultation bilaterally, no wheezes, no crackles, no accessory muscle use. HEART: Regular rate and rhythm, S1, S2 without murmur, rub or gallop. ABDOMEN: Soft, nontender, nondistended, normoactive bowel sounds, no guarding, no rebound, no hepatosplenomegaly, no masses. EXTREMITIES: 2+ pulses, warm, well-perfused, no edema. NEUROLOGICAL: Cranial nerves II through X grossly intact. Normal speech, gait not observed. SKIN: Warm, dry, normal turgor, no rashes or lesions noted Laboratory Results - last 24 hr 07/15/17 06:58 PT with INR 19.60 H INR 1.76 H Active Medications Generic Name Dose Route Start Last Admin Trade Name Freq PRN Reason Stop Dose Admin Albuterol Sulfate 1 amp 07/08/17 07:55 Ventolin 0.083% Nebulizer Soln - NEB Q4H PRN SHORT OF BREATH/WHEEZING Albuterol/Ipratropium 1 amp 07/08/17 12:00 07/15/17 11:00 Duoneb - NEB 1 amp QIDR [facility]CO Administration Cholecalciferol 2,000 unit 07/08/17 10:00 07/15/17 11:25 Vitamin D3 - PO 2,000 unit DAILY [facility] Administration Cyanocobalamin 500 mcg 07/08/17 10:00 07/15/17 11:24 Vitamin B12 - PO 500 mcg DAILY [facility] Administration Enoxaparin Sodium 120 mg/ 150 mg 07/13/17 10:00 07/15/17 11:24 Enoxaparin Sodium 30 mg SQ 150 mg BID [facility] Administration Furosemide 40 mg 07/10/17 14:00 07/15/17 14:12 Lasix - PO Not Given BID@0600,1400 [facility] Hydromorphone HCl 2 mg 07/11/17 12:01 07/14/17 20:17 Dilaudid Injection - IM 2 mg Q6H PRN Administration PAIN LEVEL 6-10 Hydroxyzine HCl 10 mg 07/12/17 18:00 07/15/17 17:40 Atarax - PO 10 mg Q6HPO [facility] Administration Magnesium Oxide 400 mg 07/08/17 10:00 07/15/17 11:25 Mag-Ox - PO 400 mg DAILY [facility] Administration Metoprolol Succinate 50 mg 07/08/17 10:00 07/15/17 11:25 Toprol Xl - PO 50 mg DAILY [facility] Administration Multi-Ingredient Ointment 1 applic 07/09/17 22:00 07/15/17 10:00 Zinc Oxide TP Not Given BID [facility] Ondansetron HCl 4 mg 07/14/17 20:14 Zofran - PO Q6H PRN NAUSEA Ranitidine HCl 300 mg 07/08/17 10:00 07/15/17 11:35 Zantac - PO Not Given DAILY [facility] Valsartan 320 mg 07/08/17 10:00 07/15/17 11:24 Diovan - PO 320 mg DAILY [facility] Administration Warfarin Sodium 5 mg 07/14/17 18:00 07/15/17 17:40 Coumadin - PO 5 mg DAILY@1800 [facility] Administration ASSESSMENT/PLAN: 46 y/o morbidly obese F with significant PMHx of systolic CHF, [place](2011 s/p stents X2), COPD, asthma, chronic lymphedema, depression, anxiety, pulmonary HTN on Warfarin for h/o of DVT's presented today to ER for spitting up blood admitted to hospital for Pneumonia and hypotension. #Acute hypoxic respiratory distress 2/2 PNA and CHF exacerbation. -d/c levaquin -pulmonary onboard -Sputum gram stain growing normal rodrigo -Flu swab negative -BCx: no growth to date #Subtheraputic INR on warfarin -warfarin 5mg HS -repeat INR in AM -INR is 1.76 today, bridging with lovenox 150mg SQ Q12H. Patient refusing treatment. #psychiatric disturbances - resolved -patient verbally and physically abusive to staff -1:1 observation d/c as patient denies desire to actively end her own life and has been cleared by psych. #Asymptomatic bactiuria -Ucx positive for e.coli and klebsiella pneumoniae -will initiate treatment if patient becomes symptomatic -some coverage with existing levaquin dose #hemoptysis likely 2/2 airway irritation 2/2 to coughing - resolved -Hb has been stable throughout admission -no SOB on baseline home O2 #COPD- controlled -Nebs standing and PRN -Incentive spirometry. -supplemental O2 to maintain Spo2 >90% #systolic CHF exacerbation - controlled -Lasix 40mg PO BID -Continue home Toprol XL 50mg PO daily #Morbid obesity w/ hypoventilation syndrome -BiPaP PRN -counseled on importance of losing weight and eating a low sodium heart healthy diet. #FEN -no fluids indicated -lytes WNL -regular diet #Dispo -for dc once INR theraputic -patient is refusing multiple medications despite counseling on importance of compliance and its potential health risks Visit type - Emergency Visit Emergency Visit: Yes ED Registration Date: 07/08/17 Care time: The patient presented to the Emergency Department on the above date and was hospitalized for further evaluation of their emergent condition. - New Patient This patient is new to me today: No - Critical Care Critical Care patient: No
[2017-07-15] MEDS: HYDROmorphone HCL CARPU-JECT 2 MG/1 ML DISP.SYRIN IM PRN (20:19)
[2017-07-15] MEDS: CLOTRIMAZOLE 1% CREAM 15 GM TUBE TP SCH (21:43)
[2017-07-16] MEDS: ALBUTEROL SO4 2.5/IPRATROPIUM 0.5 INH SOL 3 ML VIAL.NEB. NEB SCH ×3 (06:35→11:30)
[2017-07-16] MEDS: hydrOXYzine HCL 10 MG TABLET PO SCH (06:57)
[2017-07-16] MEDS: FUROSEMIDE 40 MG TABLET (FP) PO SCH ×2 (07:15→14:45)
[2017-07-16 09:12] LABS: INR 1.75 (0.82-1.09); PROTHROMBIN TIME (PATIENT) 19.5 SEC (9.98-11.88)
[2017-07-16] MEDS ORDERED: PT OWN MED DRAWER 7, Y5N ONE (09:42)
[2017-07-16] MEDS: RANITIDINE HCL 150 MG TABLET (FP) PO SCH (10:32)
[2017-07-16] MEDS: CYANOCOBALAMIN 1,000 MCG TABLET (FP) PO SCH (10:32)
[2017-07-16] MEDS: METOPROLOL SUCCINATE 50 MG TAB.SR.24H (FP) PO SCH (10:33)
[2017-07-16] MEDS: CHOLECALCIFEROL (VITAMIN D3) 1,000 UNIT TABLET (FP) PO SCH (10:33)
[2017-07-16] MEDS: VALSARTAN 160 MG TABLET (UD) PO SCH (10:33)
[2017-07-16] MEDS: MAGNESIUM OXIDE 400 MG TABLET (FP) PO SCH (10:33)
[2017-07-16] MEDS: ENOXAPARIN 120 MG, ENOXAPARIN 30 MG SQ SCH (10:34)
[2017-07-16] MEDS: CLOTRIMAZOLE 1% CREAM 15 GM TUBE TP SCH (10:34)
--- NOTE | 2017-07-16 11:03 | PN ---
Teaching Attending Note Name of Resident: José Caraballo ATTENDING PHYSICIAN STATEMENT I saw and evaluated the patient. I reviewed the resident's note and discussed the case with the resident. I agree with the resident's findings and plan as documented. SUBJECTIVE: Patient has no complaints. OBJECTIVE: Vital Signs Period Temp Pulse Resp BP Sys/Magana Pulse Ox Last 24 Hr 97.3 F-97.9 F 70-88 18-20 115-137/66-87 96-97 HEART: S1S2, RRR LUNGS: Clear ABDOMEN: Obese, soft, non-tender, non-distended, normal BS EXTREMITIES: 1+ edema with chronic changes of both legs Current Medications Generic Name Dose Route Start Last Admin Trade Name Freq PRN Reason Stop Dose Admin Albuterol Sulfate 1 amp 07/08/17 07:55 Ventolin 0.083% Nebulizer Soln - NEB Q4H PRN SHORT OF BREATH/WHEEZING Albuterol/Ipratropium 1 amp 07/08/17 12:00 07/16/17 06:35 Duoneb - NEB Not Given QIDR [facility]CO Cholecalciferol 2,000 unit 07/08/17 10:00 07/16/17 10:33 Vitamin D3 - PO 2,000 unit DAILY [facility] Administration Clotrimazole 1 applic 07/15/17 22:00 07/16/17 10:34 Lotrimin 1% Cream - TP 1 applic BID [facility] Administration Cyanocobalamin 500 mcg 07/08/17 10:00 07/16/17 10:32 Vitamin B12 - PO 500 mcg DAILY [facility] Administration Enoxaparin Sodium 120 mg/ 150 mg 07/13/17 10:00 07/16/17 10:34 Enoxaparin Sodium 30 mg SQ 150 mg BID [facility] Administration Furosemide 40 mg 07/10/17 14:00 07/16/17 07:15 Lasix - PO Not Given BID@0600,1400 [facility] Hydromorphone HCl 2 mg 07/11/17 12:01 07/15/17 20:19 Dilaudid Injection - IM 2 mg Q6H PRN Administration PAIN LEVEL 6-10 Hydroxyzine HCl 10 mg 07/12/17 18:00 07/16/17 06:57 Atarax - PO 10 mg Q6HPO [facility] Administration Magnesium Oxide 400 mg 07/08/17 10:00 07/16/17 10:33 Mag-Ox - PO 400 mg DAILY [facility] Administration Metoprolol Succinate 50 mg 07/08/17 10:00 07/16/17 10:33 Toprol Xl - PO 50 mg DAILY [facility] Administration Multi-Ingredient Ointment 1 applic 07/09/17 22:00 07/15/17 21:43 Zinc Oxide TP 1 applic BID [facility] Administration Ondansetron HCl 4 mg 07/14/17 20:14 Zofran - PO Q6H PRN NAUSEA Ranitidine HCl 300 mg 07/08/17 10:00 07/16/17 10:32 Zantac - PO 300 mg DAILY [facility] Administration Valsartan 320 mg 07/08/17 10:00 07/16/17 10:33 Diovan - PO 320 mg DAILY [facility] Administration Warfarin Sodium 5 mg 07/14/17 18:00 07/15/17 17:40 Coumadin - PO 5 mg DAILY@1800 [facility] Administration ASSESSMENT AND PLAN: This is a 46 year old woman with a history of morbid obesity, probable JOSE, probable OHS, CHF, CAD, [place], cardiac stents, COPD, pulmonary HTN, depression, anxiety, recent PE who presented with hemoptysis and orthopnea. 1. Pneumonia - Completed Levaquin 2. Acute systolic heart failure - Resolved 3. Chronic systolic heart failure - Continue Lasix, Diovan, Toprol XL 4. Hemoptysis - Resolved 5. Recent submassive bilateral pulmonary emboli - Recommend Coumadin over NOACs secondary to patient's weight - INR remains subtherapeutic - Continue Coumadin and Lovenox until INR > 2 - Patient wants to leave today so her friend can drive her to [place] where she will be living. Patient refuses to self-inject Lovenox so recommended she stay until INR is therapeutic. If she refuses, she will sign out AMA. She understands the risk of another PE while INR is subtherapeutic. She says that if she leaves, she will take Coumadin and will have her INR checked when she gets to [place]. 6. HTN - Continue Diovan, Toprol XL, Lasix 7. Chronic lymphedema of both legs 8. Type 2 DM 9. Pulmonary HTN 10. Morbid obesity 11. CAD, history of [place] and stents - Continue Toprol XL 12. COPD - Continue Jona Bui 13. Anxiety/depression
[2017-07-16 11:19] VITALS: BP 110/68; PULSE 84; TEMP 97.6
--- NOTE | 2017-07-16 12:34 | DS ---
Physical Exam: SUBJECTIVE: Patient seen and examined at bedside. Offers no new complaints. No acute events overnight. OBJECTIVE: Vital Signs Temperature 97.6 F 07/16/17 10:00 Pulse Rate 84 07/16/17 10:00 Respiratory Rate 18 07/16/17 10:00 Blood Pressure 110/68 07/16/17 10:00 O2 Sat by Pulse Oximetry (%) 94 L 07/16/17 09:00 PHYSICAL EXAM GENERAL: The patient is morbidly obese, awake, alert, and fully oriented, in no acute distress, sitting on bed combing hair. HEAD: Normal with no signs of trauma. EYES: extraocular movements intact ENT: Ears normal, nares patent. NECK: full range of motion LUNGS: Diminished breath sounds. HEART: Regular rate and rhythm, S1, S2+. ABDOMEN: Soft, obese, nontender, nondistended, normoactive bowel sounds NEUROLOGICAL: Normal speech, gait not observed. PSYCH: Normal mood, normal affect. SKIN: Warm, dry LABS Laboratory Results - last 24 hr 07/16/17 08:10 PT with INR 19.50 H INR 1.75 H HOSPITAL COURSE: Date of Admission:07/08/17 Date of Discharge: 07/16/17 46 y/o F w/PMH of COPD, CHF, morbid obesity, b/l LE lymphedema, depression, [place] w /stent placemetn, anxiety, HTN, PE on coumadin presented to ER for hemoptysis, SOB, and back/shoulder/neck pain. Pt found to have on CTA possible LLL PNA, RLL 4.8cm masslike density, possible LLL PE's. Pt's SOB was treated with levaquin for PNA and lasix for CHF exacerbation. Pt refused lasix on most days during hospital stay. Pt's SOB improved with levaquin and hemoptysis also improved which was most likely due to irritation from coughing. Pt's hospital course was complicated by subtherapeutic INR of 1.75. Pt was started on 3 mg coumadin and titrated up to 5 mg daily. Pt's INR flucated but remained subtherapeutic and on last day was at 1.75. Pt needs to move to [place] today and could not stay any longer. Pt was told to take lovenox injection but pt refused to take them herself as an outpatient. She was told to continue taking coumadin 5 mg daily and to f/u with clinic, physician, urgent care, or emergency room once she was in [place] to check her INR on 5 mg coumadin. Risks of subtherapeutic INR were explained to her which included but not limited to: clots in legs, lungs, stroke, mi, , arrhythmias. Pt still decided to sign out AMA. During her stay here, pt's hospital course was also complicated with non-compliance of coumadin, lovenox, and other medical therapies intermittently. Minutes to complete discharge: 45 Discharge Summary Reason For Visit: SOB PNEUMONIA Current Active Problems Hemoptysis (Acute) Pneumonia (Acute) SOB (shortness of breath) (Acute) Subtherapeutic international normalized ratio (INR) (Acute) Systolic CHF (Acute) Condition: Improved - Instructions Diet, Activity, Other Instructions: You are leaving the hospital against medical advice. You will need to continue taking your coumadin 5 mg daily. You will need to follow up with a clinic, physician, urgent care, or ER to check your INR for your coumadin. Currently it is below therapeutic levels. The suboptimal level of coumadin can cause clots in your legs, arms, lungs, stroke, heart arrhythmias, heart attack, or . If you require medical attention you can always come back to [facility] ER. Referrals: Jess Long MD [Primary Care Provider] - Disposition: AGAINST MEDICAL ADVICE - Home Medications Comprehensive Discharge Medication List: Ambulatory Orders Albuterol Sulfate [Proventil HFA Inhaler -] 1 - 2 inh PO QID PRN 11/02/16 Cholecalciferol (Vitamin D3) [Vitamin D3] 2,000 unit PO DAILY 11/02/16 Cyanocobalamin [Vitamin B12 -] 500 mcg PO DAILY 11/02/16 Famotidine [Pepcid -] 40 mg PO BID 11/02/16 Fluticasone/Salmeterol [Advair 250-50 Diskus] 1 each IH DAILY 11/02/16 Magnesium Oxide [Magnesium] 500 mg PO DAILY 11/02/16 Metoprolol Succinate [Toprol XL -] 50 mg PO DAILY 11/02/16 Valsartan 320 mg PO DAILY 11/02/16 Vitamin B Complex [B Complex # 1] 1 each PO DAILY 11/02/16 Furosemide [Lasix -] 40 mg PO DAILY #7 tablet 11/09/16 Salmeterol/Fluticasone [Advair 100Mcg/50Mcg -] 1 puff IH BID inhaler 11/09/16 Warfarin Sodium 5 mg PO DAILY #5 tab 07/16/17 Problem List - Problems (1) Hemoptysis Code(s): R04.2 - HEMOPTYSIS (2) Pneumonia Code(s): J18.9 - PNEUMONIA, UNSPECIFIED ORGANISM Qualifiers: Pneumonia type: due to unspecified organism Laterality: left Lung location: unspecified part of lung Qualified Code(s): J18.9 - Pneumonia, unspecified organism (3) SOB (shortness of breath) Code(s): R06.02 - SHORTNESS OF BREATH (4) Subtherapeutic international normalized ratio (INR) Code(s): R79.1 - ABNORMAL COAGULATION PROFILE (5) Systolic CHF Code(s): I50.20 - UNSPECIFIED SYSTOLIC (CONGESTIVE) HEART FAILURE Qualifiers: Congestive heart failure chronicity: chronic Qualified Code(s): I50.22 - Chronic systolic (congestive) heart failure (6) Adjustment disorder with depressed mood Code(s): F43.21 - ADJUSTMENT DISORDER WITH DEPRESSED MOOD This patient is new to me today: No Emergency Visit: Yes ED Registration Date: 07/08/17 Care time: The patient presented to the Emergency Department on the above date and was hospitalized for further evaluation of their emergent condition. Critical Care patient: No - Discharge Referral Referred to [facility] Med P.C.: No
== END 2017-07-16 14:21 | disposition left against medical advice (07) | DRG 194 ==
LOC: JER 02:16 → JERBED 07:45 → J7W 09:03
PROVIDERS: ADMIT Internal Medicine; ATTEND Internal Medicine
DX: I11.0 Hypertensive heart disease with heart failure (principal); I50.33 Acute on chronic diastolic (congestive) heart failure; J18.9 Pneumonia, unspecified organism; D68.8 Other specified coagulation defects; I27.2 Other secondary pulmonary hypertension; R45.851 Suicidal ideations; E11.65 Type 2 diabetes mellitus with hyperglycemia; Z68.43 Body mass index [BMI] 50.0-59.9, adult; E66.2 Morbid (severe) obesity with alveolar hypoventilation; E87.1 Hypo-osmolality and hyponatremia; J44.9 Chronic obstructive pulmonary disease, unspecified; R82.71 Bacteriuria; Z79.01 Long term (current) use of anticoagulants; R09.02 Hypoxemia; I25.2 Old myocardial infarction; Z95.5 Presence of coronary angioplasty implant and graft; Z86.711 Personal history of pulmonary embolism; F32.9 Major depressive disorder, single episode, unspecified; F41.9 Anxiety disorder, unspecified; I89.0 Lymphedema, not elsewhere classified; Z86.718 Personal history of other venous thrombosis and embolism; F12.10 Cannabis abuse, uncomplicated; F17.210 Nicotine dependence, cigarettes, uncomplicated; I25.10 Atherosclerotic heart disease of native coronary artery without angina pectoris; Z66 Do not resuscitate; A49.8 Other bacterial infections of unspecified site; B96.1 Klebsiella pneumoniae [K. pneumoniae] as the cause of diseases classified elsewhere
CPT/HCPCS: 36415; 71010-TC; 71275-TC; 80048; 80053; 81003; 81015; 83735; 83880; 84100; 84484; 85025; 85027; 85610; 85730; 87040; 87070; 87086; 87186; 87205; 87804; 93005; 93010; 93306-TC; 94640; 94761; 97116-GP; 97161-GP; 99285-25; J1644

== ENCOUNTER 2018-02-09 10:24 | Inpatient (IN) | payer OTHER ==
[2018-02-07 16:55] VITALS: BMI 43.0
[2018-02-09] MEDS ORDERED: LIDOCAINE HCL 1%, 10 MG/ML (20ML VIAL) ONE (12:18)
[2018-02-09] MEDS ORDERED: PROPOFOL 20 ML ONE ×2 (13:07)
[2018-02-09] MEDS ORDERED: LIDOCAINE HCL/PF 2% SDV 5ML VIAL ONE (13:07)
[2018-02-09] MEDS ORDERED: VANCOMYCIN 1,000 MG VIAL (RESTRICTED TO ID ONLY) IVPB ONE (13:30)
[2018-02-09] MEDS ORDERED: MIDAZOLAM HCL 2 MG/2 ML SINGLE DOSE VIAL ONE (13:57)
[2018-02-09] MEDS ORDERED: oxyCODONE HCL 5 MG TABLET PO PRN (14:10)
[2018-02-09] MEDS ORDERED: PROMETHAZINE HCL 25 MG/1 ML VIAL IVPUSH PRN (14:10)
[2018-02-09] MEDS ORDERED: ONDANSETRON 4 MG/2 ML VIAL IVPUSH PRN (14:10)
--- NOTE | 2018-02-09 14:44 | OP ---
Operative Note - Note: Operative Date: 02/09/18 Pre-Operative Diagnosis: right thigh, calf necrotic ulcer Operation: Excisional debridement thigh, calf -- skin, subcutaneous tissue, muscle. Findings: necrotic ulcers Post-Operative Diagnosis: Same as Pre-op Surgeon: Evangelist Caraballo Anesthesia: Fractional Estimated Blood Loss (mls): 50 Operative Report Dictated: Yes
--- NOTE | 2018-02-09 14:46 | HP ---
Admitting History and Physical - Admission Chief Complaint: necrotic thigh and calf ulcers Limitations to Obtaining History: No Limitations - Past Medical History Cardiovascular: Yes: CAD, CHF, [place], Pulmonary Hypertension Pulmonary: Yes: Asthma, COPD ...LMP Comment: 1.5 years ...: No Dermatology: Yes: Other (Leg Cellulitis) - Advance Directives Advance Directives: Yes: Health Care Proxy - Smoking History Smoking history: Current every day smoker Have you smoked in the past 12 months: Yes Aproximately how many cigarettes per day: 7 If you are a former smoker, when did you quit?: April 2016 - Alcohol/Substance Use Hx Alcohol Use: No (2009) - Social History ADL: Family Assistance History of Recent Travel: No Home Medications - Allergies Allergies/Adverse Reactions: Allergies Allergy/AdvReac Type Severity Reaction Status Date / Time budesonide Allergy Severe Difficulty Verified 02/09/18 10:55 Breathing bupropion Allergy Severe Hives Verified 02/09/18 10:55 erythromycin base Allergy Severe Vomiting Verified 02/09/18 10:55 formoterol Allergy Severe Hives Verified 02/09/18 10:55 gabapentin Allergy Severe Nausea Verified 02/09/18 10:55 carvedilol Allergy Intermediate Nausea Verified 02/09/18 10:55 lisinopril Allergy Intermediate Nausea Verified 02/09/18 10:55 omeprazole Allergy Intermediate Verified 02/09/18 10:55 tramadol Allergy Intermediate Hives Verified 02/09/18 10:55 - Home Medications Home Medications: Ambulatory Orders Albuterol Sulfate [Proventil HFA Inhaler -] 1 - 2 inh PO QID PRN 11/02/16 Cholecalciferol (Vitamin D3) [Vitamin D3] 2,000 unit PO DAILY 11/02/16 Cyanocobalamin [Vitamin B12 -] 500 mcg PO DAILY 11/02/16 Magnesium Oxide [Magnesium] 400 mg PO DAILY 11/02/16 Metoprolol Succinate [Toprol XL -] 50 mg PO DAILY 11/02/16 Valsartan 160 mg PO DAILY 11/02/16 Vitamin B Complex [B Complex # 1] 1 each PO DAILY 11/02/16 Furosemide [Lasix -] 40 mg PO DAILY #7 tablet 11/09/16 Salmeterol/Fluticasone [Advair 100Mcg/50Mcg -] 1 puff IH BID inhaler 11/09/16 Aspirin [Adult Aspirin Regimen] 81 mg PO DAILY 02/07/18 Collagenase Clostridium Hist. [Santyl] 1 unit TP DAILY 02/07/18 Pramipexole Di-HCl [Mirapex] 0.5 mg PO HS 02/07/18 Review of Systems - Review of Systems Constitutional: reports: No Symptoms Eyes: reports: No Symptoms HENT: reports: No Symptoms Neck: reports: No Symptoms Cardiovascular: reports: No Symptoms Respiratory: reports: No Symptoms Gastrointestinal: reports: No Symptoms Genitourinary: reports: No Symptoms Breasts: reports: No Symptoms Reported Musculoskeletal: reports: No Symptoms Integumentary: reports: No Symptoms Neurological: reports: No Symptoms Endocrine: reports: No Symptoms Hematology/Lymphatic: reports: No Symptoms Psychiatric: reports: No Symptoms Physical Examination Vital Signs: Vital Signs Temperature 97.7 F 02/09/18 14:06 Pulse Rate 64 02/09/18 14:35 Respiratory Rate 16 02/09/18 14:35 Blood Pressure 103/59 02/09/18 14:35 O2 Sat by Pulse Oximetry (%) 100 02/09/18 14:35 Constitutional: Yes: Well Nourished, No Distress, Calm Eyes: Yes: WNL, Conjunctiva Clear, EOM Intact HENT: Yes: WNL, Atraumatic, Normocephalic Neck: Yes: WNL, Supple, Trachea Midline Cardiovascular: Yes: WNL, Regular Rate and Rhythm Respiratory: Yes: WNL, Regular, CTA Bilaterally Gastrointestinal: Yes: WNL, Normal Bowel Sounds Musculoskeletal: Yes: WNL Extremities: Yes: Other (thigh and calf ulcers. Necrotic) Edema: No Edema: LLE: 2+, RLE: 2+ Peripheral Pulses: Left Radial: 2+, Right Radial: 2+, Left Doralis Pedis: 2+, Right Dorsalis Pedis: 2+, Left Femoral: 2+, Right Femoral: 2+ Integumentary: Yes: WNL Neurological: Yes: WNL, Alert, Oriented ...Motor Strength: WNL Psychiatric: Yes: WNL Problem List - Problems (1) Cellulitis and abscess of leg Code(s): L02.419 - CUTANEOUS ABSCESS OF LIMB, UNSPECIFIED; L03.119 - CELLULITIS OF UNSPECIFIED PART OF LIMB Assessment/Plan Right thigh and calf ulcers 1. For debridement today
[2018-02-09] MEDS ORDERED: HYDROmorphone HCL CARPU-JECT 2 MG/1 ML DISP.SYRIN IVPB PRN (17:19)
[2018-02-09] MEDS: morphine SULFATE 4 MG/ML VIAL IVPUSH PRN (18:44)
[2018-02-09] MEDS: LACTATED RINGERS SOLUTION 1,000 ML IV SCH (18:45)
[2018-02-10] MEDS: morphine SULFATE 4 MG/ML VIAL IVPUSH PRN ×2 (00:35→06:14)
[2018-02-10] MEDS ORDERED: ACETAMINOPHEN 325 MG TABLET (FP) PO ONE (01:22)
[2018-02-10] MEDS: LACTATED RINGERS SOLUTION 1,000 ML IV SCH ×2 (05:19→16:01)
[2018-02-10] MEDS ORDERED: FUROSEMIDE 40 MG TABLET (FP) PO SCH (10:00)
[2018-02-10] MEDS ORDERED: VALSARTAN 160 MG TABLET (UD) PO SCH (10:00)
--- NOTE | 2018-02-10 11:26 | PN ---
Progress Note (short form) - Note Progress Note: POD #1 Alert. Doing well. No acute events. C/o incisional tenderness. Pain control via PRN meds. Denies n/v/f/c, CP, cough or SOB. Last Vital Signs Temp Pulse Resp BP Pulse Ox 99.4 F 80 20 128/68 95 02/10/18 05:12 02/10/18 05:12 02/10/18 05:12 02/10/18 05:12 02/09/18 22:00 PE General: nad RLE: dressings c/d/i. Problem List - Problems (1) Cellulitis and abscess of leg Assessment/Plan: POD #1 s/p Excisional debridement thigh, calf -- skin, subcutaneous tissue, muscle. Dressing changes at home with wet-to-dry (patient has supplies at home) f/u Tuesday w/ [facility] Carab[facility] today per Dr. Caraballo Code(s): L02.419 - CUTANEOUS ABSCESS OF LIMB, UNSPECIFIED; L03.119 - CELLULITIS OF UNSPECIFIED PART OF LIMB
[2018-02-10] MEDS ORDERED: ACETAMINOPHEN WITH CODEINE 300MG/30MG TABLET PO PRN (13:27)
[2018-02-10 15:20] VITALS: BP 126/70; PULSE 76; TEMP 97.5
--- NOTE | 2018-02-10 16:48 | PN ---
Progress Note (short form) - Note Progress Note: Vascular surgery Pt to be admitted due to the fact that we cannot get VNS services until tuesday. Crys to all wound daily Evangelist ferro DO Problem List - Problems (1) Cellulitis and abscess of leg Code(s): L02.419 - CUTANEOUS ABSCESS OF LIMB, UNSPECIFIED; L03.119 - CELLULITIS OF UNSPECIFIED PART OF LIMB
[2018-02-10] MEDS ORDERED: COLLAGENASE CLOSTRIDIUM HIST. 30 GRAMS TUBE TP SCH (17:00)
--- NOTE | 2018-02-13 11:37 | PATH ---
Surgical Pathology Report Patient Name: ISAK CUMMINGS [facility]. Rec. #: [id number] /Age/Gender: 1970 (Age: 47) / F Account: [id number] Location: [address] [place] [address]/[facility] Taken: 02/09/2018 Received: 02/10/2018 Reported: 02/13/2018 Physicians: Evangelist Caraballo Specimen(s) Received DEBRIDEMENT TISSUE RIGHT THIGH Clinical History Right leg ulcer Final Diagnosis SOFT TISSUE, RIGHT THIGH, DEBRIDEMENT: FIBROFATTY TISSUE WITH FAT NECROSIS AND DYSTROPHIC CALCIFICATION, ALONG WITH INFLAMED GRANULATION TISSUE, AND FIBROUS TISSUE WITH GANGRENOUS NECROSIS Electronically Signed Eric Coley M.D. Gross Description Received in formalin labeled "debrided tissue right thigh," is a 4.8 x 4.3 x 1.8 cm aggregate of gutierrez-yellow, necrotic portions of soft tissue. Rolloff Driver sections are submitted in one cassette. /02/10/2018 [place]udi/02/10/2018
== END 2018-02-10 18:00 | disposition home or self-care (01) | DRG 364 ==
LOC: JASU-SURG 10:24 → J6S 17:40 → JASU-SURG 02-10 17:54
PROVIDERS: ADMIT Surgery Vascular Surgery; ATTEND Surgery Vascular Surgery
PROC: 0KBQ0ZZ Excision of Right Upper Leg Muscle, Open Approach (ICD-10-PCS; 2018-02-09)
PROC: 0KBS0ZZ Excision of Right Lower Leg Muscle, Open Approach (ICD-10-PCS; principal; 2018-02-09 12:00)
DX: L03.115 Cellulitis of right lower limb (principal); I27.20 Pulmonary hypertension, unspecified; I50.9 Heart failure, unspecified; L97.215 Non-pressure chronic ulcer of right calf with muscle involvement without evidence of necrosis; L97.115 Non-pressure chronic ulcer of right thigh with muscle involvement without evidence of necrosis; I25.10 Atherosclerotic heart disease of native coronary artery without angina pectoris; I25.2 Old myocardial infarction; J44.9 Chronic obstructive pulmonary disease, unspecified; F17.210 Nicotine dependence, cigarettes, uncomplicated
CPT/HCPCS: 88304-TC; 94760